=== PATIENT | male | born 1965 | race Caucasian/White ===

== ENCOUNTER 2025-02-02 09:47 | Observation (INO) | payer MEDICAID, SELFPAY ==
[2025-02-02] VITALS (75 sets, daily range): BP systolic 90–140; BP diastolic 39–81; PULSE 57–92; RESP 12–23; TEMP 36.6; O2SAT 92–94
--- NOTE | 2025-02-02 09:45 | DI.RAD_ITS ---
Exam(s) XR CHEST 2V PA LATERAL EXAM: XR CHEST 2V PA LATERAL CLINICAL HISTORY: Chest pain TECHNIQUE: 2D digital imaging was performed. Two views. COMPARISON: No exams were available for comparison FINDINGS: HEART: Normal size. Aorta: Not dilated. PULMONARY VASCULATURE: Normal. MEDIASTINUM: Unremarkable. LUNGS: Clear. PLEURAL SPACE: No pleural effusion or pneumothorax. BONE:Old left mid rib fracture. SOFT TISSUES: Unremarkable. IMPRESSION: No acute abnormality. DATA REPOSITORY: RADIATION DOSE DELIVERED:
--- NOTE | 2025-02-02 09:45 | RT.EKG_ITS ---
APPROVED REPORT Exam: Resting ECG Reason for Exam: tingling in arms Patient Location: E HR:62 bpm ECG Measurements Heart Rate 62 AXIS MN 164 P 49 QRSd 123 QRS 6 QT 420 T -26 QTc 427 Conclusion Sinus rhythm 62 normal axis no stemi
--- NOTE | 2025-02-02 10:23 | ED.GENADUL_ITS ---
Discharge Plan Disposition Patient Disposition: Admit to [facility] Condition: Stable Discharge Details Clinical Impression: Angina pectoris, unstable Primary Care Provider: None,None ED Provider: Melissa Stock Home Meds and New Rx's Prescriptions: No Action isosorbide mononitrate 30 mg tablet extended release 24 hr 30 mg PO Patient Comments: TAKE ONE TABLET BY MOUTH EVERY MORNING lisinopril 10 mg tablet Patient Comments: TAKE ONE TABLET BY MOUTH EVERY DAY albuterol sulfate 90 mcg/actuation HFA aerosol inhaler INHALATION Patient Comments: INHALE 2 PUFFS BY MOUTH EVERY 6 HOURS, NEEDED FOR SHORTNESS OF BREATH OR WHEEZING sertraline 50 mg tablet Patient Comments: TAKE ONE TABLET BY MOUTH EVERY DAY HPI General Date/Time Provider Initiated Documentation: 02/02/25 09:58 . Limitations to Documentation: no limitations . Information obtained by: patient, family and RN notes reviewed . History of Present Illness 59 year old M presents to the emergency department with the chief complaint of CP, SOB, described as moderate, Quality is described as other (tight), and is localized to the chest. Patient extremity (reports tingling in BUE when symptoms are present). Patient started experiencing this day(s) (3) and it has been intermittent. Immobilization improves symptom(s), Movement worsens symptoms . Patient notes chest pain, malaise and shortness of breath; denies cough, diaphoresis, headaches, nausea/vomiting and rash. Patient did receive the following treatments prior to arrival, none Related Data Home Medications ?Medication ?Instructions ?Recorded ?Confirmed albuterol sulfate 90 mcg/actuation inhalation 02/02/25 aerosol inhaler isosorbide mononitrate 30 mg 30 mg PO 02/02/25 tablet,extended release 24 hr Held on 02/02/25. Instructions: Pt Stopped/Never Started lisinopril 10 mg tablet mg 02/02/25 sertraline 50 mg tablet mg 02/02/25 General Stated Complaint: GenMedical ADY: 3 Review of Systems Constitutional Constitutional: Reports as per HPI, Denies chills, Denies fever(s) and Denies headache(s) Eyes Eyes: Denies change in vision ENT Ears, Nose, Mouth, and Throat: Denies dizziness and Denies headache(s) Cardiovascular Cardiovascular: Reports as per HPI Respiratory Respiratory: Reports as per HPI, Denies chest congestion, Denies cough, Denies pain on inspiration and Denies pain with cough Gastrointestinal Gastrointestinal: Reports as per HPI, Denies abdominal pain, Denies diarrhea, Denies nausea and Denies vomiting Musculoskeletal Musculoskeletal: Reports as per HPI and Denies back pain Integumentary/Breasts Skin/Breast: Reports as per HPI and Denies rash Neurologic Neurologic: Reports as per HPI, Denies dizziness and Denies headache(s) Exam Const General: cooperative, healthy appearing, comfortable, no acute distress and well developed Nutritional Appearance: well nourished and overweight Orientation: alert, awake and oriented x3 Chest Chest: normal inspection of the chest, normal palpation of entire chest wall and no crepitus Resp Effort & Inspection: normal respiratory effort, able to speak in complete sentences and no respiratory distress Auscultation: clear to auscultation bilaterally, no rales, no rhonchi and no wheezes Cardio Rate: regular rate Rhythm: regular rhythm Heart Sounds: murmur systolic GI Inspection: normal to inspection, no edema and non-distended Palpation: soft, not firm, no guarding and nontender Auscultation: normal bowel sounds Skin General skin exam: no rashes or lesions noted Trauma: no lacerations or abrasions Neuro General: patient alert, patient awake and patient oriented x3 Cognition: normal cognition Speech: speech normal Gait: normal gait Extrem General: normal to inspection, capillary refill normal, no pedal edema, no calf tenderness and normal gait Psych Appearance: grossly normal and well kempt Mental Status: mental status grossly normal Speech and Movement: speech and movement normal Mood: congruent mood Affect: sad Attitude: cooperative Thought Process: normal Thought Content: normal and suicidality Course Vital Signs Vital signs: Vital Signs Temperature 36.6 C 02/02/25 09:49 Pulse 62 02/02/25 09:49 Respiratory Rate 18 02/02/25 09:49 Blood Pressure 139/81 02/02/25 09:49 Pulse Oximetry 93 02/02/25 09:49 Temperature 36.6 C 02/02/25 09:49 Pulse 62 02/02/25 09:49 Respiratory Rate 18 02/02/25 09:49 Blood Pressure 139/81 02/02/25 09:49 Pulse Oximetry 93 02/02/25 09:49 Oxygen Delivery Method Room Air 02/02/25 09:49 Oxygen Flow Rate 0 02/02/25 09:49 Pain Level 6 02/02/25 09:49 Medical Decision Making Patient is a pleasant 59-year-old gentleman presenting with chief complaint of chest pain, shortness of breath and tingling in his bilateral upper extremities. Patient reports past medical history significant for hypertension, aortic stenosis, broken heart disease, CAD. He reports that he had a stress MRI at [facility], has paper from his PCP that reports that he has occlusion to RCA. He has started on baby ASA. States he suffered syncopal episodes- unclear how long he was down- yesterday and was seen in the [facility] ED yesterday. States that he was d/c'ed home after workup. He states that sypmtoms have been particularly bad over jerzy past 3 works, progressively worsening which is what prompts reevaluation today. He reports he could only walk very short distances at this time and then suffer with SOB and CP, takes longer time to resolve. States being seated for 15-20 minutes will help with discomfort. Pain is currently resolving. No nitro. On exam, he appears anxious but non-toxic and hemodynamically stable. He has clear lungs, systolic murmurk consistent with hx of aortic stenosis. 2+ distal pulses in all extremities, no LE edema, no abdominal pain. No pain into his back. No indication at this time for AAA or dissection. Very concerned about ACS, p ossible arrhythmia yesterday, particularly with the RCA involvement. Will augment his baby ASA. Will keep on monitor. ECG obtained and reviewed by ED physician. No STEMI. Concerned for UA vs. NSTEMI. Has appointment March 10 with cardiology. Also considered worsening aortic stenosis needing more urgent intervention. He does report, broken heart, may have had takosubo, unclear if this is still an issue for him. Of note, patient also lost his about one year ago and is very upset, supporting his family through this. No SI but clearly appears depressed, he is open to speaking with . Labs significant for troponin of 74. When he was at [facility] yesterday who appears to use the same cutoff criteria as our institution, troponin was 39. Plan for delta troponin now. Did reevaluate the patient and he reports that he has had some slight increase but seems more like pressure. He states that some of this seems to be anxiety and is open to an anxiety lytic. He does not feel like the same type of pain that he experiences with exertion. Will give half milligram of Ativan. Of note, I did review the notes from [facility] from when he had a cardiac catheterization completed last winter. At that time, they reported that they had some issues with medications as well as compliance associated with cocaine use. Patient reports that he has not used any cocaine since that event. Delta troponin remains stable. With no elevation, concerned for UA. Have consulted with [facility], requested cardiology consultation Spoke with cardiology who advised that they are concerned about his past drug use as well as compliance of his medications. She reviewed the recent PET, low flow areas consistent with previous identified blockages. She advises that he should be on Amlodipine 10, ASA, Plavix 75, Imdur 40, Atorvastatin 40, serrtraline 50 after his d/c in May. Patient has not been taking this. She recommends starting with meds. Patient had reported f/u but they also advised that he has had several no-show appointments. I expressed concerns over syncope yesterday as well as his increased symptoms regardless of starting the medications. She would liek a UDS for further evaluation. She advised aortic stenosis was also moderate when last evaluated so unlikely to cause an acute issue. [facility] advised that they would get echo, zio, start meds and monitor. Discussed recommendations with patient. He agrees to admission. He is unclear on jerzy medications he takes- will try to get an updated list from PCP if possible. Will give the medications advised. Obtaining UDS. No beds currently but will try to look for lateral transfer if none are opening up here. Consulted with hospitalist regarding admission for unstable angina, continued cardiac monitoring and plan for echo. [facility] All Active Problems (Updated 02/02/25 @ 16:53 by VALENCIA Hdez) Angina pectoris, unstable (Acute) Social History Smoking/Tobacco Use Status: Current every day Tobacco Type: cigarettes Years smoked: 41 Smoking risk assessment performed?: Yes Alcohol Intake: current Alcohol Intake frequency: a few times a month Substance use type: does not use Housing: apartment Do you feel safe at home: Yes Do you feel safe in your relationship?: Yes
[2025-02-02 10:38] LABS: Abs Immature Grans 0.04 10^3/uL (0.0-0.06); HCT 37.4 % (40.0-50.0); HGB 12.4 g/dL (13.5-17.5); Immature Grans % 0.5 %; MCH 31.0 pg (27.0-33.0); MCHC 33.2 % (32.0-36.0); MCV 94 fL (80-95); MPV 10.9 fL (8.0-11.0); Platelet Count 193 10^3/uL (130-400); RBC 4.00 10^6/uL (4.36-5.78); RDW 13.2 % (11.8-14.1); RDW-SD 45.5 fL; WBC 7.58 10^3/uL (4.4-10.8)
[2025-02-02] MEDS: Aspirin 81 MG CHEW 324 MG CH (10:41)
[2025-02-02 11:22] LABS: ALT 26 U/L (16-63); AST 18 U/L (15-37); Albumin 3.6 g/dL (3.4-5.0); Alkaline Phosphatase 122 U/L (46-116); Anion Gap 10.4 mmol/L (3-11); BUN 14 mg/dL (7-18); Bilirubin, Total 0.1 mg/dL (0.2-1.0); CO2 24.6 mmol/L (21.0-32.0); Calcium 8.7 mg/dL (8.5-10.1); Chloride 102 mmol/L (98-107); Estimated GFR 104.83 (mL/min/1.73m2); Glucose 156 mg/dL (74-106); Magnesium 2.1 mg/dL (1.8-2.4); Potassium 4.0 mmol/L (3.5-5.1); Sodium 137 mmol/L (136-145); Total Protein 7.2 g/dL (6.4-8.2); Troponin I 74 ng/L (<or=76)
[2025-02-02 11:42] LABS: Troponin I 72 ng/L (<or=76)
--- NOTE | 2025-02-02 12:00 | RT.EKG_ITS ---
APPROVED REPORT Exam: Resting ECG Reason for Exam: with trop for CP Patient Location: E HR:62 bpm ECG Measurements Heart Rate 62 AXIS [place] 162 P 55 QRSd 119 QRS 6 QT 425 T -27 QTc 431 Conclusion Sinus rhythm 62 normal axis no stemi
--- NOTE | 2025-02-02 12:30 | DI.CT_ITS ---
Exam(s) CT HEAD WO EXAM: CT HEAD WO CLINICAL HISTORY: syncope yesterday, struck head. TECHNIQUE: Imaging Protocol: Axial computed tomography images with coronal and sagittal reformatted images were created and reviewed COMPARISON: No exams were available for comparison FINDINGS: Ventricles and Extra axial spaces: Normal in size and morphology for the patient's age. Hemorrhage: None. Cerebral parenchyma: No evidence of acute infarct or mass. Moderate atrophy. Midline shift: None. Brainstem/Cerebellum: Normal. Bones: No skull or facial fractures. Visualized Paranasal sinuses:Clear. Mastoids: Clear. Soft Tissues: Unremarkable. ORBITS: Unremarkable. PITUITARY: Not enlarged. IMPRESSION: No acute intracranial process. RADIATION DOSE DELIVERED: 879.53mGy.cm Total DLP DATA REPOSITORY: All CT scans at this facility are submitted to the National Radiology Data Registry (NRDR) Dose Index Registry (DIR) with the [employer] (A[employer]). RADIATION OPTIMIZATION: All CT scans at this facility use at least one of these dose optimization techniques: automated exposure control; mA and/or kV adjustment per patient size (includes targeted exams where dose is matched to clinical indication); or iterative reconstruction.
[2025-02-02] MEDS: LORazepam 20 MG/10 ML VIAL IVP (12:51)
[2025-02-02 14:47] LABS: Troponin I 66 ng/L (<or=76)
[2025-02-02] MEDS: Clopidogrel 75 MG TAB PO (15:15)
[2025-02-02] MEDS: Atorvastatin 40 MG TAB PO (15:15)
[2025-02-02] MEDS: amLODIPine 10 MG TAB PO (15:35)
[2025-02-02] MEDS: Isosorbide Mononitrate 30 MG TABCR PO (15:35)
--- NOTE | 2025-02-02 15:54 | W.PM.HP.N ---
Date of service: 02/02/25 Time of Service: 15:00 Assessment and Plan Assessment and plan (1) Angina pectoris, unstable: Status: Acute Assessment and plan: Symptoms consistent with unstable angina Appreciate recommendations from [facility] Will monitor on telemetry Echo ordered Restarted home medications (2) RCA occlusion: Status: Acute Assessment and plan: PCI at [facility] last year Patient was lost to followup Interventions were intended to be limited to medical management (3) Benign essential hypertension: Status: Acute Assessment and plan: Restarted ACEI, beta alaina, statin Will restart nitrate in the morning (4) Major depression, recurrent, chronic: Status: Acute Assessment and plan: Continue home sertraline History of Present Illness History of Present Illness Chief Complaint: chest pain, dyspnea Narrative: Agatha Lua is a 59 year old man presenting February 02 with chest pain and shortness of breath. He also reports tingling in both arms when the pain in his chest is bad. He has had these symptoms for 3 weeks, intermittently, and they are worse with movement. He reports passing out a few times, most recently yesterday, and he was seen in the [facility] ED. He has a recent history of cardiac catheterization at [facility], where his RCA was found to be fully occluded; he recalls being told he has broken heart syndrome. He also has known aortic stenosis. He denies abdominal pain, denies N/V/D. His a year ago and he has been struggling. He has not been taking his medications. In the ED, exam noted systolic murmur. Troponin elevated 74, up from 39 in [facility] ED. No further increase on repeat troponin. [facility] was contacted and advised restarting medications, echocardiogram and monitoring on telemetry, as well as UDS. PFSH All Active Problems (Updated 02/02/25 @ 19:06 by Benjie Chauhan MD) Major depression, recurrent, chronic (Acute) Benign essential hypertension (Acute) RCA occlusion (Acute) Angina pectoris, unstable (Acute) Social History Smoking/Tobacco Use Status: Current every day Tobacco Type: cigarettes Years smoked: 41 Smoking risk assessment performed?: Yes Alcohol Intake: current Alcohol Intake frequency: a few times a month Substance use type: does not use Housing: apartment Do you feel safe at home: Yes Do you feel safe in your relationship?: Yes Meds Allergies and Home Medications Home Medications ?Medication ?Instructions ?Recorded ?Confirmed ?Type albuterol sulfate 90 mcg/actuation inhalation 02/02/25 History aerosol inhaler isosorbide mononitrate 30 mg 30 mg PO 02/02/25 History tablet,extended release 24 hr Held on 02/02/25. Instructions: Pt Stopped/Never Started lisinopril 10 mg tablet mg 02/02/25 History sertraline 50 mg tablet mg 02/02/25 History Exam Narrative Exam Narrative: General: This is an anxious man, sad-appearing, in no acute distress HEENT: Normocephalic, atraumatic CV: RRR with 2/6 systolic murmur Resp: CTAB Abd: NTND +NBS MSK: normal tone, voluntary motion x4, distal pulses palpable Neuro: Awake and alert without focal deficits Results Imaging Imaging Studies: * * * * * EXAM: XR CHEST 2V PA LATERAL IMPRESSION: No acute abnormality. Dictated By: Brittany Schmitt M.D. 02/02/25 1139 * * * * * EXAM: CT HEAD WO IMPRESSION: No acute intracranial process. Dictated By: Brittany Schmitt M.D. 02/02/25 1416 * * * * * Labs 02/02/25 10:30 02/02/25 10:30 Labs: Laboratory Results - last 24 hr 02/02/25 02/02/25 02/02/25 10:30 11:15 14:18 WBC 7.58 RBC 4.00 L Hgb 12.4 L Hct 37.4 L MCV 94 MCH 31.0 MCHC 33.2 RDW 13.2 Plt Count 193 MPV 10.9 Immature Gran % 0.5 Neutrophils % 59.2 Lymphocytes % 27.8 Monocytes % 9.8 Eosinophils % 2.0 Basophils % 0.7 Nucleated RBC % 0.0 Absolute Neutrophils 4.49 Absolute Lymphocytes 2.11 Absolute Monocytes 0.74 Absolute Eosinophils 0.15 Absolute Basophils 0.05 Sodium 137 Potassium 4.0 Chloride 102 Carbon Dioxide 24.6 Anion Gap 10.4 BUN 14 Creatinine 0.7 Est GFR (CKD-EPI 2020) 104.83 Glucose 156 H Calcium 8.7 Magnesium 2.1 Total Bilirubin 0.1 L AST 18 ALT 26 Alkaline Phosphatase 122 H Troponin I 74 72 66 Total Protein 7.2 Albumin 3.6 Last Vital Signs Temp 36.6 C 02/02/25 10:18 Pulse 62 02/02/25 10:18 Resp 18 02/02/25 10:19 BP 139/81 02/02/25 10:18 Pulse Ox 93 02/02/25 10:18 Time Spent Time spent with Patient: 40-54 minutes Time was spent: preparing to see the patient(eg.review tests), obtaining and/or reviewing separately otained hiistory, ordering medications,tests, procedures, referring, communicating with other health child care development specialist, indepentently interpreting results, counseling the patient and care coordination
[2025-02-02 16:22] LABS: Glucose Negative (Negative)
[2025-02-02 16:38] LABS: Cannabinoids THC Negative (Negative); METHADONE URINE SCREEN Negative (Negative)
[2025-02-03] VITALS (68 sets, daily range): BP systolic 109–155; BP diastolic 47–73; PULSE 52–91; RESP 9–29; TEMP 36.9; O2SAT 92–98
--- NOTE | 2025-02-03 | DI.US_ITS ---
APPROVED REPORT EXAM: Comprehensive 2D, Doppler, and color-flow Echocardiogram Patient Location: ER Room/Bed: 4 Licensed Social Worker: Gladys Almaraz RDCS (AE) Other Information Study Quality: Fair. Technically limited study due to body habitus, smoker. Conclusion Moderate concentric left ventricular hypertrophy. Ejection fraction is 55%. Wall motion is normal Normal right ventricular size and function Mildly dilated left atrium. Normal right atrial size Aortic valve is calcified. Number of aortic valve leaflets could not be determined. There is moderate aortic stenosis. Peak gradient is 34, mean 22 mmHg. Calculated aortic valve area is 1.2 cm??. There is mild aortic regurgitation Mitral annular calcification, trace mitral regurgitation Ascending aorta measures 3.63 cm Wall motion Left Ventricle The left ventricle is normal size. The left ventricular systolic function is normal. The left ventricular ejection fraction is within the normal range. Moderate concentric left ventricular hypertrophy. There is normal LV segmental wall motion. There is no ventricular septal defect visualized. LVEF is 55%. Right Ventricle The right ventricle is normal size. The right ventricular systolic function is normal. Atria Left atrium is mildly dilated. The right atrium size is normal. The interatrial septum is intact with no evidence for an atrial septal defect. Aortic Valve Aortic valve is calcified. Number of aortic valve leaflets could not be assessed. Moderate aortic stenosis. Highest mean aortic valve gradient is 22.11mmHg. Peak aortic valve gradient is 33.76mmHg. Calculated KATHRYN by the continuity equation is 1.2cm2. Mild aortic regurgitation. Mitral Valve Mild mitral annular calcification. No evidence of mitral valve stenosis. Trace mitral regurgitation. Tricuspid Valve The tricuspid valve is normal in structure. There is no tricuspid valve stenosis. Trace tricuspid regurgitation. Unable to assess PA pressure. Pulmonic Valve The pulmonary valve is normal in structure. There is no pulmonic valvular stenosis. Mild pulmonic regurgitation. Great Vessels The aortic root is normal in size. The ascending aorta is mildly dilated. Aortic arch is not well visualized. IVC is normal in size and collapses >50% with inspiration. Pericardium There is no pericardial effusion. 2D Dimensions IVSD d PLAX 1.40 cm M: 0.6-1.2 Ao Root d 3.47 cm M: 3.1 - 3.7 LVPW d PLAX 1.40 cm M: 0.6 - 1.2 Ao Asc Diam d 3.63 cm M: 2.6 - 3.4 LVID d PLAX 5.30 cm M: 4.2 - 5.8 LVDs 3.80 cm M: 2.5 - 4.0 LV EF Teichholz 53.9 % FS 28.08 % LV EDV (Teich) 132.5 mL LV ESV (Teich) 61.1 mL M-Mode TAPSE 2.83 cm (M/F) >1.7 Auto EF LV EDV A4C 212.6 mL LV EDV A2C 195.1 mL LV EDV BP 203.5 mL LV ESV A4C 96.4 mL LV ESV A2C 88.3 mL LV ESV BP 93.9 mL LVEF(%) A4C 54.7 % LVEF(%) A2C 54.7 % LVEF(%) BP 53.9 % LV SV A4C 116.2 ml LV SV A2C 106.8 ml LV SV BP 109.6 ml LV CO A4C 7.7 L/min LV CO A2C 6.8 L/min LV CO BP 7.2 L/min HR A4C 66.03 BPM HR A2C 63.84 BPM LV EDV Index (BP) LA Volume LA Length A4C 4.7 cm LA Length A2C 4.7 cm LA Area A4C s 20.54 cm2 LA Area A2C s 20.10 cm2 LA Vol A4C A-L 76.85 mL LA Vol A2C A-L 72.60 mL LA Vol Biplane A-L 75.2 mL LA Vol/BSA A4C A-L LA Vol/BSA A2C A-L LA Vol/BSA BP A-L 36.5 mL/m2 LA Vol A4C MOD 72.2 mL LA Vol A2C MOD 66.3 mL LA Vol BP MOD 69.5 mL RA Volume RA Area A4C 14.0 cm2 RA ESV A4C (A-L) 40.3mL RA Vol/BSA A4C A-L RA Length A4C 4.1 cm RA ESV A4C (MOD) 38.0mL LV Diastology MV E' medial 0.065 (>0.07 m/s) MV E Vmax 0.75 (0.4-1.3 m/s) MV E/E' MED 11.55 (<14) MV A Vmax 0.90 (0.4-1.3 m/s) MV E' lateral 0.067 (>0.1 m/s) E/A Ratio 0.8 MV E/E' LAT 11.24 (<14) MV E' Average 0.066 m/s MV E/E'(average) 11.39 Aortic Valve AoV Vmax 2.91 m/s LVOT Vmax 0.89 m/s AoV Peak Grad 33.8 mmHg LVOT Peak Grad 3.1 mmHg AoV Area (Vmax) 1.24 cm2 LVOT VTI 0.223 m AoV VTI 0.692 m LVOT Mean Grad 1.9 mmHg AoV Mean Flako. 2.25 m/s LVOT SV 90.35 mL AoV Mean Grad 22.1 mmHg LVOT Diam s 2.25 cm AoV Area (VTI) 1.31 cm2 AV Regurg Peak Gr. 33.76 mmHg Velocity Ratio 0.31 Mitral Valve MV DT 233 (160-240 msec) MV Vmax TIPS 0.93 m/s MV Mean Grad 1.4 (<2mmHg) MV VTI 0.390 m Pulmonary Valve PV Vmax 1.16 (0.5-1.5 m/s) RVOT Vmax 0.68 m/s PV Peak Grad 5.4 mmHg RVOT Peak Gr. 1.8 mmHg PV Mean Flako 0.91 m/s RVOT VTI 0.133 m PV Mean Grad 3.4 mmHg RVOT Mean Gr. 1.4 mmHg Tricuspid Valve TV S' 0.16 m/s
[2025-02-03] MEDS: Enoxaparin 40 MG/0.4 ML SYR SC (08:12)
[2025-02-03] MEDS: Lisinopril 10 MG TAB PO (08:12)
[2025-02-03] MEDS: Metoprolol CR 25 MG TABCR PO (08:12)
[2025-02-03] MEDS: LORazepam 0.5 MG TAB PO (08:12)
[2025-02-03] MEDS: Aspirin 81 MG CHEW PO (08:13)
[2025-02-03 08:20] LABS: HCT 34.5 % (40.0-50.0); HGB 11.6 g/dL (13.5-17.5); MCH 31.6 pg (27.0-33.0); MCHC 33.6 % (32.0-36.0); MCV 94 fL (80-95); MPV 11.4 fL (8.0-11.0); Platelet Count 176 10^3/uL (130-400); RBC 3.67 10^6/uL (4.36-5.78); RDW 13.2 % (11.8-14.1); RDW-SD 45.5 fL; WBC 6.14 10^3/uL (4.4-10.8)
[2025-02-03 08:27] LABS: ALT 22 U/L (16-63); AST 17 U/L (15-37); Albumin 3.2 g/dL (3.4-5.0); Alkaline Phosphatase 99 U/L (46-116); Anion Gap 6.8 mmol/L (3-11); BUN 16 mg/dL (7-18); Bilirubin, Total 0.3 mg/dL (0.2-1.0); CO2 27.2 mmol/L (21.0-32.0); Calcium 8.8 mg/dL (8.5-10.1); Chloride 106 mmol/L (98-107); Estimated GFR 104.83 (mL/min/1.73m2); Glucose 127 mg/dL (74-106); Magnesium 2.1 mg/dL (1.8-2.4); Potassium 4.1 mmol/L (3.5-5.1); Sodium 140 mmol/L (136-145); Total Protein 6.6 g/dL (6.4-8.2)
[2025-02-03] MEDS: Nicotine 21 MG/24 HR PATCH TD (10:44)
[2025-02-03] MEDS: Acetaminophen 325 MG TAB 650 MG PO (10:44)
--- NOTE | 2025-02-03 13:16 | W.PC.ACHO ---
Registration Status: ADM KEYANNA Primary Language: Preferred Language: ED Information & Data Chief Complaint GenMedical 02/02/25 10:31 Triage Note pt with c/o bilateral arm 02/02/25 09:49 tingling onset 3 weeks ago pt states intermittent pt seen by primary care diagnosed blockage in RCA pt also c/o nausea and sob Most Recent Vital Signs Temperature 36.6 C 02/02/25 10:18 Temperature Source Oral 02/02/25 10:18 Pulse 74 02/03/25 12:59 Pulse 66 02/03/25 09:36 Respiratory Rate 16 02/03/25 12:59 Respiratory Effort Normal, Non-Labored 02/02/25 10:19 Respiratory Depth Normal 02/02/25 10:19 Respiratory Pattern Normal 02/02/25 10:19 Blood Pressure 133/60 02/03/25 12:59 Blood Pressure Mean 84 02/03/25 12:59 Blood Pressure Position Sitting 02/02/25 10:18 Pulse Oximetry 96 02/03/25 12:59 Oxygen Delivery Method Room Air 02/03/25 12:59 Oxygen Flow Rate 0 02/03/25 12:59 Pain Level 7 02/03/25 08:12 Active Medications Generic Name Dose Route Start Last Admin Trade Name Freq PRN Reason Stop Dose Admin Acetaminophen 650 mg 02/02/25 15:40 02/03/25 10:44 Acetaminophen 325 Mg Tab PO 650 mg Q4H PRN PRN Administration Aspirin 81 mg 02/03/25 08:30 02/03/25 08:13 Aspirin 81 Mg Chew PO 81 mg DAILY HEATHER Administration Atorvastatin Calcium 20 mg 02/02/25 20:00 02/02/25 21:49 Atorvastatin 20 Mg Tab PO Not Given QPM HEATHER Enoxaparin Sodium 40 mg 02/03/25 08:30 02/03/25 08:12 Enoxaparin 40 Mg/0.4 Ml Syr SC 40 mg DAILY HEATHER Administration Lisinopril 10 mg 02/03/25 08:30 02/03/25 08:12 Lisinopril 10 Mg Tab PO 10 mg QAM HEATHER Administration Metoprolol Succinate 25 mg 02/03/25 08:30 02/03/25 08:12 Metoprolol Cr 25 Mg Tabcr PO 25 mg DAILY HEATHER Administration Sodium Chloride 0 ml 02/02/25 20:00 02/03/25 09:27 Normal Saline Flush 10 Ml Syr IVP Not Given BID COUNT INCLUDES THE [facility] IV IV Catheter Type [Left Saline Lock Antecubital] IV Catheter Gauge [Left 18 Antecubital] Diagnostics 02/03/25 02/02/25 02/02/25 Range/Units 07:20 14:54 14:18 WBC 6.14 (4.4-10.8) 10^3/uL RBC 3.67 L (4.36-5.78) 10^6/uL Hgb 11.6 L (13.5-17.5) g/dL Hct 34.5 L (40.0-50.0) % MCV 94 (80-95) fL MCH 31.6 (27.0-33.0) pg MCHC 33.6 (32.0-36.0) % RDW 13.2 (11.8-14.1) % Plt Count 176 (130-400) 10^3/uL MPV 11.4 H (8.0-11.0) fL Sodium 140 (136-145) mmol/L Potassium 4.1 (3.5-5.1) mmol/L Chloride 106 (98-107) mmol/L Carbon Dioxide 27.2 (21.0-32.0) mmol/L Anion Gap 6.8 (3-11) mmol/L BUN 16 (7-18) mg/dL Creatinine 0.7 (0.70-1.30) mg/dL Est GFR (CKD-EPI 2020) 104.83 (mL/min/1.73m2) Glucose 127 H (74-106) mg/dL Calcium 8.8 (8.5-10.1) mg/dL Magnesium 2.1 (1.8-2.4) mg/dL Total Bilirubin 0.3 (0.2-1.0) mg/dL AST 17 (15-37) U/L ALT 22 (16-63) U/L Alkaline Phosphatase 99 (46-116) U/L Troponin I 66 (<or=76) ng/L Total Protein 6.6 (6.4-8.2) g/dL Albumin 3.2 L (3.4-5.0) g/dL Urine Color Yellow (Yellow) Urine Clarity Clear (Clear) Urine pH 6.0 (5-8) Ur Specific [place] 1.010 (1.005-1.025) Urine Protein Negative (Neg-Trace) mg/dL Urine Ketones Negative (Negative) mg/dL Urine Blood Negative (Negative) Urine Nitrite Negative (Negative) Urine Bilirubin Negative (Negative) Urine Urobilinogen 0.2 (Up to 0.2) mg/dL Ur Leukocyte Esterase Negative (Negative) Urine Glucose Negative (Negative) mg/dL Urine Opiates Screen Negative (Negative) Urine Methadone Screen Negative (Negative) Ur Barbiturates Screen Negative (Negative) Ur Tricyclics Screen Negative (Negative) Ur Amphetamines Screen Negative (Negative) U Benzodiazepines Scrn Negative (Negative) Urine Cocaine Screen Positive A (Negative) Ur THC Screen Negative (Negative) Intake and Output - 24 Hour Total 02/02/25 09:47 thru 02/02/25 09:49 Weight 89.811 kg Falls Risk Assessment History of Falls No History 02/02/25 10:19 Contributing Factors No Factors 02/02/25 10:19 Ambulatory Aids Independent 02/02/25 10:19 Tubes/Lines None 02/02/25 10:19 Gait Evaluation No gait disturbance 02/02/25 10:19 Cognition No cognitive impairment 02/02/25 10:19 Fall Total Score 0 02/02/25 10:19 Level of Risk Standard/Low Risk 02/02/25 10:19 Problems Major depression, recurrent, chronic (Acute) Benign essential hypertension (Acute) RCA occlusion (Acute) Angina pectoris, unstable (Acute) v v v v v v v v v Sending and/or Receiving Nurses: Please use comment section below to note any information pertinent to the patient hand-off not included above. Information / Comments: Report received from: muriel
--- NOTE | 2025-02-03 14:16 | PDOC.CMIN ---
Date of service: 02/03/25 Time of Service: 14:16 Care Management Initial Assmt Advance Directives Advance Directives: Do you have an Advance Directive: N 02/02/25, 09:48 AD On File at [facility]: N 02/02/25, 09:48 Date Asked 02/02/25 02/02/25, 09:53 AD Date Reviewed COLST On File at [facility] COLST Date Scanned Code Status Resuscitation Status Full Code Care Team Visit Care Team Role Provider Type None None Primary Care Provider NON-[facility] STAFF PHYSICIAN VALENCIA Hdez Emergency Provider [facility] Benjie Chauhan MD Admit Provider [facility] STAFF PHYSICIAN Attending Provider Social Determinants of Health Screening Social Determinants of health last assessed in clinic: 02/03/25 Will the Patient Participate in the Screening?: Yes Do you worry about having a steady place to live?: no Problems where you live: no known problems In the past 12 months, have you had to go without electric, gas, oil or water in your home?: no Has lack of transportation kept you from medical appointments or from doing things needed for daily living?: yes Has anyone in your life made you feel unsafe or unsupported?: no How hard is it for you to pay for the very basics like food, housing, medical care, and heating? Would you say it is:: Somewhat hard Do you want help finding or keeping work or a job?: I do not need or want help If for any reason you need help with day-to-day activities such as bathing, preparing meals, shopping, managing finances, etc., do you get the help you need?: I don?t need any help How often do you feel lonely or isolated from those around you?: Never Do you speak a language other than Mongolian at home?: No Health Related Social Needs Health related social needs: transportation insecurity (Z59.82) and problems related to housing/economic circumstances (Z59.89) Health related social needs details: sometimes unable to get food and transportation but has help when unable to access it (friend in room) PFSH All Active Problems (Updated 02/02/25 @ 19:06 by Benjie Chauhan MD) Major depression, recurrent, chronic (Acute) Benign essential hypertension (Acute) RCA occlusion (Acute) Angina pectoris, unstable (Acute) Social History Smoking/Tobacco Use Status: Current every day Tobacco Type: cigarettes Years smoked: 41 Smoking risk assessment performed?: Yes Alcohol Intake: current Alcohol Intake frequency: a few times a month Substance use type: does not use Housing: apartment Do you feel safe at home: Yes Do you feel safe in your relationship?: Yes
--- NOTE | 2025-02-03 14:57 | W.PM.DS.N ---
Date of service: 02/03/25 Time of Service: 15:00 DS: Diagnosis Discharge Diagnosis (1) Angina pectoris, unstable: Status: Acute Asessment and Plan: Symptoms consistent with unstable angina Appreciate recommendations from [facility] No events on telemetry overnight No new disease on echocardiogram Patient has been restarted on his home medications per [facility] recommendation Patient strongly advised to follow up with [facility] cardiology and not miss scheduled appointments (2) RCA occlusion: Status: Acute Asessment and Plan: CI at [facility] last year Patient was lost to followup Interventions were intended to be limited to medical management (3) Benign essential hypertension: Status: Acute Asessment and Plan: Restarted ACEI, beta alaina, statin, nitrate Advised patient to take medications as directed and to see his superintendent storage area at [facility] (4) Major depression, recurrent, chronic: Status: Acute Asessment and Plan: Continue home sertraline Discharge Plan Disposition Patient Disposition: Home Condition: Improving Discharge Details Reason For Visit: Takotsubo Admit Date/Time: 02/02/25 15:41 Admit Provider: Benjie Chauhan Attending Provider: Benjie Chauhan Primary Care Provider: None,None Hospital Course Hospital Course: Agatha Lua is a 59 year old man presenting February 02 with chest pain and shortness of breath. He has a history of Takotsubo and known RCA occlusion, with PCI at [facility]. On advice of [facility] cardiology, he was monitored overnight on telemetry without events, his echocardiogram revealed no new disease, and his home medications were restarted. He is without symptoms and wants to go home. He will followup with his superintendent storage area at [facility]. Home Meds and New Rx's Prescriptions: New atorvastatin 20 mg Tablet 20 mg PO QPM Qty: 30 0RF aspirin 81 mg Tablet,Chewable 81 mg PO DAILY Qty: 30 0RF metoprolol succinate 25 mg Tablet Extended Release 24 Hr 25 mg PO DAILY Qty: 30 0RF Continued isosorbide mononitrate 30 mg tablet extended release 24 hr 30 mg PO ONCE Patient Comments: TAKE ONE TABLET BY MOUTH EVERY MORNING lisinopril 10 mg tablet 10 mg PO DAILY Patient Comments: TAKE ONE TABLET BY MOUTH EVERY DAY albuterol sulfate 90 mcg/actuation HFA aerosol inhaler 2 inh INHALATION Q6H PRN Patient Comments: INHALE 2 PUFFS BY MOUTH EVERY 6 HOURS, NEEDED FOR SHORTNESS OF BREATH OR WHEEZING sertraline 50 mg tablet 50 mg PO DAILY Patient Comments: TAKE ONE TABLET BY MOUTH EVERY DAY Discharge Instructions Stand Alone Forms: Nursing Discharge Form Referrals: [facility] [Provider Group] Referral Note: I called your PCP office and left a voicemail for them to call you to make a follow up appointment. CARDIOLOGY,[facility] [OTHER, Cardiology] Referral Note: Please follow up with superintendent storage area to make an appointment. Activity:: Activity as Tolerated Equipment/Supplies:: No Equipment Needed Diet:: As Tolerated Discharge Orders Discharge Orders: Discharge Order (Routine); Ordered 02/03/25 Ordered By: Benjie Chauhan Discharge Data Discharge Date/Time-TO BE ENTERED AT DEPARTURE: 02/03/25 15:50 DS: Summary Time Spent with Patient providing and/or coordinating discharge services: Less than 30 minutes Status at Discharge Functional status at discharge: independent ambulation Overall status at discharge: patient is back to baseline Mental Status: mental status grossly normal Speech and Movement: speech and movement normal Mood: anxious mood and dysthymic mood Affect: dysphoric affect and blunted Quality:SDOH Health Related Social Needs: Health related social needs food insecurity transpo insecurity house/econ circumstance Health related social needs details sometimes unable to get food and transportation but has help when unable to access it (friend in room) Health related social needs details: sometimes unable to get food and transportation but has help when unable to access it (friend in room) Exam Narrative Exam Narrative: General: This is a pleasant man in no acute distress HEENT: Normocephalic, atraumatic CV: RRR with 2/6 systolic murmur Resp: CTAB Abd: NTND +NBS MSK: normal tone, voluntary motion x4, distal pulses palpable Neuro: Awake and alert without focal deficits Psych Mental Status: mental status grossly normal Speech and Movement: speech and movement normal Mood: anxious mood and dysthymic mood Affect: dysphoric affect and blunted DS: Data Vitals/I&O Vitals and I&O: Vital Signs Temperature 36.9 C 02/03/25 13:24 Temperature Source Oral 02/02/25 10:18 Pulse 70 02/03/25 13:24 Pulse Rhythm Regular 02/03/25 13:24 Pulse 66 02/03/25 09:36 Respiratory Rate 20 02/03/25 13:24 Respiratory Effort Normal 02/03/25 13:24 Respiratory Depth Normal 02/03/25 13:24 Respiratory Pattern Normal 02/03/25 13:24 Blood Pressure 128/60 02/03/25 13:24 Blood Pressure Mean 84 02/03/25 12:59 Blood Pressure Position Sitting 02/02/25 10:18 Pulse Oximetry 98 02/03/25 13:24 Oxygen Delivery Method Room Air 02/03/25 13:24 Oxygen Flow Rate 0 02/03/25 13:24 Pain Level 6 02/03/25 13:24 Intake & Output 02/02/25 02/03/25 02/03/25 23:59 11:59 23:59 Output Total 500 / 500 Balance -500 / -500 Weight 89 kg Output: Urine 500 / 500 Other: Urine Color Yellow Urine Appearance Cloudy Urine Odor Normal Data Completed and Pending Completed studies during hospitalization [Text1]: * * * * * EXAM: XR CHEST 2V PA LATERAL IMPRESSION: No acute abnormality. Dictated By: Brittany Schmitt M.D. 02/02/25 1139 * * * * * EXAM: CT HEAD WO IMPRESSION: No acute intracranial process. Dictated By: Brittany Schmitt M.D. 02/02/25 1416 * * * * * EXAM: Comprehensive 2D, Doppler, and color-flow Echocardiogram Date of Exam: 02/03/25 Conclusion Moderate concentric left ventricular hypertrophy. Ejection fraction is 55%. Wall motion is normal Normal right ventricular size and function Mildly dilated left atrium. Normal right atrial size Aortic valve is calcified. Number of aortic valve leaflets could not be determined. There is moderate aortic stenosis. Peak gradient is 34, mean 22 mmHg. Calculated aortic valve area is 1.2 cm??. There is mild aortic regurgitation Mitral annular calcification, trace mitral regurgitation Ascending aorta measures 3.63 cm * * * * * Labs on day of discharge: Labs from last 24 hours 02/03/25 02/02/25 07:20 14:54 WBC 6.14 RBC 3.67 L Hgb 11.6 L Hct 34.5 L MCV 94 MCH 31.6 MCHC 33.6 RDW 13.2 Plt Count 176 MPV 11.4 H Sodium 140 Potassium 4.1 Chloride 106 Carbon Dioxide 27.2 Anion Gap 6.8 BUN 16 Creatinine 0.7 Est GFR (CKD-EPI 2020) 104.83 Glucose 127 H Calcium 8.8 Magnesium 2.1 Total Bilirubin 0.3 AST 17 ALT 22 Alkaline Phosphatase 99 Total Protein 6.6 Albumin 3.2 L Urine Color Yellow Urine Clarity Clear Urine pH 6.0 Ur Specific [place] 1.010 Urine Protein Negative Urine Ketones Negative Urine Blood Negative Urine Nitrite Negative Urine Bilirubin Negative Urine Urobilinogen 0.2 Ur Leukocyte Esterase Negative Urine Glucose Negative Urine Opiates Screen Negative Urine Methadone Screen Negative Ur Barbiturates Screen Negative Ur Tricyclics Screen Negative Ur Amphetamines Screen Negative U Benzodiazepines Scrn Negative Urine Cocaine Screen Positive A Ur THC Screen Negative PFSH All Active Problems (Updated 02/04/25 @ 00:03 by RAMON JACOBO) Major depression, recurrent, chronic (Acute) Benign essential hypertension (Acute) RCA occlusion (Acute) Angina pectoris, unstable (Acute) Social History Smoking/Tobacco Use Status: Current every day Tobacco Type: cigarettes Years smoked: 41 Smoking risk assessment performed?: Yes Alcohol Intake: current Alcohol Intake frequency: a few times a month Substance use type: does not use Housing: apartment Do you feel safe at home: Yes Do you feel safe in your relationship?: Yes Time Spent with Patient Time Spent with Patient: <45 minutes Time was spent: preparing to see the patient(eg.review tests), obtaining and/or reviewing separately otained hiistory, ordering medications,tests, procedures, referring, communicating with other health career coach, indepentently interpreting results, counseling the patient and care coordination
== END 2025-02-03 15:50 | disposition home or self-care (01) ==
LOC: ER 16:53 → EDHOLD 18:26 → MS 02-03 13:31
PROVIDERS: Admitting Provider Family Medicine; Emergency Provider Physician Assistant; Responsible Provider Family Medicine; Visit Provider Family Medicine
DX: I25.110 Atherosclerotic heart disease of native coronary artery with unstable angina pectoris (principal); R06.02 Shortness of breath; R20.2 Paresthesia of skin; I10 Essential (primary) hypertension; F33.9 Major depressive disorder, recurrent, unspecified; Z79.899 Other long term (current) drug therapy; R55 Syncope and collapse; I35.2 Nonrheumatic aortic (valve) stenosis with insufficiency; F17.210 Nicotine dependence, cigarettes, uncomplicated; Z95.5 Presence of coronary angioplasty implant and graft
CPT/HCPCS: 00123; 36415; 80053; 80307; 85027; 93005; 93306; 96372; 96374; 99285; J1650; 70450; 71046; 81003; 83735; 84484; 85025; 93010; 99222; 99238; G0378; J2060

== ENCOUNTER 2025-02-04 12:50 | Emergency (ER) | payer MEDICAID, SELFPAY ==
[2025-02-04] VITALS (19 sets, daily range): BP systolic 100–142; BP diastolic 52–75; PULSE 82–102; RESP 12–26; TEMP 36.9; O2SAT 94–98
--- NOTE | 2025-02-04 13:15 | RT.EKG_ITS ---
APPROVED REPORT Exam: Resting ECG Reason for Exam: Chest heaviness Patient Location: E HR:89 bpm ECG Measurements Heart Rate [address] 157 P 63 QRSd 122 QRS 26 QT 366 T -36 QTc 445 Conclusion Sinus rhythm...normal P axis, V-rate 60- 99 Probable left atrial enlargement...P >50mS, <-0.10mV V1 Nonspecific intraventricular conduction delay...QRSd >115mS, not LBBB/RBBB Inferior infarct, age indeterminate...Q>35mS, T neg, II III aVF No Occlusion MA
--- NOTE | 2025-02-04 15:00 | DI.RAD_ITS ---
Exam(s) XR CHEST 2V PA LATERAL EXAM: XR CHEST 2V PA LATERAL CLINICAL HISTORY: chest pain. TECHNIQUE: 2D digital imaging was performed. COMPARISON: CR XR CHEST 2V PA LATERAL from 02/02/2025 FINDINGS: 2 views: Anterior fusion plate in the lower cervical spine again noted. Heart size is normal. The mediastinum is not widened. Lungs are clear. No infiltrates nor pleural effusions. IMPRESSION: No acute pulmonary findings. DATA REPOSITORY: RADIATION DOSE DELIVERED:
--- NOTE | 2025-02-04 15:01 | ED.GENADUL_ITS ---
Discharge Plan Disposition Patient Disposition: Home Condition: Stable Discharge Details Clinical Impression: Chest pain, Aneurysm, thoracic aortic Primary Care Provider: None,None ED Provider: Jumana Onofre Home Meds and New Rx's Prescriptions: Continued isosorbide mononitrate 30 mg tablet extended release 24 hr 30 mg PO ONCE Patient Comments: TAKE ONE TABLET BY MOUTH EVERY MORNING lisinopril 10 mg tablet 10 mg PO DAILY Patient Comments: TAKE ONE TABLET BY MOUTH EVERY DAY albuterol sulfate 90 mcg/actuation HFA aerosol inhaler 2 inh INHALATION Q6H PRN Patient Comments: INHALE 2 PUFFS BY MOUTH EVERY 6 HOURS, NEEDED FOR SHORTNESS OF BREATH OR WHEEZING sertraline 50 mg tablet 50 mg PO DAILY Patient Comments: TAKE ONE TABLET BY MOUTH EVERY DAY atorvastatin 20 mg Tablet 20 mg PO QPM Qty: 30 0RF aspirin 81 mg Tablet,Chewable 81 mg PO DAILY Qty: 30 0RF metoprolol succinate 25 mg Tablet Extended Release 24 Hr 25 mg PO DAILY Qty: 30 0RF Discharge Instructions Instructions: Chest Pain (DC) Additional Instructions: On all your prescribed medications, this is very important Follow up with [facility] at your scheduled appointment, please do not miss this appointment Please return should you have new or worsening complaints Please take a calcium supplement with vitamin D daily, start this tomorrow Discharge Data Discharge Date/Time-TO BE ENTERED AT DEPARTURE: 02/04/25 17:29 HPI <Dagmar Patino - Last Filed: 02/04/25 16:35> General Date/Time Provider Initiated Documentation: 02/04/25 14:05 . HPI Narrative: Agatha is a 59-year-old male who presents to the emergency department today for evaluation of chest pain accompanied by headache and shortness of breath. He reports that this has been ongoing for the last 3 weeks, he was recently admitted to the hospital, discharged yesterday after being absent overnight on telemetry and having an echo. Chest pain is described as sternal radiating to the left shoulder/arm and across to right shoulder. Most recent episode has lasted 45 minutes, he says that this occurs all time of day. Headache has been persistent for the last 3 weeks. He was diagnosed with RCA occlusion and Takotsubo cardiomyopathy. He also reports right lower quadrant abdominal discomfort that has been ongoing for the last 3 days, worsened today. He denies fever/chills, congestion, sore throat, vision changes, cough, nausea/vomiting, change in p.o. intake, change in bowel or bladder function, pedal edema. He does smoke tobacco. Physical exam reassuring. Agatha is alert and oriented, in no acute distress. Easy work of breathing, faint end expiratory wheezes noted in upper lung sweeney. Regular rate and rhythm, murmur noted. Abdomen is soft, nondistended, mild tenderness to palpation in right lower quadrant. No pedal edema D/dx includes but is not limited to: ACS/unstable angina, COPD exacerbation, pleural effusion, PNA, PE, diverticulitis, colitis, appendicitis, dehydration, electrolyte imbalance, anxiety, viral illness, UTI I independently interpreted the following tests: EKG shows normal sinus rhythm rate 89, no changes consistent with acute ischemia, normal intervals. CBC, CMP, troponins all reassuring. Discussed case with , hospitalist. She is aware that patient has bounced back after recent discharge. CTA pending. While in the emergency department Sandie was given DuoNeb and Ativan for anxiolysis. He reports full improvement of chest pain. Handoff report given to VALENCAI Weeks, evening NANO. Related Data Home Medications ?Medication ?Instructions ?Recorded ?Confirmed albuterol sulfate 90 mcg/actuation 2 inh inhalation Q6 H PRN 02/02/25 02/04/25 aerosol inhaler isosorbide mononitrate 30 mg 30 mg PO ONCE 02/02/25 tablet,extended release 24 hr lisinopril 10 mg tablet 10 mg PO DAILY 02/02/2501/25 sertraline 50 mg tablet 50 mg PO DAILY 02/02/2501/25 aspirin 81 mg chewable tablet 81 mg PO DAILY #30 tabs 02/03/25 02/04/25 atorvastatin 20 mg tablet 20 mg PO QPM #30 tabs 02/04/25 metoprolol succinate 25 mg 25 mg PO DAILY #30 tabs 05/2102/04/25 tablet,extended release 24 hr Previous Rx's ?Medication ?Instructions ?Recorded aspirin 81 mg chewable tablet 81 mg PO DAILY #30 tabs 02/03/25 atorvastatin 20 mg tablet 20 mg PO QPM #30 tabs metoprolol succinate 25 mg 25 mg PO DAILY #30 tabs 05/21 tablet,extended release 24 hr Allergies Allergy/AdvReac Type Severity Reaction Status Date / Time No Known Allergies Allergy Unverified 02/04/25 13:23 General Stated Complaint: Chest Pain ADY: 3 Exam <Dagmar Patino [facility] Filed: 02/04/25 16:35> Const General: cooperative, comfortable, no acute distress and well developed Nutritional Appearance: average body habitus Chest Chest: normal inspection of the chest and normal palpation of entire chest wall Resp Effort & Inspection: normal respiratory effort and able to speak in complete sentences Auscultation: wheezes expiratory wheezes Cardio Rate: regular rate Rhythm: regular rhythm Heart Sounds: murmur Pulses: radial pulses present GI Inspection: normal to inspection and non-distended Palpation: soft, not rigid and tender in the RLQ Neuro General: patient alert, patient oriented x3 and tone normal Extrem General: no pedal edema Course <Dagmar Echavarria [facility] Filed: 02/04/25 16:35> Vital Signs Vital signs: Vital Signs Temperature 36.9 C 02/04/25 13:17 Pulse 90 02/04/25 13:17 Respiratory Rate 16 02/04/25 13:17 Blood Pressure 109/66 02/04/25 13:17 Pulse Oximetry 94 02/04/25 13:17 Temperature 36.9 C 02/04/25 13:17 Temperature Source Oral 02/04/25 13:17 Pulse 85 02/04/25 14:40 Pulse 85 02/04/25 14:40 Respiratory Rate 15 02/04/25 14:40 Respiratory Effort Normal, Non-Labored 02/04/25 14:55 Respiratory Depth Normal 02/04/25 14:55 Respiratory Pattern Normal 02/04/25 14:55 Blood Pressure 109/66 02/04/25 13:17 Blood Pressure Position Sitting 02/04/25 13:17 Pulse Oximetry 97 02/04/25 14:40 Oxygen Delivery Method Room Air 02/04/25 13:17 Oxygen Flow Rate 0 02/04/25 13:17 Pain Level 8 02/04/25 13:17 Medical Decision Making <Dagmar Patino Filed: 02/04/25 16:35> Quality:SDOH Health Related Social Needs: Health related social needs food insecurity transpo in security house/econ circumstance Health related social needs details sometimes unable t o get food and transportation but has help when unable to access it (friend in room) <VALENCIA Weeks - Last Filed: 02/07/25 08:55> Care was accepted in transition pending CT from [facility]. CT chest abdomen pelvis does not show acute abnormality, 3.6 cm thoracic aortic aneurysm patient made aware will follow-up with his doctor he has chest pain-free Case discussed with Dr. Lucero, hospitalist and the plan is this for him to follow-up with [facility] will cardiology on the he is chest pain- free and had a recent admission to our facility discharged in stable condition with 2 negative troponins and EKG that is nonischemic. Precautions reviewed and patient expressed understanding PFS <Dagmar Patino - Last Filed: 02/04/25 16:35> All Active Problems (Updated 02/05/25 @ 00:01 by RAMON JACOBO) Aneurysm, thoracic aortic (Acute) Chest pain (Acute) Major depression, recurrent, chronic (Acute) Benign essential hypertension (Acute) RCA occlusion (Acute) Social History Smoking/Tobacco Use Status: Current every day Tobacco Type: cigarettes Years smoked: 41 Smoking risk assessment performed?: Yes Alcohol Intake: current Alcohol Intake frequency: a few times a month Substance use type: does not use Housing: apartment Do you feel safe at home: Yes Do you feel safe in your relationship?: Yes
[2025-02-04 15:05] LABS: Abs Immature Grans 0.05 10^3/uL (0.0-0.06); HCT 36.3 % (40.0-50.0); HGB 12.4 g/dL (13.5-17.5); Immature Grans % 0.8 %; MCH 31.6 pg (27.0-33.0); MCHC 34.2 % (32.0-36.0); MCV 92 fL (80-95); MPV 10.9 fL (8.0-11.0); Platelet Count 195 10^3/uL (130-400); RBC 3.93 10^6/uL (4.36-5.78); RDW 13.2 % (11.8-14.1); RDW-SD 45.0 fL; WBC 6.61 10^3/uL (4.4-10.8)
[2025-02-04 15:21] LABS: ALT 23 U/L (16-63); AST 12 U/L (15-37); Albumin 3.5 g/dL (3.4-5.0); Alkaline Phosphatase 115 U/L (46-116); Anion Gap 14.4 mmol/L (3-11); BUN 14 mg/dL (7-18); Bilirubin, Total 0.2 mg/dL (0.2-1.0); CO2 22.6 mmol/L (21.0-32.0); Calcium 8.7 mg/dL (8.5-10.1); Chloride 104 mmol/L (98-107); Estimated GFR 100.69 (mL/min/1.73m2); Glucose 173 mg/dL (74-106); Magnesium 2.2 mg/dL (1.8-2.4); Potassium 4.0 mmol/L (3.5-5.1); Sodium 141 mmol/L (136-145); Total Protein 7.0 g/dL (6.4-8.2); Troponin I 21 ng/L (<or=76)
[2025-02-04] MEDS: Aspirin 81 MG CHEW 243 MG CH (15:29)
[2025-02-04] MEDS: LORazepam 0.5 MG TAB PO (15:29)
--- NOTE | 2025-02-04 15:30 | DI.CT_ITS ---
Exam(s) CT THORAX ABD/PEL CTA EXAM: CT THORAX ABD/PEL CTA CLINICAL HISTORY: chest pain with SOB and RLQ abd pain. TECHNIQUE: Imaging Protocol: Axial CT angiography was performed with multi- slice acquisition and multi-planar and/or 3D reconstructions. CONTRAST MATERIAL: Intravenous: Omnipaque 350 Contrast volume:100 ml Oral: no COMPARISON: CR XR CHEST 2V PA LATERAL from 02/04/2025 FINDINGS: CHEST: Pulmonary Arteries: No evidence of filling defect to suggest pulmonary emboli. Tracheobronchial tree: Patent where visualized. Mediastinum and Daiana: No dominant adenopathy or fluid collection. Pulmonary parenchyma: No consolidation or dominant measurable mass. No architectural distortion. Pleura: No effusion or pneumothorax. Heart: The left ventricle is mildly dilated. [id number] coronary artery calcifications are seen. Aorta: The ascending aorta is dilated to 3.6 cm. There is calcification at the aortic valve. Mild atherosclerotic changes. Bones: Normal. Tubes, Catheters, and Lines: ABDOMEN AND PELVIS: Abdomen: Celiac axis/mesenteric arteries: No evidence of occlusion or significant stenosis. Renal Arteries: No evidence of occlusion or significant stenosis. There is a single renal artery perfusing each kidney. Aorta: Mild to moderate atherosclerotic calcification. No evidence of occlusion or significant stenosis. No aneurysm or dissection. Pelvis: Iliac Arteries: Mild calcifications proximally the common iliac arteries. No evidence of occlusion or significant stenosis. Common Femoral Arteries: Mild atherosclerotic calcifications. No evidence of occlusion or significant stenosis. ABDOMEN: Liver: Normal density. No measurable mass. Portal, Superior Mesenteric, and Splenic Veins: Unremarkable. Gallbladder and Biliary Tract: No radiodense calculus or dilation. Pancreas: Normal density, no abnormal calcifications or inflammatory process. Spleen: Normal. Adrenals: No masses seen. Kidneys: Normal size, contour and axis. No radiodense stones or obstructive uropathy. No masses seen. Bowel: No obstruction or bowel wall thickening. Appendix is unremarkable. Normal quantity of stool. Peritoneal Cavity: No ascites, collection or mesenteric inflammatory response. Lymph Nodes: Within normal limits. Bones: Unremarkable. Soft Tissues: Unremarkable. PELVIS: Bladder: Symmetric distention, no gross wall thickening. Reproductive Organs: Prostate is mildly enlarged, impressing on the base of the bladder. Lymph Nodes: Within normal limits. Bones: Within normal limits. IMPRESSION: No acute abnormality in the chest, abdomen and pelvis. The thoracic aorta is mildly dilated to 3.6 cm. No dissection. The lungs are clear. The appendix is normal. RADIATION DOSE DELIVERED: Total DLP DATA REPOSITORY: All CT scans at this facility are submitted to the National Radiology Data Registry (NRDR) Dose Index Registry (DIR) with the [employer] (A[employer]). RADIATION OPTIMIZATION: All CT scans at this facility use at least one of these dose optimization techniques: automated exposure control; mA and/or kV adjustment per patient size (includes targeted exams where dose is matched to clinical indication); or iterative reconstruction.
[2025-02-04] MEDS: Albuterol/Ipratropium 3 ML UPD VIAL UPD (15:33)
[2025-02-04 15:51] LABS: COVID-19 PCR Negative (Negative); RSV PCR Negative (Negative)
--- NOTE | 2025-02-04 16:00 | RT.EKG_ITS ---
APPROVED REPORT Exam: Resting ECG Reason for Exam: pain resolved EKG Patient Location: E HR:91 bpm ECG Measurements Heart Rate 91 AXIS SD 163 P 56 QRSd 118 QRS 9 QT 362 T -19 QTc 446 Conclusion Sinus rhythm...normal P axis, V-rate 60- 99 Probable left atrial enlargement...P >50mS, <-0.10mV V1 Nonspecific intraventricular conduction delay...QRSd >115mS, not LBBB/RBBB Inferior infarct, age indeterminate...Q>35mS, T neg, II III aVF
[2025-02-04 16:23] LABS: Troponin I 20 ng/L (<or=76)
[2025-02-04] MEDS: Normal Saline - Diluent 50 ML VIAL IJ (16:35)
[2025-02-04] MEDS: Omnipaque 350 MG/ML 100 ML BTL IJ (16:36)
[2025-02-04 17:29] LABS: Glucose Negative (Negative)
--- NOTE | 2025-02-10 08:43 | NUR.NOTE ---
Access chart to reconcile EKG orders with EKG's in [facility]. Duplicate order cancelled. Nursing Note:
== END 2025-02-04 17:29 | disposition home or self-care (01) ==
PROVIDERS: Nurse Practitioner Family; Emergency Provider Physician Assistant
DX: R07.9 Chest pain, unspecified (principal); R51.9 Headache, unspecified; R10.32 Left lower quadrant pain; I71.20 Thoracic aortic aneurysm, without rupture, unspecified; I10 Essential (primary) hypertension; F17.210 Nicotine dependence, cigarettes, uncomplicated; Z79.82 Long term (current) use of aspirin; Z98.1 Arthrodesis status
CPT/HCPCS: 71275; 80053; 87637; 93005; 94640; 99285; 71046; 74174; 81003; 83735; 84484; 85025; 93010; J3490; J7620

== ENCOUNTER 2025-02-13 16:56 | Observation (INO) | payer MEDICAID, SELFPAY ==
[2025-02-13] VITALS (47 sets, daily range): BP systolic 109–145; BP diastolic 63–72; PULSE 76–98; RESP 8–25; TEMP 36.5; O2SAT 93–100
--- NOTE | 2025-02-13 17:00 | RT.EKG_ITS ---
APPROVED REPORT Exam: Resting ECG Reason for Exam: chest pain Patient Location: E HR:85 bpm ECG Measurements Heart Rate 85 AXIS MI 169 P 53 QRSd 118 QRS -16 QT 395 T 58 QTc 471 Conclusion Sinus rhythm 85 normal axis no stemi
--- NOTE | 2025-02-13 17:41 | W.ED.GENAD ---
Discharge Plan Discharge Details Chief Complaint: Chest Pain Clinical Impression: Chest pain, Syncope Primary Care Provider: None,None ED Provider: Dagmar Neumann Home Meds and New Rx's Prescriptions: No Action isosorbide mononitrate 30 mg tablet extended release 24 hr 30 mg PO ONCE Patient Comments: TAKE ONE TABLET BY MOUTH EVERY MORNING lisinopril 10 mg tablet 10 mg PO DAILY Patient Comments: TAKE ONE TABLET BY MOUTH EVERY DAY albuterol sulfate 90 mcg/actuation HFA aerosol inhaler 2 inh INHALATION Q6H PRN Patient Comments: INHALE 2 PUFFS BY MOUTH EVERY 6 HOURS, NEEDED FOR SHORTNESS OF BREATH OR WHEEZING sertraline 50 mg tablet 50 mg PO DAILY Patient Comments: TAKE ONE TABLET BY MOUTH EVERY DAY atorvastatin 20 mg Tablet 20 mg PO QPM Qty: 30 0RF aspirin 81 mg Tablet,Chewable 81 mg PO DAILY Qty: 30 0RF metoprolol succinate 25 mg Tablet Extended Release 24 Hr 25 mg PO DAILY Qty: 30 0RF HPI General Date/Time Provider Initiated Documentation: 02/13/25 17:03. HPI Narrative: Agatha is a 59-year-old male with COPD, TAA, HTN and heart disease (RCA occlusion) who presents to the emergency department today for evaluation of worsening chest pain radiating down the left arm into the right side, accompanied by left arm tingling, and dyspnea. Intermittent chest pain for 3 weeks, intolerable in the last couple of days, radiating left to right, accompanied by severe headache. New-onset left-sided tingling and numbness started 2 hours ago. Vomited x 4 today, had reddish blood in his emesis, followed by pinkish emesis. He reports that he has had 3 episodes of syncope as well, occurring mostly at rest; occurred on Friday during a picnic, as well as again on Friday and . He reports that he started seeing spots in his vision, followed by blacking out. Episode was witnessed, loss of consciousness for 2 to 3 minutes. He was not evaluated in the emergency department for this. Denies associated fever/chills, new congestion, sore throat, cough, change in bowel or bladder function. Does admit to dark stools at home and blood in stool this morning. He reports he has had left-sided anterior chest wall pain since the following approximately a week ago, thinks he may have cracked his ribs PMH significant for unstable angina, RCA occlusion, Takotsubo cardiomyopathy, HTN, depression. He reports he has been taking his medications as prescribed. Inhaler and other medications provide no relief. No nitroglycerin at home. Follow-up with [facility] on 03/06/2025. Was recently hospitalized overnight from February 02, monitored overnight in telemetry without events and had an echocardiogram performed, no new disease noted. Related Data Home Medications ?Medication ?Instructions ?Recorded ?Confirmed albuterol sulfate 90 mcg/actuation 2 inh inhalation Q6H PRN 02/02/25 02/13/25 aerosol inhaler isosorbide mononitrate 30 mg 30 mg PO ONCE 02/02/25 02/13/25 tablet,extended release 24 hr lisinopril 10 mg tablet 10 mg PO DAILY 02/02/25 02/13/25 sertraline 50 mg tablet 50 mg PO DAILY 02/02/25 02/13/25 aspirin 81 mg chewable tablet 81 mg PO DAILY #30 tabs 02/03/25 02/13/25 atorvastatin 20 mg tablet 20 mg PO QPM #30 tabs 02/03/25 02/13/25 metoprolol succinate 25 mg 25 mg PO DAILY #30 tabs 02/03/25 02/13/25 tablet,extended release 24 hr Previous Rx's ?Medication ?Instructions ?Recorded aspirin 81 mg chewable tablet 81 mg PO DAILY #30 tabs 02/03/25 atorvastatin 20 mg tablet 20 mg PO QPM #30 tabs 02/03/25 metoprolol succinate 25 mg 25 mg PO DAILY #30 tabs 02/03/25 tablet,extended release 24 hr Allergies Allergy/AdvReac Type Severity Reaction Status Date / Time No Known Allergies Allergy Unverified 02/13/25 23:10 General Stated Complaint: Chest Pain ADY: 2 Exam Narrative Exam Narrative: General Appearance: Anxious, tearful during exam. No acute distress otherwise Vital signs: Within normal limits. HEENT: Mucous membranes. Clear voice Cardiac: Normal heart sounds, regular rate and rhythm. No JVD. Equal radial pulses bilaterally. Respiratory: Wheezing, decreased breath sounds bilaterally. Easy work of breathing. Mild tenderness with palpation of left anterior chest wall Gastrointestinal: Abdomen tender to palpation in epigastrium and left upper quadrant. Genitourinary: no CVA tenderness Back, Musculoskeletal: Tenderness left chest, no deformity or flail chest. Extremities: No pedal edema Neurological: Normal gait. Moving all extremities equally Psychiatric: Significant anxiety and emotional distress. Course Vital Signs Vital signs: Vital Signs Temperature 36.5 C 02/13/25 17:05 Pulse 93 H 02/13/25 17:05 Respiratory Rate 20 02/13/25 17:05 Blood Pressure 133/72 02/13/25 17:05 Pulse Oximetry 96 02/13/25 17:05 Temperature 36.5 C 02/13/25 17:05 Temperature Source Oral 02/13/25 17:05 Pulse 93 H 02/13/25 17:05 Respiratory Rate 20 02/13/25 17:05 Blood Pressure 133/72 02/13/25 17:05 Blood Pressure Position Sitting 02/13/25 17:05 Pulse Oximetry 96 02/13/25 17:05 Oxygen Delivery Method Room Air 02/13/25 17:05 Oxygen Flow Rate 0 02/13/25 17:05 Pain Level 10 02/13/25 17:05 Medical Decision Making Initial Assessment: 59-year-old male with chest pain, dyspnea, and multiple syncopal episodes over the past week. Severe pain, wheezing, vomiting with pinkish appearance. History of COPD and heart problems. Denies cocaine use in last 5 months. Current smoker, drinking 2 beers daily. Differential Diagnosis: ACS, COPD exacerbation, gastritis/esophagitis, anxiety, GI bleed with hematemesis and blood in stool, dehydration, electrolyte imbalance, thyroid dysfunction ED Course: - Performed ECG. - Administered DuoNeb for dyspnea. - Placed IV line. - Administered Lorazepam for anxiety. - CTA abdomen/pelvis performed to rule out GI bleed - Chest x-ray performed I independently interpreted the following tests: EKG shows normal sinus rhythm rate 85, IVCD, no changes consistent with acute ischemia, no change from previous. CBC shows anemia unchanged from baseline. CMP, coags, TSH, lipase, and serial troponins all unremarkable. Repeat H+H stable. Final Assessment: 59-year-old male with severe chest pain, dyspnea, and multiple syncopal episodes. Administered nitroglycerin, performed ECG, provided breathing treatment. Had some improvement of symptoms with DuoNeb, lorazepam and famotidine. Clinical Impression: Continued chest pain with new episodes of syncope, concern for GI bleed (stable, no change in H+H) No acute abnormalities or active bleeding noted on CTA abd/pelvis. Unremarkable CXR. 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 Reviewed pt presentation, history, labs, and recent imaging. He believes that this is unlikely a primary cardiac process, especially in light of recent normal echo. Recommends telemetry monitoring to rule out dysrhythmia such as V. tach. He recommends continuing antianginal meds and optimizing doses (may increase isosorbide or metoprolol, add in amlodipine or rilmenidine). Patient would benefit from psychiatric and gastroenterology workup looking at other causes of symptoms as well. Disposition: - Recommend admission for further cardiac monitoring and continue/maximize antianginal meds. Additional psychiatric workup/GI workup indicated for depression and reported hematemesis/rectal bleeding. As we do not have bed availability here at [facility], presented patient for transfer to [facility]. Awaiting determination re: bed availability Handoff report given to Dr. Hall, overnight attending MDM Components Evaluation: - Number of Differential Diagnoses or Management Options: Acute Coronary Syndrome, Pulmonary Embolism, Gastrointestinal Bleed, Anxiety/Panic Attack. - Amount and Complexity of Data Reviewed: ECG, cardiac enzymes, CT pulmonary angiography, endoscopy, hemoglobin levels. - Risk of Complication and Morbidity or Mortality: High risk due to severe chest pain, dyspnea, syncopal episodes, and history of heart problems and COPD. Patient consented to the use of [facility] Imaging Data Radiologic Study: Radiologist's impression: PROCEDURE INFORMATION: Exam: XR Chest Exam date and time: 02/13/2025 7:07 PM Age: 59 years old Clinical indication: Other: Cp, SOB TECHNIQUE: Imaging protocol: Radiologic exam of the chest. Views: 2 views. COMPARISON: CT THORAX ABD/PEL CTA 02/04/2025 4:21 PM FINDINGS: Lungs: No pulmonary consolidation is seen. Pleural spaces: No pleural effusion or pneumothorax is demonstrated. Heart/Mediastinum: The heart appears normal in size. Bones/joints: The visualized bony structures appear grossly intact. There are osteophytes along the anterior thoracic margin. There is an old fracture through the posterolateral aspect of the left 7th rib. IMPRESSION: No active disease is seen in the chest. Radiologic Study #2: Radiologist's impression: PROCEDURE INFORMATION: Exam: CTA Abdomen and Pelvis With Contrast Exam date and time: 02/13/2025 6:47 PM Age: 59 years old Clinical indication: Other: Blood in stool + emesis, epigastric/upper abd pain TECHNIQUE: Imaging protocol: Computed tomographic angiography of the abdomen and pelvis with contrast. Exam focused on the arteries. 3D rendering (Not supervised by radiologist): MIP and/or 3D reconstructed images were created by the technologist. Contrast material: 350; Contrast volume: 75 ml; Contrast route: INTRAVENOUS (IV); COMPARISON: CT THORAX ABD/PEL CTA 02/04/2025 4:21 PM FINDINGS: Lungs: Streaky and dependent atelectasis at the lung bases. Aorta: No abdominal aortic aneurysm. Moderately extensive atherosclerotic calcification and plaque. Celiac trunk and mesenteric arteries: The celiac, superior mesenteric, and inferior mesenteric arteries appear widely patent Renal arteries: The right and left renal arteries appear widely patent. There is mild atherosclerotic calcification in the proximal aspect of the renal arteries bilaterally. Right iliac arteries: Right common iliac, internal iliac, and external iliac arteries widely patent. Right femoral/popliteal arteries: Right common femoral and visualized proximal right superficial femoral arteries widely patent. Atherosclerotic calcification and plaque in the common femoral artery. Left iliac arteries: Left common iliac, internal iliac, and external iliac arteries widely patent. Left femoral/popliteal arteries: Left common femoral and visualized proximal left superficial femoral arteries widely patent. Atherosclerotic calcification and plaque in the common femoral artery. Liver: Normal appearing liver Gallbladder and biliary ducts: Gallbladder partially collapsed. No calcified gallstones seen. No biliary dilatation. Pancreas: Normal appearing pancreas. Spleen: Normal appearing spleen. Adrenal glands: Normal appearing adrenal glands. Kidneys and ureters: Normal appearing kidneys. No hydronephrosis. Stomach and bowel: No oral contrast. Stomach partially decompressed. No small bowel dilatation to suggest obstruction. Normal-appearing fecal material in the colon. No evidence of diverticulitis or colitis. No focus of active hemorrhage identified. Appendix: Normal appendix. Intraperitoneal space: No gross ascites or free air. Lymph nodes: No pathologically enlarged mesenteric, retroperitoneal, or pelvic sidewall lymph nodes. Urinary bladder: Normal-appearing urinary bladder, moderately distended. Reproductive: Normal-appearing prostate gland and seminal vesicles. Bones/joints: No acute fracture seen among the bones of the abdomen or pelvis. Moderate discogenic degeneration at L5-S1. Soft tissues: Diastasis recti. Small fat containing ventral hernia at the umbilicus. IMPRESSION: Normal-appearing fecal material in the colon. No acute bowel pathology demonstrated. No focus of active bleeding identified Quality:SDOH Health Related Social Needs: Health related social needs food insecurity transpo insecurity house/econ circumstance Health related social needs details sometimes unable to get food and transportation but has help when unable to access it (friend in room) PFSH All Active Problems (Updated 02/13/25 @ 21:53 by Dagmar Patino) Syncope (Chronic) Aneurysm, thoracic aortic (Acute) Chest pain (Acute) Major depression, recurrent, chronic (Acute) Benign essential hypertension (Acute) RCA occlusion (Acute) Social History Smoking/Tobacco Use Status: Current every day Tobacco Type: cigarettes Years smoked: 41 Smoking risk assessment performed?: Yes Alcohol Intake: current Alcohol Intake frequency: a few times a month Substance use type: does not use Housing: apartment Do you feel safe at home: Yes Do you feel safe in your relationship?: Yes
--- NOTE | 2025-02-13 17:58 | DI.CT_ITS ---
Exam(s) CT ABDOMEN PELVIS CTA EXAM: CT ABDOMEN PELVIS CTA CLINICAL HISTORY: Blood in stool + emesis, epigastric/upper abd pain. TECHNIQUE: Imaging Protocol: Axial CT angiography was performed with multi- slice acquisition and multi-planar and/or 3D reconstructions. CONTRAST MATERIAL: Intravenous: Omnipaque 350 Contrast volume:75 ml Oral: no COMPARISON: CT CT THORAX ABD/PEL CTA from 02/04/2025 FINDINGS: Aorta: Moderate atherosclerotic changes. No aneurysm. No dissection. No significant stenosis. Iliac Arteries: No evidence of stenosis. Common Femoral Arteries: No evidence of stenosis. Celiac Pelzer:No evidence of stenosis. SMA: No evidence of stenosis. Renal Arteries: No evidence of stenosis. There is a single renal artery perfusing each kidney. CHRISTIAN: Patent. Venous structures: Patent. Lung bases:No acute findings. Liver: Normal size. Normal density. No measurable mass. Gallbladder and biliary tract: No evidence of calculi. No gallbladder wall thickening. No biliary dilation. Pancreas: Normal density, no abnormal calcifications or inflammatory process. Spleen: Normal. Kidneys: Normal size, contour and axis. No obstructive uropathy. No masses seen. No evidence of calculi. Adrenal glands: No masses seen. Bladder: Over distended but unremarkable. No gross wall thickening. No evidence of calculi. No evidence of mass. Bowel: No obstruction or bowel wall thickening. No site of GI bleeding identified. Appendix is normal. Normal quantity of stool. Peritoneal cavity: No ascites. No focal collection. No mesenteric inflammatory response. Lymph nodes: Within normal limits. Reproductive: Unremarkable. Soft Tissues:Unremarkable. Bones: No acute findings. IMPRESSION: No evidence of aneurysm or dissection. No evidence vascular occlusion or significant stenosis. No evidence of active GI bleed. No evidence inflammatory change. The preliminary [facility] report was reviewed. RADIATION DOSE DELIVERED: 1,557.16mGy.cm Total DLP DATA REPOSITORY: All CT scans at this facility are submitted to the National Radiology Data Registry (NRDR) Dose Index Registry (DIR) with the [employer] (ACR). RADIATION OPTIMIZATION: All CT scans at this facility use at least one of these dose optimization techniques: automated exposure control; mA and/or kV adjustment per patient size (includes targeted exams where dose is matched to clinical indication); or iterative reconstruction.
[2025-02-13] MEDS: Aspirin 81 MG CHEW 243 MG CH (18:09)
[2025-02-13] MEDS: LORazepam 0.5 MG TAB PO (18:09)
[2025-02-13 18:28] LABS: Abs Immature Grans 0.04 10^3/uL (0.0-0.06); HCT 37.9 % (40.0-50.0); HGB 12.6 g/dL (13.5-17.5); Immature Grans % 0.6 %; MCH 31.3 pg (27.0-33.0); MCHC 33.2 % (32.0-36.0); MCV 94 fL (80-95); MPV 10.7 fL (8.0-11.0); Platelet Count 204 10^3/uL (130-400); RBC 4.03 10^6/uL (4.36-5.78); RDW 12.9 % (11.8-14.1); RDW-SD 44.9 fL; WBC 6.41 10^3/uL (4.4-10.8)
[2025-02-13] MEDS: Famotidine 20 MG/2 ML VIAL IVP (18:42)
[2025-02-13] MEDS: Albuterol/Ipratropium 3 ML UPD VIAL UPD (18:42)
[2025-02-13] MEDS: Ondansetron 4 MG/2 ML VIAL IVP (18:42)
[2025-02-13] MEDS: Normal Saline - Diluent 50 ML VIAL IJ (18:45)
[2025-02-13] MEDS: Omnipaque 350 MG/ML 100 ML BTL IJ (18:46)
[2025-02-13 18:54] LABS: ALT 26 U/L (16-63); AST 17 U/L (15-37); Albumin 3.8 g/dL (3.4-5.0); Alkaline Phosphatase 121 U/L (46-116); Anion Gap 12.7 mmol/L (3-11); BUN 15 mg/dL (7-18); Bilirubin, Total 0.2 mg/dL (0.2-1.0); CO2 24.3 mmol/L (21.0-32.0); Calcium 8.9 mg/dL (8.5-10.1); Chloride 105 mmol/L (98-107); Estimated GFR 104.83 (mL/min/1.73m2); Glucose 154 mg/dL (74-106); Lipase 45 U/L (<78); Magnesium 2.5 mg/dL (1.8-2.4); Potassium 3.6 mmol/L (3.5-5.1); Sodium 142 mmol/L (136-145); TSH (W/Ref FT4) 2.55 uIU/mL (0.36-3.74); Total Protein 7.5 g/dL (6.4-8.2); Troponin I 9 ng/L (<or=76)
--- NOTE | 2025-02-13 19:00 | DI.RAD_ITS ---
Exam(s) XR CHEST 2V PA LATERAL EXAM: XR CHEST 2V PA LATERAL CLINICAL HISTORY: CP, SOB TECHNIQUE: 2D digital imaging was performed. Two views. COMPARISON: CT CT THORAX ABD/PEL CTA from 02/04/2025 FINDINGS: HEART: Normal size. Aorta: Not dilated. PULMONARY VASCULATURE: Normal. MEDIASTINUM: Unremarkable. LUNGS: Clear. PLEURAL SPACE: No pleural effusion or pneumothorax. BONE: Old left rib fracture. SOFT TISSUES: Unremarkable. IMPRESSION: No acute abnormality. The preliminary [facility] report was reviewed. DATA REPOSITORY: RADIATION DOSE DELIVERED:
[2025-02-13 19:06] LABS: Lab Add On Test DONE
[2025-02-13 19:28] LABS: NT-proBNP 167 pg/mL (<300)
[2025-02-13 19:47] LABS: Troponin I 12 ng/L (<or=76)
[2025-02-13 20:29] LABS: INR 1.0 (0.9-1.1); PTT Activated 24.9 sec (20.6-30.2); Prothrombin Time 9.8 sec (9.1-11.1)
--- NOTE | 2025-02-13 20:32 | DI.[facility]_ITS ---
PROCEDURE INFORMATION: Exam: CTA Abdomen and Pelvis With Contrast Exam date and time: 02/13/2025 6:47 PM Age: 59 years old Clinical indication: Other: Blood in stool + emesis, epigastric/upper abd pain TECHNIQUE: Imaging protocol: Computed tomographic angiography of the abdomen and pelvis with contrast. Exam focused on the arteries. 3D rendering (Not supervised by radiologist): MIP and/or 3D reconstructed images were created by the technologist. Contrast material: 350; Contrast volume: 75 ml; Contrast route: INTRAVENOUS (IV); COMPARISON: CT THORAX ABD/PEL CTA 02/04/2025 4:21 PM FINDINGS: Lungs: Streaky and dependent atelectasis at the lung bases. Aorta: No abdominal aortic aneurysm. Moderately extensive atherosclerotic calcification and plaque. Celiac trunk and mesenteric arteries: The celiac, superior mesenteric, and inferior mesenteric arteries appear widely patent Renal arteries: The right and left renal arteries appear widely patent. There is mild atherosclerotic calcification in the proximal aspect of the renal arteries bilaterally. Right iliac arteries: Right common iliac, internal iliac, and external iliac arteries widely patent. Right femoral/popliteal arteries: Right common femoral and visualized proximal right superficial femoral arteries widely patent. Atherosclerotic calcification and plaque in the common femoral artery. Left iliac arteries: Left common iliac, internal iliac, and external iliac arteries widely patent. Left femoral/popliteal arteries: Left common femoral and visualized proximal left superficial femoral arteries widely patent. Atherosclerotic calcification and plaque in the common femoral artery. Liver: Normal appearing liver. Gallbladder and biliary ducts: Gallbladder partially collapsed. No calcified gallstones seen. No biliary dilatation. Pancreas: Normal appearing pancreas. Spleen: Normal appearing spleen. Adrenal glands: Normal appearing adrenal glands. Kidneys and ureters: Normal appearing kidneys. No hydronephrosis. Stomach and bowel: No oral contrast. Stomach partially decompressed. No small bowel dilatation to suggest obstruction. Normal-appearing fecal material in the colon. No evidence of diverticulitis or colitis. No focus of active hemorrhage identified. Appendix: Normal appendix. Intraperitoneal space: No gross ascites or free air. Lymph nodes: No pathologically enlarged mesenteric, retroperitoneal, or pelvic sidewall lymph nodes. Urinary bladder: Normal-appearing urinary bladder, moderately distended. Reproductive: Normal-appearing prostate gland and seminal vesicles. Bones/joints: No acute fracture seen among the bones of the abdomen or pelvis. Moderate discogenic degeneration at L5-S1. Soft tissues: Diastasis recti. Small fat containing ventral hernia at the umbilicus. IMPRESSION: Normal-appearing fecal material in the colon. No acute bowel pathology demonstrated. No focus of active bleeding identified. Dictated and Authenticated by: Demetri Diaz MD. Orderin Jericho Leavitt MD
--- NOTE | 2025-02-13 20:33 | DI.[facility]_ITS ---
PROCEDURE INFORMATION: Exam: XR Chest Exam date and time: 02/13/2025 7:07 PM Age: 59 years old Clinical indication: Other: Cp, SOB TECHNIQUE: Imaging protocol: Radiologic exam of the chest. Views: 2 views. COMPARISON: CT THORAX ABD/PEL CTA 02/04/2025 4:21 PM FINDINGS: Lungs: No pulmonary consolidation is seen. Pleural spaces: No pleural effusion or pneumothorax is demonstrated. Heart/Mediastinum: The heart appears normal in size. Bones/joints: The visualized bony structures appear grossly intact. There are osteophytes along the anterior thoracic margin. There is an old fracture through the posterolateral aspect of the left 7th rib. IMPRESSION: No active disease is seen in the chest. Dictated and Authenticated by: Demetri Diaz MD. Orderin Jericho Leavitt MD
[2025-02-13 21:04] LABS: HCT 36.4 % (40.0-50.0); HGB 12.4 g/dL (13.5-17.5); MCH 32.0 pg (27.0-33.0); MCHC 34.1 % (32.0-36.0); MCV 94 fL (80-95); MPV 10.6 fL (8.0-11.0); Platelet Count 207 10^3/uL (130-400); RBC 3.87 10^6/uL (4.36-5.78); RDW 13.2 % (11.8-14.1); RDW-SD 45.2 fL; WBC 6.68 10^3/uL (4.4-10.8)
[2025-02-13 21:36] LABS: Troponin I 10 ng/L (<or=76)
[2025-02-14] VITALS (75 sets, daily range): BP systolic 107–166; BP diastolic 41–143; PULSE 50–94; RESP 12–22; TEMP 36.3–36.9; O2SAT 94–98
--- NOTE | 2025-02-14 05:23 | ED.PROG_ITS ---
Date of service: 02/14/25 Time of Service: 05:23 Medical Decision Making Patient was signed out to me pending callback from multiple facilities for potential transfer. We did contact [facility], [facility], [facility], [facility]. None of them are accepting lateral transfers at this time. [facility] also declined the patient. With the patient's syncope, chest pain, and symptoms, we do feel that admission for medical optimization per [facility] cardiology, cardiac monitoring with planned outpatient Holter monitor or Zio patch, is indicated. I did contact the hospitalist and discussed the case with him. He agrees with the assessment and plan. I have extensively reviewed the treatment plan with the patient. I have addressed all patient concerns at this time. I have also discussed the plan with the admitting physician and they agree with the current assessment and plan and have agreed to assume responsibility for the patient. All parties demonstrate verbal understanding and agreement with our assessment and plan at this time. The documentation in this chart was dictated using [employer] dictation software. Please excuse any dictation errors. Quality:SDOH Health Related Social Needs: Health related social needs food insecurity transpo in security house/econ circumstance Health related social needs details sometimes unable t o get food and transportation but has help when unable to access it (friend in room) Discharge Plan Disposition Patient Disposition: Admit to [facility] Condition: Stable Discharge Details Clinical Impression: Chest pain, Syncope, Depression Primary Care Provider: None,None ED Provider: Jericho Hall Home Meds and New Rx's Prescriptions: No Action isosorbide mononitrate 30 mg tablet extended release 24 hr 30 mg PO ONCE Patient Comments: TAKE ONE TABLET BY MOUTH EVERY MORNING lisinopril 10 mg tablet 10 mg PO DAILY Patient Comments: TAKE ONE TABLET BY MOUTH EVERY DAY albuterol sulfate 90 mcg/actuation HFA aerosol inhaler 2 inh INHALATION Q6H PRN Patient Comments: INHALE 2 PUFFS BY MOUTH EVERY 6 HOURS, NEEDED FOR SHORTNESS OF BREATH OR WHEEZING sertraline 50 mg tablet 50 mg PO DAILY Patient Comments: TAKE ONE TABLET BY MOUTH EVERY DAY atorvastatin 20 mg Tablet 20 mg PO QPM Qty: 30 0RF aspirin 81 mg Tablet,Chewable 81 mg PO DAILY Qty: 30 0RF metoprolol succinate 25 mg Tablet Extended Release 24 Hr 25 mg PO DAILY Qty: 30 0RF
[2025-02-14 06:39] LABS: Cannabinoids THC Negative (Negative); METHADONE URINE SCREEN Negative (Negative)
--- NOTE | 2025-02-14 08:13 | W.EDPROG ---
Date of service: 02/14/25 Time of Service: 08:13 Medical Decision Making We did contact multiple hospitals and patient was declined at all facilities. I did contact the hospitalist for admission, he came down and assessed the patient. On his discussion with the patient the initial history has actually never changed. Patient denies any depressive thoughts at this time, he denies any suicidality. He states that he has been sad from the loss of his loved 1, but shows no suicidal risk. He has had no further episodes of vomiting or bloody bowel movements. No evidence to suggest GI bleed. Hemoglobin stable, vital signs stable. In addition to this the patient states that he has been compliant with his medications and he has been taking them as prescribed. Despite this he has had increased exertional chest pain that is worsened with activity and improves with rest even while being on medications. He states that the chest pain is severe enough to cause nausea and vomiting when he is performing activity. Symptoms are concerning for unstable angina with his current clinical history. We will reach back out to [facility] to discuss transfer for unstable angina. Upon review of his cardiac catheterization in the past it was limited secondary to him waking up during the procedure, and in addition to this his nuclear stress test showed notable disease. I do feel that transfer to [facility] would benefit the patient for potential cath or stress testing. The patient will be signed out to my colleague Dr. Houston for follow-up on consult. Quality:SDOH Health Related Social Needs: Health related social needs food insecurity transpo insecurity house/econ circumstance Health related social needs details sometimes unable to get food and transportation but has help when unable to access it (friend in room) Discharge Plan Disposition Patient Disposition: Admit to [facility] Condition: Stable Discharge Details Clinical Impression: Chest pain, Syncope, Depression Primary Care Provider: None,None ED Provider: Jericho Hall Home Meds and New Rx's Prescriptions: No Action isosorbide mononitrate 30 mg tablet extended release 24 hr 30 mg PO ONCE Patient Comments: TAKE ONE TABLET BY MOUTH EVERY MORNING lisinopril 10 mg tablet 10 mg PO DAILY Patient Comments: TAKE ONE TABLET BY MOUTH EVERY DAY albuterol sulfate 90 mcg/actuation HFA aerosol inhaler 2 inh INHALATION Q6H PRN Patient Comments: INHALE 2 PUFFS BY MOUTH EVERY 6 HOURS, NEEDED FOR SHORTNESS OF BREATH OR WHEEZING sertraline 50 mg tablet 50 mg PO DAILY Patient Comments: TAKE ONE TABLET BY MOUTH EVERY DAY atorvastatin 20 mg Tablet 20 mg PO QPM Qty: 30 0RF aspirin 81 mg Tablet,Chewable 81 mg PO DAILY Qty: 30 0RF metoprolol succinate 25 mg Tablet Extended Release 24 Hr 25 mg PO DAILY Qty: 30 0RF
--- NOTE | 2025-02-14 08:27 | W.EDPROG ---
Date of service: 02/14/25 Time of Service: 08:27 Medical Decision Making I received signout on this 59-year-old male with a history of CAD in the ED in the setting of exertional chest pain. I was pending [facility] callback. I spoke to Gerardo Mall[place] [facility] [place] He reported that given his complex PCI. He felt that his medical therapy required more optimization. He advised initiating amlodipine 5mg with the potential of coming off lisinopril as needed. Patient denied recent cocaine use. Cardiology advises continuing metoprolol succinate 25 mg daily. Would also consider ranolazine 500 twice daily. Patient has office follow-up on 03/10/2025. 9:37am I spoke to Beronica from [facility] as patient's PCP was reportedly out. He has been scheduled for a blood pressure check at 10am on Friday 02/16. He is having no ongoing chest pain. His syncope is high risk and given changes in his blood pressure medications we will plan on reaching out to the hospitalist for observation likely in the ED given ongoing hospital boarding. 10:14 AM I was in touch with Dr. Willis who graciously agreed to accept the patient for hospitalization. Quality:SDOH Health Related Social Needs: Health related social needs food insecurity transpo insecurity house/econ circumstance Health related social needs details sometimes unable to get food and transportation but has help when unable to access it (friend in room) Discharge Plan Disposition Patient Disposition: Admit to [facility] Condition: Stable Discharge Details Clinical Impression: Chest pain, Syncope, Depression Primary Care Provider: None,None ED Provider: Akira Houston Home Meds and New Rx's Prescriptions: New amlodipine 5 mg tablet 5 mg PO DAILY Qty: 30 0RF Continued isosorbide mononitrate 30 mg tablet extended release 24 hr 30 mg PO ONCE Patient Comments: TAKE ONE TABLET BY MOUTH EVERY MORNING lisinopril 10 mg tablet 10 mg PO DAILY Patient Comments: TAKE ONE TABLET BY MOUTH EVERY DAY albuterol sulfate 90 mcg/actuation HFA aerosol inhaler 2 inh INHALATION Q6H PRN Patient Comments: INHALE 2 PUFFS BY MOUTH EVERY 6 HOURS, NEEDED FOR SHORTNESS OF BREATH OR WHEEZING sertraline 50 mg tablet 50 mg PO DAILY Patient Comments: TAKE ONE TABLET BY MOUTH EVERY DAY atorvastatin 20 mg Tablet 20 mg PO QPM Qty: 30 0RF aspirin 81 mg Tablet,Chewable 81 mg PO DAILY Qty: 30 0RF metoprolol succinate 25 mg Tablet Extended Release 24 Hr 25 mg PO DAILY Qty: 30 0RF
[2025-02-14] MEDS: Aspirin 81 MG CHEW PO (09:05)
[2025-02-14] MEDS: Sertraline 50 MG TAB PO (09:05)
[2025-02-14] MEDS: amLODIPine 5 MG TAB PO (09:05)
[2025-02-14] MEDS: Lisinopril 10 MG TAB PO (09:05)
[2025-02-14] MEDS: Metoprolol CR 25 MG TABCR PO (09:34)
--- NOTE | 2025-02-14 10:07 | W.PM.HP.N ---
Date of service: 02/14/25 Time of Service: 10:07 Assessment and Plan Assessment and plan (1) Angina pectoris, unstable: Status: Resolved Assessment and plan: - Symptoms remain consistent with unstable angina - Given the patient has known RCA occlusion on recent stress, attempted to transfer patient to a tertiary care center but no beds were available - However, appreciate [facility] cardiology recommending maximal medication management including the following; starting ranolazine 500 mg twice daily and discontinuing lisinopril - Continue other medications including aspirin, statin, isosorbide mononitrate, metoprolol succinate - If axial medication management does not lead to improvement of symptoms will reach back out to tertiary care center for consideration of cardiac catheterization - Follow-up echocardiogram - Monitor on telemetry medications (2) RCA occlusion: Status: Acute Assessment and plan: -PCI at [facility] last year -Patient was lost to followup -Interventions were intended to be limited to medical management (3) Benign essential hypertension: Status: Acute Assessment and plan: -Continue medication management as noted above (4) Major depression, recurrent, chronic: Status: Acute Assessment and plan: Continue home sertraline History of Present Illness History of Present Illness Chief Complaint: Chest pain Narrative: 59-year-old gentleman with a past medical history of COPD, hypertension, coronary artery disease with RCA occlusion presented the emergency department with chest pain. Patient had recently been admitted and BR from 02/02 to 02/03/2025 for unstable angina. [place] [facility] [place] and recommended patient adhere to medication regimen which he had admitted he was not taking. They they recommended restarting his 81 mg aspirin, 20 mg statin, 30 mg isosorbide dinitrate, 10 mg lisinopril, 25 mg metoprolol succinate and maximizing medical therapy. At that time patient improved and he was discharged home. However, patient returned back to the emergency room on 02/13/2025 with similar symptoms though was adamant that he had been taking his medication. He stated that his chest pain was substernal in nature, worse with exertion but not completely improved with rest, it was radiating down his right arm into his right side as well as left arm tingling and dyspnea. He also stated he had vomited 4 times earlier in the day and that he had had 3 episodes of syncope while at rest. In the emergency department the patient was noted as having normal vital signs, normal CBC and CMP, negative troponin, and an unchanged EKG. Upon further review of the patient's chart it was determined that he had had recent stress test and was found to have RCA occlusion prompting emergency room provider attempted to transfer patient to tertiary care facility for heart catheterization. Ultimately, no facility excepted the patient, but [facility] stated that further medical management should be attempted which included starting ranolazine 500 mg twice daily, and discontinuing his lisinopril. At which time emergency room fighter paged hospitalist for admission for patient observation status requiring medication optimization for unstable angina. Review of Systems All systems reviewed & are unremarkable except as noted in HPI and below PFSH All Active Problems (Updated 02/14/25 @ 05:25 by Jericho Hall DO) Depression (Chronic) Syncope (Chronic) Aneurysm, thoracic aortic (Acute) Chest pain (Acute) Major depression, recurrent, chronic (Acute) Benign essential hypertension (Acute) RCA occlusion (Acute) Social History Smoking/Tobacco Use Status: Current every day Tobacco Type: cigarettes Years smoked: 41 Smoking risk assessment performed?: Yes Alcohol Intake: current Alcohol Intake frequency: a few times a month Substance use type: does not use Housing: apartment Do you feel safe at home: Yes Do you feel safe in your relationship?: Yes Meds Allergies and Home Medications Allergies Allergy/AdvReac Type Severity Reaction Status Date / Time No Known Allergies Allergy Unverified 02/13/25 23:10 Home Medications ?Medication ?Instructions ?Recorded ?Confirmed ?Type albuterol sulfate 90 mcg/actuation 2 inh inhalation Q6H PRN 02/02/25 02/13/25 History aerosol inhaler isosorbide mononitrate 30 mg 30 mg PO ONCE 02/02/25 02/13/25 History tablet,extended release 24 hr lisinopril 10 mg tablet 10 mg PO DAILY 02/02/25 02/13/25 History sertraline 50 mg tablet 50 mg PO DAILY 02/02/25 02/13/25 History aspirin 81 mg chewable tablet 81 mg PO DAILY #30 tabs 02/03/25 02/13/25 Rx atorvastatin 20 mg tablet 20 mg PO QPM #30 tabs 02/03/25 02/13/25 Rx metoprolol succinate 25 mg 25 mg PO DAILY #30 tabs 02/03/25 02/13/25 Rx tablet,extended release 24 hr amlodipine 5 mg tablet 5 mg PO DAILY #30 tabs 02/14/25 Rx Exam Narrative Exam Narrative: Fatigued but otherwise well-appearing older gentleman sitting up at the edge of the bed no acute distress, ANO x 4, heart regular rhythm, lungs good auscultation bilaterally, abdomen soft, nontender, nondistended Results Labs 02/13/25 20:59 02/13/25 18:18 Labs: Laboratory Results - last 24 hr 02/13/25 02/13/25 02/13/25 18:18 19:20 20:59 WBC 6.41 6.68 RBC 4.03 L 3.87 L Hgb 12.6 L 12.4 L Hct 37.9 L 36.4 L MCV 94 94 MCH 31.3 32.0 MCHC 33.2 34.1 RDW 12.9 13.2 Plt Count 204 207 MPV 10.7 10.6 Immature Gran % 0.6 Neutrophils % 57.4 Lymphocytes % 31.0 Monocytes % 8.1 Eosinophils % 2.3 Basophils % 0.6 Nucleated RBC % 0.0 Absolute Neutrophils 3.67 Absolute Lymphocytes 1.99 Absolute Monocytes 0.52 Absolute Eosinophils 0.15 Absolute Basophils 0.04 PT 9.8 INR 1.0 APTT 24.9 Sodium 142 Potassium 3.6 Chloride 105 Carbon Dioxide 24.3 Anion Gap 12.7 H BUN 15 Creatinine 0.7 Est GFR (CKD-EPI 2020) 104.83 Glucose 154 H Calcium 8.9 Magnesium 2.5 H Total Bilirubin 0.2 AST 17 ALT 26 Alkaline Phosphatase 121 H Troponin I 9 12 NT-Pro-B Natriuret Pep 167 Total Protein 7.5 Albumin 3.8 Lipase 45 TSH 2.55 Urine Opiates Screen Urine Methadone Screen Ur Barbiturates Screen Ur Tricyclics Screen Ur Amphetamines Screen U Benzodiazepines Scrn Urine Cocaine Screen Ur THC Screen Add-On Test Request DONE 02/13/25 02/14/25 21:13 06:15 WBC RBC Hgb Hct MCV MCH MCHC RDW Plt Count MPV Immature Gran % Neutrophils % Lymphocytes % Monocytes % Eosinophils % Basophils % Nucleated RBC % Absolute Neutrophils Absolute Lymphocytes Absolute Monocytes Absolute Eosinophils Absolute Basophils PT INR APTT Sodium Potassium Chloride Carbon Dioxide Anion Gap BUN Creatinine Est GFR (CKD-EPI 2020) Glucose Calcium Magnesium Total Bilirubin AST ALT Alkaline Phosphatase Troponin I 10 NT-Pro-B Natriuret Pep Total Protein Albumin Lipase TSH Urine Opiates Screen Negative Urine Methadone Screen Negative Ur Barbiturates Screen Negative Ur Tricyclics Screen Negative Ur Amphetamines Screen Negative U Benzodiazepines Scrn Negative Urine Cocaine Screen Positive A Ur THC Screen Negative Add-On Test Request Last Vital Signs Temp 97.7 F 02/13/25 17:05 Pulse 72 02/14/25 06:25 Resp 14 02/14/25 06:25 BP 142/62 H 02/14/25 06:25 Pulse Ox 98 02/14/25 06:25 Time Spent Time spent with Patient: >75 minutes Time was spent: preparing to see the patient(eg.review tests), obtaining and/or reviewing separately otained hiistory, ordering medications,tests, procedures, referring, communicating with other health manager managed care, indepentently interpreting results, counseling the patient and care coordination
[2025-02-14] MEDS: Acetaminophen 325 MG TAB 650 MG PO (16:19)
[2025-02-14] MEDS: Ranolazine 500 MG TABCR PO (20:56)
[2025-02-14] MEDS: Atorvastatin 20 MG TAB PO (20:56)
[2025-02-15] VITALS (23 sets, daily range): BP systolic 108–142; BP diastolic 51–76; PULSE 55–97; RESP 10–20; TEMP 36.7–36.8; O2SAT 93–98
[2025-02-15 06:49] LABS: HCT 39.0 % (40.0-50.0); HGB 12.9 g/dL (13.5-17.5); MCH 31.0 pg (27.0-33.0); MCHC 33.1 % (32.0-36.0); MCV 94 fL (80-95); MPV 11.0 fL (8.0-11.0); Platelet Count 214 10^3/uL (130-400); RBC 4.16 10^6/uL (4.36-5.78); RDW 12.9 % (11.8-14.1); RDW-SD 44.4 fL; WBC 6.02 10^3/uL (4.4-10.8)
[2025-02-15 07:03] LABS: Anion Gap 7.3 mmol/L (3-11); BUN 13 mg/dL (7-18); CO2 26.7 mmol/L (21.0-32.0); Calcium 8.8 mg/dL (8.5-10.1); Chloride 105 mmol/L (98-107); Estimated GFR 104.83 (mL/min/1.73m2); Glucose 138 mg/dL (74-106); Magnesium 2.2 mg/dL (1.8-2.4); Potassium 3.8 mmol/L (3.5-5.1); Sodium 139 mmol/L (136-145)
[2025-02-15] MEDS: Aspirin 81 MG CHEW PO (08:00)
[2025-02-15] MEDS: Metoprolol CR 25 MG TABCR PO (08:00)
[2025-02-15] MEDS: Sertraline 50 MG TAB PO (08:00)
[2025-02-15] MEDS: Enoxaparin 40 MG/0.4 ML SYR SC (08:00)
[2025-02-15] MEDS: Ranolazine 500 MG TABCR PO (08:00)
[2025-02-15] MEDS: Isosorbide Mononitrate 30 MG TABCR PO (08:00)
--- NOTE | 2025-02-15 09:01 | INITIAL_ITS ---
Date of service: 02/15/25 Time of Service: 09:02 Care Management Initial Assmt Initial Assessment Reason for Hospitalization: unstable angina Functional Status/Living Situation Patient Presentation: Agatha was sitting up in bed when CM met with him. He was pleasant in interaction and easily engaged with CM. Agatha lives in an apartment in [place]. His son Naveen stays with him frequently. Agatha has 4 other children who all live in [place] except for one son who lives in [place]. He describes his family as close and supportive. Agatha has not been able to work since last May due to cardiac issues. He has applied for disability and actually had a hearing scheduled for today which he was unable to participate in. CM provided him with a letter of explanation for the SSA should they require it, Agatha was admitted on 02/14/25 with unstable angina. He was treated overnight and is feeling much better today. Agatha was able to ambulate around the unit with no pain. He will be discharged home with no new services later today. Town of Residence: [place] Resides with: Child (son stays with him often) Significant Other/Family: Local Employment Status: Disabled (working on getting disability) Instrumental Activities of Daily Living (ADLs): Independent Medications Medication Management: No Issues/Barriers identified Advance Directives Advance Directives: Do you have an Advance Directive: N , 09:48 AD On File at [facility]: N 02/02/25, 09:48 Date Asked 02/13/25 02/13/25, 16:58 AD Date Reviewed COLST On File at [facility] COLST Date Scanned Code Status Resuscitation Status Full Code Portal Pt does not currently have a portal and education provided: Yes Insurance Coverage/Financial Issues Insurance: Medicaid Care Team Visit Care Team Role Provider Type None None Primary Care Provider NON-[facility] STAFF PHYSICIAN Neisha Fine Other Providers [facility] Elsy Cedillo Other Providers [facility] [employer] Matilde Chino Other Providers [facility] [employer] [facility] Jayla Dudley RN Other Providers [facility] [employer] Kindra Connell Other Providers [facility] [employer] Akira Houston MD Emergency Provider [facility] STAFF PHYSICIAN Jesus Willis MD Admit Provider [facility] STAFF PHYSICIAN Attending Provider Discharge Potential Discharge Needs: PCP F/U Appt Anticipated Barriers to Discharge: None Identified Patient/Family Education Needs: Review discharge instructions, discuss Ask Me Three Transportation: Private vehicle Plan: Anticipate Agatha will be discharged home with no new services when medically cleared. He will follow up with his PCP and plan of care and transport with family. CM will follow and continue to assess for discharge needs. Social Determinants of Health Screening Social Determinants of health last assessed in clinic: 02/15/25 Will the Patient Participate in the Screening?: Yes Do you worry about having a steady place to live?: no Problems where you live: no known problems In the past 12 months, have you had to go without electric, gas, oil or water in your home?: no 1. Within the past 12 months, we worried whether our food would run out before we got money to buy more.: Never true 2. Within the past 12 months, the food we bought just didn't last and we didn't have money to get more.: Never true Has lack of transportation kept you from medical appointments or from doing things needed for daily living?: no Has anyone in your life made you feel unsafe or unsupported?: no How hard is it for you to pay for the very basics like food, housing, medical care, and heating? Would you say it is:: Somewhat hard Do you want help finding or keeping work or a job?: I do not need or want help If for any reason you need help with day-to-day activities such as bathing, preparing meals, shopping, managing finances, etc., do you get the help you need?: I don?t need any help How often do you feel lonely or isolated from those around you?: Always Do you speak a language other than Faroese at home?: No Does the patient want assistance with any of the above?: Yes Comments: states he has broken heart syndrome since his , Jun 07, 2023 Health Related Social Needs Health related social needs: problems related to housing/economic circumstances (Z59.89) and feeling lonely/isolated (Z60.8) Health related social needs details: patient denies any needs at this time [facility] All Active Problems (Updated 02/14/25 @ 05:25 by Jericho Hall DO) Depression (Chronic) Syncope (Chronic) Aneurysm, thoracic aortic (Acute) Chest pain (Acute) Major depression, recurrent, chronic (Acute) Benign essential hypertension (Acute) RCA occlusion (Acute) Social History Smoking/Tobacco Use Status: Current every day Tobacco Type: cigarettes Years smoked: 41 Smoking risk assessment performed?: Yes Alcohol Intake: current Alcohol Intake frequency: a few times a month Substance use type: does not use Housing: apartment Do you feel safe at home: Yes Do you feel safe in your relationship?: Yes
--- NOTE | 2025-02-15 11:02 | DSE_ITS ---
Date of service: 02/15/25 Time of Service: 11:02 DS: Diagnosis Discharge Diagnosis (1) Angina pectoris, unstable: Status: Resolved (2) RCA occlusion: Status: Acute (3) Benign essential hypertension: Status: Acute (4) Major depression, recurrent, chronic: Status: Acute Discharge Plan Disposition Patient Disposition: Home Condition: Good Discharge Details Reason For Visit: Unstable angina Admit Date/Time: 02/14/25 10:07 Admit Provider: Jesus Willis Attending Provider: Jesus Willis Primary Care Provider: None,None Hospital Course Hospital Course: Patient initially presented to the hospital with signs and symptoms concerning for unstable angina. Patient apparently had known RCA occlusion upon presenting the emergency department attempted to transfer to tertiary care center for cardiac catheterization though he was declined. [facility] did ultimately consult and recommended maximal medical therapy. Additionally, plan for you if there questioning of the patient his pain was more described as a pleuritic chest pain as he also described having a cough for the last few weeks. At the recommendation of [facility] cardiology his lisinopril was discontinued and he was started on ranolazine which did significantly improve his chest pain. Patient was able to ambulate around the unit without any chest pain. Ultimately, it was determined that he was stable for discharge home. Home Meds and New Rx's Prescriptions: New amlodipine 5 mg tablet 5 mg PO DAILY Qty: 30 0RF ranolazine 500 mg Tablet Extended Release 12 Hr 500 mg PO BID Qty: 90 0RF Continued isosorbide mononitrate 30 mg tablet extended release 24 hr 30 mg PO ONCE Patient Comments: TAKE ONE TABLET BY MOUTH EVERY MORNING albuterol sulfate 90 mcg/actuation HFA aerosol inhaler 2 inh INHALATION Q6H PRN Patient Comments: INHALE 2 PUFFS BY MOUTH EVERY 6 HOURS, NEEDED FOR SHORTNESS OF BREATH OR WHEEZING sertraline 50 mg tablet 50 mg PO DAILY Patient Comments: TAKE ONE TABLET BY MOUTH EVERY DAY atorvastatin 20 mg Tablet 20 mg PO QPM Qty: 30 0RF aspirin 81 mg Tablet,Chewable 81 mg PO DAILY Qty: 30 0RF metoprolol succinate 25 mg Tablet Extended Release 24 Hr 25 mg PO DAILY Qty: 30 0RF Discontinued lisinopril 10 mg tablet 10 mg PO DAILY Patient Comments: TAKE ONE TABLET BY MOUTH EVERY DAY Discharge Instructions Additional Instructions: You are seen in the emergency department for your chest pain. Cardiology team advised that you begin a new medication called amlodipine at 5 mg daily. Please call your primary care provider later today for follow-up there is week. If you develop recurrent chest pain if you pass out or if you have any other concerns please return to the emergency department. Activity:: Activity as Tolerated Equipment/Supplies:: No Equipment Needed Diet:: As Tolerated Discharge Orders Discharge Orders: Discharge Order (Routine); Ordered 02/15/25 Ordered By: Jesus Willis DS: Summary Time Spent with Patient providing and/or coordinating discharge services: Greater than 30 minutes Status at Discharge Functional status at discharge: independent ambulation Overall status at discharge: patient is back to baseline Mental Status: mental status grossly normal Speech and Movement: speech and movement normal Mood: congruent mood Affect: normal affect Quality:SDOH Health Related Social Needs: Health related social needs house/econ circumstance lo anabelle/isolated Health related social needs details patient denies any needs at this time Health related social needs details: patient denies any needs at this time Exam Narrative Exam Narrative: well-appearing older gentleman sitting up at the edge of the bed no acute distress, ANO x 4, heart regular rhythm, lungs good auscultation bilaterally, abdomen soft, nontender, nondistended Psych Mental Status: mental status grossly normal Speech and Movement: speech and movement normal Mood: congruent mood Affect: normal affect DS: Data Vitals/I&O Vitals and I&O: Vital Signs Temperature 98.2 F 02/15/25 08:25 Temperature Source Temporal Artery Scan 02/15/25 08:25 Pulse 68 02/15/25 10:33 Pulse 81 02/15/25 10:33 Respiratory Rate 19 02/15/25 10:33 Respiratory Effort Normal, Non-Labored 02/14/25 11:22 Respiratory Depth Normal 02/14/25 11:22 Respiratory Pattern Normal 02/14/25 11:22 Blood Pressure 112/64 02/15/25 10:33 Blood Pressure Mean 78 02/15/25 10:33 Blood Pressure Position Supine 02/14/25 11:22 Pulse Oximetry 98 02/15/25 10:28 Oxygen Delivery Method Room Air 02/14/25 17:13 Oxygen Flow Rate 0 02/14/25 17:13 Pain Level 7 02/14/25 17:13 Comment while walking 02/15/25 10:28 Intake & Output 02/14/25 02/15/25 02/15/25 17:59 05:59 17:59 Intake Total 360 / 360 1140 / 1500 510 / 510 Output Total 1225 / 1225 Balance 360 / 360 -85 / 275 510 / 510 Weight 201 lb 15.095 oz 201 lb 4.513 oz Intake: IV Oral 360 / 360 1140 / 1500 500 / 500 Output: Urine 1225 / 1225 Other: Urine Color Pale Urine Appearance Clear Urine Odor None Comment pt voided, not recorded Data Completed and Pending Labs on day of discharge: Labs from last 24 hours 02/15/25 05:42 WBC 6.02 RBC 4.16 L Hgb 12.9 L Hct 39.0 L MCV 94 MCH 31.0 MCHC 33.1 RDW 12.9 Plt Count 214 MPV 11.0 Sodium 139 Potassium 3.8 Chloride 105 Carbon Dioxide 26.7 Anion Gap 7.3 BUN 13 Creatinine 0.7 Est GFR (CKD-EPI 2020) 104.83 Glucose 138 H Calcium 8.8 Magnesium 2.2 PFSH All Active Problems (Updated 02/14/25 @ 05:25 by Jericho Hall DO) Depression (Chronic) Syncope (Chronic) Aneurysm, thoracic aortic (Acute) Chest pain (Acute) Major depression, recurrent, chronic (Acute) Benign essential hypertension (Acute) RCA occlusion (Acute) Social History Smoking/Tobacco Use Status: Current every day Tobacco Type: cigarettes Years smoked: 41 Smoking risk assessment performed?: Yes Alcohol Intake: current Alcohol Intake frequency: a few times a month Substance use type: does not use Housing: apartment Do you feel safe at home: Yes Do you feel safe in your relationship?: Yes Time Spent with Patient Time Spent with Patient: <45 minutes Time was spent: preparing to see the patient(eg.review tests), obtaining and/or reviewing separately otained hiistory, ordering medications,tests, procedures, referring, communicating with other health child care center assistant director, indepentently interpreting results, counseling the patient and care coordination
--- NOTE | 2025-02-15 12:13 | CMDISCH_ITS ---
Date of service: 02/15/25 Time of Service: 12:13 LACE Index Scoring Tool Questions: Length of Stay (in days): 1 Was the patient admitted via the E.D.?: Yes Comorbidities: Chronic Pulmonary Disease E.D. Visits: 3 Answers: Total Score: 9 Risk of Readmission: Low Risk Care Management Discharge Plan Reason for Hospitalization: unstable angina Discharge Plan: Agatha will be discharged home with no new services. He will follow up with his PCP and plan of care and transport with family. Patient/Family Education Needs: Review discharge instructions, limitations, follow up plan and discuss Ask Me Three SDOH Health Related Social Needs: Health related social needs house/econ circumstance lo anabelle/isolated Health related social needs details patient denies any needs at this time Health related social needs details: patient denies any needs at this time
== END 2025-02-15 12:40 | disposition home or self-care (01) ==
LOC: ER 02-14 10:15 → MS 02-14 10:58 → ICU 02-14 11:03
PROVIDERS: Nurse Practitioner Family; Student in an Organized Health Care Education/Training Program; Admitting Provider Family Medicine; Emergency Provider Emergency Medicine; Responsible Provider Family Medicine; Visit Provider Family Medicine
DX: I25.110 Atherosclerotic heart disease of native coronary artery with unstable angina pectoris (principal); I10 Essential (primary) hypertension; J44.9 Chronic obstructive pulmonary disease, unspecified; F33.9 Major depressive disorder, recurrent, unspecified; F17.210 Nicotine dependence, cigarettes, uncomplicated; R05.9 Cough, unspecified; Z79.899 Other long term (current) drug therapy
CPT/HCPCS: 00123; 36415; 80048; 80053; 80307; 83690; 85027; 93005; 94640; 96372; 96374; 96375; 99285; J1650; 71046; 74174; 83735; 83880; 84443; 84484; 85025; 85610; 85730; 93010; 99223; 99239; G0378; J2405; J3490; J7620

== ENCOUNTER 2025-03-02 19:14 | Observation (INO) | payer MEDICAID, SELFPAY ==
[2025-03-02] VITALS (42 sets, daily range): BP systolic 100–162; BP diastolic 47–90; PULSE 81–98; RESP 13–28; O2SAT 92–99
--- NOTE | 2025-03-02 19:15 | RT.EKG_ITS ---
APPROVED REPORT Exam: Resting ECG Reason for Exam: chest pain Patient Location: E HR:91 bpm ECG Measurements Heart Rate 91 AXIS ID 161 P 74 QRSd 118 QRS 21 QT 381 T 77 QTc 470 Conclusion Sinus rhythm...normal P axis, V-rate 60- 99 Nonspecific intraventricular conduction delay...QRSd >115mS, not LBBB/RBBB Inferior infarct, old...Q >35mS, II III aVF Sinus rhythm normal axis normal intervals Q waves inferior leads
--- NOTE | 2025-03-02 19:15 | DI.RAD_ITS ---
Exam(s) XR PORTABLE CHEST AP EXAM: XR PORTABLE CHEST AP CLINICAL HISTORY: Chest pain TECHNIQUE: 2D digital imaging was performed of the chest. One image was obtained. An AP view was obtained. COMPARISON: CR,XR XR CHEST 2V PA LATERAL from 02/13/2025 FINDINGS: MEDIASTINUM: Normal. HEART: Normal. PULMONARY VASCULATURE: Normal. LUNGS: There is linear atelectasis in the left lung base. There are no focal consolidating infiltrates. PLEURAL SPACE: No pleural effusion or pneumothorax. BONE:Within normal limits for the patient's age. OTHER FINDINGS:Normal. IMPRESSION: 1. No focal consolidating infiltrates are present. 2. The preliminary [facility] report was reviewed. DATA REPOSITORY: RADIATION DOSE DELIVERED:
[2025-03-02 19:28] LABS: Abs Immature Grans 0.05 10^3/uL (0.0-0.06); HCT 38.7 % (40.0-50.0); HGB 13.2 g/dL (13.5-17.5); Immature Grans % 0.7 %; MCH 31.5 pg (27.0-33.0); MCHC 34.1 % (32.0-36.0); MCV 92 fL (80-95); MPV 10.3 fL (8.0-11.0); Platelet Count 256 10^3/uL (130-400); RBC 4.19 10^6/uL (4.36-5.78); RDW 12.9 % (11.8-14.1); RDW-SD 43.7 fL; WBC 7.48 10^3/uL (4.4-10.8)
--- NOTE | 2025-03-02 19:34 | W.ED.GENAD ---
Discharge Plan Disposition Patient Disposition: Admit to [facility] Discharge Details Primary Care Provider: None,None ED Provider: Miran Queen Home Meds and New Rx's Prescriptions: No Action isosorbide mononitrate 30 mg tablet extended release 24 hr 30 mg PO ONCE Patient Comments: TAKE ONE TABLET BY MOUTH EVERY MORNING albuterol sulfate 90 mcg/actuation HFA aerosol inhaler 2 inh INHALATION Q6H PRN Patient Comments: INHALE 2 PUFFS BY MOUTH EVERY 6 HOURS, NEEDED FOR SHORTNESS OF BREATH OR WHEEZING sertraline 50 mg tablet 50 mg PO DAILY Patient Comments: TAKE ONE TABLET BY MOUTH EVERY DAY atorvastatin 20 mg Tablet 20 mg PO QPM Qty: 30 0RF aspirin 81 mg Tablet,Chewable 81 mg PO DAILY Qty: 30 0RF metoprolol succinate 25 mg Tablet Extended Release 24 Hr 25 mg PO DAILY Qty: 30 0RF amlodipine 5 mg tablet 5 mg PO DAILY Qty: 30 0RF ranolazine 500 mg Tablet Extended Release 12 Hr 500 mg PO BID Qty: 90 0RF HPI General Mode of arrival: ambulatory. Date/Time Provider Initiated Documentation: 03/02/25 19:20. Limitations to Documentation: no limitations. Information obtained by: patient, RN notes reviewed and old records reviewed. HPI Narrative: 59-year-old male presents to the ER with chief complaint of severe shortness of breath, severe midsternal chest pain and vomiting blood for the last 2-1/2 hours. Patient reports that approximately 30 minutes ago he started spitting up blood. He has had 2 MIs in the past last recent heart attack was proximately 3 weeks ago and was transferred to [facility]. He did take 81 mg aspirin prior to arrival. He also endorses some alcohol earlier today. On initial presentation patient has slurred speech, smells of EtOH, no active vomiting blood seen by myself, he does report that it was bright red, he is complaining of some severe midsternal chest pain he is slightly hypertensive upon arrival heart rate 98. Past medical history includes RCA occlusion, thoracic aortic aneurysm, hypertension, Related Data Home Medications ?Medication ?Instructions ?Recorded ?Confirmed albuterol sulfate 90 mcg/actuation 2 inh inhalation Q6H PRN 02/02/25 03/02/25 aerosol inhaler isosorbide mononitrate 30 mg 30 mg PO ONCE 02/02/25 02/13/25 tablet,extended release 24 hr sertraline 50 mg tablet 50 mg PO DAILY 02/02/25 03/02/25 aspirin 81 mg chewable tablet 81 mg PO DAILY #30 tabs 02/03/25 03/02/25 atorvastatin 20 mg tablet 20 mg PO QPM #30 tabs 02/03/25 03/02/25 metoprolol succinate 25 mg 25 mg PO DAILY #30 tabs 02/03/25 02/13/25 tablet,extended release 24 hr amlodipine 5 mg tablet 5 mg PO DAILY #30 tabs 02/14/25 03/02/25 ranolazine 500 mg tablet,extended 500 mg PO BID #90 tabs 02/15/25 03/02/25 release,12 hr Previous Rx's ?Medication ?Instructions ?Recorded aspirin 81 mg chewable tablet 81 mg PO DAILY #30 tabs 02/03/25 atorvastatin 20 mg tablet 20 mg PO QPM #30 tabs 02/03/25 metoprolol succinate 25 mg 25 mg PO DAILY #30 tabs 02/03/25 tablet,extended release 24 hr amlodipine 5 mg tablet 5 mg PO DAILY #30 tabs 02/14/25 ranolazine 500 mg tablet,extended 500 mg PO BID #90 tabs 02/15/25 release,12 hr Allergies Allergy/AdvReac Type Severity Reaction Status Date / Time No Known Allergies Allergy Unverified 03/02/25 19:22 General Stated Complaint: Chest Pain ADY: 2 Review of Systems All systems reviewed & are unremarkable except as noted in HPI and below Constitutional Constitutional: Reports as per HPI ENT Ears, Nose, Mouth, and Throat: Reports dizziness Cardiovascular Cardiovascular: Reports chest pain, Reports lightheadedness and Reports dyspnea Respiratory Respiratory: Reports dyspnea Gastrointestinal Gastrointestinal: Reports abdominal pain and Reports vomiting (Reports vomiting bright red blood) Genitourinary Genitourinary: Denies dysuria and Denies urinary incontinence Neurologic Neurologic: Reports abnormal speech and Reports dizziness Exam Narrative Exam Narrative: Constitutional: Alert and oriented x3. Appears stated age.obese body habitus. Slurred speech appears intoxicated, Head: Normocephalic, no trauma. Eyes: Pupils PERRL, Red reflex noted, EOM's intact. Eyelids symmetrical without lesions, discharge, or swelling. ENT: Bilateral TM's WNL, External ear normal to inspection, no mastoid TTP, swelling, or erythema, Nasal turbinates WNL, no nasal discharge. Normal dentition, Posterior pharynx WNL, no exudate. Chest: RRR, Normal S1, S2, distal pulses intact. Resp: Lungs clear to auscultation bilaterally, slightly diminished in the bases bilaterally Abdomen: Soft, non-distended, Normoactive bowel sounds all 4 quads. Left upper quadrant right upper quadrant tenderness to palpation no palpable masses. Musculoskeletal: Moves all 4 extremities without difficulty. Skin: No suspicious rashes or lesions. Capillary refill less than 2 sec. Neurologic: Cranial nerves II-XII intact. Alert and oriented x 3. Slurred speech, pupils are sluggish bilaterally smells of EtOH Hematologic/Lymphatic: No ecchymosis, no lymphadenopathy. Course Vital Signs Vital signs: Vital Signs Pulse 98 H 03/02/25 19:19 Respiratory Rate 24 03/02/25 19:19 Blood Pressure 162/80 H 03/02/25 19:19 Pulse Oximetry 98 03/02/25 19:19 Temperature Source Temporal Artery Scan 03/02/25 19:19 Pulse 98 H 03/02/25 19:19 Respiratory Rate 24 03/02/25 19:19 Blood Pressure 162/80 H 03/02/25 19:19 Blood Pressure Position Supine 03/02/25 19:19 Pulse Oximetry 98 03/02/25 19:19 Oxygen Delivery Method Room Air 03/02/25 19:19 Oxygen Flow Rate 0 03/02/25 19:19 Pain Level 9 03/02/25 19:19 Lab/Test Results Lab/Test Results: Laboratory Tests Range/Units 03/02/25 19:23 WBC (4.4-10.8) 10^3/uL 7.48 RBC (4.36-5.78) 10^6/uL 4.19 L Hgb (13.5-17.5) g/dL 13.2 L Hct (40.0-50.0) % 38.7 L MCV (80-95) fL 92 MCH (27.0-33.0) pg 31.5 MCHC (32.0-36.0) % 34.1 RDW (11.8-14.1) % 12.9 Plt Count (130-400) 10^3/uL 256 MPV (8.0-11.0) fL 10.3 Immature Gran % % 0.7 Neutrophils % % 56.1 Lymphocytes % % 30.1 Monocytes % % 8.7 Eosinophils % % 3.6 Basophils % % 0.8 Nucleated RBC % (0.0-0.3) % 0.0 Absolute Neutrophils (1.2-6.7) 10^3/uL 4.20 Absolute Lymphocytes (1.2-3.4) 10^3/uL 2.25 Absolute Monocytes (0.1-0.8) 10^3/uL 0.65 Absolute Eosinophils (0.0-0.7) 10^3/uL 0.27 Absolute Basophils (0.0-0.2) 10^3/uL 0.06 Medical Decision Making 59-year-old male presents to the ER with chief complaint of severe shortness of breath, severe midsternal chest pain and vomiting blood for the last 2-1/2 hours. Patient reports that approximately 30 minutes ago he started spitting up blood. He did has had 2 MIs in the past last recent heart attack was proximately 3 weeks ago and was transferred to [facility]. He did take 81 mg aspirin prior to arrival. He also endorses some alcohol earlier today. Cardiac workup ordered including serial troponins, ethyl alcohol level, CBC CMP PT PTT INR, EKG obtained by ED staff upon patient's presentation. 2227: [facility] executive housekeeper consult requested via transfer center, I do suspect that we will admit patient here for observation and further evaluation for chest pain and possible GI bleeding with alcohol intoxication discussed results and plan of care with patient and family who verbalized understanding. He is hemodynamically stable at this time. 2229: Spoke with Dr. Baumann at [facility] cardiology who reccommends continuing Amlodipine 5mg, Imdur 30mg, Hold off on Beta-blockers and he was able to view recent [employer] of Echo and stress testing with RCA abnormalities, He reccommends continuing with outpatient evaluation with appt 03-10-25. PET stress test done 12-30-24 which showed Right sided abnormalities. had Cardiac Cath 05-31-24 2237: Hospitalist grey, spoke with Dr. Whitmore who agrees to accept patient for admission. Patient did take his Imdur this morning per his report. Discussed plan of care he verbalized understanding is in agreement with the plan. This text was generated using Nuance dictation system, please disregard any oddities of phrase or misspellings. 2356: Dr. Shen at bedside for patient evaluation. Pending admission to floor. Patient hemodynamically stable at this time blood pressure 120/69. Medical Records Medical records reviewed: Yes I reviewed the patient's medical records. Imaging Data Radiologic Study: Imaging: CT Scan Radiologist's impression: IMPRESSION: 1. No pulmonary emboli are seen. 2. Mild bronchial wall thickening may reflect a mild acute or chronic bronchitis. 3. Incidental findings as described. IMPRESSION: 1. No acute findings. 2. Incidental findings as described. Thank you for allowing us to participate in the care of your patient. Dictated and Authenticated by: Marcela Hodge MD 03/02/2025 10:00 PM Eastern Time ([place] & [place]) Lab Data Lab results reviewed: Yes I reviewed the patient's lab results. Labs: Laboratory Tests Range/Units 03/02/25 03/02/25 03/02/25 19:23 20:44 20:50 WBC (4.4-10.8) 10^3/uL 7.48 RBC (4.36-5.78) 10^6/uL 4.19 L Hgb (13.5-17.5) g/dL 13.2 L Hct (40.0-50.0) % 38.7 L MCV (80-95) fL 92 MCH (27.0-33.0) pg 31.5 MCHC (32.0-36.0) % 34.1 RDW (11.8-14.1) % 12.9 Plt Count (130-400) 10^3/uL 256 MPV (8.0-11.0) fL 10.3 Immature Gran % % 0.7 Neutrophils % % 56.1 Lymphocytes % % 30.1 Monocytes % % 8.7 Eosinophils % % 3.6 Basophils % % 0.8 Nucleated RBC % (0.0-0.3) % 0.0 Absolute Neutrophils (1.2-6.7) 10^3/uL 4.20 Absolute Lymphocytes (1.2-3.4) 10^3/uL 2.25 Absolute Monocytes (0.1-0.8) 10^3/uL 0.65 Absolute Eosinophils (0.0-0.7) 10^3/uL 0.27 Absolute Basophils (0.0-0.2) 10^3/uL 0.06 PT (9.1-11.1) sec 9.9 INR (0.9-1.1) 1.0 APTT (20.6-30.2) sec 24.3 Sodium (136-145) mmol/L 141 Potassium (3.5-5.1) mmol/L 3.6 Chloride (98-107) mmol/L 106 Carbon Dioxide (21.0-32.0) mmol/L 21.1 Anion Gap (3-11) mmol/L 13.9 H BUN (7-18) mg/dL 12 Creatinine (0.70-1.30) mg/dL 1.1 Est GFR (CKD-EPI 2020) (mL/min/1.73m2) 76.37 Glucose (74-106) mg/dL 143 H Calcium (8.5-10.1) mg/dL 9.0 Magnesium (1.8-2.4) mg/dL 2.1 Total Bilirubin (0.2-1.0) mg/dL 0.1 L AST (15-37) U/L 12 L ALT (16-63) U/L 17 Alkaline Phosphatase (46-116) U/L 129 H Troponin I (<or=76) ng/L 17 16 NT-Pro-B Natriuret Pep (<300) pg/mL 340 H Total Protein (6.4-8.2) g/dL 7.2 Albumin (3.4-5.0) g/dL 3.6 Urine Opiates Screen (Negative) Negative Urine Methadone Screen (Negative) Negative Ur Barbiturates Screen (Negative) Negative Ur Tricyclics Screen (Negative) Negative Ur Amphetamines Screen (Negative) Negative U Benzodiazepines Scrn (Negative) Negative Urine Cocaine Screen (Negative) Positive A Ur THC Screen (Negative) Negative Ethyl Alcohol (<10) mg/dL 153.3 H Quality:SDOH Health Related Social Needs: Health related social needs house/econ circumstance lonely/isolated Health related social needs details patient denies any needs at this time PFSH All Active Problems (Updated 03/02/25 @ 23:17 by Nirav Maravilla) Acute alcohol intoxication (Acute) Substance use disorder (Acute) Hematemesis with nausea (Acute) Atypical chest pain (Acute) CAD (coronary artery disease), kaw coronary artery (Chronic) Depression (Chronic) Aneurysm, thoracic aortic (Acute) Benign essential hypertension (Chronic) RCA occlusion (Acute) Social History Smoking/Tobacco Use Status: Current every day Tobacco Type: cigarettes Years smoked: 41 Smoking risk assessment performed?: Yes Alcohol Intake: current Alcohol Intake frequency: a few times a month Substance use type: does not use Housing: apartment Do you feel safe at home: Yes Do you feel safe in your relationship?: Yes
[2025-03-02 19:42] LABS: INR 1.0 (0.9-1.1); PTT Activated 24.3 sec (20.6-30.2); Prothrombin Time 9.9 sec (9.1-11.1)
[2025-03-02 19:50] LABS: ALT 17 U/L (16-63); AST 12 U/L (15-37); Albumin 3.6 g/dL (3.4-5.0); Alkaline Phosphatase 129 U/L (46-116); Anion Gap 13.9 mmol/L (3-11); BUN 12 mg/dL (7-18); Bilirubin, Total 0.1 mg/dL (0.2-1.0); CO2 21.1 mmol/L (21.0-32.0); Calcium 9.0 mg/dL (8.5-10.1); Chloride 106 mmol/L (98-107); Estimated GFR 76.37 (mL/min/1.73m2); Glucose 143 mg/dL (74-106); Magnesium 2.1 mg/dL (1.8-2.4); NT-proBNP 340 pg/mL (<300); Potassium 3.6 mmol/L (3.5-5.1); Sodium 141 mmol/L (136-145); Total Protein 7.2 g/dL (6.4-8.2); Troponin I 17 ng/L (<or=76)
--- NOTE | 2025-03-02 19:57 | DI.[facility]_ITS ---
PROCEDURE INFORMATION: Exam: XR Chest Exam date and time: 03/02/2025 7:38 PM Age: 59 years old Clinical indication: Chest pressure and chest wall pain TECHNIQUE: Imaging protocol: Radiologic exam of the chest. Views: 1 view. COMPARISON: CR XR CHEST 2V PA LATERAL 02/13/2025 7:07 PM FINDINGS: Lungs: Minimal linear left basilar scarring or subsegmental atelectasis. No airspace consolidation. Pleural spaces: No pleural effusion. No pneumothorax. Heart/Mediastinum: No cardiomegaly. Bones/joints: Cervical spine fixation hardware is partially assessed. No displaced fracture. Minor chronic bony findings. IMPRESSION: Minimal linear left basilar scarring or subsegmental atelectasis. Dictated and Authenticated by: Marcela Hodge MD. Orderin Bernice Bradley MD
[2025-03-02] MEDS: Normal Saline 1,000 ML 150 ML IV (20:12)
[2025-03-02] MEDS: MORPHine 10 MG/ML VIAL 2 MG IVP (20:12)
[2025-03-02] MEDS: Ondansetron 4 MG/2 ML VIAL IVP (20:12)
[2025-03-02] MEDS: Pantoprazole 40 MG VIAL IVP (20:13)
--- NOTE | 2025-03-02 20:15 | RT.EKG_ITS ---
APPROVED REPORT Exam: Resting ECG Reason for Exam: Repeat, Chest Pain Patient Location: E HR:82 bpm ECG Measurements Heart Rate 82 AXIS IL 165 P 62 QRSd 120 QRS 21 QT 408 T 64 QTc 478 Conclusion Sinus rhythm...normal P axis, V-rate 60- 99 Nonspecific intraventricular conduction delay...QRSd >115mS, not LBBB/RBBB Inferior infarct, age indeterminate...Q>35mS, T neg, II III aVF Normal sinus rhythm normal axis normal intervals Q waves inferior leads
[2025-03-02 21:09] LABS: Troponin I 16 ng/L (<or=76)
[2025-03-02 21:15] LABS: Cannabinoids THC Negative (Negative); METHADONE URINE SCREEN Negative (Negative)
[2025-03-02] MEDS: Omnipaque 350 MG/ML 100 ML BTL 75 ML IJ (21:29)
[2025-03-02] MEDS: Normal Saline - Diluent 50 ML VIAL IJ (21:31)
--- NOTE | 2025-03-02 21:52 | DI.CT_ITS ---
Exam(s) CT CHEST PE ABD PELVIS W EXAM: CT CHEST PE ABD PELVIS W CLINICAL HISTORY: Vomiting blood, chest pain. TECHNIQUE: Imaging Protocol: Axial CT angiography was performed with multi- slice acquisition and multi-planar and/or 3D reconstructions. Computer aided detection (CAD) was utilized. CONTRAST MATERIAL: Intravenous: Omnipaque 350contrast volume:75 mL COMPARISON: CT CT THORAX ABD/PEL CTA from 02/04/[address] ABDOMEN PELVIS CTA from 02/13/2025 FINDINGS: CHEST: Tracheobronchial tree: Patent where visualized. No evidence of bronchiectasis. Pulmonary parenchyma: No consolidation or dominant measurable mass. No architectural distortion. Pulmonary Arteries: No evidence of filling defect to suggest pulmonary emboli. Mediastinum and Daiana: No dominant adenopathy or fluid collection. The esophagus is unremarkable. Visualized thyroid gland: Unremarkable. Pleura: No effusion or pneumothorax. Heart: The heart is not dilated. There is moderate three-vessel coronary artery calcification present. No pericardial effusion. Aorta: Thoracic aorta non-dilated. No evidence of dissection. Atherosclerotic calcification is present. Bones: Within normal limits for the patient's age. There are subacute healing nondisplaced fractures involving the anterior aspects of the 4th, 5th and 6th ribs. These are new compared to the prior examination. Soft tissues: Unremarkable. ABDOMEN: Liver: Normal density. No measurable mass. Portal, Superior Mesenteric, and Splenic Veins: Unremarkable. Gallbladder and Biliary Tract: No radiodense calculus or dilation. Pancreas: Normal density, no abnormal calcifications or inflammatory process. Spleen: Normal. Adrenals: No masses seen. Kidneys: Normal size, contour and axis. No radiodense stones or obstructive uropathy. No masses seen. Abdominal Aorta: Abdominal portion non-dilated. Atherosclerotic calcification is present. Bowel: No obstruction or bowel wall thickening. Appendix is unremarkable. Peritoneal Cavity: No ascites, collection or mesenteric inflammatory response. No free air. Lymph Nodes: Within normal limits. Bones: Within normal limits for the patient's age. Soft Tissues: There is a tiny fat containing umbilical hernia. PELVIS: Bladder: Symmetric distention, no gross wall thickening. Reproductive Organs: Unremarkable as visualized. Lymph Nodes: Within normal limits. Bones: Within normal limits. IMPRESSION: 1. No evidence pulmonary embolism, thoracic aortic dissection or aneurysm. 2. Subacute healing nondisplaced fractures involving the anterior aspects of the left 4th, 5th and 6th ribs. These were not present on the prior examinations. 3. There is no acute abdominal or pelvic process. 4. There is a question of mild bronchial wall thickening which can be seen with bronchitis. Please correlate clinically. 5. No focal consolidating infiltrates are present. 6. The preliminary [facility] report was reviewed. RADIATION DOSE DELIVERED: 610.74mGy.cm Total DLP DATA REPOSITORY: All CT scans at this facility are submitted to the National Radiology Data Registry (NRDR) Dose Index Registry (DIR) with the [employer] (ACR). RADIATION OPTIMIZATION: All CT scans at this facility use at least one of these dose optimization techniques: automated exposure control; mA and/or kV adjustment per patient size (includes targeted exams where dose is matched to clinical indication); or iterative reconstruction.
--- NOTE | 2025-03-02 22:00 | DI.[facility]_ITS ---
PROCEDURE INFORMATION: Exam: CTA Chest With Contrast Exam date and time: 03/02/2025 9:26 PM Age: 59 years old Clinical indication: Chest pressure; Prior surgery; Surgery date: 6+ months; Surgery type: Heart stents; Vomiting blood, chest pain TECHNIQUE: Imaging protocol: Computed tomographic angiography of the chest with contrast. Exam focused on the arteries. 3D rendering (Not supervised by radiologist): MIP and/or 3D reconstructed images were created by the technologist. Radiation optimization: All CT scans at this facility use at least one of these dose optimization techniques: automated exposure control; mA and/or kV adjustment per patient size (includes targeted exams where dose is matched to clinical indication); or iterative reconstruction. Contrast material: [id number]; Contrast volume: 75 ml; Contrast route: INTRAVENOUS (IV); COMPARISON: CT THORAX ABD/PEL CTA 02/04/2025 4:21 PM FINDINGS: Pulmonary arteries: No pulmonary emboli. Aorta: No aortic aneurysm. No aortic dissection. Lungs: The lungs appear hyperinflated. No airspace consolidation. Mild bronchial wall thickening may reflect a mild acute or chronic bronchitis. Pleural spaces: No pneumothorax. No pleural effusion. Heart: Mild left ventricular dilation. Lymph nodes: No enlarged lymph nodes. Bones/joints: Degenerative changes in the spine. No acute fracture or subluxation. Soft tissues: No suspicious lesions. IMPRESSION: 1. No pulmonary emboli are seen. 2. Mild bronchial wall thickening may reflect a mild acute or chronic bronchitis. 3. Incidental findings as described. PROCEDURE INFORMATION: Exam: CT Abdomen And Pelvis With Contrast Exam date and time: 03/02/2025 9:26 PM Age: 59 years old Clinical indication: Chest pressure; Prior surgery; Surgery date: 6+ months; Surgery type: Heart stents; Vomiting blood, chest pain TECHNIQUE: Imaging protocol: Computed tomography of the abdomen and pelvis with contrast. Radiation optimization: All CT scans at this facility use at least one of these dose optimization techniques: automated exposure control; mA and/or kV adjustment per patient size (includes targeted exams where dose is matched to clinical indication); or iterative reconstruction. Contrast material: [id number]; Contrast volume: 75 ml; Contrast route: INTRAVENOUS (IV); COMPARISON: CT ABDOMEN PELVIS CTA 02/13/2025 6:47 PM FINDINGS: Liver: No mass. Gallbladder and biliary ducts: No calcified stones. No gross ductal dilation. Pancreas: No ductal dilation. No mass . Spleen: No splenomegaly or suspicious lesions. Adrenal glands: No suspicious mass. Kidneys and ureters: Benign-appearing renal cyst(s) and/or probable cyst(s). No renal masses or hydronephrosis bilaterally. Stomach and bowel: Moderate colonic stool burden. No focal pathology in the small bowel. Appendix: No evidence of appendicitis. Intraperitoneal space: No free air. No significant fluid collection. Vasculature: Atherosclerosis. No aortic aneurysm. Lymph nodes: No significantly enlarged lymph nodes. Urinary bladder: The urinary bladder is distended. No urinary bladder wall thickening. Reproductive: Mild prostatic enlargement. Bones/joints: Degenerative changes in the spine. Soft tissues: Tiny fat-containing umbilical hernia. IMPRESSION: 1. No acute findings. 2. Incidental findings as described. Dictated and Authenticated by: Marcela Hodge MD. Orderin Bernice Bradley MD
--- NOTE | 2025-03-02 23:11 | W.PM.HP.N ---
Date of service: 03/02/25 Time of Service: 23:11 Assessment and Plan Assessment and plan (1) Hematemesis with nausea: Start date: 03/02/25 Status: Acute Assessment and plan: This is a 59-year-old gentleman with recent cardiac events treated at [facility] and locally with poor compliance and follow-up. He has been drinking alcohol recently and had epigastric and retrosternal sharp pain which was not like his angina with associated nausea and vomiting with hematemesis. His CBC was stable upon admission but because of this episode and being on aspirin, he will be observed with trending troponins and cardiac monitoring because of his recent cardiac events. This does not appear to be angina pectoris. He is on ranolazine and Imdur daily. He does not take nitroglycerin sublingually. He does have follow-up with [facility] cardiology soon and they were consulted through the ED and did not advise any acute treatment for coronary syndrome or angina but stated that his positive cocaine in the urine may be contributing to his vasospasm with his known coronary disease. 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 Surgery was consulted and will perform EGD in the morning but the patient have a history of alcohol use but no history of ascites or cirrhosis. My concern would be for esophageal varices or gastritis which is aspirin treatment. EGD is planned in the morning. Patient will be n.p.o. after midnight. CBCs will be trended every 4 hours with type and screen to be performed if hemoglobin is dropping. Presently his hemoglobin is stable and at baseline. Lipase will be checked with morning lab. He does not have evidence of pancreatitis or cholecystitis by imaging. He is a full code. (2) Atypical chest pain: Start date: 03/02/25 Status: Acute Assessment and plan: Patient does have known CAD and is followed at [facility]. Troponins are negative and will be trended. Patient will be continued on his usual medications until follow-up with [facility]. Compliance was encouraged and avoiding cocaine was encouraged. [facility] did say to hold his metoprolol with cocaine on board. (3) Substance use disorder: Start date: 03/02/25 Status: Chronic Assessment and plan: Patient does have known substance use disorder in the past and was on chronic narcotics at 1 time but has not been prescribed narcotics or controlled substances recently with VPMS reviewed. USHA with positive cocaine but not opiates with but did not screen for synthetic narcotics. The patient was avoiding discussion of his substance use but did admit to using only cocaine. His alcohol level was positive and he will need to be watched for alcohol withdrawal though he has no history of this. Long-term he should consider outpatient counseling for substance abuse and alcohol use. Prognosis is poor for change with this known patient. (4) Acute alcohol intoxication: Start date: 03/02/25 Status: Acute Assessment and plan: Patient has positive alcohol level and states that he drinks alcohol, but not daily. CIWA protocol while hospitalized and initiate alcohol withdrawal protocol if needed. (5) CAD (coronary artery disease), [place] coronary artery: Status: Chronic Assessment and plan: Occluded RCA at the end of 2023 with PTCA and stenting. He also has a history of vasospastic disease of the 6 coronary arteries which may be exacerbated by cocaine use. He did have a recent nuclear stress test which showed RV dysfunction. Troponins today are negative but will be trended. (6) Benign essential hypertension: Status: Chronic Assessment and plan: Avoid metoprolol per [facility] because of cocaine use. Continue amlodipine and Imdur titrating amlodipine to blood pressure. (7) Depression: Status: Chronic Assessment and plan: On SSRI which will be continued. History of Present Illness History of Present Illness Chief Complaint: Epigastric and retrosternal sharp chest pain with hematemesis. Narrative: This is 59-year-old male patient who recently establish care at [facility] with a history of CAD and MIs in the past, cardiac catheterization with cardiac catheterization and stenting of the RCA at the end of 2023. He more recently had an episode of chest pain with diagnosis of unstable angina and was initiated on ranolazine with lisinopril held and his exertional chest pain markedly improved. He is very compliant with his follow-up at [facility] and did have a recent nuclear stress test which revealed right ventricle wall motion abnormalities with follow-up scheduled. He often misses his follow-ups. He states that he did take his morning medicines the day of presentation. He presented to the ED this event with severe epigastric and retrosternal sharp pain with nausea and 2 bouts of emesis with bright red blood. These were small amounts. He did not have retching. He has been drinking alcohol. His partner states that he does not drink alcohol daily and has not had problems with alcohol withdrawal. He does use street drugs and has been on chronic narcotics in the past. He does have a substance use disorder which is essentially untreated. In the ED his pain appear to be mostly esophageal and gastric and his troponins were negative. [facility] was called and suggested observation with assurance that he is on his nitrates and been always on with follow-up at [facility] as an outpatient as scheduled. They recommended trending the CBCs and monitoring for recurrent hematemesis. He is not on anticoagulation other than aspirin. He is not on Plavix. At the time I saw the patient he was not having chest pain. EKG did not show any ischemic changes. Patient urine drug screen was positive for cocaine and [facility] thought that this may be contributing to his vasospasm and chest discomfort. The patient avoided eye contact when I discussed his positive urine drug screen. In previous clinical experiences with this patient, he has poor insight and poor prognosis for motivation change. The patient was not given nitroglycerin in the ED. [facility] was consulted by phone. As stated they do have follow-up scheduled for him. Patient will be admitted for observation and monitoring of cardiac status overnight with repeat troponin. Surgery was consulted and will perform EGD in the morning. Patient has no history of chronic alcohol use or ascites, but he should be evaluated for esophageal varices. Surgeon was agreeable to this plan. Patient is a full code. Review of Systems Narrative: 13 point review of systems otherwise unrevealing or stable. PFSH All Active Problems (Updated 03/03/25 @ 08:43 by Nirav Maravilla) Acute alcohol intoxication (Acute) Substance use disorder (Chronic) Hematemesis with nausea (Acute) Atypical chest pain (Acute) CAD (coronary artery disease), [place] coronary artery (Chronic) Depression (Chronic) Aneurysm, thoracic aortic (Acute) Benign essential hypertension (Chronic) RCA occlusion (Acute) Social History Smoking/Tobacco Use Status: Current every day Tobacco Type: cigarettes Years smoked: 41 Smoking risk assessment performed?: Yes Alcohol Intake: current Alcohol Intake frequency: a few times a month Substance use type: does not use Housing: apartment Do you feel safe at home: Yes Do you feel safe in your relationship?: Yes Meds Allergies and Home Medications Allergies Allergy/AdvReac Type Severity Reaction Status Date / Time No Known Allergies Allergy Unverified 03/02/25 19:22 Home Medications ?Medication ?Instructions ?Recorded ?Confirmed ?Type albuterol sulfate 90 mcg/actuation 2 inh inhalation Q6H PRN 02/02/25 03/02/25 History aerosol inhaler isosorbide mononitrate 30 mg 30 mg PO ONCE 02/02/25 02/13/25 History tablet,extended release 24 hr sertraline 50 mg tablet 50 mg PO DAILY 02/02/25 03/02/25 History aspirin 81 mg chewable tablet 81 mg PO DAILY #30 tabs 02/03/25 03/02/25 Rx atorvastatin 20 mg tablet 20 mg PO QPM #30 tabs 02/03/25 03/02/25 Rx metoprolol succinate 25 mg 25 mg PO DAILY #30 tabs 02/03/25 03/03/25 Rx tablet,extended release 24 hr Held on 03/03/25. Instructions: Changed by Provider amlodipine 5 mg tablet 5 mg PO DAILY #30 tabs 02/14/25 03/02/25 Rx ranolazine 500 mg tablet,extended 500 mg PO BID #90 tabs 02/15/25 03/02/25 Rx release,12 hr Exam Narrative Exam Narrative: General: Patient appears older than stated age, moderate distress when reviewing history but sleeping when approached and easily awakened. He does remember me from previous experiences. He is alert and oriented x 3. He does have a flattened affect with poor eye contact especially when discussing urine drug screen. HEENT: Normocephalic with coarsened facial features and puffiness over his face, eyes with pupils equal and reactive to light symmetrically, extraocular movement intact and sclera anicteric. Oropharynx with poor dentition and dry mucosa. Neck: Supple without JVD. Back: Stooped posture without CVA tenderness. Lungs: Bronchovesicular breath sounds diffusely with fair aeration and no focalizing rales or rhonchi. No expiratory wheeze. Heart: Regular rate and irregular rhythm with 4/6 systolic murmur left sternal border with known . No gallop or rub. Abdomen: Moderately obese contour, tender to palpation over the epigastrium and right upper quadrant with no palpable hepatosplenomegaly or Gamino sign. Slight guarding in the upper abdomen but no rebound. The guarding appears to be voluntary. Bowel sounds are positive in all quadrants. Genitalia/rectal: Exam deferred. Extremities: Without clubbing, cyanosis or grossly pitting edema. He does have nonpitting edema over his ankles and feet. Fair capillary refill. Skin: Normal color, warm and dry. Doughy texture. Neuro: Cranial nerves II to XII gross intact, no focalized motor deficits and no tremor. Psych: Flattened affect with depressed mood. Patient is inebriated. No abnormal thought processes. Remote and recent memory grossly intact. Results Imaging Imaging Studies: Exam: CTA Chest With Contrast Exam date and time: 03/02/2025 9:26 PM Age: 59 years old Clinical indication: Chest pressure; Prior surgery; Surgery date: 6+ months; Surgery type: Heart stents; Vomiting blood, chest pain COMPARISON: CT THORAX ABD/PEL CTA 02/04/2025 4:21 PM FINDINGS: Pulmonary arteries: No pulmonary emboli. Aorta: No aortic aneurysm. No aortic dissection. Lungs: The lungs appear hyperinflated. No airspace consolidation. Mild bronchial wall thickening may reflect a mild acute or chronic bronchitis. Pleural spaces: No pneumothorax. No pleural effusion. Heart: Mild left ventricular dilation. Lymph nodes: No enlarged lymph nodes. Bones/joints: Degenerative changes in the spine. No acute fracture or subluxation. Soft tissues: No suspicious lesions. IMPRESSION: 1. No pulmonary emboli are seen. 2. Mild bronchial wall thickening may reflect a mild acute or chronic bronchitis. 3. Incidental findings as described. PROCEDURE INFORMATION: Exam: CT Abdomen And Pelvis With Contrast Exam date and time: 03/02/2025 9:26 PM Age: 59 years old Clinical indication: Chest pressure; Prior surgery; Surgery date: 6+ months; Surgery type: Heart stents; Vomiting blood, chest pain COMPARISON: CT ABDOMEN PELVIS CTA 02/13/2025 6:47 PM FINDINGS: Liver: No mass. Gallbladder and biliary ducts: No calcified stones. No gross ductal dilation. Pancreas: No ductal dilation. No mass . Spleen: No splenomegaly or suspicious lesions. Adrenal glands: No suspicious mass. Kidneys and ureters: Benign-appearing renal cyst(s) and/or probable cyst(s). No renal masses or hydronephrosis bilaterally. Stomach and bowel: Moderate colonic stool burden. No focal pathology in the small bowel. Appendix: No evidence of appendicitis. Intraperitoneal space: No free air. No significant fluid collection. Vasculature: Atherosclerosis. No aortic aneurysm. Lymph nodes: No significantly enlarged lymph nodes. Urinary bladder: The urinary bladder is distended. No urinary bladder wall thickening. Reproductive: Mild prostatic enlargement. Bones/joints: Degenerative changes in the spine. Soft tissues: Tiny fat-containing umbilical hernia. IMPRESSION: 1. No acute findings. 2. Incidental findings as described. Labs 03/03/25 05:30 03/03/25 05:30 Labs: Laboratory Results - last 24 hr 03/02/25 03/02/25 03/02/25 19:23 20:44 20:50 WBC 7.48 RBC 4.19 L Hgb 13.2 L Hct 38.7 L MCV 92 MCH 31.5 MCHC 34.1 RDW 12.9 Plt Count 256 MPV 10.3 Immature Gran % 0.7 Neutrophils % 56.1 Lymphocytes % 30.1 Monocytes % 8.7 Eosinophils % 3.6 Basophils % 0.8 Nucleated RBC % 0.0 Absolute Neutrophils 4.20 Absolute Lymphocytes 2.25 Absolute Monocytes 0.65 Absolute Eosinophils 0.27 Absolute Basophils 0.06 PT 9.9 INR 1.0 APTT 24.3 Sodium 141 Potassium 3.6 Chloride 106 Carbon Dioxide 21.1 Anion Gap 13.9 H BUN 12 Creatinine 1.1 Est GFR (CKD-EPI 2020) 76.37 Glucose 143 H Calcium 9.0 Magnesium 2.1 Total Bilirubin 0.1 L AST 12 L ALT 17 Alkaline Phosphatase 129 H Troponin I 17 16 NT-Pro-B Natriuret Pep 340 H Total Protein 7.2 Albumin 3.6 Urine Opiates Screen Negative Urine Methadone Screen Negative Ur Barbiturates Screen Negative Ur Tricyclics Screen Negative Ur Amphetamines Screen Negative U Benzodiazepines Scrn Negative Urine Cocaine Screen Positive A Ur THC Screen Negative Ethyl Alcohol 153.3 H Last Vital Signs Pulse 98 H 03/02/25 19:19 Resp 24 03/02/25 19:19 BP 162/80 H 03/02/25 19:19 Pulse Ox 98 03/02/25 19:19 Time Spent Time spent with Patient: >75 minutes Time was spent: preparing to see the patient(eg.review tests), obtaining and/or reviewing separately otained hiistory, ordering medications,tests, procedures, referring, communicating with other health director medicare sales, indepentently interpreting results, counseling the patient and care coordination
[2025-03-03] VITALS (14 sets, daily range): BP systolic 118–147; BP diastolic 46–78; PULSE 65–92; RESP 14–21; TEMP 36.5–37.6; O2SAT 92–97
[2025-03-03 00:33] LABS: Troponin I 18 ng/L (<or=76)
--- NOTE | 2025-03-03 00:55 | W.PC.ACHO ---
Registration Status: REG ER Primary Language: Preferred Language: ED Information & Data Chief Complaint Chest Pain 03/02/25 19:38 Triage Note arrives via POV, c/o severe 03/02/25 19:19 chest pain and SOB. recent heart attack about 3 weeks ago. 2 heart attacks in past . spitting up blood on the way here. started about 30 mins ago. severe n/v/abd pain. took 81mg aspirin today Most Recent Vital Signs Temperature Source Temporal Artery Scan 03/02/25 19:19 Pulse 98 H 03/02/25 19:19 Respiratory Rate 24 03/02/25 19:19 Blood Pressure 162/80 H 03/02/25 19:19 Blood Pressure Position Supine 03/02/25 19:19 Pulse Oximetry 98 03/02/25 19:19 Oxygen Delivery Method Room Air 03/02/25 19:19 Oxygen Flow Rate 0 03/02/25 19:19 Pain Level 9 03/02/25 19:19 Allergies No Known Allergies Allergy (Unverified 03/02/25 19:22) Active Medications Generic Name Dose Route Start Last Admin Trade Name Feliz PRN Reason Stop Dose Admin Sodium Chloride 1,000 mls @ 150 mls/hr 03/02/25 19:39 03/02/25 20:12 Saline 1000ml Bag IV 03/03/25 02:18 150 mls/hr INFUSION STA Administration Iohexol 75 ml 03/02/25 21:30 03/02/25 21:29 Omnipaque 350 Mg/Ml 100 Ml Btl IJ 04/01/25 23:59 75 ml DIRECTED HEATHER Administration Sodium Chloride 50 ml 03/02/25 21:45 03/02/25 21:31 Normal Saline - Diluent 50 Ml Vial IJ 50 ml .FOR DI USE HEATHER Administration IV IV Catheter Type [Right Saline Lock Antecubital] IV Catheter Gauge [Left 18 Antecubital] IV Catheter Gauge [Right 18 Antecubital] Diagnostics 03/03/25 03/03/25 03/02/25 Range/Units 00:08 00:05 20:50 WBC (4.4-10.8) 10^3/uL RBC (4.36-5.78) 10^6/uL Hgb (13.5-17.5) g/dL Hct (40.0-50.0) % MCV (80-95) fL MCH (27.0-33.0) pg MCHC (32.0-36.0) % RDW (11.8-14.1) % Plt Count (130-400) 10^3/uL MPV (8.0-11.0) fL Immature Gran % % Neutrophils % % Lymphocytes % % Monocytes % % Eosinophils % % Basophils % % Nucleated RBC % (0.0-0.3) % Absolute Neutrophils (1.2-6.7) 10^3/uL Absolute Lymphocytes (1.2-3.4) 10^3/uL Absolute Monocytes (0.1-0.8) 10^3/uL Absolute Eosinophils (0.0-0.7) 10^3/uL Absolute Basophils (0.0-0.2) 10^3/uL PT (9.1-11.1) sec INR (0.9-1.1) APTT (20.6-30.2) sec Sodium (136-145) mmol/L Potassium (3.5-5.1) mmol/L Chloride (98-107) mmol/L Carbon Dioxide (21.0-32.0) mmol/L Anion Gap (3-11) mmol/L BUN (7-18) mg/dL Creatinine (0.70-1.30) mg/dL Est GFR (CKD-EPI 2020) (mL/min/1.73m2) Glucose (74-106) mg/dL Calcium (8.5-10.1) mg/dL Magnesium (1.8-2.4) mg/dL Total Bilirubin (0.2-1.0) mg/dL AST (15-37) U/L ALT (16-63) U/L Alkaline Phosphatase (46-116) U/L Troponin I 18 (<or=76) ng/L NT-Pro-B Natriuret Pep (<300) pg/mL Total Protein (6.4-8.2) g/dL Albumin (3.4-5.0) g/dL Urine Opiates Screen Negative (Negative) Urine Methadone Screen Negative (Negative) Ur Barbiturates Screen Negative (Negative) Ur Tricyclics Screen Negative (Negative) Ur Amphetamines Screen Negative (Negative) U Benzodiazepines Scrn Negative (Negative) Urine Cocaine Screen Positive A (Negative) Ur THC Screen Negative (Negative) Ethyl Alcohol (<10) mg/dL COVID-19 Source Pending SARS-CoV-2 (PCR) Pending Influenza Type A (PCR) Pending Influenza Type B (PCR) Pending RSV (PCR) Pending 03/02/25 03/02/25 Range/Units 20:44 19:23 WBC 7.48 (4.4-10.8) 10^3/uL RBC 4.19 L (4.36-5.78) 10^6/uL Hgb 13.2 L (13.5-17.5) g/dL Hct 38.7 L (40.0-50.0) % MCV 92 (80-95) fL MCH 31.5 (27.0-33.0) pg MCHC 34.1 (32.0-36.0) % RDW 12.9 (11.8-14.1) % Plt Count 256 (130-400) 10^3/uL MPV 10.3 (8.0-11.0) fL Immature Gran % 0.7 % Neutrophils % 56.1 % Lymphocytes % 30.1 % Monocytes % 8.7 % Eosinophils % 3.6 % Basophils % 0.8 % Nucleated RBC % 0.0 (0.0-0.3) % Absolute Neutrophils 4.20 (1.2-6.7) 10^3/uL Absolute Lymphocytes 2.25 (1.2-3.4) 10^3/uL Absolute Monocytes 0.65 (0.1-0.8) 10^3/uL Absolute Eosinophils 0.27 (0.0-0.7) 10^3/uL Absolute Basophils 0.06 (0.0-0.2) 10^3/uL PT 9.9 (9.1-11.1) sec INR 1.0 (0.9-1.1) APTT 24.3 (20.6-30.2) sec Sodium 141 (136-145) mmol/L Potassium 3.6 (3.5-5.1) mmol/L Chloride 106 (98-107) mmol/L Carbon Dioxide 21.1 (21.0-32.0) mmol/L Anion Gap 13.9 H (3-11) mmol/L BUN 12 (7-18) mg/dL Creatinine 1.1 (0.70-1.30) mg/dL Est GFR (CKD-EPI 2020) 76.37 (mL/min/1.73m2) Glucose 143 H (74-106) mg/dL Calcium 9.0 (8.5-10.1) mg/dL Magnesium 2.1 (1.8-2.4) mg/dL Total Bilirubin 0.1 L (0.2-1.0) mg/dL AST 12 L (15-37) U/L ALT 17 (16-63) U/L Alkaline Phosphatase 129 H (46-116) U/L Troponin I 16 17 (<or=76) ng/L NT-Pro-B Natriuret Pep 340 H (<300) pg/mL Total Protein 7.2 (6.4-8.2) g/dL Albumin 3.6 (3.4-5.0) g/dL Urine Opiates Screen (Negative) Urine Methadone Screen (Negative) Ur Barbiturates Screen (Negative) Ur Tricyclics Screen (Negative) Ur Amphetamines Screen (Negative) U Benzodiazepines Scrn (Negative) Urine Cocaine Screen (Negative) Ur THC Screen (Negative) Ethyl Alcohol 153.3 H (<10) mg/dL COVID-19 Source SARS-CoV-2 (PCR) Influenza Type A (PCR) Influenza Type B (PCR) RSV (PCR) Intake and Output - 24 Hour Total 03/02/25 19:14 thru 03/02/25 19:19 Weight 83.007 kg Problems (Last Reviewed 03/02/25 @ 22:24 by Mirna Queen NP) Acute alcohol intoxication (Acute) Substance use disorder (Acute) Hematemesis with nausea (Acute) Atypical chest pain (Acute) CAD (coronary artery disease), [place] coronary artery (Chronic) Depression (Chronic) Benign essential hypertension (Chronic) v v v v v v v v v Sending and/or Receiving Nurses: Please use comment section below to note any information pertinent to the patient hand-off not included above. Information / Comments:59 yo M admit through the Ed for severe chest pain, to med/surg. unit room 226. Reports vomiting dark red blood in car ride today. Pt. is intoxicated, stimulant pos. for meth. and cocaine. Hx of DC. Planned to go to [facility] for stent placement. Received Morphine, fluid bolus of 1L, Zofran and pantoprazole in the ED. Report received from:called @ 003, spoke w/ tap puller Mauricio.
[2025-03-03 00:57] LABS: COVID-19 PCR Negative (Negative); RSV PCR Negative (Negative)
[2025-03-03 01:28] LABS: HCT 37.5 % (40.0-50.0); HGB 12.5 g/dL (13.5-17.5); MCH 31.5 pg (27.0-33.0); MCHC 33.3 % (32.0-36.0); MCV 95 fL (80-95); MPV 10.5 fL (8.0-11.0); Platelet Count 219 10^3/uL (130-400); RBC 3.97 10^6/uL (4.36-5.78); RDW 13.0 % (11.8-14.1); RDW-SD 44.7 fL; WBC 6.52 10^3/uL (4.4-10.8)
[2025-03-03] MEDS: amLODIPine 5 MG TAB PO ×2 (02:39→08:18)
[2025-03-03] MEDS: Acetaminophen 325 MG TAB 650 MG PO (02:39)
[2025-03-03 06:52] LABS: HCT 36.0 % (40.0-50.0); HGB 11.8 g/dL (13.5-17.5); MCH 31.1 pg (27.0-33.0); MCHC 32.8 % (32.0-36.0); MCV 95 fL (80-95); MPV 10.6 fL (8.0-11.0); Platelet Count 203 10^3/uL (130-400); RBC 3.80 10^6/uL (4.36-5.78); RDW 13.1 % (11.8-14.1); RDW-SD 44.9 fL; WBC 6.12 10^3/uL (4.4-10.8)
[2025-03-03 07:35] LABS: ALT 16 U/L (16-63); AST 13 U/L (15-37); Albumin 3.0 g/dL (3.4-5.0); Alkaline Phosphatase 111 U/L (46-116); Anion Gap 9.1 mmol/L (3-11); BUN 11 mg/dL (7-18); Bilirubin, Total 0.2 mg/dL (0.2-1.0); CO2 24.9 mmol/L (21.0-32.0); Calcium 8.3 mg/dL (8.5-10.1); Chloride 109 mmol/L (98-107); Estimated GFR 100.69 (mL/min/1.73m2); Glucose 158 mg/dL (74-106); Magnesium 2.2 mg/dL (1.8-2.4); Potassium 3.8 mmol/L (3.5-5.1); Sodium 143 mmol/L (136-145); Total Protein 6.1 g/dL (6.4-8.2); Troponin I 15 ng/L (<or=76)
--- NOTE | 2025-03-03 08:13 | NUR.NOTE ---
pts chart accessed due to a phone call received asking for information, HIPPA form was accessed to confirm before speaking with caller. Nursing Note:
[2025-03-03] MEDS: Normal Saline Flush 10 ML SYR IVP (08:17)
[2025-03-03] MEDS: Pantoprazole 40 MG VIAL IVP (08:17)
[2025-03-03] MEDS: Aspirin 81 MG CHEW PO (08:18)
[2025-03-03] MEDS: Isosorbide Mononitrate 30 MG TABCR PO (08:18)
[2025-03-03] MEDS: Ranolazine 500 MG TABCR PO (08:18)
[2025-03-03] MEDS: Sertraline 50 MG TAB PO (08:18)
[2025-03-03 08:40] LABS: Lipase 40 U/L (<78)
--- NOTE | 2025-03-03 09:27 | W.PM.PROGNOT ---
Assessment and Plan Assessment and plan (1) Hematemesis with nausea: Start date: 03/02/25 Status: Acute Assessment and plan: This is a 59-year-old gentleman with recent cardiac events treated at [facility] and locally with poor compliance and follow-up. He has been drinking alcohol recently and had epigastric and retrosternal sharp pain which was not like his angina with associated nausea and vomiting with hematemesis. His CBC was stable upon admission but because of this episode and being on aspirin, he will be observed with trending troponins and cardiac monitoring because of his recent cardiac events. This does not appear to be angina pectoris. He is on ranolazine and Imdur daily. He does not take nitroglycerin sublingually. He does have follow-up with [facility] cardiology soon and they were consulted through the ED and did not advise any acute treatment for coronary syndrome or angina but stated that his positive cocaine in the urine may be contributing to his vasospasm with his known coronary disease. 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 Surgery was consulted and will perform EGD in the morning but the patient have a history of alcohol use but no history of ascites or cirrhosis. My concern would be for esophageal varices or gastritis which is aspirin treatment. EGD is planned in the morning. Patient will be n.p.o. after midnight. CBCs will be trended every 4 hours with type and screen to be performed if hemoglobin is dropping. Presently his hemoglobin is stable and at baseline. Lipase will be checked with morning lab. He does not have evidence of pancreatitis or cholecystitis by imaging. He is a full code. (2) Atypical chest pain: Start date: 03/02/25 Status: Acute Assessment and plan: Patient does have known CAD and is followed at [facility]. Troponins are negative and will be trended. Patient will be continued on his usual medications until follow-up with [facility]. Compliance was encouraged and avoiding cocaine was encouraged. [facility] did say to hold his metoprolol with cocaine on board. (3) Substance use disorder: Start date: 03/02/25 Status: Chronic Assessment and plan: Patient does have known substance use disorder in the past and was on chronic narcotics at 1 time but has not been prescribed narcotics or controlled substances recently with VPMS reviewed. USHA with positive cocaine but not opiates with but did not screen for synthetic narcotics. The patient was avoiding discussion of his substance use but did admit to using only cocaine. His alcohol level was positive and he will need to be watched for alcohol withdrawal though he has no history of this. Long-term he should consider outpatient counseling for substance abuse and alcohol use. Prognosis is poor for change with this known patient. (4) Acute alcohol intoxication: Start date: 03/02/25 Status: Acute Assessment and plan: Patient has positive alcohol level and states that he drinks alcohol, but not daily. CIWA protocol while hospitalized and initiate alcohol withdrawal protocol if needed. (5) CAD (coronary artery disease), [place] coronary artery: Status: Chronic Assessment and plan: Occluded RCA at the end of 2023 with PTCA and stenting. He also has a history of vasospastic disease of the 6 coronary arteries which may be exacerbated by cocaine use. He did have a recent nuclear stress test which showed RV dysfunction. Troponins today are negative but will be trended. (6) Benign essential hypertension: Status: Chronic Assessment and plan: Avoid metoprolol per [facility] because of cocaine use. Continue amlodipine and Imdur titrating amlodipine to blood pressure. (7) Depression: Status: Chronic Assessment and plan: On SSRI which will be continued. Objective Last Vital Signs Temp 37.6 C H 03/03/25 07:39 Pulse 75 03/03/25 07:39 Resp 15 03/03/25 07:39 BP 144/78 H 03/03/25 07:39 Pulse Ox 97 03/03/25 07:39 Laboratory Results - last 24 hr 03/02/25 03/02/25 03/02/25 19:23 20:44 20:50 WBC 7.48 RBC 4.19 L Hgb 13.2 L Hct 38.7 L MCV 92 MCH 31.5 MCHC 34.1 RDW 12.9 Plt Count 256 MPV 10.3 Immature Gran % 0.7 Neutrophils % 56.1 Lymphocytes % 30.1 Monocytes % 8.7 Eosinophils % 3.6 Basophils % 0.8 Nucleated RBC % 0.0 Absolute Neutrophils 4.20 Absolute Lymphocytes 2.25 Absolute Monocytes 0.65 Absolute Eosinophils 0.27 Absolute Basophils 0.06 PT 9.9 INR 1.0 APTT 24.3 Sodium 141 Potassium 3.6 Chloride 106 Carbon Dioxide 21.1 Anion Gap 13.9 H BUN 12 Creatinine 1.1 Est GFR (CKD-EPI 2020) 76.37 Glucose 143 H Calcium 9.0 Magnesium 2.1 Total Bilirubin 0.1 L AST 12 L ALT 17 Alkaline Phosphatase 129 H Troponin I 17 16 NT-Pro-B Natriuret Pep 340 H Total Protein 7.2 Albumin 3.6 Lipase Urine Opiates Screen Negative Urine Methadone Screen Negative Ur Barbiturates Screen Negative Ur Tricyclics Screen Negative Ur Amphetamines Screen Negative U Benzodiazepines Scrn Negative Urine Cocaine Screen Positive A Ur THC Screen Negative Ethyl Alcohol 153.3 H COVID-19 Source SARS-CoV-2 (PCR) Influenza Type A (PCR) Influenza Type B (PCR) RSV (PCR) 03/03/25 03/03/25 03/03/25 00:05 00:08 01:22 WBC 6.52 RBC 3.97 L Hgb 12.5 L Hct 37.5 L MCV 95 MCH 31.5 MCHC 33.3 RDW 13.0 Plt Count 219 MPV 10.5 Immature Gran % Neutrophils % Lymphocytes % Monocytes % Eosinophils % Basophils % Nucleated RBC % Absolute Neutrophils Absolute Lymphocytes Absolute Monocytes Absolute Eosinophils Absolute Basophils PT INR APTT Sodium Potassium Chloride Carbon Dioxide Anion Gap BUN Creatinine Est GFR (CKD-EPI 2020) Glucose Calcium Magnesium Total Bilirubin AST ALT Alkaline Phosphatase Troponin I 18 NT-Pro-B Natriuret Pep Total Protein Albumin Lipase Urine Opiates Screen Urine Methadone Screen Ur Barbiturates Screen Ur Tricyclics Screen Ur Amphetamines Screen U Benzodiazepines Scrn Urine Cocaine Screen Ur THC Screen Ethyl Alcohol COVID-19 Source Nasopharynx SARS-CoV-2 (PCR) Negative Influenza Type A (PCR) Negative Influenza Type B (PCR) Negative RSV (PCR) Negative 03/03/25 05:30 WBC 6.12 RBC 3.80 L Hgb 11.8 L Hct 36.0 L MCV 95 MCH 31.1 MCHC 32.8 RDW 13.1 Plt Count 203 MPV 10.6 Immature Gran % Neutrophils % Lymphocytes % Monocytes % Eosinophils % Basophils % Nucleated RBC % Absolute Neutrophils Absolute Lymphocytes Absolute Monocytes Absolute Eosinophils Absolute Basophils PT INR APTT Sodium 143 Potassium 3.8 Chloride 109 H Carbon Dioxide 24.9 Anion Gap 9.1 BUN 11 Creatinine 0.8 Est GFR (CKD-EPI 2020) 100.69 Glucose 158 H Calcium 8.3 L Magnesium 2.2 Total Bilirubin 0.2 AST 13 L ALT 16 Alkaline Phosphatase 111 Troponin I 15 NT-Pro-B Natriuret Pep Total Protein 6.1 L Albumin 3.0 L Lipase 40 Urine Opiates Screen Urine Methadone Screen Ur Barbiturates Screen Ur Tricyclics Screen Ur Amphetamines Screen U Benzodiazepines Scrn Urine Cocaine Screen Ur THC Screen Ethyl Alcohol COVID-19 Source SARS-CoV-2 (PCR) Influenza Type A (PCR) Influenza Type B (PCR) RSV (PCR) PAWSS Have you Been Recently Intoxicated or Drunk Within the Last 30 days?: No Have you Ever Experienced Previous Episodes of Alcohol Withdrawal?: No Have you ever Experienced Withdrawal Seizures?: No Have you ever Experienced Delirium Tremens(DT)s?: No Have you ever undergone Alcohol Rehabilitation Treatment (i.e, inpt ot outpatient treatment programs)?: No Have you ever Experienced Blackouts?: No Have you ever Combined Alcohol with other Downers within the last 90 days?: Yes Have you ever Combined Alcohol with any other Substance of Abuse during the last 90 days?: Yes Positive Blood Alcohol level on Presentation? [PCS.BAL]: Yes Evidence of Increased Autonomic Activity (i.e. HR>120, tremor, sweating, agitation, nausea)?: No Result: 3
[2025-03-03 10:02] LABS: HCT 36.3 % (40.0-50.0); HGB 12.2 g/dL (13.5-17.5); MCH 31.8 pg (27.0-33.0); MCHC 33.6 % (32.0-36.0); MCV 95 fL (80-95); MPV 10.5 fL (8.0-11.0); Platelet Count 218 10^3/uL (130-400); RBC 3.84 10^6/uL (4.36-5.78); RDW 13.2 % (11.8-14.1); RDW-SD 45.5 fL; WBC 6.10 10^3/uL (4.4-10.8)
[2025-03-03] MEDS: FAMOTIDINE 20 MG/50 ML BAG 200 MG IVPB (11:27)
[2025-03-03] MEDS: Sucralfate 1 GM TAB PO (11:27)
--- NOTE | 2025-03-03 12:25 | INITIAL_ITS ---
Date of service: 03/03/25 Time of Service: 12:25 Care Management Initial Assmt Initial Assessment Reason for Hospitalization: hematemesis Functional Status/Living Situation Patient Presentation: Agatha was sitting up in bed when CM met with him. He was pleasant in manner and agreeable to conversation. Agatha lives alone in an apartment in [place], although his son Naveen stays with him frequently. Agatha has 4 other children who all live in [place] except for one son who lives in [place]. He describes his family as close and supportive. Agatha's cardiac issues have kept him out of work since last May and he has applied for disability. Agatha was admitted with chest pain and hematemesis. He was seen by surgery who determined that an EGD at [facility] was not warranted at this time. He had no further episodes of hematemesis and his H&H remained stable. Agatha's troponins remained negative and he has an appointment at [facility] on Friday03/07/25 with cardiology for followup. Town of Residence: [place] Resides with: Alone (son Naveen stays with him often) Significant Other/Family: Local (son stays with him often) Natural Supports: family and close friends Employment Status: Disabled (disability in progress) Instrumental Activities of Daily Living (ADLs): Independent Medications Medication Management: No Issues/Barriers identified Advance Directives Advance Directives: Do you have an Advance Directive: N , 09:48 AD On File at [facility]: N 02/02/25, 09:48 Date Asked 03/02/25 03/02/25, 19:16 AD Date Reviewed COLST On File at [facility] COLST Date Scanned Code Status Resuscitation Status Full Code Portal Pt does not currently have a portal and education provided: Yes Insurance Coverage/Financial Issues Insurance: Medicaid Care Team Visit Care Team Role Provider Type Rylee Garza APRN MD [facility] STAFF PHYSICIAN None None Primary Care Provider NON-[facility] STAFF PHYSICIAN Neisha Fine Other Providers SSN/SSBN [employer] EQUIPMENT OPERATOR Tyson Cotton MD Other Providers [facility] STAFF PHYSICIAN Elsy Cedillo Other Providers SSN/SSBN WE[employer] EQUIPMENT OPERATOR Matilde Chino Other Providers SSN/SSBN WE[employer] EQUIPMENT OPERATOR Jayla Dudley RN Other Providers SSN/SSBN WEAPONS EQUIPMENT OPERATOR Kindra Connell Other Providers SSN/SSBN WEAPONS EQUIPMENT OPERATOR Mirna Queen, SHANDRA Emergency Provider NURSE PRACTITIONER Nirav Maravilla Admit Provider NON-[facility] STAFF PHYSICIAN Attending Provider Discharge Potential Discharge Needs: PCP F/U Appt Anticipated Barriers to Discharge: None Identified Patient/Family Education Needs: Review discharge instructions, discuss Ask Me Three Transportation: Private vehicle Plan: Anticipate Agatha will be discharged home with no new services when medically cleared. He will follow up with his PCP and plan of care and transport with family. CM will follow and continue to assess for discharge needs. Social Determinants of Health Screening Social Determinants of health last assessed in clinic: 03/03/25 Will the Patient Participate in the Screening?: Yes Do you worry about having a steady place to live?: no Problems where you live: no known problems In the past 12 months, have you had to go without electric, gas, oil or water in your home?: no 1. Within the past 12 months, we worried whether our food would run out before we got money to buy more.: Never true 2. Within the past 12 months, the food we bought just didn't last and we didn't have money to get more.: Never true Has lack of transportation kept you from medical appointments or from doing things needed for daily living?: yes Has anyone in your life made you feel unsafe or unsupported?: no How hard is it for you to pay for the very basics like food, housing, medical care, and heating? Would you say it is:: Not hard at all Do you want help finding or keeping work or a job?: I do not need or want help If for any reason you need help with day-to-day activities such as bathing, preparing meals, shopping, managing finances, etc., do you get the help you need?: I get all the help I need How often do you feel lonely or isolated from those around you?: Often Do you speak a language other than Greenlandic at home?: No Does the patient want assistance with any of the above?: Yes Comments: Transportation Health Related Social Needs Health related social needs: transportation insecurity (Z59.82) and feeling lonely/isolated (Z60.8) Health related social needs details: Pt needs help with transportation and grief d/t loss of spouse 6 mos. age. Pt reports were together for over 40 years and just about killed him when he lost her. PFSH All Active Problems (Updated 03/03/25 @ 08:43 by Nirav Maravilla) Acute alcohol intoxication (Acute) Substance use disorder (Chronic) Hematemesis with nausea (Acute) Atypical chest pain (Acute) CAD (coronary artery disease), [place] coronary artery (Chronic) Depression (Chronic) Aneurysm, thoracic aortic (Acute) Benign essential hypertension (Chronic) RCA occlusion (Acute) Social History Smoking/Tobacco Use Status: Current every day Tobacco Type: cigarettes Years smoked: 41 Smoking risk assessment performed?: Yes Alcohol Intake: current Alcohol Intake frequency: a few times a month Substance use type: does not use Housing: apartment Do you feel safe at home: Yes Do you feel safe in your relationship?: Yes
[2025-03-03] MEDS: Magic Mouthwash 119 ML BTL 10 ML PO (12:44)
--- NOTE | 2025-03-03 13:20 | PHA.REVIEW2 ---
Pharmacy Admission Review Admission Clinical Review Admission Pharmacy Review: Acute alcohol intoxication (Acute) Hematemesis with nausea (Acute) Atypical chest pain (Acute) No Known Allergies Allergy (Unverified 03/02/25 19:22) Resuscitation Status Full Code Height 5 ft 9 in Weight 84.368 kg Pharmacy Admission Review Renal Dosing Renal Dosing: BUN 11 mg/dL (7-18) 03/03/25 05:30 Creatinine 0.8 mg/dL (0.70-1.30) 03/03/25 05:30 Medications needing adjustments: Reviewed (CrCl 92.57 mL/min) List of meds needing interventions: Current medications are okay Anticoagulation Anticoagulation: Hgb 12.2 g/dL (13.5-17.5) L 03/03/25 09:50 Hct 36.3 % (40.0-50.0) L 03/03/25 09:50 Plt Count 218 10^3/uL (130-400) 03/03/25 09:50 INR 1.0 (0.9-1.1) 03/02/25 19:23 Creatinine 0.8 mg/dL (0.70-1.30) 03/03/25 05:30 DVT Prophylaxis: Reviewed (SCDs) Relevant Labs Relevant Labs: Sodium 143 mmol/L (136-145) 03/03/25 05:30 Potassium 3.8 mmol/L (3.5-5.1) 03/03/25 05:30 Chloride 109 mmol/L (98-107) H 03/03/25 05:30 Magnesium 2.2 mg/dL (1.8-2.4) 03/03/25 05:30 Electrolytes, C-Reactive P, ESR: Reviewed Cardiac Review Cardiac Review: Troponin I 15 ng/L (<or=76) 03/03/25 05:30 NT-Pro-B Natriuret Pep 340 pg/mL (<300) H 03/02/25 19:23 BP, HR, EF%: Reviewed (HR and BP WNL) List meds needing interventions: Has orders for amlodipine 5mg daily and isosorbide CR 30mg daily QTc Review QTc: Reviewed (478 from 03/02/25) IV to PO Switch IV Medications: Reviewed (Will be NPO after midnight for EGD tomorrow per progress note) Home Meds Home Med List reviewed: Reviewed Current Meds Current Medication Order Review: Reviewed
[2025-03-03 13:59] LABS: HCT 34.5 % (40.0-50.0); HGB 11.5 g/dL (13.5-17.5); MCH 31.5 pg (27.0-33.0); MCHC 33.3 % (32.0-36.0); MCV 95 fL (80-95); MPV 10.4 fL (8.0-11.0); Platelet Count 193 10^3/uL (130-400); RBC 3.65 10^6/uL (4.36-5.78); RDW 13.0 % (11.8-14.1); RDW-SD 45.2 fL; WBC 5.70 10^3/uL (4.4-10.8)
--- NOTE | 2025-03-03 16:24 | DSE_ITS ---
Date of service: 03/03/25 Time of Service: 16:24 DS: Diagnosis Discharge Diagnosis (1) Hematemesis with nausea: Status: Acute (2) Atypical chest pain: Status: Acute (3) Substance use disorder: Status: Chronic (4) Acute alcohol intoxication: Status: Acute (5) CAD (coronary artery disease), [place] coronary artery: Status: Chronic (6) Benign essential hypertension: Status: Chronic (7) Depression: Status: Chronic Discharge Plan Disposition Patient Disposition: Home Condition: Improving Discharge Details Reason For Visit: Hematemesis, Atypical chest pain, CAD Admit Date/Time: 03/02/25 23:34 Admit Provider: Nirav Maravilla Attending Provider: Nirav Maravilla Primary Care Provider: None,None Hospital Course Hospital Course: This is 59-year-old male patient with a history of CAD and MIs in the past, cardiac catheterization with cardiac catheterization and stenting of the RCA at the end of 2023, not on plavix, admitted in January 2025 an episode of chest pain with diagnosis of unstable angina with initiation of ranolazine, RV dysfunction with wall motion abnormalities and [place] [facility] [place] to the ED on 03/02/25 for evaluation of severe epigastric and retrosternal sharp pain,nause and hematemesis w/o melena or hematochezia. ACS work-up was negative, positive for mild anemia and Ethyl at 153. [facility] [place], [place] Baumann , consulted with recommendation for observation with ongoing amlodipine 5mg, Imdur 30mg, and holding off on Beta-blockers , CBC trending and recurrent hematemesis monitoring. Mention that positive cocaine findings in UDS might be a factor in his vasospasm and chest discomfort. The patient was admitted to the medical surgical floor with telemetry monitoring and serial H&H; surgery was consulted and determined that the patient was not a candidate for EGD for esophageal varices evaluation at [facility]. The patient was treated with protonix, sucralfate, Pepcid and antacid/licodaine with improvemnt of epigastric pain, no furhter hematemesis episodes reported and H&H remained stable. CIWA score was negative. The surgeon, Dr. Cotton contacted [facility] [place] for [place] but for the patient to follow-up on Friday03/07/25 a [facility] [place]. As per surgery conversation with [facility] [place] the patient was on plav[place] [facility] [place] agreeable to holding until the patient is seen on Friday03/07/2025. The patient is hemodynamically stable and will be discharge home with follow-up with PCP with 7 days of discharge. Recommendation for PCP follow-up: [facility] [place] to GI or surgery for EGD Alcohol abuse counselling Discussed with Dr. Lorenzo Recommendations for Follow Up Recommended tests to be ordered by follow up provider: [facility] Home Meds and New Rx's Prescriptions: New acetaminophen 325 mg Tablet 650 mg PO Q6H PRNQty: 30 0RF sucralfate 1 gram tablet 1 g PO QACHS Qty: 120 0RF pantoprazole [Protonix] 40 mg tablet,delayed release (DR/EC) 40 mg PO BID Qty: 60 0RF famotidine 20 mg tablet 20 mg PO DAILY Qty: 30 0RF Continued isosorbide mononitrate 30 mg tablet extended release 24 hr 30 mg PO ONCE Patient Comments: TAKE ONE TABLET BY MOUTH EVERY MORNING albuterol sulfate 90 mcg/actuation HFA aerosol inhaler 2 inh INHALATION Q6H PRN Patient Comments: INHALE 2 PUFFS BY MOUTH EVERY 6 HOURS, NEEDED FOR SHORTNESS OF BREATH OR WHEEZING sertraline 50 mg tablet 50 mg PO DAILY Patient Comments: TAKE ONE TABLET BY MOUTH EVERY DAY atorvastatin 20 mg Tablet 20 mg PO QPM Qty: 30 0RF aspirin 81 mg Tablet,Chewable 81 mg PO DAILY Qty: 30 0RF amlodipine 5 mg tablet 5 mg PO DAILY Qty: 30 0RF ranolazine 500 mg Tablet Extended Release 12 Hr 500 mg PO BID Qty: 90 0RF Discharge Instructions Stand Alone Forms: Nursing Discharge Form Referrals: None,None [Primary Care Provider, Unknown] Referral Note: Follow-up with PCP within 7 days of discharge. I called and left voicemail to have them call you to make a follow up appointment. Activity:: Activity as Tolerated Equipment/Supplies:: As per [employer] Diet:: heart healthy, no alcohol Discharge Orders Discharge Orders: Discharge Order (Routine); Ordered 03/03/25 Ordered By: Rylee Garza DS: Summary Time Spent with Patient providing and/or coordinating discharge services: Greater than 30 minutes Status at Discharge Functional status at discharge: independent ambulation Overall status at discharge: patient is progressing back to baseline Mental Status: mental status grossly normal Speech and Movement: speech and movement normal Mood: congruent mood Affect: normal affect Quality:SDOH Health Related Social Needs: Health related social needs transpo insecurity lonely/ isolated Health related social needs details Pt needs help with transportation and grief d/t loss of spouse 6 mos. age. Pt reports were together for over 40 years and just about killed him when he lost her. Health related social needs details: Pt needs help with transportation and grief d/t loss of spouse 6 mos. age. Pt reports were together for over 40 years and just about killed him when he lost her. Exam Narrative Exam Narrative: Alert and omitted X3 , no focal neurological deficit,unlabored breathing , joanne r lungs S1, S2, positive murmur HR 67 SR, abdomen is non-distended , soft and non-tender, no CVA tenderness Psych Mental Status: mental status grossly normal Speech and Movement: speech and movement normal Mood: congruent mood Affect: normal affect DS: Data Vitals/I&O Vitals and I&O: Vital Signs Temperature 36.5 C 03/03/25 11:23 Temperature Source Temporal Artery Scan 03/03/25 11:23 Pulse 70 03/03/25 11:23 Pulse Rhythm Regular 03/03/25 01:13 Pulse 83 03/03/25 00:46 Respiratory Rate 14 03/03/25 11:23 Respiratory Effort Normal 03/03/25 01:13 Respiratory Depth Normal 03/03/25 01:13 Respiratory Pattern Normal 03/03/25 01:13 Blood Pressure 125/72 03/03/25 11:23 Blood Pressure Mean 89 03/03/25 11:23 Blood Pressure Position Supine 03/02/25 19:19 Pulse Oximetry 97 03/03/25 11:23 Oxygen Delivery Method Room Air 03/03/25 11:23 Oxygen Flow Rate 0 03/03/25 11:23 Pain Level 4 03/03/25 08:05 Intake & Output 03/02/25 03/03/25 03/03/25 23:59 11:59 23:59 Intake Total 992.5 / 1442.5 450 / 1442.5 Balance 992.5 / 1442.5 450 / 1442.5 Weight 83.007 kg 84.368 kg Intake: IV 992.5 / 992.5 Oral 450 / 450 Other: Comment pt has voided independently Data Completed and Pending Labs on day of discharge: Labs from last 24 hours 03/03/25 03/03/25 03/03/25 13:35 09:50 05:30 WBC 5.70 6.10 6.12 RBC 3.65 L 3.84 L 3.80 L Hgb 11.5 L 12.2 L 11.8 L Hct 34.5 L 36.3 L 36.0 L MCV 95 95 95 MCH 31.5 31.8 31.1 MCHC 33.3 33.6 32.8 RDW 13.0 13.2 13.1 Plt Count 193 218 203 MPV 10.4 10.5 10.6 Immature Gran % Neutrophils % Lymphocytes % Monocytes % Eosinophils % Basophils % Nucleated RBC % Absolute Neutrophils Absolute Lymphocytes Absolute Monocytes Absolute Eosinophils Absolute Basophils PT INR APTT Sodium 143 Potassium 3.8 Chloride 109 H Carbon Dioxide 24.9 Anion Gap 9.1 BUN 11 Creatinine 0.8 Est GFR (CKD-EPI 2020) 100.69 Glucose 158 H Calcium 8.3 L Magnesium 2.2 Total Bilirubin 0.2 AST 13 L ALT 16 Alkaline Phosphatase 111 Troponin I 15 NT-Pro-B Natriuret Pep Total Protein 6.1 L Albumin 3.0 L Lipase 40 Urine Opiates Screen Urine Methadone Screen Ur Barbiturates Screen Ur Tricyclics Screen Ur Amphetamines Screen U Benzodiazepines Scrn Urine Cocaine Screen Ur THC Screen Ethyl Alcohol COVID-19 Source SARS-CoV-2 (PCR) Influenza Type A (PCR) Influenza Type B (PCR) RSV (PCR) 03/03/25 03/03/25 03/03/25 01:22 00:08 00:05 WBC 6.52 RBC 3.97 L Hgb 12.5 L Hct 37.5 L MCV 95 MCH 31.5 MCHC 33.3 RDW 13.0 Plt Count 219 MPV 10.5 Immature Gran % Neutrophils % Lymphocytes % Monocytes % Eosinophils % Basophils % Nucleated RBC % Absolute Neutrophils Absolute Lymphocytes Absolute Monocytes Absolute Eosinophils Absolute Basophils PT INR APTT Sodium Potassium Chloride Carbon Dioxide Anion Gap BUN Creatinine Est GFR (CKD-EPI 2020) Glucose Calcium Magnesium Total Bilirubin AST ALT Alkaline Phosphatase Troponin I 18 NT-Pro-B Natriuret Pep Total Protein Albumin Lipase Urine Opiates Screen Urine Methadone Screen Ur Barbiturates Screen Ur Tricyclics Screen Ur Amphetamines Screen U Benzodiazepines Scrn Urine Cocaine Screen Ur THC Screen Ethyl Alcohol COVID-19 Source Nasopharynx SARS-CoV-2 (PCR) Negative Influenza Type A (PCR) Negative Influenza Type B (PCR) Negative RSV (PCR) Negative 03/02/25 03/02/25 03/02/25 20:50 20:44 19:23 WBC 7.48 RBC 4.19 L Hgb 13.2 L Hct 38.7 L MCV 92 MCH 31.5 MCHC 34.1 RDW 12.9 Plt Count 256 MPV 10.3 Immature Gran % 0.7 Neutrophils % 56.1 Lymphocytes % 30.1 Monocytes % 8.7 Eosinophils % 3.6 Basophils % 0.8 Nucleated RBC % 0.0 Absolute Neutrophils 4.20 Absolute Lymphocytes 2.25 Absolute Monocytes 0.65 Absolute Eosinophils 0.27 Absolute Basophils 0.06 PT 9.9 INR 1.0 APTT 24.3 Sodium 141 Potassium 3.6 Chloride 106 Carbon Dioxide 21.1 Anion Gap 13.9 H BUN 12 Creatinine 1.1 Est GFR (CKD-EPI 2020) 76.37 Glucose 143 H Calcium 9.0 Magnesium 2.1 Total Bilirubin 0.1 L AST 12 L ALT 17 Alkaline Phosphatase 129 H Troponin I 16 17 NT-Pro-B Natriuret Pep 340 H Total Protein 7.2 Albumin 3.6 Lipase Urine Opiates Screen Negative Urine Methadone Screen Negative Ur Barbiturates Screen Negative Ur Tricyclics Screen Negative Ur Amphetamines Screen Negative U Benzodiazepines Scrn Negative Urine Cocaine Screen Positive A Ur THC Screen Negative Ethyl Alcohol 153.3 H COVID-19 Source SARS-CoV-2 (PCR) Influenza Type A (PCR) Influenza Type B (PCR) RSV (PCR) PFSH All Active Problems (Updated 03/03/25 @ 08:43 by Nirav Maravilla) Acute alcohol intoxication (Acute) Substance use disorder (Chronic) Hematemesis with nausea (Acute) Atypical chest pain (Acute) CAD (coronary artery disease), [place] coronary artery (Chronic) Depression (Chronic) Aneurysm, thoracic aortic (Acute) Benign essential hypertension (Chronic) RCA occlusion (Acute) Social History Smoking/Tobacco Use Status: Current every day Tobacco Type: cigarettes Years smoked: 41 Smoking risk assessment performed?: Yes Alcohol Intake: current Alcohol Intake frequency: a few times a month Substance use type: does not use Housing: apartment Do you feel safe at home: Yes Do you feel safe in your relationship?: Yes Time Spent with Patient Time Spent with Patient: >85 minutes Time was spent: preparing to see the patient(eg.review tests), obtaining and/or reviewing separately otained hiistory, ordering medications,tests, procedures, referring, communicating with other health day care home provider, indepentently interpreting results, counseling the patient and care coordination
--- NOTE | 2025-03-03 16:46 | CHAPLAIN ---
Two of Agatha's visitors stopped me in the hallway to see if Agatha could have something to eat because he's hungry. (He's listed as NPO on the whiteboard in his room.) I let his nurse, Kassi, know he was asking about food. Agatha had three visitors in the room with him. I explained my role and offered support.
--- NOTE | 2025-03-03 21:32 | W.SURGCON ---
Date of service: 03/03/25 Time of Service: 11:00 Assessment and Plan Assessment and plan (1) Hematemesis with nausea: Status: Acute Assessment and plan: Patient was planned for EGD today, to assess for continued bleeding. His hemoglobin this has been stable since presentation, but hemoglobins have been trended every 4 hours. (2) Acute alcohol intoxication: Status: Acute Assessment and plan: His ethyl alcohol level was 153 yesterday evening, he was positive for cocaine on UDS. (3) CAD (coronary artery disease), [place] coronary artery: Status: Chronic Assessment and plan: Patient with coronary artery disease and relatively recent stent placement. He also today endorsed angina at rest. His EKG does not show any significant changes. His troponins here (high-sensitivity troponins) have been normal. I have some concern if this patient's case is safe to be performed here from an anesthetic perspective. Did consult with [facility] dispatch supervisor, Dr. Gerardo Quiroga today. Patient has seen [facility] cardiology in the past. Patient does have an appointment with [facility] dispatch supervisor this Friday. The stents placed has had dual antiplatelet therapy for over 6 months now, and it is okay to hold the Plavix. Patient's bleeding appears to have temporized, which certainly lessens the urgency of endoscopic evaluation. Plan for discharge home, will keep him off the Plavix for now, and recommend he follow-up with [facility] on Friday. History of Present Illness History of Present Illness Chief Complaint: Hematemesis Narrative: Mr. Lua is a 59-year-old male, he has a history of alcohol abuse, and cocaine abuse, with notable history of coronary artery disease, for which he underwent stent placement at [facility] in May 2024. He presents now to this facility, [facility] ([facility]), having hematemesis. He is on dual antiplatelet therapy. He does not today no particular reason why he vomited blood. He reports that this has not happened in the past. Of note today patient reports substernal chest pain, that is characteristic of his pain with coronary ischemia from prior cardiac events. He also reports that he gets similar pain when he is anxious and in hospitals. Review of Systems Narrative: General, from review of history patient with several significant cardiac issues. HEENT, negative. CV, as per HPI, patient having angina at rest. Respiratory, negative. GI, as per HPI above. , negative. Musculoskeletal, negative. Neuro, negative. Psych, patient with substance dependence as per HPI above. Skin, negative. Heme, patient is on antiplatelet agents. PFSH All Active Problems (Updated 03/03/25 @ 08:43 by Nirav Maravilla) Acute alcohol intoxication (Acute) Substance use disorder (Chronic) Hematemesis with nausea (Acute) Atypical chest pain (Acute) CAD (coronary artery disease), [place] coronary artery (Chronic) Depression (Chronic) Aneurysm, thoracic aortic (Acute) Benign essential hypertension (Chronic) RCA occlusion (Acute) Social History Smoking/Tobacco Use Status: Current every day Tobacco Type: cigarettes Years smoked: 41 Smoking risk assessment performed?: Yes Alcohol Intake: current Alcohol Intake frequency: a few times a month Substance use type: does not use Housing: apartment Do you feel safe at home: Yes Do you feel safe in your relationship?: Yes Exam Narrative Exam Narrative: Patient is a pleasant adult male, he appears somewhat disheveled. He is able to provide history today, he appears in no distress or discomfort this morning. He is breathing at a rate of 23. His vital signs are normal. He is resting comfortably today in the hospital bed. Results Last Vital Signs Temp 36.5 C 03/03/25 11:23 Pulse 70 03/03/25 11:23 Resp 14 03/03/25 11:23 BP 125/72 03/03/25 11:23 Pulse Ox 97 03/03/25 11:23 Labs 03/03/25 13:35 03/03/25 05:30 Labs: Laboratory Results - last 24 hr 03/03/25 03/03/25 03/03/25 00:05 00:08 01:22 WBC 6.52 RBC 3.97 L Hgb 12.5 L Hct 37.5 L MCV 95 MCH 31.5 MCHC 33.3 RDW 13.0 Plt Count 219 MPV 10.5 Sodium Potassium Chloride Carbon Dioxide Anion Gap BUN Creatinine Est GFR (CKD-EPI 2020) Glucose Calcium Magnesium Total Bilirubin AST ALT Alkaline Phosphatase Troponin I 18 Total Protein Albumin Lipase COVID-19 Source Nasopharynx SARS-CoV-2 (PCR) Negative Influenza Type A (PCR) Negative Influenza Type B (PCR) Negative RSV (PCR) Negative 03/03/25 03/03/25 03/03/25 05:30 09:50 13:35 WBC 6.12 6.10 5.70 RBC 3.80 L 3.84 L 3.65 L Hgb 11.8 L 12.2 L 11.5 L Hct 36.0 L 36.3 L 34.5 L MCV 95 95 95 MCH 31.1 31.8 31.5 MCHC 32.8 33.6 33.3 RDW 13.1 13.2 13.0 Plt Count 203 218 193 MPV 10.6 10.5 10.4 Sodium 143 Potassium 3.8 Chloride 109 H Carbon Dioxide 24.9 Anion Gap 9.1 BUN 11 Creatinine 0.8 Est GFR (CKD-EPI 2020) 100.69 Glucose 158 H Calcium 8.3 L Magnesium 2.2 Total Bilirubin 0.2 AST 13 L ALT 16 Alkaline Phosphatase 111 Troponin I 15 Total Protein 6.1 L Albumin 3.0 L Lipase 40 COVID-19 Source SARS-CoV-2 (PCR) Influenza Type A (PCR) Influenza Type B (PCR) RSV (PCR) Imaging Abdomen CT scan report/results: report reviewed, image reviewed and other (Did review images and radiologist read of CT scan performed 6, excuse me 03/02/2025. This is unremarkable. There are some healing rib fractures on the left 4th, 5th and 6th ribs.)
--- NOTE | 2025-03-07 08:53 | NUR.NOTE ---
Access chart to reconcile EKG orders with EKG's in [facility]. Nursing Note:
== END 2025-03-03 17:29 | disposition home or self-care (01) ==
LOC: ER 03-03 01:08 → MS 03-03 01:10
PROVIDERS: Admitting Provider Family Medicine; Emergency Provider Registered Nurse Emergency; Responsible Provider Nurse Practitioner Acute Care; Visit Provider Family Medicine
DX: K92.0 Hematemesis (principal); R07.89 Other chest pain; I10 Essential (primary) hypertension; F32.A Depression, unspecified; Z79.899 Other long term (current) drug therapy; I25.10 Atherosclerotic heart disease of native coronary artery without angina pectoris; F10.129 Alcohol abuse with intoxication, unspecified; Y90.6 Blood alcohol level of 120-199 mg/100 ml; Z95.5 Presence of coronary angioplasty implant and graft; F14.10 Cocaine abuse, uncomplicated; I71.20 Thoracic aortic aneurysm, without rupture, unspecified; F17.210 Nicotine dependence, cigarettes, uncomplicated; Z79.02 Long term (current) use of antithrombotics/antiplatelets; Z59.82 Transportation insecurity; F43.21 Adjustment disorder with depressed mood
CPT/HCPCS: 00123; 36415; 71275; 74177; 80053; 80307; 83690; 85027; 87637; 93005; 96361; 96374; 96375; 96376; 99285; 71045; 80320; 83735; 83880; 84484; 85025; 85610; 85730; 93010; 99223; 99239; G0378; J2270; J2405; J2470; J3490

== ENCOUNTER 2025-03-19 06:54 | Emergency (ER) | payer MEDICAID, SELFPAY ==
[2025-03-19] VITALS (14 sets, daily range): BP systolic 159–197; BP diastolic 69–100; PULSE 78–90; RESP 12–19; TEMP 36.4; O2SAT 93–99
--- NOTE | 2025-03-19 06:45 | RT.EKG_ITS ---
APPROVED REPORT Exam: Resting ECG Reason for Exam: SOB Patient Location: E HR:80 bpm ECG Measurements Heart Rate 80 AXIS CO 162 P 57 QRSd 120 QRS 1 QT 384 T 42 QTc 444 Conclusion Sinus rhythm...normal P axis, V-rate 60- 99 Nonspecific intraventricular conduction delay...QRSd >115mS, not LBBB/RBBB Inferior infarct, old...Q >35mS, II III aVF
--- NOTE | 2025-03-19 07:15 | DI.CT_ITS ---
Exam(s) CT CHEST PE CTA EXAM: CT CHEST PE CTA CLINICAL HISTORY: dyspnea and chest pain. TECHNIQUE: Imaging Protocol: CT angiography of the chest was performed using pulmonary embolus protocol. Multi planar reconstructions were performed. CONTRAST MATERIAL: Intravenous: Omnipaque 350 Contrast volume: 100 cc COMPARISON: CT CT CHEST PE ABD PELVIS W from 03/02/2025 FINDINGS: CHEST: PULMONARY ARTERIES: There are no intraluminal filling defects to suggest acute pulmonary emboli. LUNGS: There are no infiltrates nor evidence of pulmonary infarction.. There are no pleural effusions. MEDIASTINUM: There is no hilar nor mediastinal adenopathy. Visualized thyroid unremarkable. CARDIAC: Heart size is upper normal. There is no pericardial effusion.Caliber of the thoracic aorta is upper normal limits. No evidence of aortic dissection. Some coronary artery calcifications noted. There is no significant shift of the interventricular septum. PARTIALLY VISUALIZED UPPERMOST ABDOMEN: No obvious findings OSSEOUS: No fractures. No significant osseous lesions. IMPRESSION: 1. No evidence of acute pulmonary emboli. No evidence of pulmonary infarction.No infiltrates nor pleural effusions. No ominous lung nodules 2. No evidence of aortic dissection nor pericardial effusion. Coronary artery calcification is noted. Preliminary virtual Radiology report was reviewed. RADIATION DOSE DELIVERED: 110.12mGy.cm Total DLP DATA REPOSITORY: All CT scans at this facility are submitted to the National Radiology Data Registry (NRDR) Dose Index Registry (DIR) with the [employer] (ACR). RADIATION OPTIMIZATION: All CT scans at this facility use at least one of these dose optimization techniques: automated exposure control; mA and/or kV adjustment per patient size (includes targeted exams where dose is matched to clinical indication); or iterative reconstruction.
[2025-03-19 07:19] LABS: BE (Venous) 0 mmol/L (-2-3); HCO3 (Venous) 24 mmol/L (23-28); O2 Sat (Venous) 94 %; TCO2 (Venous) 22 mmol/L (24-29); pCO2 (Venous) 38 mmHg (41-51); pO2 (Venous) 66 mmHg
--- NOTE | 2025-03-19 07:19 | W.ED.GENAD ---
Discharge Plan Disposition Patient Disposition: Home Condition: Stable Discharge Details Clinical Impression: Shortness of breath Primary Care Provider: None,None ED Provider: Kirit Cortes Home Meds and New Rx's Prescriptions: New furosemide [Lasix] 20 mg tablet 20 mg PO DAILY Qty: 30 0RF Continued isosorbide mononitrate 30 mg tablet extended release 24 hr 30 mg PO ONCE Patient Comments: TAKE ONE TABLET BY MOUTH EVERY MORNING albuterol sulfate 90 mcg/actuation HFA aerosol inhaler 2 inh INHALATION Q6H PRN Patient Comments: INHALE 2 PUFFS BY MOUTH EVERY 6 HOURS, NEEDED FOR SHORTNESS OF BREATH OR WHEEZING sertraline 50 mg tablet 50 mg PO DAILY Patient Comments: TAKE ONE TABLET BY MOUTH EVERY DAY atorvastatin 20 mg Tablet 20 mg PO QPM Qty: 30 0RF aspirin 81 mg Tablet,Chewable 81 mg PO DAILY Qty: 30 0RF acetaminophen 325 mg Tablet 650 mg PO Q6H PRNQty: 30 0RF sucralfate 1 gram tablet 1 g PO QACHS Qty: 120 0RF pantoprazole [Protonix] 40 mg tablet,delayed release (DR/EC) 40 mg PO BID Qty: 60 0RF famotidine 20 mg tablet 20 mg PO DAILY Qty: 30 0RF amlodipine 5 mg tablet 5 mg PO DAILY Qty: 30 0RF ranolazine 500 mg Tablet Extended Release 12 Hr 500 mg PO BID Qty: 90 0RF ezetimibe 10 mg tablet 10 mg PO DAILY Patient Comments: TAKE ONE TABLET BY MOUTH EVERY DAY varenicline tartrate 1 mg tablet 1 mg PO BID Patient Comments: TAKE 1 TABLET BY MOUTH 2 TIMES DAILY - THIS MEDICATION SHOULD BE TAKEN IN THE MIDDLE OF YOUR LARGEST MEAL(S) WITH A FULL GLASS OF WATER. DO Discharge Instructions Additional Instructions: Your blood work and CAT scan did not show any concerning findings at this time. Follow-up with cardiology as scheduled. If you feel more ill or have severe worsening shortness of breath or high fevers return to the emergency department for reevaluation. HPI General Mode of arrival: ambulatory. Date/Time Provider Initiated Documentation: 03/19/25 06:56. Limitations to Documentation: no limitations. Information obtained by: patient. History of Present Illness 59 year old M presents to the emergency department with the chief complaint of chest pain, described as moderate, Quality is described as aching, and is localized to the chest. Patient reports no radiation. Patient started experiencing this day(s) (1) and it has been constant. No relieving factors improve symptom(s), No exacerbating factors reported . Patient notes chest pain and shortness of breath; denies fever/chills. Patient did receive the following treatments prior to arrival, none Related Data Home Medications ?Medication ?Instructions ?Recorded ?Confirmed albuterol sulfate 90 mcg/actuation 2 inh inhalation Q6H PRN 02/02/25 03/19/25 aerosol inhaler isosorbide mononitrate 30 mg 30 mg PO ONCE 02/02/25 03/19/25 tablet,extended release 24 hr sertraline 50 mg tablet 50 mg PO DAILY 02/02/25 03/19/25 aspirin 81 mg chewable tablet 81 mg PO DAILY #30 tabs 02/03/25 03/19/25 atorvastatin 20 mg tablet 20 mg PO QPM #30 tabs 02/03/25 03/19/25 amlodipine 5 mg tablet 5 mg PO DAILY #30 tabs 02/14/25 03/19/25 ranolazine 500 mg tablet,extended 500 mg PO BID #90 tabs 02/15/25 03/19/25 release,12 hr acetaminophen 325 mg tablet 650 mg (2 x 325 mg) PO Q6H PRN #30 03/03/25 03/19/25 tabs famotidine 20 mg tablet 20 mg PO DAILY #30 tabs 03/03/25 03/19/25 pantoprazole 40 mg tablet,delayed 40 mg PO BID #60 tabs 03/03/25 03/19/25 release (Protonix) sucralfate 1 gram tablet 1 g PO QACHS #120 tabs 03/03/25 03/19/25 ezetimibe 10 mg tablet 10 mg PO DAILY 03/19/25 03/19/25 furosemide 20 mg tablet (Lasix) 20 mg PO DAILY #30 tabs 03/19/25 varenicline tartrate 1 mg tablet 1 mg PO BID 03/19/25 03/19/25 Previous Rx's ?Medication ?Instructions ?Recorded aspirin 81 mg chewable tablet 81 mg PO DAILY #30 tabs 02/03/25 atorvastatin 20 mg tablet 20 mg PO QPM #30 tabs 02/03/25 amlodipine 5 mg tablet 5 mg PO DAILY #30 tabs 02/14/25 ranolazine 500 mg tablet,extended 500 mg PO BID #90 tabs 02/15/25 release,12 hr acetaminophen 325 mg tablet 650 mg (2 x 325 mg) PO Q6H PRN #30 03/03/25 tabs famotidine 20 mg tablet 20 mg PO DAILY #30 tabs 03/03/25 pantoprazole 40 mg tablet,delayed 40 mg PO BID #60 tabs 03/03/25 release (Protonix) sucralfate 1 gram tablet 1 g PO QACHS #120 tabs 03/03/25 furosemide 20 mg tablet (Lasix) 20 mg PO DAILY #30 tabs 03/19/25 Allergies Allergy/AdvReac Type Severity Reaction Status Date / Time No Known Allergies Allergy Verified 03/19/25 07:11 General Stated Complaint: Chest Pain ADY: 2 Review of Systems All systems reviewed & are unremarkable except as noted in HPI and below Constitutional Constitutional: Denies chills, Denies fever(s) and Denies weakness Cardiovascular Cardiovascular: Reports chest pain and Reports dyspnea Respiratory Respiratory: Reports cough and Reports dyspnea Gastrointestinal Gastrointestinal: Denies abdominal pain, Denies nausea and Denies vomiting Neurologic Neurologic: Denies weakness Exam Const General: no acute distress Orientation: alert [facility] Head: normal to inspection Ears: external ears normal General nose exam: external nose normal Mouth: moist mucous membranes Eyes General: appearance normal, both eyes and all related structures Neck Neck: normal visual inspection Resp Effort & Inspection: normal respiratory effort and able to speak in complete sentences Auscultation: diminished lung sounds Cardio Jugular venous pressure: no JVD Rate: regular rate Skin General skin exam: no rashes or lesions noted Neuro General: patient alert and patient oriented x3 Extrem General: edema Psych Mental Status: mental status grossly normal Course Vital Signs Vital signs: Vital Signs Temperature 36.4 C 03/19/25 07:07 Pulse 87 03/19/25 07:07 Respiratory Rate 16 03/19/25 07:07 Blood Pressure 197/89 H 03/19/25 07:07 Pulse Oximetry 97 03/19/25 07:07 Temperature 36.4 C 03/19/25 07:07 Temperature Source Oral 03/19/25 07:07 Pulse 87 03/19/25 07:07 Respiratory Rate 16 03/19/25 07:07 Blood Pressure 197/89 H 03/19/25 07:07 Blood Pressure Position Sitting 03/19/25 07:07 Pulse Oximetry 97 03/19/25 07:07 Oxygen Delivery Method Room Air 03/19/25 07:07 Oxygen Flow Rate 0 03/19/25 07:07 Medical Decision Making 59-year-old male who states he had 3 stents placed last week at [facility] with about complications and states he went to the fair last night was doing more walking than he has been comes in with chest discomfort and shortness of breath since last night. Denies any fevers, does have a cough but states that he always has a cough that is a chronic smoker. Denies any fevers, chills, vomiting, diaphoresis. He is hypertensive on arrival otherwise hemodynamically stable. He is moving all his extremities equally. He does have pitting edema to both lower extremities to the mid tibia. He has no calf tenderness. He has diminished lung sounds at the bases bilaterally. Bedside ultrasound no obvious B-lines, cardiac u/s limited but EF does appear to be around 50% consistent with prior echo. Given his history we will check a CBC, CMP, troponins, will treat his symptoms with a dose of Lasix given his edema of his extremities and also obtain a CT of the chest to evaluate for possible PE. Patient had 1 episode of vomiting which resolved after a dose of Zofran. He has no abdominal tenderness. Says he has not eaten anything this morning with sometimes upsets his stomach. CTA negative. Labs including delta troponin unremarkable. I suspect his symptoms could be related to his recent cardiac cath but given negative enzymes I do not feel he requires inpatient admission. He will follow-up with cardiology and I will start him on daily Lasix. Return precautions given. Differential Diagnosis Differential Diagnosis: CHF, ACS, PE Medical Records Medical records reviewed: Yes I reviewed the patient's medical records. Lab Data Lab results reviewed: Yes I reviewed the patient's lab results. ECG Data Attestation: I personally reviewed and interpreted this ECG (s) as follows: Prior ECG tracings: available for review Interpretation: Sinus rhythm, rate 80, NM 162, no STEMI Quality:SDOH Health Related Social Needs: Health related social needs transpo insecurity lonely/isolated Health related social needs details Pt needs help with transportation and grief d/t loss of spouse 6 mos. age. Pt reports were together for over 40 years and just about killed him when he lost her. PFSH All Active Problems (Updated 03/19/25 @ 10:07 by Kirit Cortes MD) Shortness of breath (Acute) Acute alcohol intoxication (Acute) Substance use disorder (Chronic) CAD (coronary artery disease), [place] coronary artery (Chronic) Depression (Chronic) Aneurysm, thoracic aortic (Acute) Benign essential hypertension (Chronic) RCA occlusion (Acute) Social History Smoking/Tobacco Use Status: Current every day Tobacco Type: cigarettes Years smoked: 41 Smoking risk assessment performed?: Yes Alcohol Intake: current Alcohol Intake frequency: a few times a month Substance use type: does not use Housing: apartment Do you feel safe at home: Yes Do you feel safe in your relationship?: Yes POCUS Exam (ED) Limited Thoracic Lung Exam REASON FOR EXAM: Chest pain and Shortness ofBreath VISUALIZED STRUCTURES: right anterior and left anterior PERTINENT FINDINGS/IMPRESSION: No apparent abnormalities Exam complete
[2025-03-19 07:20] LABS: Abs Immature Grans 0.07 10^3/uL (0.0-0.06); HCT 36.9 % (40.0-50.0); HGB 12.6 g/dL (13.5-17.5); Immature Grans % 1.0 %; MCH 31.9 pg (27.0-33.0); MCHC 34.1 % (32.0-36.0); MCV 93 fL (80-95); MPV 10.7 fL (8.0-11.0); Platelet Count 208 10^3/uL (130-400); RBC 3.95 10^6/uL (4.36-5.78); RDW 12.5 % (11.8-14.1); RDW-SD 42.9 fL; WBC 7.06 10^3/uL (4.4-10.8)
[2025-03-19 07:45] LABS: ALT 36 U/L (16-63); AST 22 U/L (15-37); Albumin 3.8 g/dL (3.4-5.0); Alkaline Phosphatase 142 U/L (46-116); Anion Gap 8.1 mmol/L (3-11); BUN 20 mg/dL (7-18); Bilirubin, Total 0.3 mg/dL (0.2-1.0); CO2 25.9 mmol/L (21.0-32.0); Calcium 9.2 mg/dL (8.5-10.1); Chloride 104 mmol/L (98-107); Estimated GFR 76.37 (mL/min/1.73m2); Glucose 187 mg/dL (74-106); Magnesium 2.3 mg/dL (1.8-2.4); NT-proBNP 86 pg/mL (<300); Potassium 4.5 mmol/L (3.5-5.1); Sodium 138 mmol/L (136-145); Total Protein 7.4 g/dL (6.4-8.2); Troponin I 15 ng/L (<or=76)
[2025-03-19] MEDS: Furosemide 20 MG/2 ML VIAL IVP (07:47)
[2025-03-19] MEDS: Omnipaque 350 MG/ML 100 ML BTL IJ (08:13)
[2025-03-19] MEDS: Normal Saline - Diluent 50 ML VIAL IJ (08:29)
--- NOTE | 2025-03-19 09:06 | DI.VRAD_ITS ---
PROCEDURE INFORMATION: Exam: CTA Chest With Contrast Exam date and time: 03/19/2025 8:17 AM Age: 59 years old Clinical indication: Shortness of breath TECHNIQUE: Imaging protocol: Computed tomographic angiography of the chest with contrast. Exam focused on the arteries. 3D rendering (Not supervised by radiologist): MIP and/or 3D reconstructed images were created by the technologist. Contrast material: OMNIPAQUE 350; Contrast volume: 100 ml; Contrast route: INTRAVENOUS (IV); COMPARISON: CT CHEST PE ABD PELVIS W 03/02/2025 9:26 PM FINDINGS: Pulmonary arteries: Normal. No pulmonary emboli. Aorta: Unremarkable. No aortic aneurysm. No aortic dissection. Lungs: Mild emphysematous change. No consolidation. No masses. Pleural spaces: Unremarkable. No pneumothorax. No pleural effusion. Heart: Unremarkable. No cardiomegaly. No pericardial effusion. Coronary artery calcification Lymph nodes: Unremarkable. No enlarged lymph nodes. Bones/joints: Unremarkable. No acute fracture. Soft tissues: Unremarkable. IMPRESSION: No acute findings. Dictated and Authenticated by: Camryn Kay MD. Orderin Sebastian Beth MD
[2025-03-19] MEDS: Ondansetron 4 MG/2 ML VIAL IVP (09:13)
[2025-03-19 09:18] LABS: Troponin I 16 ng/L (<or=76)
[2025-03-19 09:32] LABS: Lipase 72 U/L (<78)
== END 2025-03-19 10:19 | disposition home or self-care (01) ==
PROVIDERS: Emergency Provider Emergency Medicine
DX: I10 Essential (primary) hypertension; R07.9 Chest pain, unspecified; R06.02 Shortness of breath; Z95.818 Presence of other cardiac implants and grafts; R60.0 Localized edema; Z59.82 Transportation insecurity; Z60.8 Other problems related to social environment; Z63.4 Disappearance and death of family member
CPT/HCPCS: 99284; 99285; 96374; 96375; 36415; 71275; 76604; 80053; 82805; 83690; 93005; 80320; 83735; 83880; 84484; 85025; 93010; J1938; J2405; J3490

== ENCOUNTER 2025-03-27 14:06 | Emergency (ER) | payer MEDICAID, SELFPAY ==
[2025-03-27] VITALS (46 sets, daily range): BP systolic 101–147; BP diastolic 52–83; PULSE 75–100; RESP 12–19; TEMP 36.6; O2SAT 93–97
--- NOTE | 2025-03-27 14:00 | RT.EKG_ITS ---
APPROVED REPORT Exam: Resting ECG Reason for Exam: CHEST PAIN Patient Location: E HR:94 bpm ECG Measurements Heart Rate 94 AXIS SC 182 P 48 QRSd 126 QRS -11 QT 389 T 19 QTc 488 Conclusion Sinus rhythm...normal P axis, V-rate 60- 99 Nonspecific intraventricular conduction delay...QRSd >115mS, not LBBB/RBBB Inferior infarct, old...Q >35mS, II III aVF No Occlusion MS
--- NOTE | 2025-03-27 14:15 | DI.RAD_ITS ---
Exam(s) XR PORTABLE CHEST AP EXAM: XR PORTABLE CHEST AP CLINICAL HISTORY: Chest pain TECHNIQUE: 2D digital imaging was performed of the chest. One image was obtained. An AP view was obtained. COMPARISON: CR,XR XR CHEST 2V PA LATERAL from 02/13/2025 CR,XR XR PORTABLE CHEST AP from 03/02/2025 FINDINGS: MEDIASTINUM: Normal. HEART: Normal. PULMONARY VASCULATURE: Normal. LUNGS: Clear. PLEURAL SPACE: No pleural effusion or pneumothorax. BONE:Within normal limits for the patient's age. There is an old healed left 7th rib fracture. OTHER FINDINGS:Normal. IMPRESSION: No acute pulmonary findings. DATA REPOSITORY: RADIATION DOSE DELIVERED:
--- NOTE | 2025-03-27 14:15 | DI.CT_ITS ---
Exam(s) CT THORAX ABD/PEL CTA EXAM: CT THORAX ABD/PEL CTA CLINICAL HISTORY: Chest pain concern for dissection. TECHNIQUE: Imaging Protocol: Axial CT angiography was performed with multi- slice acquisition and multi-planar and/or 3D reconstructions. Lung Computer Aided Detection (CAD) was utilized. CONTRAST MATERIAL: Intravenous: Omnipaque 350 contrast volume:80 mL Oral: No COMPARISON: CT CT ABDOMEN PELVIS CTA from 02/13/[address] CHEST PE ABD PELVIS W from 03/02/[address] CHEST PE CTA from 03/19/2025 FINDINGS: CHEST: Tracheobronchial tree: Patent where visualized. There is no evidence of bronchiectasis. Pulmonary parenchyma: No consolidation or dominant measurable mass. There is atelectasis seen in the lung bases. Pulmonary Arteries: Due to the timing of the bolus, there is suboptimal opacification of the peripheral pulmonary arteries. No large central pulmonary embolism is seen Mediastinum and [place]: No dominant adenopathy or fluid collection. The esophagus is unremarkable. Visualized thyroid: Unremarkable. Pleura: No effusion or pneumothorax. Heart: The heart is not dilated. There is 3 vessel coronary artery calcification present. No pericardial effusion. Aorta: Thoracic aorta non-dilated. Atherosclerotic calcification is present. There is no evidence of dissection. Soft Tissues: There is mild gynecomastia. Bones: Within normal limits for the patient's age.There again seen healing left rib fractures. No new rib fractures are seen. ABDOMEN AND PELVIS: Abdomen: Celiac axis/mesenteric arteries: No evidence of occlusion or significant stenosis. Atherosclerotic calcification is seen at the origin of the superior mesenteric artery without significant stenosis. Renal Arteries: No evidence of occlusion or significant stenosis. Atherosclerotic calcification is seen at the origins of both an renal arteries but no significant stenosis is present. Aorta: No evidence of occlusion or significant stenosis. No aneurysm or dissection. Atherosclerotic calcifications are present but no significant stenosis. Pelvis: Iliac Arteries: No evidence of occlusion or significant stenosis. Atherosclerotic calcification is present without significant stenosis. Common Femoral Arteries: No evidence of occlusion or significant stenosis. Atherosclerotic calcification is present without significant stenosis. ABDOMEN: Liver: Normal density. No measurable mass. Portal, superior mesenteric and splenic veins: Unremarkable. Gallbladder and Biliary Tract: No radiodense calculus or dilation. Pancreas: Normal density, no abnormal calcifications or inflammatory process. Spleen: Normal. Adrenals: No masses seen. Kidneys: Normal size, contour and axis. No radiodense stones or obstructive uropathy. There is a tiny hypodensity in the right kidney. It is too small for further characterization but likely reflects a small cyst. Bowel: No obstruction or bowel wall thickening. Appendix is unremarkable. Peritoneal Cavity: No ascites, collection or mesenteric inflammatory response. No free air. Lymph Nodes: Within normal limits. Bones: Within normal limits for the patient's age. Soft Tissues: Unremarkable. PELVIS: Bladder: Symmetric distention, no gross wall thickening. Reproductive Organs: Unremarkable as visualized. Lymph Nodes: Within normal limits. Bones: Within normal limits for the patient's age. IMPRESSION: 1. No acute abdominal or pelvic process is seen. 2. There is no evidence of abdominal aortic aneurysm or dissection. 3. There is no evidence of a thoracic aortic aneurysm or dissection. 4. No evidence of a large central pulmonary embolism is seen. Due to the timing of the bolus, the peripheral pulmonary arteries are suboptimally opacified. 5. No acute pulmonary process. RADIATION DOSE DELIVERED: Total DLP DATA REPOSITORY: All CT scans at this facility are submitted to the National Radiology Data Registry (NRDR) Dose Index Registry (DIR) with the [employer] (ACR). RADIATION OPTIMIZATION: All CT scans at this facility use at least one of these dose optimization techniques: automated exposure control; mA and/or kV adjustment per patient size (includes targeted exams where dose is matched to clinical indication); or iterative reconstruction.
--- NOTE | 2025-03-27 14:16 | ED.PROG_ITS ---
Date of service: 03/27/25 Time of Service: 14:16 Medical Decision Making This patient was being seen in triage. He reportedly became unresponsive during triage process. He was brought back to a room. I saw him on arrival. His eyes were rolled in the back of his head. His oxygen saturation was within normal limits. He was clutching his chest. I gave a verbal order for 0.6 mg of naloxone. This did not improve his symptoms. He was not tachycardic nor hypoxic. He was protecting his airway. His blood pressure cycled and it was reassuring. He denied drug use.Patient was to be seen by Dr. Jackson and I handed the patient's ECG to him. He did have some mild ST segment elevation in lead III new compared to prior. Not meeting criteria for occlusion AK. Quality:SDOH Health Related Social Needs: Health related social needs transpo insecurity lonely/ isolated Health related social needs details Pt needs help with transportation and grief d/t loss of spouse 6 mos. age. Pt reports were together for over 40 years and just about killed him when he lost her. Discharge Plan Discharge Details Chief Complaint: Chest Pain Primary Care Provider: None,None ED Provider: Mars Jackson Home Meds and New Rx's Prescriptions: No Action isosorbide mononitrate 30 mg tablet extended release 24 hr 30 mg PO ONCE Patient Comments: TAKE ONE TABLET BY MOUTH EVERY MORNING albuterol sulfate 90 mcg/actuation HFA aerosol inhaler 2 inh INHALATION Q6H PRN Patient Comments: INHALE 2 PUFFS BY MOUTH EVERY 6 HOURS, NEEDED FOR SHORTNESS OF BREATH OR WHEEZING sertraline 50 mg tablet 50 mg PO DAILY Patient Comments: TAKE ONE TABLET BY MOUTH EVERY DAY atorvastatin 20 mg Tablet 20 mg PO QPM Qty: 30 0RF aspirin 81 mg Tablet,Chewable 81 mg PO DAILY Qty: 30 0RF acetaminophen 325 mg Tablet 650 mg PO Q6H PRNQty: 30 0RF sucralfate 1 gram tablet 1 g PO QACHS Qty: 120 0RF pantoprazole [Protonix] 40 mg tablet,delayed release (DR/EC) 40 mg PO BID Qty: 60 0RF famotidine 20 mg tablet 20 mg PO DAILY Qty: 30 0RF amlodipine 5 mg tablet 5 mg PO DAILY Qty: 30 0RF ranolazine 500 mg Tablet Extended Release 12 Hr 500 mg PO BID Qty: 90 0RF ezetimibe 10 mg tablet 10 mg PO DAILY Patient Comments: TAKE ONE TABLET BY MOUTH EVERY DAY varenicline tartrate 1 mg tablet 1 mg PO BID Patient Comments: TAKE 1 TABLET BY MOUTH 2 TIMES DAILY - THIS MEDICATION SHOULD BE TAKEN IN THE MIDDLE OF YOUR LARGEST MEAL(S) WITH A FULL GLASS OF WATER. DO furosemide [Lasix] 20 mg tablet 20 mg PO DAILY Qty: 30 0RF
[2025-03-27 14:25] LABS: Abs Immature Grans 0.07 10^3/uL (0.0-0.06); HCT 39.9 % (40.0-50.0); HGB 13.3 g/dL (13.5-17.5); Immature Grans % 0.8 %; MCH 31.3 pg (27.0-33.0); MCHC 33.3 % (32.0-36.0); MCV 94 fL (80-95); MPV 10.3 fL (8.0-11.0); Platelet Count 246 10^3/uL (130-400); RBC 4.25 10^6/uL (4.36-5.78); RDW 12.3 % (11.8-14.1); RDW-SD 42.4 fL; WBC 8.39 10^3/uL (4.4-10.8)
--- NOTE | 2025-03-27 14:30 | DI.CT_ITS ---
Exam(s) CT BRAIN NECK CTA EXAM: CT BRAIN NECK CTA CLINICAL HISTORY: numbness, back pain and chest pain. TECHNIQUE: Imaging Protocol: Axial CT angiography was performed with multi- slice acquisition and multi-planar and/or 3D reconstructions. CONTRAST MATERIAL: Intravenous: Omnipaque 350 contrast volume:70 mL COMPARISON: CT CT HEAD WO from 02/02/[address] CHEST PE CTA from 03/19/2025 FINDINGS: CT Head W/O and W: Ventricles and Extra axial spaces: Normal in size and morphology for the patient's age. Hemorrhage: None. Cerebral parenchyma: There is no evidence of an acute territorial infarct. No acute mass effect is seen. Midline shift: None. Brainstem/Cerebellum: Normal. Calvarium: Normal. Visualized Paranasal sinuses/Mastoids: Clear. Soft Tissues: Unremarkable. Enhancement: Unremarkable. CTA Neck W: Due to the timing of the bolus, there is suboptimal opacification of the cervical carotid arteries and vertebral arteries. Common Carotid: Right: No dissection, occlusion or significant stenosis. There is mild atherosclerotic calcification but no significant stenosis. Left: No dissection, occlusion or significant stenosis. There is atherosclerotic calcification in the carotid bulb but less than 50 percent narrowing is present. External Carotid: Right: No occlusion or significant stenosis. Left: No occlusion or significant stenosis. Internal Carotid: Right: There is atherosclerotic calcification at the origin of the internal carotid artery cars Ling 50-70 percent stenosis. Left: No dissection, occlusion or significant stenosis. Vertebral Artery: Atherosclerotic calcification is present but less than 50 percent stenosis is seen. Right: No dissection, occlusion or significant stenosis. Left: No dissection, occlusion or significant stenosis. Bones: Within normal limits for the patient's age. There again seen healing left rib fractures. These were discussed on the CT scan from 03/02/2025. Anterior cervical fusion is seen from C4 through C6. Age-appropriate degenerative changes are present.. Soft Tissues: Normal. Thyroid gland: Unremarkable. CTA Brain W: Internal Carotid Arteries: Atherosclerotic calcification is seen. No occlusion is present. There is less than 50 percent stenosis. Anterior Cerebral Arteries: Right: No aneurysm, occlusion or significant stenosis. Left: No aneurysm, occlusion or significant stenosis. Middle Cerebral Arteries: Right: No aneurysm, occlusion or significant stenosis. Left: No aneurysm, occlusion or significant stenosis. Posterior Cerebral Arteries: Right: No aneurysm, occlusion or significant stenosis. Left: No aneurysm, occlusion or significant stenosis. Vertebral Arteries: Atherosclerotic calcification is present but less than 50 percent stenosis is present. Right: No aneurysm, occlusion or significant stenosis. Left: No aneurysm, occlusion or significant stenosis. Basilar Artery: No aneurysm, occlusion or significant stenosis. IMPRESSION: 1. There is suboptimal opacification of the carotid and vertebral artery system. 2. No large vessel occlusion or significant stenosis on the CT angiography of the head. 3. No acute intracranial process. 4. Marked calcification is seen at the origin of the right internal carotid artery with 50-70 percent stenosis noted. RADIATION DOSE DELIVERED: 2,453.9mGy.cm Total DLP DATA REPOSITORY: All CT scans at this facility are submitted to the National Radiology Data Registry (NRDR) Dose Index Registry (DIR) with the [employer] (ACR). RADIATION OPTIMIZATION: All CT scans at this facility use at least one of these dose optimization techniques: automated exposure control; mA and/or kV adjustment per patient size (includes targeted exams where dose is matched to clinical indication); or iterative reconstruction.
[2025-03-27] MEDS: Omnipaque 350 MG/ML 100 ML BTL IJ (14:35)
[2025-03-27] MEDS: Normal Saline - Diluent 50 ML VIAL IJ (14:35)
[2025-03-27] MEDS: Normal Saline Flush 10 ML SYR IVP (14:38)
[2025-03-27 14:39] LABS: INR 1.0 (0.9-1.1); PTT Activated 24.7 sec (20.6-30.2); Prothrombin Time 9.7 sec (9.1-11.1)
[2025-03-27 14:53] LABS: ALT 41 U/L (16-63); AST 25 U/L (15-37); Albumin 4.2 g/dL (3.4-5.0); Alkaline Phosphatase 142 U/L (46-116); Anion Gap 13.5 mmol/L (3-11); BUN 14 mg/dL (7-18); Bilirubin, Total 0.2 mg/dL (0.2-1.0); CO2 25.5 mmol/L (21.0-32.0); Calcium 9.1 mg/dL (8.5-10.1); Chloride 102 mmol/L (98-107); Estimated GFR 85.63 (mL/min/1.73m2); Glucose 107 mg/dL (74-106); Lipase 66 U/L (<78); Potassium 3.7 mmol/L (3.5-5.1); Sodium 141 mmol/L (136-145); Total Protein 8.1 g/dL (6.4-8.2)
[2025-03-27 15:00] LABS: Salicylate 3.0 mg/dL (<2.8)
[2025-03-27] MEDS: Droperidol 5 MG/2 ML VIAL 2.5 MG IVP (15:06)
[2025-03-27 15:07] LABS: Troponin I 14 ng/L (<or=76)
[2025-03-27] MEDS: Normal Saline 1,000 ML 1000 ML IV (15:07)
[2025-03-27] MEDS: MAGNESIUM SULFATE 8.12 MEQ, MULTIVITAMIN 10 ML, THIAMINE 100 MG, FOLIC ACID 1 MG in Nor... 168.867 MG IV (15:07)
--- NOTE | 2025-03-27 15:08 | W.ED.GENAD ---
Discharge Plan Disposition Patient Disposition: Home Discharge Details Clinical Impression: Chest pain, Bizarre behavior, Tactile hallucination Primary Care Provider: None,None ED Provider: Mars Jackson Home Meds and New Rx's Prescriptions: Continued isosorbide mononitrate 30 mg tablet extended release 24 hr 30 mg PO ONCE Patient Comments: TAKE ONE TABLET BY MOUTH EVERY MORNING albuterol sulfate 90 mcg/actuation HFA aerosol inhaler 2 inh INHALATION Q6H PRN Patient Comments: INHALE 2 PUFFS BY MOUTH EVERY 6 HOURS, NEEDED FOR SHORTNESS OF BREATH OR WHEEZING sertraline 50 mg tablet 50 mg PO DAILY Patient Comments: TAKE ONE TABLET BY MOUTH EVERY DAY atorvastatin 20 mg Tablet 20 mg PO QPM Qty: 30 0RF aspirin 81 mg Tablet,Chewable 81 mg PO DAILY Qty: 30 0RF acetaminophen 325 mg Tablet 650 mg PO Q6H PRNQty: 30 0RF sucralfate 1 gram tablet 1 g PO QACHS Qty: 120 0RF pantoprazole [Protonix] 40 mg tablet,delayed release (DR/EC) 40 mg PO BID Qty: 60 0RF famotidine 20 mg tablet 20 mg PO DAILY Qty: 30 0RF amlodipine 5 mg tablet 5 mg PO DAILY Qty: 30 0RF ranolazine 500 mg Tablet Extended Release 12 Hr 500 mg PO BID Qty: 90 0RF ezetimibe 10 mg tablet 10 mg PO DAILY Patient Comments: TAKE ONE TABLET BY MOUTH EVERY DAY varenicline tartrate 1 mg tablet 1 mg PO BID Patient Comments: TAKE 1 TABLET BY MOUTH 2 TIMES DAILY - THIS MEDICATION SHOULD BE TAKEN IN THE MIDDLE OF YOUR LARGEST MEAL(S) WITH A FULL GLASS OF WATER. DO furosemide [Lasix] 20 mg tablet 20 mg PO DAILY Qty: 30 0RF Discharge Instructions Instructions: Chest Pain (DC) Additional Instructions: Please follow-up with your primary care provider regarding your visit to the emergency department today. Be sure to discuss results of all test performed here today to include radiology, and laboratory testing as well as results for any pending cultures. Should your symptoms worsen, or if you develop new concerning symptoms, please return immediately emergency department for further evaluation. HPI General Date/Time Provider Initiated Documentation: 03/27/25 14:15. HPI Narrative: MDM/Narrative: Initial Assessment: 59-year-old male with thoracic aneurysm and recent coronary stenting presenting with chest pain, back pain, numbness, and altered mental status. Differential Diagnosis: - Aortic dissection: History of thoracic aneurysm. CTA imaging. - Acute coronary syndrome (ACS): Recent coronary stenting. EKG, troponins. - Pulmonary embolism (PE): Less likely. - Anxiety/psychiatric disease: Bizarre behavior, emotional stressors. Metabolic and toxicology workup. - Substance abuse: Intermittent alcohol use. Toxicology workup. ED Course: - CTA imaging obtained. - EKG performed. - Troponins and other blood work obtained. 1415 On reassessment patient is resting comfortably sleeping now. Vital signs remain stable. 1755 Results reviewed, CTA head and neck, CT head, CT a chest abdomen pelvis are all with no acute significant findings. Screening labs show a minimally elevated alcohol level, minimally elevated salicylate level (likely due to chronic baby aspirin) , troponin stable x 3, UDS negative. On reassessment, patient is not eating, he is alert and oriented x 3. He shows no focal neurologic deficits. He notes that his symptoms are greatly improved. Plan of care is discussed with the patient and his family, I explained to him that I do not understand why he had this episode today although I am concerned that this may be related to his mental health given his reported history and offered him a chance to speak with our telepsychiatrist. At this time patient does not wish to seek psychiatric evaluation. He was instructed to return for new or worsening symptoms. Disposition: Home This document was created with assistance from [employer]. The patient consented to its use. HPI: The patient is a 59-year-old male with a known thoracic aneurysm, substance use disorder, and depression, presenting with altered mental status. He is two weeks post-coronary stent placement at [facility]. The history is obtained from the patient, his brother, and his son. The patient was in his usual state of health this morning. While smoking and consuming two 12-ounce beers, he experienced acute thoracic pain radiating to his back and neck, accompanied by numbness in the left upper extremity. He exhibited altered mental status, including delusional parasitosis, claiming insects were crawling on him, which was confirmed to be false by his family. These symptoms commenced at 1100 hours. He has experienced similar symptoms since the stent placement, with the most recent evaluation occurring at [facility]. The patient became tearful, referencing the of his 1.5 years ago. He consumes alcohol intermittently and denies experiencing withdrawal symptoms, asserting that his current symptoms are not related to alcohol withdrawal. He reports no fever, chills, vomiting, diarrhea, or other new symptoms. PAST SURGICAL HISTORY: Coronary stent placement at [facility] (02/2025) ROS: Negative besides as mentioned above Exam: Vital signs: Reviewed. General Appearance: Elderly male, disheveled. HEENT: Erythema at tip of nose. Neck: Supple, full range of motion, no observable masses, No meningeal sign. Respiratory: No Respiratory distress. No tachypnea. Cardiovascular: No reproducible chest pain. Gastrointestinal: Abdomen soft, nontender. Musculoskeletal: Small excoriation with minimal blood oozing on left dorsal wrist. Skin: Warm and dry, no rash. Neurological: Intermittently falling asleep, nodding off. Psychiatric: Affect intermittently agitated and somnolent. Rhythm: NSR Rate: 94 [place]: Normal axis Intervals: SD intervals 180 ms, QTc 488 ms Other findings: No acute ST segment or T wave changes to suggest acute ischemia. Labs: Laboratory Tests Range/Units 03/27/25 03/27/25 03/27/25 14:10 15:00 15:14 WBC (4.4-10.8) 10^3/uL 8.39 RBC (4.36-5.78) 10^6/uL 4.25 L Hgb (13.5-17.5) g/dL 13.3 L Hct (40.0-50.0) % 39.9 L MCV (80-95) fL 94 MCH (27.0-33.0) pg 31.3 MCHC (32.0-36.0) % 33.3 RDW (11.8-14.1) % 12.3 Plt Count (130-400) 10^3/uL 246 MPV (8.0-11.0) fL 10.3 Immature Gran % % 0.8 Neutrophils % % 57.6 Lymphocytes % % 29.6 Monocytes % % 9.3 Eosinophils % % 1.7 Basophils % % 1.0 Nucleated RBC % (0.0-0.3) % 0.0 Absolute Neutrophils (1.2-6.7) 10^3/uL 4.84 Absolute Lymphocytes (1.2-3.4) 10^3/uL 2.48 Absolute Monocytes (0.1-0.8) 10^3/uL 0.78 Absolute Eosinophils (0.0-0.7) 10^3/uL 0.14 Absolute Basophils (0.0-0.2) 10^3/uL 0.08 PT (9.1-11.1) sec 9.7 INR (0.9-1.1) 1.0 APTT (20.6-30.2) sec 24.7 Sodium (136-145) mmol/L 141 Potassium (3.5-5.1) mmol/L 3.7 Chloride (98-107) mmol/L 102 Carbon Dioxide (21.0-32.0) mmol/L 25.5 Anion Gap (3-11) mmol/L 13.5 H BUN (7-18) mg/dL 14 Creatinine (0.70-1.30) mg/dL 1.0 Est GFR (CKD-EPI 2020) (mL/min/1.73m2) 85.63 Glucose (74-106) mg/dL 107 H Calcium (8.5-10.1) mg/dL 9.1 Magnesium (1.8-2.4) mg/dL 2.3 Total Bilirubin (0.2-1.0) mg/dL 0.2 AST (15-37) U/L 25 ALT (16-63) U/L 41 Alkaline Phosphatase (46-116) U/L 142 H Troponin I (<or=76) ng/L 14 14 NT-Pro-B Natriuret Pep (<300) pg/mL 198 Total Protein (6.4-8.2) g/dL 8.1 Albumin (3.4-5.0) g/dL 4.2 Lipase (<78) U/L 66 Urine Color (Yellow) Yellow Urine Clarity (Clear) Clear Urine pH (5-8) 6.0 Ur Specific [place] (1.005-1.025) <= 1.005 Urine Protein (Neg-Trace) mg/dL Negative Urine Ketones (Negative) mg/dL Negative Urine Blood (Negative) Negative Urine Nitrite (Negative) Negative Urine Bilirubin (Negative) Negative Urine Urobilinogen (Up to 0.2) mg/dL 0.2 Ur Leukocyte Esterase (Negative) Negative Urine Glucose (Negative) mg/dL Negative Salicylates (<2.8) mg/dL 3.0 Urine Opiates Screen (Negative) Negative Urine Methadone Screen (Negative) Negative Acetaminophen (10-30) ug/mL < 2 Ur Barbiturates Screen (Negative) Negative Ur Tricyclics Screen (Negative) Negative Ur Amphetamines Screen (Negative) Negative U Benzodiazepines Scrn (Negative) Negative Urine Cocaine Screen (Negative) Negative Ur THC Screen (Negative) Negative Ethyl Alcohol (<10) mg/dL 145.7 H Range/Units 03/27/25 17:24 WBC (4.4-10.8) 10^3/uL RBC (4.36-5.78) 10^6/uL Hgb (13.5-17.5) g/dL Hct (40.0-50.0) % MCV (80-95) fL MCH (27.0-33.0) pg MCHC (32.0-36.0) % RDW (11.8-14.1) % Plt Count (130-400) 10^3/uL MPV (8.0-11.0) fL Immature Gran % % Neutrophils % % Lymphocytes % % Monocytes % % Eosinophils % % Basophils % % Nucleated RBC % (0.0-0.3) % Absolute Neutrophils (1.2-6.7) 10^3/uL Absolute Lymphocytes (1.2-3.4) 10^3/uL Absolute Monocytes (0.1-0.8) 10^3/uL Absolute Eosinophils (0.0-0.7) 10^3/uL Absolute Basophils (0.0-0.2) 10^3/uL PT (9.1-11.1) sec INR (0.9-1.1) APTT (20.6-30.2) sec Sodium (136-145) mmol/L Potassium (3.5-5.1) mmol/L Chloride (98-107) mmol/L Carbon Dioxide (21.0-32.0) mmol/L Anion Gap (3-11) mmol/L BUN (7-18) mg/dL Creatinine (0.70-1.30) mg/dL Est GFR (CKD-EPI 2020) (mL/min/1.73m2) Glucose (74-106) mg/dL Calcium (8.5-10.1) mg/dL Magnesium (1.8-2.4) mg/dL Total Bilirubin (0.2-1.0) mg/dL AST (15-37) U/L ALT (16-63) U/L Alkaline Phosphatase (46-116) U/L Troponin I (<or=76) ng/L 15 NT-Pro-B Natriuret Pep (<300) pg/mL Total Protein (6.4-8.2) g/dL Albumin (3.4-5.0) g/dL Lipase (<78) U/L Urine Color (Yellow) Urine Clarity (Clear) Urine pH (5-8) Ur Specific [place] (1.005-1.025) Urine Protein (Neg-Trace) mg/dL Urine Ketones (Negative) mg/dL Urine Blood (Negative) Urine Nitrite (Negative) Urine Bilirubin (Negative) Urine Urobilinogen (Up to 0.2) mg/dL Ur Leukocyte Esterase (Negative) Urine Glucose (Negative) mg/dL Salicylates (<2.8) mg/dL Urine Opiates Screen (Negative) Urine Methadone Screen (Negative) Acetaminophen (10-30) ug/mL Ur Barbiturates Screen (Negative) Ur Tricyclics Screen (Negative) Ur Amphetamines Screen (Negative) U Benzodiazepines Scrn (Negative) Urine Cocaine Screen (Negative) Ur THC Screen (Negative) Ethyl Alcohol (<10) mg/dL Radiology: Exam(s) CT THORAX ABD/PEL CTA EXAM: CT THORAX ABD/PEL CTA CLINICAL HISTORY: Chest pain concern for dissection. TECHNIQUE: Imaging Protocol: Axial CT angiography was performed with multi-slice acquisition and multi-planar and/or 3D reconstructions. Lung Computer Aided Detection (CAD) was utilized. CONTRAST MATERIAL: Intravenous: Omnipaque 350 contrast volume:80 mL Oral: No COMPARISON: CT CT ABDOMEN PELVIS CTA from 02/13/[address] CHEST PE ABD PELVIS W from 03/02/[address] CHEST PE CTA from 03/19/2025 FINDINGS: CHEST: Tracheobronchial tree: Patent where visualized. There is no evidence of bronchiectasis. Pulmonary parenchyma: No consolidation or dominant measurable mass. There is atelectasis seen in the lung bases. Pulmonary Arteries: Due to the timing of the bolus, there is suboptimal opacification of the peripheral pulmonary arteries. No large central pulmonary embolism is seen Mediastinum and [place]: No dominant adenopathy or fluid collection. The esophagus is unremarkable. Visualized thyroid: Unremarkable. Pleura: No effusion or pneumothorax. Heart: The heart is not dilated. There is 3 vessel coronary artery calcification present. No pericardial effusion. Aorta: Thoracic aorta non-dilated. Atherosclerotic calcification is present. There is no evidence of dissection. Soft Tissues: There is mild gynecomastia. Bones: Within normal limits for the patient's age.There again seen healing left rib fractures. No new rib fractures are seen. ABDOMEN AND PELVIS: Abdomen: Celiac axis/mesenteric arteries: No evidence of occlusion or significant stenosis. Atherosclerotic calcification is seen at the origin of the superior mesenteric artery without significant stenosis. Renal Arteries: No evidence of occlusion or significant stenosis. Atherosclerotic calcification is seen at the origins of both an renal arteries but no significant stenosis is present. Aorta: No evidence of occlusion or significant stenosis. No aneurysm or dissection. Atherosclerotic calcifications are present but no significant stenosis. Pelvis: Iliac Arteries: No evidence of occlusion or significant stenosis. Atherosclerotic calcification is present without significant stenosis. Common Femoral Arteries: No evidence of occlusion or significant stenosis. Atherosclerotic calcification is present without significant stenosis. ABDOMEN: Liver: Normal density. No measurable mass. Portal, superior mesenteric and splenic veins: Unremarkable. Gallbladder and Biliary Tract: No radiodense calculus or dilation. Pancreas: Normal density, no abnormal calcifications or inflammatory process. Spleen: Normal. Adrenals: No masses seen. Kidneys: Normal size, contour and axis. No radiodense stones or obstructive uropathy. There is a tiny hypodensity in the right kidney. It is too small for further characterization but likely reflects a small cyst. Bowel: No obstruction or bowel wall thickening. Appendix is unremarkable. Peritoneal Cavity: No ascites, collection or mesenteric inflammatory response. No free air. Lymph Nodes: Within normal limits. Bones: Within normal limits for the patient's age. Soft Tissues: Unremarkable. PELVIS: Bladder: Symmetric distention, no gross wall thickening. Reproductive Organs: Unremarkable as visualized. Lymph Nodes: Within normal limits. Bones: Within normal limits for the patient's age. IMPRESSION: 1. No acute abdominal or pelvic process is seen. 2. There is no evidence of abdominal aortic aneurysm or dissection. 3. There is no evidence of a thoracic aortic aneurysm or dissection. 4. No evidence of a large central pulmonary embolism is seen. Due to the timing of the bolus, the peripheral pulmonary arteries are suboptimally opacified. 5. No acute pulmonary process. Exam(s) CT BRAIN NECK CTA EXAM: CT BRAIN NECK CTA CLINICAL HISTORY: numbness, back pain and chest pain. TECHNIQUE: Imaging Protocol: Axial CT angiography was performed with multi-slice acquisition and multi-planar and/or 3D reconstructions. CONTRAST MATERIAL: Intravenous: Omnipaque 350 contrast volume:70 mL COMPARISON: CT CT HEAD WO from 02/02/[address] CHEST PE CTA from 03/19/2025 FINDINGS: CT Head W/O and W: Ventricles and Extra axial spaces: Normal in size and morphology for the patient's age. Hemorrhage: None. Cerebral parenchyma: There is no evidence of an acute territorial infarct. No acute mass effect is seen. Midline shift: None. Brainstem/Cerebellum: Normal. Calvarium: Normal. Visualized Paranasal sinuses/Mastoids: Clear. Soft Tissues: Unremarkable. Enhancement: Unremarkable. CTA Neck W: Due to the timing of the bolus, there is suboptimal opacification of the cervical carotid arteries and vertebral arteries. Common Carotid: Right: No dissection, occlusion or significant stenosis. There is mild atherosclerotic calcification but no significant stenosis. Left: No dissection, occlusion or significant stenosis. There is atherosclerotic calcification in the carotid bulb but less than 50 percent narrowing is present. External Carotid: Right: No occlusion or significant stenosis. Left: No occlusion or significant stenosis. Internal Carotid: Right: There is atherosclerotic calcification at the origin of the internal carotid artery [place] 50-70 percent stenosis. Left: No dissection, occlusion or significant stenosis. Vertebral Artery: Atherosclerotic calcification is present but less than 50 percent stenosis is seen. Right: No dissection, occlusion or significant stenosis. Left: No dissection, occlusion or significant stenosis. Bones: Within normal limits for the patient's age. There again seen healing left rib fractures. These were discussed on the CT scan from 03/02/2025. Anterior cervical fusion is seen from C4 through C6. Age-appropriate degenerative changes are present.. Soft Tissues: Normal. Thyroid gland: Unremarkable. CTA Brain W: Internal Carotid Arteries: Atherosclerotic calcification is seen. No occlusion is present. There is less than 50 percent stenosis. Anterior Cerebral Arteries: Right: No aneurysm, occlusion or significant stenosis. Left: No aneurysm, occlusion or significant stenosis. Middle Cerebral Arteries: Right: No aneurysm, occlusion or significant stenosis. Left: No aneurysm, occlusion or significant stenosis. Posterior Cerebral Arteries: Right: No aneurysm, occlusion or significant stenosis. Left: No aneurysm, occlusion or significant stenosis. Vertebral Arteries: Atherosclerotic calcification is present but less than 50 percent stenosis is present. Right: No aneurysm, occlusion or significant stenosis. Left: No aneurysm, occlusion or significant stenosis. Basilar Artery: No aneurysm, occlusion or significant stenosis. IMPRESSION: 1. There is suboptimal opacification of the carotid and vertebral artery system. 2. No large vessel occlusion or significant stenosis on the CT angiography of the head. 3. No acute intracranial process. 4. Marked calcification is seen at the origin of the right internal carotid artery with 50-70 percent stenosis noted. Exam(s) XR PORTABLE CHEST AP EXAM: XR PORTABLE CHEST AP CLINICAL HISTORY: Chest pain TECHNIQUE: 2D digital imaging was performed of the chest. One image was obtained. An AP view was obtained. COMPARISON: CR,XR XR CHEST 2V PA LATERAL from 02/13/2025 CR,XR XR PORTABLE CHEST AP from 03/02/2025 FINDINGS: MEDIASTINUM: Normal. HEART: Normal. PULMONARY VASCULATURE: Normal. LUNGS: Clear. PLEURAL SPACE: No pleural effusion or pneumothorax. BONE:Within normal limits for the patient's age. There is an old healed left 7th rib fracture. OTHER FINDINGS:Normal. IMPRESSION: No acute pulmonary findings. Related Data Home Medications ?Medication ?Instructions ?Recorded ?Confirmed albuterol sulfate 90 mcg/actuation 2 inh inhalation Q6H PRN 02/02/25 03/19/25 aerosol inhaler isosorbide mononitrate 30 mg 30 mg PO ONCE 02/02/25 03/19/25 tablet,extended release 24 hr sertraline 50 mg tablet 50 mg PO DAILY 02/02/25 03/19/25 aspirin 81 mg chewable tablet 81 mg PO DAILY #30 tabs 02/03/25 03/19/25 atorvastatin 20 mg tablet 20 mg PO QPM #30 tabs 02/03/25 03/19/25 amlodipine 5 mg tablet 5 mg PO DAILY #30 tabs 02/14/25 03/19/25 ranolazine 500 mg tablet,extended 500 mg PO BID #90 tabs 02/15/25 03/19/25 release,12 hr acetaminophen 325 mg tablet 650 mg (2 x 325 mg) PO Q6H PRN #30 03/03/25 03/19/25 tabs famotidine 20 mg tablet 20 mg PO DAILY #30 tabs 03/03/25 03/19/25 pantoprazole 40 mg tablet,delayed 40 mg PO BID #60 tabs 03/03/25 03/19/25 release (Protonix) sucralfate 1 gram tablet 1 g PO QACHS #120 tabs 03/03/25 03/19/25 ezetimibe 10 mg tablet 10 mg PO DAILY 03/19/25 03/19/25 furosemide 20 mg tablet (Lasix) 20 mg PO DAILY #30 tabs 03/19/25 varenicline tartrate 1 mg tablet 1 mg PO BID 03/19/25 03/19/25 Previous Rx's ?Medication ?Instructions ?Recorded aspirin 81 mg chewable tablet 81 mg PO DAILY #30 tabs 02/03/25 atorvastatin 20 mg tablet 20 mg PO QPM #30 tabs 02/03/25 amlodipine 5 mg tablet 5 mg PO DAILY #30 tabs 02/14/25 ranolazine 500 mg tablet,extended 500 mg PO BID #90 tabs 02/15/25 release,12 hr acetaminophen 325 mg tablet 650 mg (2 x 325 mg) PO Q6H PRN #30 03/03/25 tabs famotidine 20 mg tablet 20 mg PO DAILY #30 tabs 03/03/25 pantoprazole 40 mg tablet,delayed 40 mg PO BID #60 tabs 03/03/25 release (Protonix) sucralfate 1 gram tablet 1 g PO QACHS #120 tabs 03/03/25 furosemide 20 mg tablet (Lasix) 20 mg PO DAILY #30 tabs 03/19/25 Allergies Allergy/AdvReac Type Severity Reaction Status Date / Time No Known Allergies Allergy Verified 03/19/25 07:11 General Stated Complaint: Chest Pain ADY: 2 Course Vital Signs Vital signs: Vital Signs Temperature 36.6 C 03/27/25 14:10 Pulse 93 H 03/27/25 14:10 Respiratory Rate 18 03/27/25 14:10 Pulse Oximetry 94 03/27/25 14:10 Temperature 36.6 C 03/27/25 14:10 Temperature Source Temporal Artery Scan 03/27/25 14:10 Pulse 93 H 03/27/25 14:10 Respiratory Rate 18 03/27/25 14:10 Respiratory Effort Short of Breath 03/27/25 14:58 Pulse Oximetry 94 03/27/25 14:10 Oxygen Delivery Method Room Air 03/27/25 14:10 Oxygen Flow Rate 0 03/27/25 14:10 Pain Level 8 03/27/25 14:10 Lab/Test Results Lab/Test Results: Laboratory Tests Range/Units 03/27/25 14:10 WBC (4.4-10.8) 10^3/uL 8.39 RBC (4.36-5.78) 10^6/uL 4.25 L Hgb (13.5-17.5) g/dL 13.3 L Hct (40.0-50.0) % 39.9 L MCV (80-95) fL 94 MCH (27.0-33.0) pg 31.3 MCHC (32.0-36.0) % 33.3 RDW (11.8-14.1) % 12.3 Plt Count (130-400) 10^3/uL 246 MPV (8.0-11.0) fL 10.3 Immature Gran % % 0.8 Neutrophils % % 57.6 Lymphocytes % % 29.6 Monocytes % % 9.3 Eosinophils % % 1.7 Basophils % % 1.0 Nucleated RBC % (0.0-0.3) % 0.0 Absolute Neutrophils (1.2-6.7) 10^3/uL 4.84 Absolute Lymphocytes (1.2-3.4) 10^3/uL 2.48 Absolute Monocytes (0.1-0.8) 10^3/uL 0.78 Absolute Eosinophils (0.0-0.7) 10^3/uL 0.14 Absolute Basophils (0.0-0.2) 10^3/uL 0.08 PT (9.1-11.1) sec 9.7 INR (0.9-1.1) 1.0 APTT (20.6-30.2) sec 24.7 Sodium (136-145) mmol/L 141 Potassium (3.5-5.1) mmol/L 3.7 Chloride (98-107) mmol/L 102 Carbon Dioxide (21.0-32.0) mmol/L 25.5 Anion Gap (3-11) mmol/L 13.5 H BUN (7-18) mg/dL 14 Creatinine (0.70-1.30) mg/dL 1.0 Est GFR (CKD-EPI 2020) (mL/min/1.73m2) 85.63 Glucose (74-106) mg/dL 107 H Calcium (8.5-10.1) mg/dL 9.1 Total Bilirubin (0.2-1.0) mg/dL 0.2 AST (15-37) U/L 25 ALT (16-63) U/L 41 Alkaline Phosphatase (46-116) U/L 142 H Total Protein (6.4-8.2) g/dL 8.1 Albumin (3.4-5.0) g/dL 4.2 Lipase (<78) U/L 66 Ethyl Alcohol (<10) mg/dL 145.7 H Medical Decision Making Quality:SDOH Health Related Social Needs: Health related social needs transpo insecurity lonely/isolated Health related social needs details Pt needs help with transportation and grief d/t loss of spouse 6 mos. age. Pt reports were together for over 40 years and just about killed him when he lost her. PFSH All Active Problems (Updated 03/27/25 @ 18:18 by Mars Jackson MD) Tactile hallucination (Acute) Bizarre behavior (Acute) Chest pain (Acute) Shortness of breath (Acute) Acute alcohol intoxication (Acute) Substance use disorder (Chronic) CAD (coronary artery disease), [place] coronary artery (Chronic) Depression (Chronic) Aneurysm, thoracic aortic (Acute) Benign essential hypertension (Chronic) RCA occlusion (Acute) Social History Smoking/Tobacco Use Status: Current every day Tobacco Type: cigarettes Years smoked: 41 Smoking risk assessment performed?: Yes Alcohol Intake: current Alcohol Intake frequency: a few times a month Drug use: Never Substance use type: does not use Housing: apartment Do you feel safe at home: Yes Do you feel safe in your relationship?: Yes
[2025-03-27 15:11] LABS: Glucose Negative (Negative)
[2025-03-27 15:14] LABS: Acetaminophen < 2 ug/mL (10-30)
[2025-03-27] MEDS: ACETAMINOPHEN 1,000 MG/100 ML BAG 400 MG IVPB (15:24)
[2025-03-27 15:31] LABS: Cannabinoids THC Negative (Negative); METHADONE URINE SCREEN Negative (Negative)
[2025-03-27 15:33] LABS: NT-proBNP 198 pg/mL (<300)
[2025-03-27 15:36] LABS: Magnesium 2.3 mg/dL (1.8-2.4)
[2025-03-27 15:45] LABS: Troponin I 14 ng/L (<or=76)
[2025-03-27 17:48] LABS: Troponin I 15 ng/L (<or=76)
== END 2025-03-27 19:12 | disposition home or self-care (01) ==
PROVIDERS: Emergency Provider General Practice
DX: R07.9 Chest pain, unspecified (principal); R44.2 Other hallucinations; R46.2 Strange and inexplicable behavior; Z59.82 Transportation insecurity; Z60.8 Other problems related to social environment; Z63.4 Disappearance and death of family member; Z86.79 Personal history of other diseases of the circulatory system; Z98.61 Coronary angioplasty status; F10.90 Alcohol use, unspecified, uncomplicated
CPT/HCPCS: 00123; 36415; 70496; 70498; 71275; 80053; 80307; 83690; 93005; 96365; 96366; 96367; 96375; 99285; 71045; 74174; 80320; 80329; 81003; 83735; 83880; 84484; 85025; 85610; 85730; 93010; 99284; J0131; J1790; J3411; J3475; J3490

== ENCOUNTER 2025-04-24 17:20 | Inpatient (IN) | payer MEDICAID, SELFPAY ==
[2025-04-24] VITALS (65 sets, daily range): BP systolic 102–167; BP diastolic 44–82; PULSE 91–117; RESP 7–35; TEMP 37.1–39.5; O2SAT 92–99
[2025-04-24] MEDS: Normal Saline 1,000 ML 1000 ML IV (17:55)
[2025-04-24] MEDS: Acetaminophen 325 MG TAB 650 MG PO ×2 (17:55→23:27)
[2025-04-24 18:25] LABS: Abs Immature Grans 0.11 10^3/uL (0.0-0.06); HCT 33.5 % (40.0-50.0); HGB 11.5 g/dL (13.5-17.5); Immature Grans % 0.9 %; MCH 30.8 pg (27.0-33.0); MCHC 34.3 % (32.0-36.0); MCV 90 fL (80-95); MPV 9.2 fL (8.0-11.0); Platelet Count 286 10^3/uL (130-400); RBC 3.73 10^6/uL (4.36-5.78); RDW 11.8 % (11.8-14.1); RDW-SD 38.4 fL; WBC 11.81 10^3/uL (4.4-10.8)
[2025-04-24] MEDS: Omnipaque 350 MG/ML 100 ML BTL IJ (18:46)
[2025-04-24] MEDS: Normal Saline Flush 10 ML SYR IVP ×2 (18:47→22:15)
[2025-04-24] MEDS: Normal Saline - Diluent 50 ML VIAL IJ (18:47)
--- NOTE | 2025-04-24 18:52 | DI.CT_ITS ---
Exam(s) CT CHEST/ABD/PEL W EXAM: CT CHEST/ABD/PEL W CLINICAL HISTORY: CP, upper abd pain, tingling to R arm. TECHNIQUE: Imaging Protocol: Axial computed tomography images with coronal and sagittal reformatted images were created and reviewed CONTRAST MATERIAL: Intravenous: Omnipaque 350 Contrast volume:75 Oral: None COMPARISON: CT CT THORAX ABD/PEL CTA from 03/27/2025 FINDINGS: CHEST: LUNGS: No infiltrates nor pleural effusions nor significant in lung nodules. No pneumothorax. There are partially healed subacute appearing fractures of the left 4th, 5th and 6th ribs anterolaterally. No acute rib fractures.. MEDIASTINUM: There is no hilar nor mediastinal adenopathy. Partially visualized thyroid unremarkable. No evidence of sternal fracture or mediastinal hematoma. CARDIAC: Heart size is normal. There is no pericardial effusion. Coronary artery calcification noted.Calcified aortic valve leaflets noted. Diameter of the ascending thoracic aorta is upper normal. No evidence of dissection. No shift of the interventricular septum. OSSEOUS: Subacute healing left 4th, 5th, and 6th ribs antral laterally. Healed left 7th rib fracture. No right rib fractures. No vertebral fractures. . ABDOMEN: There is no ascites. LIVER: There are no focal hepatic lesions nor dilatation of intrahepatic ducts. GALLBLADDER/BILIARY: No obvious acute gallbladder pathology. CBD is not dilated. PANCREAS: No evidence of pancreatic mass nor dilatation of the pancreatic duct. SPLEEN: Spleen is not enlarged. There are no intrasplenic lesions. Splenic and portal veins are patent. ADRENALS: There are no significant adrenal masses. KIDNEYS: No calculi nor hydronephrosis. No solid renal masses. No significant cysts evident. ABDOMINAL AORTA: Abdominal aorta is calcified but not enlarged. Common iliac arteries calcified but not enlarged. LYMPH NODES: There is no retroperitoneal nor paraaortic adenopathy. ABDOMINAL WALL: No evidence of significant anterior abdominal wall nor inguinal hernia. GI: No evidence of bowel obstruction but there is fluid evident within right- side of the colon and a few small bowel loops. May indicate element of enteritis. PELVIS: LYMPH NODES: There is no intrapelvic nor inguinal adenopathy. GI: No evidence of appendicitis.No evidence of sigmoid diverticulitis. URINARY BLADDER: No calculi nor masses evident REPRODUCTIVE: Prostate size mildly prominent and mildly lobulated.. Seminal vesicles unremarkable. OSSEOUS: No fractures. No osseous lesions. No disc space narrowing. No listhesis. IMPRESSION: 1. No acute intrathoracic findings. There are subacute healing fractures of the left 4th, 5th, and 6th ribs as well as a completely healed fracture of the 7th rib. No acute fractures evident. No pulmonary findings. 2. Some fluid is seen in the proximal right side of the colon which may represent diarrhea or impending diarrhea. No evidence of bowel obstruction, free air, nor abscess. No ascites. Preliminary virtual Radiology report was reviewed RADIATION DOSE DELIVERED: 666.01mGy.cm Total DLP DATA REPOSITORY: All CT scans at this facility are submitted to the National Radiology Data Registry (NRDR) Dose Index Registry (DIR) with the [employer] (ACR). RADIATION OPTIMIZATION: All CT scans at this facility use at least one of these dose optimization techniques: automated exposure control; mA and/or kV adjustment per patient size (includes targeted exams where dose is matched to clinical indication); or iterative reconstruction.
[2025-04-24] MEDS: cefTRIAXone 1 GM/50 ML BAG IVPB (19:00)
[2025-04-24 19:08] LABS: ALT 25 U/L (16-63); AST 16 U/L (15-37); Albumin 3.3 g/dL (3.4-5.0); Alkaline Phosphatase 124 U/L (46-116); Anion Gap 11.3 mmol/L (3-11); BUN 13 mg/dL (7-18); Bilirubin, Total 0.4 mg/dL (0.2-1.0); CO2 22.7 mmol/L (21.0-32.0); Calcium 9.0 mg/dL (8.5-10.1); Chloride 95 mmol/L (98-107); Estimated GFR 85.10 (mL/min/1.73m2); Glucose 159 mg/dL (74-106); Potassium 4.4 mmol/L (3.5-5.1); Sodium 129 mmol/L (136-145); Total Protein 7.9 g/dL (6.4-8.2); Troponin I 11 ng/L (<or=76)
--- NOTE | 2025-04-24 19:16 | W.ED.GENAD ---
Discharge Plan Disposition Patient Disposition: Admit to [facility] Discharge Details Clinical Impression: Sepsis Primary Care Provider: None,None ED Provider: Dagmar Neumann Home Meds and New Rx's Prescriptions: No Action isosorbide mononitrate 30 mg tablet extended release 24 hr 30 mg PO ONCE Patient Comments: TAKE ONE TABLET BY MOUTH EVERY MORNING albuterol sulfate 90 mcg/actuation HFA aerosol inhaler 2 inh INHALATION Q6H PRN Patient Comments: INHALE 2 PUFFS BY MOUTH EVERY 6 HOURS, NEEDED FOR SHORTNESS OF BREATH OR WHEEZING sertraline 50 mg tablet 50 mg PO DAILY Patient Comments: TAKE ONE TABLET BY MOUTH EVERY DAY atorvastatin 20 mg Tablet 20 mg PO QPM Qty: 30 0RF aspirin 81 mg Tablet,Chewable 81 mg PO DAILY Qty: 30 0RF acetaminophen 325 mg Tablet 650 mg PO Q6H PRNQty: 30 0RF sucralfate 1 gram tablet 1 g PO QACHS Qty: 120 0RF pantoprazole [Protonix] 40 mg tablet,delayed release (DR/EC) 40 mg PO BID Qty: 60 0RF famotidine 20 mg tablet 20 mg PO DAILY Qty: 30 0RF amlodipine 5 mg tablet 5 mg PO DAILY Qty: 30 0RF ranolazine 500 mg Tablet Extended Release 12 Hr 500 mg PO BID Qty: 90 0RF ezetimibe 10 mg tablet 10 mg PO DAILY Patient Comments: TAKE ONE TABLET BY MOUTH EVERY DAY varenicline tartrate 1 mg tablet 1 mg PO BID Patient Comments: TAKE 1 TABLET BY MOUTH 2 TIMES DAILY - THIS MEDICATION SHOULD BE TAKEN IN THE MIDDLE OF YOUR LARGEST MEAL(S) WITH A FULL GLASS OF WATER. DO furosemide [Lasix] 20 mg tablet 20 mg PO DAILY Qty: 30 0RF HPI General Date/Time Provider Initiated Documentation: 04/24/25 17:24. HPI Narrative: Agatha is a 60-year-old male who presents to the emergency department today for evaluation of fever/chills, fatigue, weakness, and chest discomfort. He reports symptoms started couple days ago with cold and chills. He developed pain in his right shoulder and tingling in the right arm that has since progressed to inability to lift the arm; this is accompanied by neck pain as well. Today started having mild dizziness with standing, sweating, elevated temperature of 39.5. This afternoon had sternal chest pain rated 4/10, took a nitro which has eliminated the pain. He has also had intermittent left upper abdominal pain. He has also developed weakness in his right leg today, says that he is having trouble lifting it. Denies headache, vision change, congestion, sore throat, abdominal pain, nausea/vomiting, change in bowel or bladder function. Denies known recent ill contacts He does have history of thoracic aortic aneurysm, CAD, multiple stents placed, DE, neck fusion surgery. Related Data Home Medications ?Medication ?Instructions ?Recorded ?Confirmed albuterol sulfate 90 mcg/actuation 2 inh inhalation Q6H PRN 02/02/25 03/19/25 aerosol inhaler isosorbide mononitrate 30 mg 30 mg PO ONCE 02/02/25 03/19/25 tablet,extended release 24 hr sertraline 50 mg tablet 50 mg PO DAILY 02/02/25 03/19/25 aspirin 81 mg chewable tablet 81 mg PO DAILY #30 tabs 02/03/25 03/19/25 atorvastatin 20 mg tablet 20 mg PO QPM #30 tabs 02/03/25 03/19/25 amlodipine 5 mg tablet 5 mg PO DAILY #30 tabs 02/14/25 03/19/25 ranolazine 500 mg tablet,extended 500 mg PO BID #90 tabs 02/15/25 03/19/25 release,12 hr acetaminophen 325 mg tablet 650 mg (2 x 325 mg) PO Q6H PRN #30 03/03/25 03/19/25 tabs famotidine 20 mg tablet 20 mg PO DAILY #30 tabs 03/03/25 03/19/25 pantoprazole 40 mg tablet,delayed 40 mg PO BID #60 tabs 03/03/25 03/19/25 release (Protonix) sucralfate 1 gram tablet 1 g PO QACHS #120 tabs 03/03/25 03/19/25 ezetimibe 10 mg tablet 10 mg PO DAILY 03/19/25 03/19/25 furosemide 20 mg tablet (Lasix) 20 mg PO DAILY #30 tabs 03/19/25 varenicline tartrate 1 mg tablet 1 mg PO BID 03/19/25 03/19/25 Previous Rx's ?Medication ?Instructions ?Recorded aspirin 81 mg chewable tablet 81 mg PO DAILY #30 tabs 02/03/25 atorvastatin 20 mg tablet 20 mg PO QPM #30 tabs 02/03/25 amlodipine 5 mg tablet 5 mg PO DAILY #30 tabs 02/14/25 ranolazine 500 mg tablet,extended 500 mg PO BID #90 tabs 02/15/25 release,12 hr acetaminophen 325 mg tablet 650 mg (2 x 325 mg) PO Q6H PRN #30 03/03/25 tabs famotidine 20 mg tablet 20 mg PO DAILY #30 tabs 03/03/25 pantoprazole 40 mg tablet,delayed 40 mg PO BID #60 tabs 03/03/25 release (Protonix) sucralfate 1 gram tablet 1 g PO QACHS #120 tabs 03/03/25 furosemide 20 mg tablet (Lasix) 20 mg PO DAILY #30 tabs 03/19/25 Allergies Allergy/AdvReac Type Severity Reaction Status Date / Time No Known Allergies Allergy Verified 03/19/25 07:11 General Stated Complaint: Fever ADY: 2 Exam Narrative Exam Narrative: General Appearance: Alert and oriented, no acute distress Vital signs: Temperature 39.5?C, heart rate 117 bpm, oxygen saturation 92% on room air. HEENT: Lower cervical neck pain and right trapezius/shoulder pain with palpation. Full range of motion of neck, no nuchal rigidity. Respiratory: Easy work of breathing, no cough, coarse wheezes throughout. Cardiovascular: Murmur noted, tachycardia, regular rhythm. Gastrointestinal: Mild left upper quadrant tenderness to palpation, abdomen is soft, nondistended. No pulsatile masses noted. Neurologic: 5/5 muscle strength to upper and lower extremities, sensation grossly intact. Cranial EXTR through 12 intact as tested, clear speech. Extremities: Radial pulses intact. No obvious pedal edema. Skin: Warm and dry, no rash. Psychiatric: Normal. Course Vital Signs Vital signs: Vital Signs Temperature 39.5 C H 04/24/25 17:23 Pulse 117 H 04/24/25 17:23 Respiratory Rate H 04/24/25 17: Blood Pressure 114/72 04/24/25 17:23 Pulse Oximetry 92 04/24/25 17:23 Temperature 39.5 C H 04/24/25 17:28 Temperature Source Oral 04/24/25 17: Pulse 117 H 04/24/25 17: Respiratory Rate 25 H 04/24/25 17:28 Blood Pressure 114/72 04/24/25 17:28 Blood Pressure Position Sitting 04/24/25 17:28 Pulse Oximetry 92 04/24/25 17:28 Oxygen Delivery Method Room Air 04/24/25 17:28 Oxygen Flow Rate 0 04/24/25 17:28 Pain Level 4 04/24/25 17:28 Lab/Test Results Lab/Test Results: 04/24/25 18:00 Blood Blood Culture - Pending 04/24/25 17:50 Blood Blood Culture - Pending Laboratory Tests Range/Units 04/24/25 18:00 WBC (4.4-10.8) 10^3/uL 11.81 H RBC (4.36-5.78) 10^6/uL 3.73 L Hgb (13.5-17.5) g/dL 11.5 L Hct (40.0-50.0) % 33.5 L MCV (80-95) fL 90 MCH (27.0-33.0) pg 30.8 MCHC (32.0-36.0) % 34.3 RDW (11.8-14.1) % 11.8 Plt Count (130-400) 10^3/uL 286 MPV (8.0-11.0) fL 9.2 Immature Gran % % 0.9 Neutrophils % % 88.3 Lymphocytes % % 5.6 Monocytes % % 4.7 Eosinophils % % 0.2 Basophils % % 0.3 Nucleated RBC % (0.0-0.3) % 0.0 Absolute Neutrophils (1.2-6.7) 10^3/uL 10.43 H Absolute Lymphocytes (1.2-3.4) 10^3/uL 0.66 L Absolute Monocytes (0.1-0.8) 10^3/uL 0.56 Absolute Eosinophils (0.0-0.7) 10^3/uL 0.02 Absolute Basophils (0.0-0.2) 10^3/uL 0.04 VBG Lactate (<or=2.0) mmol/L 2.1 Sodium (136-145) mmol/L 129 L Potassium (3.5-5.1) mmol/L 4.4 Chloride (98-107) mmol/L 95 L Carbon Dioxide (21.0-32.0) mmol/L 22.7 Anion Gap (3-11) mmol/L 11.3 H BUN (7-18) mg/dL 13 Creatinine (0.70-1.30) mg/dL 1.0 Est GFR (CKD-EPI 2020) (mL/min/1.73m2) 85.10 Glucose (74-106) mg/dL 159 H Calcium (8.5-10.1) mg/dL 9.0 Total Bilirubin (0.2-1.0) mg/dL 0.4 AST (15-37) U/L 16 ALT (16-63) U/L 25 Alkaline Phosphatase (46-116) U/L 124 H Troponin I (<or=76) ng/L 11 Total Protein (6.4-8.2) g/dL 7.9 Albumin (3.4-5.0) g/dL 3.3 L Medical Decision Making Initial Assessment: 60-year-old male with cold chills, weakness, and chest discomfort. Tachycardic (HR 117), febrile (temp 39.5), satting 92% on room air. He does admit that he recently ran out of his inhalers, feels like his COPD has been acting up. Differential Diagnosis: ACS/DE, aortic dissection, COPD exacerbation, pneumonia, intra-abdominal infection, UTI, electrolyte imbalance, viral illness such as COVID-19, tickborne illness. No focal neurodeficits concerning for CVA at this time. ED Course: -Patient meets sepsis criteria, gentle hydration provided as patient has history of cardiac disease. Empiric antibiotics (ceftriaxone) initiated. - CTA chest/abdomen/pelvis performed - Labs, including blood cultures - DuoNeb ordered - EKG performed - Spectrum antibiotics administered, including IV ceftriaxone, doxycycline, and vancomycin. I independently interpreted the following tests: CBC notable for leukocytosis, white cell count 11.81. Lactate elevated at 2.1. Per natremia noted, sodium 129, no other acute abnormalities noted on CMP. Troponin reassuring, initial 11, followed by 12. EKG reassuring, normal sinus rhythm rate 93, nonspecific IVCD with QRSd > 115, no changes consistent with acute ischemia. UA unremarkable. COVID/Flu/RSV negative. CT chest/abdomen/pelvis performed, no acute abnormality other than fluid throughout the proximal colon suspicious for diarrhea. Healing fractures to anterior lateral aspect of left fourth/5th/sixth ribs noted. Final Assessment: Sepsis, unknown origin. Tick panel pending Disposition: Admit to [facility] for IV antibiotics and monitoring. Patient is agreeable with plan of care. Presented case to Dr. Chauhan, hospitalist; pt accepted for admission to [facility]. Patient consented to the use of [facility] Imaging Data Radiologic Study: Radiologist's impression: PROCEDURE INFORMATION: Exam: CT Chest With Contrast; Diagnostic Exam date and time: 04/24/2025 6:38 PM Age: 60 years old Clinical indication: Other: Cp, upper abd pain, tingling to R arm; Prior surgery; Surgery date: <1 month; Surgery type: PT sts had heart stents placed TECHNIQUE: Imaging protocol: Diagnostic computed tomography of the chest with contrast. 3D rendering (Not supervised by radiologist): MIP and/or 3D reconstructed images were created by the technologist. Contrast material: OMNIPAQUE; Contrast volume: 75 ml; Contrast route: INTRAVENOUS (IV); COMPARISON: CT THORAX ABD/PEL CTA 03/27/2025 2:47 PM FINDINGS: Thyroid: Thyroid gland partially excluded from view but grossly unremarkable through its visualized portion. Lungs: No pulmonary consolidation. Pleural spaces: No pleural effusion or pneumothorax. Heart: Normal-sized heart. Coronary artery calcification. Coarse aortic valve leaflet calcification. Lymph nodes: No pathologically enlarged mediastinal or hilar lymph nodes. Vasculature: No thoracic aortic aneurysm or dissection. Limited pulmonary artery enhancement with a density of only 155 Hounsfield units obtained over the pulmonary trunk. Within the limits of visualization, no large central pulmonary embolism is seen. The small and distal pulmonary arteries are not adequately enhanced and not well evaluated for diagnosis or exclusion of segmental or distal pulmonary emboli. Bones/joints: Subacute fractures through the anterolateral aspect of the left 4th, 5th, and 6th ribs with bony callus formation but incomplete bony union. No acute fracture seen among the bones of the chest. Lower anterior cervical fixation hardware partially visualized. Spinal degenerative change with anterior osteophytes at several lower thoracic levels. Soft tissues: No gross soft tissue mass or fluid collection seen in the chest wall. IMPRESSION: 1. No active disease is seen in the chest. 2. Subacute fractures through the anterolateral aspect of the left 4th, 5th, and 6th ribs with bony callus formation but incomplete bony union. PROCEDURE INFORMATION: Exam: CT Abdomen And Pelvis With Contrast Exam date and time: 04/24/2025 6:38 PM Age: 60 years old Clinical indication: Other: Cp, upper abd pain, tingling to R arm; Prior surgery; Surgery date: <1 month; Surgery type: PT sts had heart stents placed TECHNIQUE: Imaging protocol: Computed tomography of the abdomen and pelvis with contrast. 3D rendering (Not supervised by radiologist): MIP and/or 3D reconstructed images were created by the technologist. Contrast material: OMNIPAQUE; Contrast volume: 75 ml; Contrast route: INTRAVENOUS (IV); COMPARISON: CT THORAX ABD/PEL CTA 03/27/2025 2:47 PM FINDINGS: Liver: Normal appearing liver. Gallbladder and biliary ducts: Gallbladder partially collapsed. No calcified gallstones seen. No biliary dilatation. Pancreas: Normal appearing pancreas. Spleen: Normal appearing spleen. Adrenal glands: Normal appearing adrenal glands. Kidneys and ureters: Normal appearing kidneys. No hydronephrosis. No obstructing ureteral stones. Stomach and bowel: No oral contrast. Stomach partially decompressed. No small bowel dilatation to suggest obstruction. Fluid throughout the proximal colon suggesting diarrhea or impending diarrhea. No evidence of diverticulitis or colitis. Appendix: Normal appendix. Intraperitoneal space: No gross ascites or free air. Vasculature: Normal caliber abdominal aorta. Lymph nodes: No pathologically enlarged mesenteric, retroperitoneal, or pelvic sidewall lymph nodes. Urinary bladder: Normal appearing urinary bladder. Reproductive: Normal-appearing prostate gland and seminal vesicles. Bones/joints: No acute fracture seen among the bones of the abdomen or pelvis. Spinal degenerative change with anterior osteophytes and facet arthrosis at several levels. Soft tissues: Small fat containing ventral hernia at the umbilicus. IMPRESSION: Fluid throughout the proximal colon suspicious for diarrhea or impending diarrhea. Clinical correlation recommended. Otherwise, no acute bowel pathology demonstrated Quality:SDOH Health Related Social Needs: Health related social needs transpo insecurity lonely/isolated Health related social needs details Pt needs help with transportation and grief d/t loss of spouse 6 mos. age. Pt reports were together for over 40 years and just about killed him when he lost her. PFSH All Active Problems (Updated 04/24/25 @ 20:55 by Dagmar Patino) Sepsis (Acute) Tactile hallucination (Acute) Bizarre behavior (Acute) Chest pain (Acute) Acute alcohol intoxication (Acute) Substance use disorder (Chronic) CAD (coronary artery disease), tribe coronary artery (Chronic) Depression (Chronic) Aneurysm, thoracic aortic (Acute) Benign essential hypertension (Chronic) RCA occlusion (Acute) Social History Smoking/Tobacco Use Status: Current every day Tobacco Type: cigarettes Years smoked: 41 Smoking risk assessment performed?: Yes Alcohol Intake: current Alcohol Intake frequency: a few times a month Drug use: Never Substance use type: does not use Housing: apartment Do you feel safe at home: Yes Do you feel safe in your relationship?: Yes
[2025-04-24 19:20] LABS: COVID-19 PCR Negative (Negative); RSV PCR Negative (Negative)
[2025-04-24] MEDS: Lactated Ringers 1,000 ML 1000 ML IV (19:23)
--- NOTE | 2025-04-24 19:29 | DI.VRAD_ITS ---
PROCEDURE INFORMATION: Exam: CT Chest With Contrast; Diagnostic Exam date and time: 04/24/2025 6:38 PM Age: 60 years old Clinical indication: Other: Cp, upper abd pain, tingling to R arm; Prior surgery; Surgery date: <1 month; Surgery type: PT sts had heart stents placed TECHNIQUE: Imaging protocol: Diagnostic computed tomography of the chest with contrast. 3D rendering (Not supervised by radiologist): MIP and/or 3D reconstructed images were created by the technologist. Contrast material: OMNIPAQUE; Contrast volume: 75 ml; Contrast route: INTRAVENOUS (IV); COMPARISON: CT THORAX ABD/PEL CTA 03/27/2025 2:47 PM FINDINGS: Thyroid: Thyroid gland partially excluded from view but grossly unremarkable through its visualized portion. Lungs: No pulmonary consolidation. Pleural spaces: No pleural effusion or pneumothorax. Heart: Normal-sized heart. Coronary artery calcification. Coarse aortic valve leaflet calcification. Lymph nodes: No pathologically enlarged mediastinal or hilar lymph nodes. Vasculature: No thoracic aortic aneurysm or dissection. Limited pulmonary artery enhancement with a density of only 155 Hounsfield units obtained over the pulmonary trunk. Within the limits of visualization, no large central pulmonary embolism is seen. The small and distal pulmonary arteries are not adequately enhanced and not well evaluated for diagnosis or exclusion of segmental or distal pulmonary emboli. Bones/joints: Subacute fractures through the anterolateral aspect of the left 4th, 5th, and 6th ribs with bony callus formation but incomplete bony union. No acute fracture seen among the bones of the chest. Lower anterior cervical fixation hardware partially visualized. Spinal degenerative change with anterior osteophytes at several lower thoracic levels. Soft tissues: No gross soft tissue mass or fluid collection seen in the chest wall. IMPRESSION: 1. No active disease is seen in the chest. 2. Subacute fractures through the anterolateral aspect of the left 4th, 5th, and 6th ribs with bony callus formation but incomplete bony union. PROCEDURE INFORMATION: Exam: CT Abdomen And Pelvis With Contrast Exam date and time: 04/24/2025 6:38 PM Age: 60 years old Clinical indication: Other: Cp, upper abd pain, tingling to R arm; Prior surgery; Surgery date: <1 month; Surgery type: PT sts had heart stents placed TECHNIQUE: Imaging protocol: Computed tomography of the abdomen and pelvis with contrast. 3D rendering (Not supervised by radiologist): MIP and/or 3D reconstructed images were created by the technologist. Contrast material: OMNIPAQUE; Contrast volume: 75 ml; Contrast route: INTRAVENOUS (IV); COMPARISON: CT THORAX ABD/PEL CTA 03/27/2025 2:47 PM FINDINGS: Liver: Normal appearing liver. Gallbladder and biliary ducts: Gallbladder partially collapsed. No calcified gallstones seen. No biliary dilatation. Pancreas: Normal appearing pancreas. Spleen: Normal appearing spleen. Adrenal glands: Normal appearing adrenal glands. Kidneys and ureters: Normal appearing kidneys. No hydronephrosis. No obstructing ureteral stones. Stomach and bowel: No oral contrast. Stomach partially decompressed. No small bowel dilatation to suggest obstruction. Fluid throughout the proximal colon suggesting diarrhea or impending diarrhea. No evidence of diverticulitis or colitis. Appendix: Normal appendix. Intraperitoneal space: No gross ascites or free air. Vasculature: Normal caliber abdominal aorta. Lymph nodes: No pathologically enlarged mesenteric, retroperitoneal, or pelvic sidewall lymph nodes. Urinary bladder: Normal appearing urinary bladder. Reproductive: Normal-appearing prostate gland and seminal vesicles. Bones/joints: No acute fracture seen among the bones of the abdomen or pelvis. Spinal degenerative change with anterior osteophytes and facet arthrosis at several levels. Soft tissues: Small fat containing ventral hernia at the umbilicus. IMPRESSION: Fluid throughout the proximal colon suspicious for diarrhea or impending diarrhea. Clinical correlation recommended. Otherwise, no acute bowel pathology demonstrated. Dictated and Authenticated by: Demetri Diaz MD. Orderin Jericho Leavitt MD
--- NOTE | 2025-04-24 19:30 | RT.EKG_ITS ---
APPROVED REPORT Exam: Resting ECG Reason for Exam: STEPHANIE ROSALES Patient Location: E HR:93 bpm ECG Measurements Heart Rate 93 AXIS CO 153 P -1 QRSd 119 QRS 48 QT 367 T 8 QTc 457 Conclusion Sinus rhythm...normal P axis, V-rate 60- 99 Nonspecific intraventricular conduction delay...QRSd >115mS, not LBBB/RBBB Physician: No STEMI
[2025-04-24] MEDS: Lidocaine 5% Patch 1 PATCH TP (19:31)
[2025-04-24] MEDS: Albuterol/Ipratropium 3 ML UPD VIAL UPD (19:31)
[2025-04-24 19:37] LABS: Troponin I 12 ng/L (<or=76)
[2025-04-24 20:24] LABS: Glucose Negative (Negative)
[2025-04-24 20:30] LABS: C & S Indicated? No; RBC 0-2 HPF (0-2); WBC 0-2 HPF (0-5)
[2025-04-24] MEDS: DOXYCYCLINE 100 MG in Normal Saline 100 ML IVPB (20:40)
[2025-04-24 20:52] LABS: Troponin I 39 ng/L (<or=76)
[2025-04-24] MEDS: VANCOMYCIN 1,500 MG in Normal Saline 250 ML 166.6666 MG IVPB (20:52)
--- NOTE | 2025-04-24 21:06 | W.PM.HP.N ---
Date of service: 04/24/25 Time of Service: 21:00 Assessment and Plan Assessment and plan (1) Sepsis: Status: Acute Assessment and plan: Sepsis criteria met with fever, tachycardia, tachypnea, hypotension, leukocytosis Source unclear, consider viral, vector-borne Fluids given in ED, will continue NS at maintenance Continue vancomycin, ceftriaxone, doxycycline Monitor cultures (2) Neutrophilic leukocytosis: Status: Acute Assessment and plan: More consistent with bacterial infection than viral Monitor (3) Hyponatremia: Status: Acute Assessment and plan: NS and LR given in ED, continuing NS at maintenance Monitor BMP (4) CAD (coronary artery disease), kiana coronary artery: Status: Chronic Assessment and plan: Continue home regimen aspirin, atorvastatin, ezetimibe, furosemide, isosorbide mononitrate, ranolazine (5) Benign essential hypertension: Status: Chronic Assessment and plan: Continue home regimen as above (6) Depression: Status: Chronic Assessment and plan: continue home sertraline History of Present Illness History of Present Illness Chief Complaint: flu-like symptoms Narrative: Agatha Lua is a 60 year old man presenting April 24 with several symptoms. He reports that he has had 2-3 days of chills, fatigue and weakness. During this time he developed pain in his right shoulder and right neck, and his right arm has been tingling. He reports that he was unable to lift his arm the morning before arrival. He felt chest pain, substernal, in the afternoon, which resolved with nitroglycerin. During this time he also had pain in his upper abdomen, worse on the left side. He feels that his right leg has been very weak today and it has been difficult to lift. He denies shortness of breath, N/V/D. This is his 7th ED visit since January 2025. In the ED he was febrile 39.5, tachycardic 117, mildly hypotensive 102/50, mildly tachypneic 25. EKG unremarkable. CT chest/abdomen/pelvis showing fluid in the right colon, and healing left rib fractures. Neutrophilic leukocytosis 11.81, mild normocytic anemia. Initial lactic acid slightly elevated 2.1, resolved on repeat. Hyponatremia 129, glucose 159. UA unremarkable. Flu/COVID/RSV negative. Blood cultures sent. Tick/Lyme sent. He was given fluids and started on antibiotics. PMH includes CAD with stents, DE, known RCA occlusion, aortic stenosis, stable angina, HTN, neck fusion surgery, thoracic aortic aneurysm, tobacco dependence, GERD, HLD, depression PFSH All Active Problems (Updated 04/25/25 @ 02:23 by Benjie Chauhan MD) Hyponatremia (Acute) Neutrophilic leukocytosis (Acute) Sepsis (Acute) Tactile hallucination (Acute) Bizarre behavior (Acute) Chest pain (Acute) Acute alcohol intoxication (Acute) Substance use disorder (Chronic) CAD (coronary artery disease), kiana coronary artery (Chronic) Depression (Chronic) Aneurysm, thoracic aortic (Acute) Benign essential hypertension (Chronic) RCA occlusion (Acute) Social History Smoking/Tobacco Use Status: Current every day Tobacco Type: cigarettes Years smoked: 41 Smoking risk assessment performed?: Yes Alcohol Intake: current Alcohol Intake frequency: a few times a month Drug use: Never Substance use type: does not use Housing: apartment Do you feel safe at home: Yes Do you feel safe in your relationship?: Yes Meds Allergies and Home Medications Allergies Allergy/AdvReac Type Severity Reaction Status Date / Time No Known Allergies Allergy Verified 03/19/25 07:11 Home Medications ?Medication ?Instructions ?Recorded ?Confirmed ?Type albuterol sulfate 90 mcg/actuation 2 inh inhalation Q6H PRN 02/02/25 03/19/25 History aerosol inhaler isosorbide mononitrate 30 mg 30 mg PO ONCE 02/02/25 03/19/25 History tablet,extended release 24 hr sertraline 50 mg tablet 50 mg PO DAILY 02/02/25 03/19/25 History aspirin 81 mg chewable tablet 81 mg PO DAILY #30 tabs 02/03/25 03/19/25 Rx atorvastatin 20 mg tablet 20 mg PO QPM #30 tabs 02/03/25 03/19/25 Rx amlodipine 5 mg tablet 5 mg PO DAILY #30 tabs 02/14/25 03/19/25 Rx ranolazine 500 mg tablet,extended 500 mg PO BID #90 tabs 02/15/25 03/19/25 Rx release,12 hr acetaminophen 325 mg tablet 650 mg (2 x 325 mg) PO Q6H PRN #30 03/03/25 03/19/25 Rx tabs famotidine 20 mg tablet 20 mg PO DAILY #30 tabs 03/03/25 03/19/25 Rx pantoprazole 40 mg tablet,delayed 40 mg PO BID #60 tabs 03/03/25 03/19/25 Rx release (Protonix) sucralfate 1 gram tablet 1 g PO QACHS #120 tabs 03/03/25 03/19/25 Rx ezetimibe 10 mg tablet 10 mg PO DAILY 03/19/25 03/19/25 History furosemide 20 mg tablet (Lasix) 20 mg PO DAILY #30 tabs 03/19/25 Rx varenicline tartrate 1 mg tablet 1 mg PO BID 03/19/25 03/19/25 History Exam Narrative Exam Narrative: General: This is a pleasant man in no acute distress HEENT: Normocephalic, atraumatic CV: RRR with 2/6 systolic murmur Resp: CTAB Abd: NTND +NBS MSK: normal tone, voluntary motion x4, distal pulses palpable Skin: warm and dry, no appreciable lesions Neuro: Awake and alert without focal deficits Results Labs 04/24/25 18:00 04/24/25 18:00 Labs: Laboratory Results - last 24 hr 04/24/25 04/24/25 04/24/25 18:00 19:05 20:12 WBC 11.81 H RBC 3.73 L Hgb 11.5 L Hct 33.5 L MCV 90 MCH 30.8 MCHC 34.3 RDW 11.8 Plt Count 286 MPV 9.2 Immature Gran % 0.9 Neutrophils % 88.3 Lymphocytes % 5.6 Monocytes % 4.7 Eosinophils % 0.2 Basophils % 0.3 Nucleated RBC % 0.0 Absolute Neutrophils 10.43 H Absolute Lymphocytes 0.66 L Absolute Monocytes 0.56 Absolute Eosinophils 0.02 Absolute Basophils 0.04 VBG Lactate 2.1 1.7 Sodium 129 L Potassium 4.4 Chloride 95 L Carbon Dioxide 22.7 Anion Gap 11.3 H BUN 13 Creatinine 1.0 Est GFR (CKD-EPI 2020) 85.10 Glucose 159 H Calcium 9.0 Total Bilirubin 0.4 AST 16 ALT 25 Alkaline Phosphatase 124 H Troponin I 11 12 Total Protein 7.9 Albumin 3.3 L Urine Color Yellow Urine Clarity Clear Urine pH 6.0 Ur Specific [place] <= 1.005 Urine Protein Negative Urine Ketones Negative Urine Blood Trace-intact H Urine Nitrite Negative Urine Bilirubin Negative Urine Urobilinogen 0.2 Ur Leukocyte Esterase Negative Urine RBC 0-2 Urine WBC 0-2 Ur Epithelial Cells Negative Urine Crystals Negative Urine Bacteria Few Urine Casts Negative Urine Mucus Negative Ur Culture Indicated? No Urine Glucose Negative COVID-19 Source Nasopharynx SARS-CoV-2 (PCR) Negative Influenza Type A (PCR) Negative Influenza Type B (PCR) Negative RSV (PCR) Negative 04/24/25 20:25 WBC RBC Hgb Hct MCV MCH MCHC RDW Plt Count MPV Immature Gran % Neutrophils % Lymphocytes % Monocytes % Eosinophils % Basophils % Nucleated RBC % Absolute Neutrophils Absolute Lymphocytes Absolute Monocytes Absolute Eosinophils Absolute Basophils VBG Lactate Sodium Potassium Chloride Carbon Dioxide Anion Gap BUN Creatinine Est GFR (CKD-EPI 2020) Glucose Calcium Total Bilirubin AST ALT Alkaline Phosphatase Troponin I 39 Total Protein Albumin Urine Color Urine Clarity Urine pH Ur Specific [place] Urine Protein Urine Ketones Urine Blood Urine Nitrite Urine Bilirubin Urine Urobilinogen Ur Leukocyte Esterase Urine RBC Urine WBC Ur Epithelial Cells Urine Crystals Urine Bacteria Urine Casts Urine Mucus Ur Culture Indicated? Urine Glucose COVID-19 Source SARS-CoV-2 (PCR) Influenza Type A (PCR) Influenza Type B (PCR) RSV (PCR) Last Vital Signs Temp 37.1 C 04/24/25 19:19 Pulse 96 H 04/24/25 20:30 Resp 24 04/24/25 20:30 BP 108/44 L 04/24/25 20:01 Pulse Ox 97 04/24/25 20:30 Time Spent Time spent with Patient: 40-54 minutes Time was spent: preparing to see the patient(eg.review tests), obtaining and/or reviewing separately otained hiistory, ordering medications,tests, procedures, referring, communicating with other health medical care administrator, indepentently interpreting results, counseling the patient and care coordination
--- NOTE | 2025-04-24 21:24 | W.PC.ACHO ---
Registration Status: REG ER Primary Language: Preferred Language: ED Information & Data Chief Complaint Fever 04/24/25 19:22 Other Complaint Chest Pain 04/24/25 17:23 Triage Note Pt reports feeling hot and 04/24/25 17:23 cold. Reports some SOB, CP. Took a nitro this AM. Pt denies cough. States he has also had some abdominal pain , no urinary symptoms. Fever 103.1 f, HR 117. Most Recent Vital Signs Temperature 37.1 C 04/24/25 19:19 Temperature Source Oral 04/24/25 17:28 Pulse 96 H 04/24/25 20:30 Pulse 96 H 04/24/25 20:30 Respiratory Rate 24 04/24/25 20:30 Blood Pressure 108/44 L 04/24/25 20:01 Blood Pressure Mean 48 04/24/25 20:01 Blood Pressure Position Sitting 04/24/25 17:28 Pulse Oximetry 97 04/24/25 20:30 Oxygen Delivery Method Room Air 04/24/25 17:28 Oxygen Flow Rate 0 04/24/25 17:28 Pain Level 4 04/24/25 17:28 Allergies No Known Allergies Allergy (Verified 03/19/25 07:11) Active Medications Generic Name Dose Route Start Last Admin Trade Name Freq PRN Reason Stop Dose Admin Vancomycin HCl 1,500 mg/ 250 mls @ 166.6666 mls/hr 04/24/25 20:21 04/24/25 20:52 Sodium Chloride IVPB 04/24/25 21:50 166.6666 mls/hr NOW ONE Administration Iohexol 100 ml 04/24/25 18:45 04/24/25 18:46 Omnipaque 350 Mg/Ml 100 Ml Btl IJ 05/24/25 23:59 75 ml DIRECTED HEATHER Administration Sodium Chloride 0 ml 04/24/25 18:44 04/24/25 18:47 Normal Saline Flush 10 Ml Syr IVP 10 ml PRN PRN Administration Sodium Chloride 50 ml 04/24/25 18:45 04/24/25 18:47 Normal Saline - Diluent 50 Ml Vial IJ 50 ml DIRECTED HEATHER Administration IV IV Catheter Type [Left Saline Lock Antecubital] IV Catheter Type [Right Saline Lock Antecubital] IV Catheter Gauge [Left 18 Antecubital] IV Catheter Gauge [Right 18 Antecubital] Diet Orders Category Date Time Status Regular/Normal [DIET] Nutrition 04/25/25 Breakfast Ordered Diagnostics 04/24/25 04/24/25 04/24/25 Range/Units 20:25 20:12 19:05 WBC (4.4-10.8) 10^3/uL RBC (4.36-5.78) 10^6/uL Hgb (13.5-17.5) g/dL Hct (40.0-50.0) % MCV (80-95) fL MCH (27.0-33.0) pg MCHC (32.0-36.0) % RDW (11.8-14.1) % Plt Count (130-400) 10^3/uL MPV (8.0-11.0) fL Immature Gran % % Neutrophils % % Lymphocytes % % Monocytes % % Eosinophils % % Basophils % % Nucleated RBC % (0.0-0.3) % Absolute Neutrophils (1.2-6.7) 10^3/uL Absolute Lymphocytes (1.2-3.4) 10^3/uL Absolute Monocytes (0.1-0.8) 10^3/uL Absolute Eosinophils (0.0-0.7) 10^3/uL Absolute Basophils (0.0-0.2) 10^3/uL VBG Lactate 1.7 (<or=2.0) mmol/L Sodium (136-145) mmol/L Potassium (3.5-5.1) mmol/L Chloride (98-107) mmol/L Carbon Dioxide (21.0-32.0) mmol/L Anion Gap (3-11) mmol/L BUN (7-18) mg/dL Creatinine (0.70-1.30) mg/dL Est GFR (CKD-EPI 2020) (mL/min/1.73m2) Glucose (74-106) mg/dL Calcium (8.5-10.1) mg/dL Total Bilirubin (0.2-1.0) mg/dL AST (15-37) U/L ALT (16-63) U/L Alkaline Phosphatase (46-116) U/L Troponin I 39 12 (<or=76) ng/L Total Protein (6.4-8.2) g/dL Albumin (3.4-5.0) g/dL Urine Color Yellow (Yellow) Urine Clarity Clear (Clear) Urine pH 6.0 (5-8) Ur Specific [place] <= 1.005 (1.005-1.025) Urine Protein Negative (Neg-Trace) mg/dL Urine Ketones Negative (Negative) mg/dL Urine Blood Trace-intact H (Negative) Urine Nitrite Negative (Negative) Urine Bilirubin Negative (Negative) Urine Urobilinogen 0.2 (Up to 0.2) mg/dL Ur Leukocyte Esterase Negative (Negative) Urine RBC 0-2 (0-2) HPF Urine WBC 0-2 (0-5) HPF Ur Epithelial Cells Negative (Negative) HPF Urine Crystals Negative (Negative) HPF Urine Bacteria Few (Negative) HPF Urine Casts Negative (Negative) LPF Urine Mucus Negative (Negative) Ur Culture Indicated? No Urine Glucose Negative (Negative) mg/dL B. divergens/MO-1 PCR Babesia duncani (PCR) Babesia microti DNA PCR Lyme Disease Antibody COVID-19 Source SARS-CoV-2 (PCR) (Negative) E.chaffeensis DNA (PCR) E.ewingii/canis DNA PCR E.muris eauclairensis (PCR) Influenza Type A (PCR) (Negative) Influenza Type B (PCR) (Negative) RSV (PCR) (Negative) A. phagocytophilum (PCR) Blood B. miyamotoi (PCR) 04/24/25 Range/Units 18:00 WBC 11.81 H (4.4-10.8) 10^3/uL RBC 3.73 L (4.36-5.78) 10^6/uL Hgb 11.5 L (13.5-17.5) g/dL Hct 33.5 L (40.0-50.0) % MCV 90 (80-95) fL MCH 30.8 (27.0-33.0) pg MCHC 34.3 (32.0-36.0) % RDW 11.8 (11.8-14.1) % Plt Count 286 (130-400) 10^3/uL MPV 9.2 (8.0-11.0) fL Immature Gran % 0.9 % Neutrophils % 88.3 % Lymphocytes % 5.6 % Monocytes % 4.7 % Eosinophils % 0.2 % Basophils % 0.3 % Nucleated RBC % 0.0 (0.0-0.3) % Absolute Neutrophils 10.43 H (1.2-6.7) 10^3/uL Absolute Lymphocytes 0.66 L (1.2-3.4) 10^3/uL Absolute Monocytes 0.56 (0.1-0.8) 10^3/uL Absolute Eosinophils 0.02 (0.0-0.7) 10^3/uL Absolute Basophils 0.04 (0.0-0.2) 10^3/uL VBG Lactate 2.1 (<or=2.0) mmol/L Sodium 129 L (136-145) mmol/L Potassium 4.4 (3.5-5.1) mmol/L Chloride 95 L (98-107) mmol/L Carbon Dioxide 22.7 (21.0-32.0) mmol/L Anion Gap 11.3 H (3-11) mmol/L BUN 13 (7-18) mg/dL Creatinine 1.0 (0.70-1.30) mg/dL Est GFR (CKD-EPI 2020) 85.10 (mL/min/1.73m2) Glucose 159 H (74-106) mg/dL Calcium 9.0 (8.5-10.1) mg/dL Total Bilirubin 0.4 (0.2-1.0) mg/dL AST 16 (15-37) U/L ALT 25 (16-63) U/L Alkaline Phosphatase 124 H (46-116) U/L Troponin I 11 (<or=76) ng/L Total Protein 7.9 (6.4-8.2) g/dL Albumin 3.3 L (3.4-5.0) g/dL Urine Color (Yellow) Urine Clarity (Clear) Urine pH (5-8) Ur Specific [place] (1.005-1.025) Urine Protein (Neg-Trace) mg/dL Urine Ketones (Negative) mg/dL Urine Blood (Negative) Urine Nitrite (Negative) Urine Bilirubin (Negative) Urine Urobilinogen (Up to 0.2) mg/dL Ur Leukocyte Esterase (Negative) Urine RBC (0-2) HPF Urine WBC (0-5) HPF Ur Epithelial Cells (Negative) HPF Urine Crystals (Negative) HPF Urine Bacteria (Negative) HPF Urine Casts (Negative) LPF Urine Mucus (Negative) Ur Culture Indicated? Urine Glucose (Negative) mg/dL B. divergens/MO-1 PCR Pending Babesia duncani (PCR) Pending Babesia microti DNA PCR Pending Lyme Disease Antibody Pending COVID-19 Source Nasopharynx SARS-CoV-2 (PCR) Negative (Negative) E.chaffeensis DNA (PCR) Pending E.ewingii/canis DNA PCR Pending E.muris eauclairensis (PCR) Pending Influenza Type A (PCR) Negative (Negative) Influenza Type B (PCR) Negative (Negative) RSV (PCR) Negative (Negative) A. phagocytophilum (PCR) Pending Blood B. miyamotoi (PCR) Pending 04/24/25 18:00 Blood Culture - Pending Blood 04/24/25 17:50 Blood Culture - Pending Blood Intake and Output - 24 Hour Total 04/24/25 17:20 thru 04/24/25 19:35 Intake Total 50 Balance 50 Weight 99.79 kg Intake: IV 50 Falls Risk Assessment History of Falls No History 04/24/25 18:07 Contributing Factors No Factors 04/24/25 18:07 Ambulatory Aids Independent 04/24/25 18:07 Tubes/Lines W/no contributing factors 04/24/25 18:07 Gait Evaluation No gait disturbance 04/24/25 18:07 Cognition No cognitive impairment 04/24/25 18:07 Fall Total Score 10 04/24/25 18:07 Level of Risk Standard/Low Risk 04/24/25 18:07 Problems (Last Reviewed 03/02/25 @ 22:24 by Mirna Queen NP) Sepsis (Acute) v v v v v v v v v Sending and/or Receiving Nurses: Please use comment section below to note any information pertinent to the patient hand-off not included above. Information / Comments: Report taken from ED RN Rajni. Patient came to ED w/ chills/fever and SOB, took nitro prior to ED and with good result on EKG. Tylenol was also given for fever and subsided. Vancomycin is running. Has not voided yet. Report received from:
[2025-04-24] MEDS: Sucralfate 1 GM TAB PO (22:15)
[2025-04-25] VITALS (7 sets, daily range): BP systolic 101–136; BP diastolic 59–74; PULSE 84–90; RESP 16–22; TEMP 36.1–37; O2SAT 95–98
[2025-04-25 03:12] LABS: Abs Immature Grans 0.13 10^3/uL (0.0-0.06); HCT 31.4 % (40.0-50.0); HGB 10.9 g/dL (13.5-17.5); Immature Grans % 0.8 %; MCH 31.1 pg (27.0-33.0); MCHC 34.7 % (32.0-36.0); MCV 90 fL (80-95); MPV 9.1 fL (8.0-11.0); Platelet Count 230 10^3/uL (130-400); RBC 3.51 10^6/uL (4.36-5.78); RDW 11.9 % (11.8-14.1); RDW-SD 38.3 fL; WBC 16.64 10^3/uL (4.4-10.8)
[2025-04-25 03:27] LABS: ALT 25 U/L (16-63); AST 17 U/L (15-37); Albumin 2.9 g/dL (3.4-5.0); Alkaline Phosphatase 117 U/L (46-116); Anion Gap 9.3 mmol/L (3-11); BUN 10 mg/dL (7-18); Bilirubin, Total 0.6 mg/dL (0.2-1.0); CO2 23.7 mmol/L (21.0-32.0); Calcium 8.4 mg/dL (8.5-10.1); Chloride 101 mmol/L (98-107); Estimated GFR 85.10 (mL/min/1.73m2); Glucose 168 mg/dL (74-106); Magnesium 1.9 mg/dL (1.8-2.4); Potassium 4.0 mmol/L (3.5-5.1); Sodium 134 mmol/L (136-145); Total Protein 7.1 g/dL (6.4-8.2)
[2025-04-25 04:34] LABS: Vancomycin, Random 8.6 ug/mL
[2025-04-25] MEDS: VANCOMYCIN/WATER (PEG) 1.5 GM/300 ML BAG IV (05:51)
[2025-04-25] MEDS: Normal Saline Flush 10 ML SYR IVP (05:51)
[2025-04-25] MEDS: Normal Saline 1,000 ML 150 ML IV ×3 (07:44→21:21)
[2025-04-25] MEDS: Pantoprazole 40 MG TABCR PO ×2 (08:45→21:23)
[2025-04-25] MEDS: Furosemide 20 MG TAB PO (08:46)
[2025-04-25] MEDS: amLODIPine 5 MG TAB PO (08:46)
[2025-04-25] MEDS: Sucralfate 1 GM TAB PO ×4 (08:46→21:23)
[2025-04-25] MEDS: Sertraline 50 MG TAB PO (08:46)
[2025-04-25] MEDS: Isosorbide Mononitrate 30 MG TABCR 60 MG PO (08:47)
[2025-04-25] MEDS: Ezetimibe 10 MG TAB PO (08:47)
[2025-04-25] MEDS: Famotidine 20 MG TAB PO (08:47)
[2025-04-25] MEDS: Aspirin 81 MG CHEW PO (08:48)
--- NOTE | 2025-04-25 08:51 | PDOC.CMIN ---
Date of service: 04/25/25 Time of Service: 08:52 Care Management Initial Assmt Initial Assessment Reason for Hospitalization: sepsis Functional Status/Living Situation Patient Presentation: Agatha was sitting up in bed when CM met with him. He was alert and oriented and easily engaged with CM, familiar to him from his last hospital visit. Agatha lives alone in an apartment in [place], although his son Naveen stays with him frequently. Agatha has 4 other children who all live in [place] except for one son who lives in [place]. He also has 9 grandchildren and one great grandson. Agatha describes his family as close and supportive. He is independent at baseline and does not receive any community services. Agatha's cardiac issues have kept him out of work since last May and he has applied for disability. Agatha was admitted with sepsis. He is growing gram positive cocci in both sets of blood cultures drawn yesterday. He shared that he still feels quite sick, although he is afebrile. Agatha stated that he had 3 stents placed recently at [facility]. He hopes that his infection is not related to his surgery. He was supposed to have another surgical procedure tomorrow, however that has been postponed. Agatha talked a lot about his family, in particular about his . They were very close and he says he still feels her with him even though she has been gone for almost 2 years. Agatha shared that when he woke up this morning he started seeing double. At the time of CM's visit, around 3:30 pm, he was still having symptoms. He stated that he informed his nurse. CM notified the provider. Town of Residence: [place] Resides with: Alone Significant Other/Family: Local Natural Supports: children Employment Status: Disabled (in progress) Instrumental Activities of Daily Living (ADLs): Independent Medications Medication Management: No Issues/Barriers identified Physical Functioning/Mobility Assistive Device: none Advance Directives Advance Directives: Do you have an Advance Directive: N 02/02/25, 09:48 AD [facility] File at [facility]: N 02/02/25, 09:48 Date Asked 04/24/25 04/24/25, 17:29 AD Date Reviewed COLST On File at [facility] COLST Date Scanned Code Status Resuscitation Status Full Code Portal Pt does not currently have a portal and education provided: Yes Insurance Coverage/Financial Issues Insurance: Medicaid Care Team Visit Care Team Role Provider Type None None Primary Care Provider NON-HALI STAFF PHYSICIAN InPatient Travis Moura Other Providers OTHER Dagmar Patino Emergency Provider NURSE PRACTITIONER Benjie Chauhan MD Admit Provider MD LOWE STAFF PHYSICIAN Attending Provider Discharge Potential Discharge Needs: PCP F/U Appt Anticipated Barriers to Discharge: None Identified Patient/Family Education Needs: Review discharge instructions, discuss Ask Me Three Transportation: Private vehicle Plan: Anticipate Agatha will be discharged home with no new services, when medically stable. He will follow up with his PCP and plan of care and transport with a friend/family member. CM will follow and continue to support discharge planning endeavors. Social Determinants of Health Screening Social Determinants of health last assessed in clinic: 04/25/25 Will the Patient Participate in the Screening?: Yes Do you worry about having a steady place to live?: no Problems where you live: no known problems In the past 12 months, have you had to go without electric, gas, oil or water in your home?: no 1. Within the past 12 months, we worried whether our food would run out before we got money to buy more.: Never true 2. Within the past 12 months, the food we bought just didn't last and we didn't have money to get more.: Never true Has lack of transportation kept you from medical appointments or from doing things needed for daily living?: no Has anyone in your life made you feel unsafe or unsupported?: no How hard is it for you to pay for the very basics like food, housing, medical care, and heating? Would you say it is:: Not hard at all Do you want help finding or keeping work or a job?: I do not need or want help If for any reason you need help with day-to-day activities such as bathing, preparing meals, shopping, managing finances, etc., do you get the help you need?: I get all the help I need How often do you feel lonely or isolated from those around you?: Never Do you speak a language other than Georgian at home?: No Does the patient want assistance with any of the above?: No Health Related Social Needs Health related social needs details: N/A PFSH All Active Problems (Updated 04/25/25 @ 02:23 by Benjie Chauhan MD) Hyponatremia (Acute) Neutrophilic leukocytosis (Acute) Sepsis (Acute) Tactile hallucination (Acute) Bizarre behavior (Acute) Chest pain (Acute) Acute alcohol intoxication (Acute) Substance use disorder (Chronic) CAD (coronary artery disease), [place] coronary artery (Chronic) Depression (Chronic) Aneurysm, thoracic aortic (Acute) Benign essential hypertension (Chronic) RCA occlusion (Acute) Social History Smoking/Tobacco Use Status: Current every day Tobacco Type: cigarettes Years smoked: 41 Smoking risk assessment performed?: Yes Alcohol Intake: current Alcohol Intake frequency: a few times a month Drug use: Never Substance use type: does not use Housing: apartment Do you feel safe at home: Yes Do you feel safe in your relationship?: Yes
[2025-04-25] MEDS: Ranolazine 500 MG TABCR PO ×2 (08:53→20:24)
[2025-04-25] MEDS: Varenicline 1 MG TAB PO (08:53)
[2025-04-25] MEDS: DOXYCYCLINE 100 MG in Normal Saline 100 ML IVPB ×2 (08:58→21:25)
--- NOTE | 2025-04-25 12:26 | W.PM.PROGNOT ---
Date of Service Date of service: 04/25/25 Time of Service: 12:26 Assessment and Plan Assessment and plan (1) Sepsis: Status: Acute Assessment and plan: Sepsis criteria met with fever, tachycardia, tachypnea, hypotension, leukocytosis Source unclear, cardiac murmur blood cultures pending echo for tomorrow continue NS at maintenance Continue vancomycin, ceftriaxone, doxycycline Monitor cultures (2) Neutrophilic leukocytosis: Status: Acute Assessment and plan: More consistent with bacterial infection than viral Monitor (3) Hyponatremia: Status: Acute Assessment and plan: NS and LR given in ED, continuing NS at maintenance Monitor BMP (4) CAD (coronary artery disease), [place] coronary artery: Status: Chronic Assessment and plan: Continue home regimen aspirin, atorvastatin, ezetimibe, furosemide, isosorbide mononitrate, ranolazine (5) Benign essential hypertension: Status: Chronic Assessment and plan: Continue home regimen as above (6) Depression: Status: Chronic Assessment and plan: continue home sertraline discussed with DR Connell Subjective Subjective Patient reports: no new complaints, tolerating liquids well, tolerating a regular diet and afebrile Interval history since last seen: max temp 39 overnight. tolerating oral well, hemodynamically stable. Exam Narrative Exam Narrative: Acutely ill appearing older than stated age male head atraumatic eyes nonicteric noninjected oral mucosa slightly dry neck supple full range of motion no JVD cardiovascular regular rate and rhythm positive systolic murmur 4 out of 6 respirations even and unlabored abdomen soft round nontender extremities no peripheral edema moves all extremities equally skin no rashes or lesions. Neurologic awake alert oriented no focal deficits psychiatric blunted mood and affect Objective Last Vital Signs Temp 36.6 C 04/25/25 11:07 Pulse 85 04/25/25 11:07 Resp 18 04/25/25 11:07 BP 107/59 L 04/25/25 11:07 Pulse Ox 96 04/25/25 11:07 Laboratory Results - last 24 hr 04/24/25 04/24/25 04/24/25 18:00 19:05 20:12 WBC 11.81 H RBC 3.73 L Hgb 11.5 L Hct 33.5 L MCV 90 MCH 30.8 MCHC 34.3 RDW 11.8 Plt Count 286 MPV 9.2 Immature Gran % 0.9 Neutrophils % 88.3 Lymphocytes % 5.6 Monocytes % 4.7 Eosinophils % 0.2 Basophils % 0.3 Nucleated RBC % 0.0 Absolute Neutrophils 10.43 H Absolute Lymphocytes 0.66 L Absolute Monocytes 0.56 Absolute Eosinophils 0.02 Absolute Basophils 0.04 VBG Lactate 2.1 1.7 Sodium 129 L Potassium 4.4 Chloride 95 L Carbon Dioxide 22.7 Anion Gap 11.3 H BUN 13 Creatinine 1.0 Est GFR (CKD-EPI 2020) 85.10 Glucose 159 H Calcium 9.0 Magnesium Total Bilirubin 0.4 AST 16 ALT 25 Alkaline Phosphatase 124 H Troponin I 11 12 Total Protein 7.9 Albumin 3.3 L Urine Color Yellow Urine Clarity Clear Urine pH 6.0 Ur Specific [place] <= 1.005 Urine Protein Negative Urine Ketones Negative Urine Blood Trace-intact H Urine Nitrite Negative Urine Bilirubin Negative Urine Urobilinogen 0.2 Ur Leukocyte Esterase Negative Urine RBC 0-2 Urine WBC 0-2 Ur Epithelial Cells Negative Urine Crystals Negative Urine Bacteria Few Urine Casts Negative Urine Mucus Negative Ur Culture Indicated? No Urine Glucose Negative Random Vancomycin COVID-19 Source Nasopharynx SARS-CoV-2 (PCR) Negative Influenza Type A (PCR) Negative Influenza Type B (PCR) Negative RSV (PCR) Negative 04/24/25 04/25/25 20:25 03:00 WBC 16.64 H RBC 3.51 L Hgb 10.9 L Hct 31.4 L MCV 90 MCH 31.1 MCHC 34.7 RDW 11.9 Plt Count 230 MPV 9.1 Immature Gran % 0.8 Neutrophils % 85.3 Lymphocytes % 5.6 Monocytes % 8.0 Eosinophils % 0.0 Basophils % 0.3 Nucleated RBC % 0.0 Absolute Neutrophils 14.19 H Absolute Lymphocytes 0.93 L Absolute Monocytes 1.33 H Absolute Eosinophils 0.00 Absolute Basophils 0.05 VBG Lactate Sodium 134 L Potassium 4.0 Chloride 101 Carbon Dioxide 23.7 Anion Gap 9.3 BUN 10 Creatinine 1.0 Est GFR (CKD-EPI 2020) 85.10 Glucose 168 H Calcium 8.4 L Magnesium 1.9 Total Bilirubin 0.6 AST 17 ALT 25 Alkaline Phosphatase 117 H Troponin I 39 Total Protein 7.1 Albumin 2.9 L Urine Color Urine Clarity Urine pH Ur Specific [place] Urine Protein Urine Ketones Urine Blood Urine Nitrite Urine Bilirubin Urine Urobilinogen Ur Leukocyte Esterase Urine RBC Urine WBC Ur Epithelial Cells Urine Crystals Urine Bacteria Urine Casts Urine Mucus Ur Culture Indicated? Urine Glucose Random Vancomycin 8.6 COVID-19 Source SARS-CoV-2 (PCR) Influenza Type A (PCR) Influenza Type B (PCR) RSV (PCR) Time Spent with Patient Time Spent with Patient: >50 minutes Time was spent: preparing to see the patient(eg.review tests), obtaining and/or reviewing separately otained hiistory, ordering medications,tests, procedures, indepentently interpreting results and counseling the patient
--- NOTE | 2025-04-25 13:01 | NUR.NOTE ---
Nursing Note: Documentation by SHERIDAN Watts student reviewed.
--- NOTE | 2025-04-25 14:17 | PT.INIE ---
PT Notes Visit Reasons: Sepsis Physical Therapy Inpatient Initial Evaluation Date: 04/25/2025 Referring Doctor: Dr Chauhan PT Orders: PT CONSULT: PT evaluation and treatment ; D/C Non PT Dependent Precautions: IV Access RUE, standard, visual deficits Patient Profile/Admitting Diagnosis: Agatha is a 60-year-old male who presented to the ED on 04/24/2025 with report of 2-day history of not feeling well progressing to chest pain. Workup in the ED included diagnosis for sepsis, neutrophilic leukocytosis, hyponatremia. Patient treated with IV antibiotics. Echocardiogram pending. Source of infection unknown at this time. PMHX: Hyponatremia (Acute) Neutrophilic leukocytosis (Acute) Sepsis (Acute) Tactile hallucination (Acute) Bizarre behavior (Acute) Chest pain (Acute) Acute alcohol intoxication (Acute) Substance use disorder (Chronic) CAD (coronary artery disease), [place] coronary artery (Chronic) Depression (Chronic) Aneurysm, thoracic aortic (Acute) Benign essential hypertension (Chronic) RCA occlusion (Acute) Social History/Home Situation: Lives with friend in one level home with 2 steps to enter. Pt is independent without AD for ambulation, Independent ADL, Equipment Owned/DME:None Subjective: Pt reports he had a rough night. He states at some point he must have pulled out his IV. He states he does not remember doing it . Patient reports his vision is changed and feels like he is walking in a tunnel. Patient noted with impaired depth perception on stairs as well Objective: [] General Observation: male supine with HOB elevated to 30 degrees IV infusing RUE, friend visiting. Mental Status: A+Ox4, cooperative, able to follow multistep instructions, agreeable to participate in evaluation. Pain: denies ROM: [] BUE: WFL BKE WFL except ankle DF to neutral with knee extension Strength: [] BUE: 5/5 Right Lower Extremity: hip flexors 4-/5, abductor 4/5 extension 4/5, knee 5/5 ankle 3/5 Left Lower Extremity: hip flexors 4-/5, abductor 3+ /5 extension 3+/5, knee 5/5 ankle 3/5 Sensation: Intact Bed Mobility/Transfers: [] Supine to sit independent Sit to stand independent Stand to sit independent Bed to chair SBA Gait: Ambulated without assistive device standby assist 300 feet intermittent lateral stepping able to regain without external support. Patient noted with reduced step length and excessive lateral weight shifting Stairs: 3 4 steps? and 2 6 steps with rails CGA and cues to compensate for visual deficit/ impaired depth perception Balance: [] Static Sitting: Normal Dynamic Sitting: Good Static Standing: Normal Dynamic Standing: Good Special Tests: [] 4 STAGE BALANCE TEST: Feet together 18 seconds 1/2 Stance 14 seconds Tandem stance 3 seconds Single leg stance left 8 seconds, right 9 seconds Mobility Limitations Standardized Measure [] [facility] AM-PAC 6 clicks Basic Mobility Inpatient Short Form: [] Raw Score:23 CMS Score: 11.20% Informed Consent/Education: Patient instructed in purpose of PT consult. Assessment: Patient demonstrates impaired depth perception and intermittent instability with ambulation as a result of visual deficit. Pt noted this visual change is new since hospitalization. Patient is a 60 yo male who presents with clinical signs and symptoms consistent with current/admitting diagnoses that have resulted to mobility limitations, gait instability, generalized weakness, and impairment of motor control as demonstrated by the following impairment level findings: 1. Decreased strength to BLE major muscle groups 2. Impaired standing balance 3. Limitation of joint range of motion B ankles 4. Diminished functional activity tolerance and standing with noted shortness of breath 5. Visual deficits, depth perception, and tunnel vision Impairments are contributing to the following functional limitations: 1. Inability to safely ambulate without assistive device 2. Increase completion time for mobility ADL performance 3. Increased fall risk 4. Difficulty performing stairs due to visual impairment Pt would benefit from skilled PT to maximize functional ability without AD, improve stair climbing ability and improve balance in standing position. Patient is assessed as a low complexity based on the following: History: 60-year-old male with impairment level findings, functional limitations, and past medical history as indicated above Examination: Demonstrable impairment in strength, balance, and mobility level with underlying impairments and functional limitations as documented above Presentation: Evolving/stable Decision Making: Low Goals: 1. Independent ambulation without assistive device greater than 500 feet level surfaces including turns 2. Independent ascending and descending 2 steps to safely enter and exit home 3. Independent HEP for BLE strengthening and balance Plan of Care/Treatment Plan: 1-2x/day x 1 week Plan of care has been reviewed with the [employer] providing the service under Physical Therapy direction. Initiate Physical Therapy intervention for strengthening, bed mobility, transfers, gait, stairs, balance training, use of assistive device. DISCHARGE RECOMMENDATIONS: Home when medically appropriate with No further skilled PT indicated after inpatient. TREATMENT CODE/TIME: 22238/ [id number] Thank you for the opportunity to participate in the care of this patient. Katerin Youngblood PT [facility]
[2025-04-25] MEDS: Atorvastatin 20 MG TAB PO (21:23)
[2025-04-25] MEDS: cefTRIAXone 1 GM/50 ML BAG IVPB (21:24)
[2025-04-26] MEDS: VANCOMYCIN/WATER (PEG) 1.5 GM/300 ML BAG IV ×2 (01:07→18:08)
[2025-04-26 03:33] VITALS: BP 133/77; PULSE 82; RESP 22; TEMP 37.5; O2SAT 97
[2025-04-26 06:52] LABS: Abs Immature Grans 0.06 10^3/uL (0.0-0.06); HCT 29.0 % (40.0-50.0); HGB 10.0 g/dL (13.5-17.5); Immature Grans % 0.5 %; MCH 31.4 pg (27.0-33.0); MCHC 34.5 % (32.0-36.0); MCV 91 fL (80-95); MPV 9.4 fL (8.0-11.0); Platelet Count 247 10^3/uL (130-400); RBC 3.18 10^6/uL (4.36-5.78); RDW 11.8 % (11.8-14.1); RDW-SD 39.8 fL; WBC 11.65 10^3/uL (4.4-10.8)
[2025-04-26 06:57] VITALS: BP 128/68; PULSE 81; RESP 20; TEMP 37; O2SAT 96
[2025-04-26 07:11] LABS: ALT 24 U/L (16-63); AST 16 U/L (15-37); Albumin 2.6 g/dL (3.4-5.0); Alkaline Phosphatase 115 U/L (46-116); Anion Gap 10.1 mmol/L (3-11); BUN 8 mg/dL (7-18); Bilirubin, Total 0.2 mg/dL (0.2-1.0); CO2 22.9 mmol/L (21.0-32.0); Calcium 8.4 mg/dL (8.5-10.1); Chloride 104 mmol/L (98-107); Estimated GFR 104.18 (mL/min/1.73m2); Glucose 185 mg/dL (74-106); Potassium 4.1 mmol/L (3.5-5.1); Sodium 137 mmol/L (136-145); Total Protein 6.7 g/dL (6.4-8.2)
[2025-04-26] MEDS: Normal Saline 1,000 ML 150 ML IV (08:56)
[2025-04-26] MEDS: Sucralfate 1 GM TAB PO ×4 (08:57→21:09)
[2025-04-26] MEDS: Isosorbide Mononitrate 30 MG TABCR 60 MG PO (08:58)
--- NOTE | 2025-04-26 08:58 | CMPROGNOTE_ITS ---
Date of service: 04/26/25 Time of Service: 08:58 Care Management Progress Note Progress Note Text Progress Note Text: Agatha was lying in bed visiting with his friend when CM met with him. He appeared restless and stated that he just wants to get out of here. He was supposed to have an Echocardiogram today but his appointment was postponed until tomorrow. CM explained that it was very important to have the test in case he has involvement of his heart valves. The gram positive cocci in his blood have been identified as streptococcal species but no speciation has been done. The source of the bacteremia is unclear as is the required course of antibiotics. Agatha reluctantly agreed to stay but expressed frustratiuon with not always feeling he knows what is happening. Discharge Potential Discharge Needs: PCP F/U Appt Anticipated Barriers to Discharge: None Identified Patient/Family Education Needs: Review discharge instructions, discuss Ask Me Three Transportation: Private vehicle Plan: Anticipate Agatha will be discharged home with no new services, when medically stable. He will follow up with his PCP and plan of care and transport with a friend/family member. CM will follow and continue to support discharge planning endeavors. Social Determinants of Health Screening Social Determinants of health last assessed in clinic: 04/26/25 Will the Patient Participate in the Screening?: Yes Do you worry about having a steady place to live?: no Problems where you live: no known problems In the past 12 months, have you had to go without electric, gas, oil or water in your home?: no 1. Within the past 12 months, we worried whether our food would run out before we got money to buy more.: Never true 2. Within the past 12 months, the food we bought just didn't last and we didn't have money to get more.: Never true Has lack of transportation kept you from medical appointments or from doing things needed for daily living?: no Has anyone in your life made you feel unsafe or unsupported?: no How hard is it for you to pay for the very basics like food, housing, medical care, and heating? Would you say it is:: Not hard at all Do you want help finding or keeping work or a job?: I do not need or want help If for any reason you need help with day-to-day activities such as bathing, preparing meals, shopping, managing finances, etc., do you get the help you need?: I get all the help I need How often do you feel lonely or isolated from those around you?: Never Do you speak a language other than [place] at home?: No Does the patient want assistance with any of the above?: No Health Related Social Needs Health related social needs details: N/A
[2025-04-26] MEDS: Ezetimibe 10 MG TAB PO (08:59)
[2025-04-26] MEDS: amLODIPine 5 MG TAB PO (08:59)
[2025-04-26] MEDS: Furosemide 20 MG TAB PO (09:00)
[2025-04-26] MEDS: Pantoprazole 40 MG TABCR PO ×2 (09:00→21:09)
[2025-04-26] MEDS: Ranolazine 500 MG TABCR PO ×2 (09:00→21:08)
[2025-04-26] MEDS: Sertraline 50 MG TAB PO (09:01)
[2025-04-26] MEDS: Aspirin 81 MG CHEW PO (09:02)
[2025-04-26] MEDS: Normal Saline Flush 10 ML SYR IVP ×2 (09:02→21:09)
[2025-04-26] MEDS: DOXYCYCLINE 100 MG in Normal Saline 100 ML IVPB (09:03)
--- NOTE | 2025-04-26 09:17 | W.PM.PROGNOT ---
Date of Service Date of service: 04/26/25 Time of Service: 17:00 Assessment and Plan Assessment and plan (1) Sepsis: Status: Acute Assessment and plan: Sepsis criteria met with fever, tachycardia, tachypnea, hypotension, leukocytosis Source unclear, cardiac murmur Monitor blood cultures- GPC in blood this AM echo for tomorrow continue NS at maintenance Ongoing vancomycin, ceftriaxone, discontinue doxycycline Repeat blood Cx ordered (2) Gram-positive cocci bacteremia: Status: Acute Assessment and plan: As above (3) Neutrophilic leukocytosis: Status: Acute Assessment and plan: Improving with reduce leukocytosis Was more consistent with bacterial infection than viral (4) Hyponatremia: Status: Acute Assessment and plan: IVF d/c Na 137 Monitor BMP in AM (5) CAD (coronary artery disease), [place] coronary artery: Status: Chronic Assessment and plan: Ongoping home regimen aspirin, atorvastatin, ezetimibe, (6) Benign essential hypertension: Status: Chronic Assessment and plan: Continue home regimen furosemide, isosorbide mononitrate, ranolazine (7) Depression: Status: Chronic Assessment and plan: On home sertraline discussed with DR Lorenzo Exam Narrative Exam Narrative: Ill appearing older than stated age male non-icteric sclera, no meningeal sings , no JVD. neurologically intact , A&O X4, cardiovascular regular rate and rhythm positive systolic murmur, respirations even and unlabored, clear lungs , abdomen round non- distended, soft round nontender No CVa tenderness, moves all 4 extremities no peripheral edema moves, no skin lesion or rashes seen on exposed skin or reported psychiatric congruent - mood and affect Objective Last Vital Signs Temp 37 C 04/26/25 06:57 Pulse 81 04/26/25 06:57 Resp 20 04/26/25 06:57 BP 128/68 04/26/25 06:57 Pulse Ox 96 04/26/25 06:57 Laboratory Results - last 24 hr 04/26/25 06:23 WBC 11.65 H RBC 3.18 L Hgb 10.0 L Hct 29.0 L MCV 91 MCH 31.4 MCHC 34.5 RDW 11.8 Plt Count 247 MPV 9.4 Immature Gran % 0.5 Neutrophils % 76.9 Lymphocytes % 12.4 Monocytes % 9.2 Eosinophils % 0.6 Basophils % 0.4 Nucleated RBC % 0.0 Absolute Neutrophils 8.96 H Absolute Lymphocytes 1.44 Absolute Monocytes 1.07 H Absolute Eosinophils 0.07 Absolute Basophils 0.05 Sodium 137 Potassium 4.1 Chloride 104 Carbon Dioxide 22.9 Anion Gap 10.1 BUN 8 Creatinine 0.7 Est GFR (CKD-EPI 2020) 104.18 Glucose 185 H Calcium 8.4 L Total Bilirubin 0.2 AST 16 ALT 24 Alkaline Phosphatase 115 Total Protein 6.7 Albumin 2.6 L Time Spent with Patient Time Spent with Patient: >50 minutes Time was spent: preparing to see the patient(eg.review tests), obtaining and/or reviewing separately otained hiistory, ordering medications,tests, procedures, referring, communicating with other health pet care attendant, indepentently interpreting results, counseling the patient, care coordination and other
[2025-04-26 10:28] LABS: Lyme Ab w Rflx to Lyme Confirm Negative (Negative)
[2025-04-26] MEDS: Famotidine 20 MG TAB PO (11:27)
[2025-04-26 11:30] VITALS: BP 118/70; PULSE 85; RESP 16; TEMP 37; O2SAT 97
--- NOTE | 2025-04-26 14:41 | PT.INTREAT ---
PT Notes Visit Reasons: Sepsis Date: 04/26/2025 PRECAUTIONS: Fall. standard. Activity as tolerated. SUBJECTIVE: Pt in bed when approached for therapy this afternoon, pt agreed to paticipating with therapy intervention. OBJECTIVE: ? PAIN: none reported VITALS: monitored by nursing Therapeutic Activities 49075: Direct one-on-one instruction in dynamic activities to improve functional performance. ?? BED MOBILITY/TRANSFERS? Rolling L/R: independent Supine-sit: ? ?independent ? Sit-supine: ? ?independent ? Sit-stand: ? ?independent ? Stand-sit: ?? independent? Bed-Chair:? ? independent? Chair-bed: independent Provided skilled cues and instruction on performance and technique throughout. Gait Training 62553: Direct one-on-one instruction and skilled instruction in: Movement sequencing Turning and movement with proper form Provided instruction in gait pattern Patient education regarding pacing and breathing techniques to maximize activity tolerance? GAIT? Assistive Device: ?? None? Weight bearing: FWB Assist: ?independent ? Distance:?? 600' ? Deviation: ? ?unremarkable ? STAIRS:? ? Step over step, no handrail, 6step x4, 4 step x6 independent? Therapeutic Exercises 41046: Direct one-on-one instruction in therapeutic exercises to develop strength, endurance, range of motion and flexibility. Exercises: Scapular retraction with blue theraband [id number] Resisted bicep curls blue theraband [id number] Resisted tricep curls blue theraband [id number] Resisted forearm pronation, supination blue theraband [id number] Resisted wrist flexion/extension blue theraband [id number] Resisted wrist radial/ulnar deviation blue theraband [id number] Resisted seated hip abduction/adduction blue theraband [id number] Provided skilled instruction in proper exercise performance Provided skilled manual cues to facilitate proper muscle recruitment and/or form: ASSESSMENT:?pt doing well, able to replicate exercise using blue theraband, pt provided with resistance band for use when not with therapy. PLAN: Continue with balance training, global strengthening and general conditioning for improved safety, mobility and activity tolerance until pt is ready for DC. TREATMENT CODE/TIME: [id number], [id number], 25mins (2:05-2:30pm)
[2025-04-26 16:33] VITALS: BP 127/75; PULSE 87; RESP 16; TEMP 37.2; O2SAT 97
[2025-04-26 19:44] VITALS: BP 128/70; PULSE 85; RESP 17; TEMP 37.2; O2SAT 97
[2025-04-26] MEDS: Atorvastatin 20 MG TAB PO (21:09)
[2025-04-26] MEDS: cefTRIAXone 1 GM/50 ML BAG IVPB (21:10)
[2025-04-26 23:43] VITALS: BP 125/73; PULSE 86; RESP 18; TEMP 36.6; O2SAT 97
[2025-04-27] VITALS (7 sets, daily range): BP systolic 112–132; BP diastolic 69–77; PULSE 77–86; RESP 16–18; TEMP 36.2–36.8; O2SAT 93–97
[2025-04-27 06:54] LABS: Abs Immature Grans 0.08 10^3/uL (0.0-0.06); HCT 29.1 % (40.0-50.0); HGB 9.8 g/dL (13.5-17.5); Immature Grans % 0.8 %; MCH 30.3 pg (27.0-33.0); MCHC 33.7 % (32.0-36.0); MCV 90 fL (80-95); MPV 9.2 fL (8.0-11.0); Platelet Count 267 10^3/uL (130-400); RBC 3.23 10^6/uL (4.36-5.78); RDW 11.9 % (11.8-14.1); RDW-SD 39.2 fL; WBC 9.54 10^3/uL (4.4-10.8)
[2025-04-27 07:26] LABS: ALT 41 U/L (16-63); AST 24 U/L (15-37); Albumin 2.8 g/dL (3.4-5.0); Alkaline Phosphatase 109 U/L (46-116); Anion Gap 9.7 mmol/L (3-11); BUN 9 mg/dL (7-18); Bilirubin, Total 0.3 mg/dL (0.2-1.0); CO2 25.3 mmol/L (21.0-32.0); Calcium 9.1 mg/dL (8.5-10.1); Chloride 102 mmol/L (98-107); Estimated GFR 104.18 (mL/min/1.73m2); Glucose 148 mg/dL (74-106); Potassium 3.9 mmol/L (3.5-5.1); Sodium 137 mmol/L (136-145); Total Protein 7.1 g/dL (6.4-8.2)
[2025-04-27] MEDS: Sertraline 50 MG TAB PO (08:09)
[2025-04-27] MEDS: Isosorbide Mononitrate 30 MG TABCR 60 MG PO (08:09)
[2025-04-27] MEDS: Famotidine 20 MG TAB PO (08:09)
[2025-04-27] MEDS: Sucralfate 1 GM TAB PO ×4 (08:09→21:23)
[2025-04-27] MEDS: amLODIPine 5 MG TAB PO (08:09)
[2025-04-27] MEDS: Pantoprazole 40 MG TABCR PO ×2 (08:09→21:23)
[2025-04-27] MEDS: Ranolazine 500 MG TABCR PO ×2 (08:09→21:24)
[2025-04-27] MEDS: Ezetimibe 10 MG TAB PO (08:09)
[2025-04-27] MEDS: Aspirin 81 MG CHEW PO (08:09)
[2025-04-27] MEDS: Furosemide 20 MG TAB PO (08:10)
[2025-04-27] MEDS: Normal Saline Flush 10 ML SYR IVP ×2 (08:11→21:24)
--- NOTE | 2025-04-27 09:20 | PTDS_ITS ---
PT Diagnosis: difficulty walking MD Diagnosis: sepsis Weeks Elapsed: week(s) and 0 day(s) Patient Location: Med Surg Referring Provider: Dr. Chauhan Date of Service: April 27, 2025 9:20 am PT Notes Visit Reasons: Sepsis Inpatient Physical Therapy Discharge Summary Dates: 04/27/2025 Dates of Service: 04/25/2025 - 04/27/2025 SUBJECTIVE: Patient reports he is feeling well no longer has tunnel vision. Legs feel strong and he is hoping to go home soon OBJECTIVE: [] Pain: Denies ROM: BUE: WNL BLE: WNL STRENGTH: BUE: 11/29 BLE: 11/29 BED MOBILITY/TRANSFERS: Supine-sit independent Sit-supine independent Sit-stand independent Stand-sit independent Bed-Chair independent without device Chair-bed independent without device GAIT: Ambulate 700 feet without device reciprocal pattern no loss of balance including directional changes surface changes obstacle management. Independent Stairs: 2 flights of stairs reciprocal pattern with intermittent use of 1 rail independent BALANCE: Static sitting normal Dynamic sitting normal Static standing normal Dynamic standing normal SPECIAL TESTS: AM-PAC 24 ;0% deficit ASSESSMENT: Patient is return to prior level of function of independence without assistive device. Patient able to perform 2 flights of stairs reciprocal pattern without rest. GOALS ( Met / Not Met): All goals met or exceeded Goals: 1. Independent ambulation without assistive device greater than 500 feet level surfaces including turns 2. Independent ascending and descending 2 steps to safely enter and exit home 3. Independent HEP for BLE strengthening and balance DISCHARGE PLAN/RECOMMENDATIONS: [X] Home with no services Treatment: [id number] Katerin Youngblood, PT [facility]
[2025-04-27] MEDS: VANCOMYCIN/WATER (PEG) 1.5 GM/300 ML BAG IVPB (09:36)
--- NOTE | 2025-04-27 10:22 | W.PM.PROGNOT ---
Date of Service Date of service: 04/27/25 Time of Service: 10: Assessment and Plan Assessment and plan (1) Sepsis: Start date: 04/27/25 Start time: 10:22 Assessment and plan: Sepsis criteria on admission: fever, tachycardia, tachypnea,leukocytosis Source unclear intitially - but now has bacteremia- no skin wound or abscess Monitor blood cultures- strep mitis /oralis in 2 bottles - susceptibility- most likely to cephalosporins echo report pending IV NS stpped Will stop vancomycin, ongoing adjusted dosing of ceftriaxone Repeat blood Cx ordered and pending (2) Gram-positive cocci bacteremia: Start date: 04/27/25 Start time: 10:23 Status: Acute Assessment and plan: As above (3) Neutrophilic leukocytosis: Assessment and plan: Improving with reduce leukocytosis (4) Hyponatremia: Status: Acute Assessment and plan: IVF d/c Na 137 Monitor BMP in AM (5) CAD (coronary artery disease), [place] coronary artery: Status: Chronic Assessment and plan: Home regimen aspirin, atorvastatin, ezetimibe, (6) Benign essential hypertension: Status: Chronic Assessment and plan: home regimen furosemide, isosorbide mononitrate, ranolazine (7) Depression: Status: Chronic Assessment and plan: On medicine regimen (8) DVT (deep venous thrombosis): Status: Deleted Assessment and plan: LMWH discussed with DR Lorenzo Subjective Subjective Patient reports: no new complaints, tolerating liquids well, tolerating a regular diet and afebrile Interval history since last seen: Afebrile but chills ; tolerating oral well, hemodynamically stable, denies skin lesions, abscess, insect bites or boils Exam Narrative Exam Narrative: Ill and plae looking, appearing older than stated age male non-icteric sclera, mostly edentulous, poor teeth condition, no oral cavity wound or erhythma , no meningeal sings , no JVD. neurologically intact , A&O X4, cardiovascular regular rate and rhythm positive systolic murmur, respirations even and unlabored, clear lungs , abdomen round non- distended, soft round nontender No CVa tenderness, moves all 4 extremities no peripheral edema moves, no skin lesion or rashes seen on exposed skin or reported psychiatric congruent - mood and affect Objective Last Vital Signs Temp 36.8 C 04/27/25 07:48 Pulse 77 04/27/25 07:48 Resp 18 04/27/25 07:48 BP 132/71 04/27/25 07:48 Pulse Ox 96 04/27/25 07:48 Laboratory Results - last 24 hr 04/24/25 04/27/25 04/27/25 18:00 06:20 13:00 WBC 9.54 RBC 3.23 L Hgb 9.8 L Hct 29.1 L MCV 90 MCH 30.3 MCHC 33.7 RDW 11.9 Plt Count 267 MPV 9.2 Immature Gran % 0.8 Neutrophils % 74.2 Lymphocytes % 16.0 Monocytes % 7.8 Eosinophils % 0.8 Basophils % 0.4 Nucleated RBC % 0.0 Absolute Neutrophils 7.07 H Absolute Lymphocytes 1.53 Absolute Monocytes 0.74 Absolute Eosinophils 0.08 Absolute Basophils 0.04 Sodium 137 Potassium 3.9 Chloride 102 Carbon Dioxide 25.3 Anion Gap 9.7 BUN 9 Creatinine 0.7 Est GFR (CKD-EPI 2020) 104.18 Glucose 148 H Calcium 9.1 Total Bilirubin 0.3 AST 24 ALT 41 Alkaline Phosphatase 109 Total Protein 7.1 Albumin 2.8 L Random Vancomycin Cancelled Lyme Disease Antibody Negative Time Spent with Patient Time Spent with Patient: >50 minutes Time was spent: preparing to see the patient(eg.review tests), obtaining and/or reviewing separately otained hiistory, ordering medications,tests, procedures, referring, communicating with other health childcare center administrator, indepentently interpreting results, counseling the patient and care coordination
--- NOTE | 2025-04-27 10:39 | CMPROGNOTE_ITS ---
Date of service: 04/27/25 Time of Service: 10:39 Care Management Progress Note Progress Note Text Progress Note Text: Agatha was sitting up in bed when CM met with him. He is admitted for sepsis and is being closely monitored and treated with IV ABX. He is eager to discharge, but also has a good understanding of his condition and the need to remain hospitalized while cultures are pending. He is planning to discharge home once medically cleared, no services are indicated at this time. CM will follow. Discharge Potential Discharge Needs: PCP F/U Appt Anticipated Barriers to Discharge: None Identified Patient/Family Education Needs: Review discharge instructions, discuss Ask Me Three Transportation: Private vehicle Plan: Anticipate Agatha will be discharged home with no new services, when medically stable. He will follow up with his PCP and plan of care and transport with a fri end/family member. CM will follow and continue to support discharge planning endeavors. Social Determinants of Health Screening Social Determinants of health last assessed in clinic: 04/27/25 Will the Patient Participate in the Screening?: Yes Do you worry about having a steady place to live?: no Problems where you live: no known problems In the past 12 months, have you had to go without electric, gas, oil or water in your home?: no 1. Within the past 12 months, we worried whether our food would run out before we got money to buy more.: Never true 2. Within the past 12 months, the food we bought just didn't last and we didn't have money to get more.: Never true Has lack of transportation kept you from medical appointments or from doing things needed for daily living?: no Has anyone in your life made you feel unsafe or unsupported?: no How hard is it for you to pay for the very basics like food, housing, medical care, and heating? Would you say it is:: Not hard at all Do you want help finding or keeping work or a job?: I do not need or want help If for any reason you need help with day-to-day activities such as bathing, preparing meals, shopping, managing finances, etc., do you get the help you need?: I get all the help I need How often do you feel lonely or isolated from those around you?: Never Do you speak a language other than Portuguese at home?: No Does the patient want assistance with any of the above?: No Health Related Social Needs Health related social needs details: N/A
--- NOTE | 2025-04-27 15:15 | PHA.REVIEW2 ---
Pharmacy Admission Review Admission Clinical Review Admission Pharmacy Review: Gram-positive cocci bacteremia (Acute) Hyponatremia (Acute) Neutrophilic leukocytosis (Acute) Sepsis (Acute) No Known Allergies Allergy (Verified 03/19/25 07:11) Resuscitation Status Full Code Height 5 ft 9 in Weight 99.7 kg Pharmacy Admission Review Renal Dosing Renal Dosing: BUN 9 mg/dL (7-18) 04/27/25 06:20 Creatinine 0.7 mg/dL (0.70-1.30) 04/27/25 06:20 Medications needing adjustments: Reviewed (CrCl 89.15 mL/min) List of meds needing interventions: Current medications are okay Anticoagulation Anticoagulation: Hgb 9.8 g/dL (13.5-17.5) L 04/27/25 06:20 Hct 29.1 % (40.0-50.0) L 04/27/25 06:20 Plt Count 267 10^3/uL (130-400) 04/27/25 06:20 Creatinine 0.7 mg/dL (0.70-1.30) 04/27/25 06:20 DVT Prophylaxis: Reviewed (SCDs) Relevant Labs Relevant Labs: Sodium 137 mmol/L (136-145) 04/27/25 06:20 Potassium 3.9 mmol/L (3.5-5.1) 04/27/25 06:20 Chloride 102 mmol/L (98-107) 04/27/25 06:20 Magnesium 1.9 mg/dL (1.8-2.4) 04/25/25 03:00 Electrolytes, C-Reactive P, ESR: Reviewed Cardiac Review Cardiac Review: Troponin I 39 ng/L (<or=76) 04/24/25 20:25 BP, HR, EF%: Reviewed (HR and BP WNL) List meds needing interventions: Has orders for amlodipine 5mg daily, furosemide 20mg daily and isosorbide mononitrate CR 60mg daily QTc Review QTc: Reviewed (457 from 04/24/25) IV to PO Switch IV Medications: Reviewed (ceftriaxone) Home Meds Home Med List reviewed: Intervened Relevent Home Meds Not ordered & why?: Zakia - reached out to provider who is holding for now Asked nurse to see what dose of atorvastatin patient takes at home. Has 20mg daily on home med list but most recently filled for 80mg daily. Per nurse it is 80mg daily. Updated home med list and informed provider. Provider added order for atorvastatin 80mg daily and I discontinued the 20mg daily order. Current Meds Current Medication Order Review: Intervened Comments: Added IV access order Pharmacy Antibiotic Review Relevant Labs: WBC 9.54 10^3/uL (4.4-10.8) 04/27/25 06:20 Temperature 36.2 C Temperature 36.7 C Temperature 36.8 C Temperature 36.7 C Microbiology 04/26/25 10:10 Blood Culture - Preliminary Blood NO GROWTH 24 HOURS 04/26/25 10:00 Blood Culture - Preliminary Blood NO GROWTH 24 HOURS 04/24/25 18:00 Blood Culture - Final Blood Strep mitis/oralis 04/24/25 17:50 Blood Culture - Final Blood Strep mitis/oralis Pharmacy Antibiotic Activity: C/S review and Reviewed, no change Comments: Patient is on ceftriaxone, day 3, for sepsis/bacteremia. Vancomycin was discontinued today and ceftriaxone was increased from 1g daily to 2g daily. WBC decreased from 11.65.
--- NOTE | 2025-04-27 15:40 | CHAPLAIN ---
Agatha was resting in bed when I visited. He said he's beginning to slowly feel better. He's waiting for some test results to see if he still has sepsis. The had three stents put in at [facility] a few months ago, and he worries that one of them may have cause the infection. Agatha talked about his dying two years ago next month, and said he was told he might have broken heart syndrome and we talked about how that could be a very real thing. He took care of his for a couple of hears before she , and Agatha talked about the morning he left for work, and she a few hours later. He said his kids and grandkids are very supportive and help him out. I will continue to visit.
[2025-04-27 20:34] LABS: B. miyamotoi PCR Negative (Negative); Babesia divergens/MO-1 Negative (Negative); Ehrlichia muris eauclairensis Negative (Negative)
[2025-04-27] MEDS: cefTRIAXone 2 GM/50 ML BAG IVPB (21:24)
[2025-04-27] MEDS: Atorvastatin 40 MG TAB 80 MG PO (21:24)
[2025-04-28 03:15] VITALS: BP 128/71; PULSE 78; RESP 16; TEMP 36.8; O2SAT 96
[2025-04-28] MEDS: Pantoprazole 40 MG TABCR PO (06:40)
[2025-04-28 07:14] VITALS: BP 123/72; PULSE 82; RESP 16; TEMP 36.8; O2SAT 98
[2025-04-28 07:40] LABS: Abs Immature Grans 0.11 10^3/uL (0.0-0.06); HCT 31.1 % (40.0-50.0); HGB 10.6 g/dL (13.5-17.5); Immature Grans % 1.2 %; MCH 30.9 pg (27.0-33.0); MCHC 34.1 % (32.0-36.0); MCV 91 fL (80-95); MPV 9.2 fL (8.0-11.0); Platelet Count 323 10^3/uL (130-400); RBC 3.43 10^6/uL (4.36-5.78); RDW 11.9 % (11.8-14.1); RDW-SD 39.4 fL; WBC 9.28 10^3/uL (4.4-10.8)
[2025-04-28] MEDS: Aspirin 81 MG CHEW PO (07:44)
[2025-04-28] MEDS: Isosorbide Mononitrate 30 MG TABCR 60 MG PO (07:44)
[2025-04-28] MEDS: Ranolazine 500 MG TABCR PO (07:44)
[2025-04-28] MEDS: Famotidine 20 MG TAB PO (07:44)
[2025-04-28] MEDS: Ezetimibe 10 MG TAB PO (07:44)
[2025-04-28] MEDS: Sertraline 50 MG TAB PO (07:44)
[2025-04-28] MEDS: Sucralfate 1 GM TAB PO ×2 (07:44→10:56)
[2025-04-28] MEDS: Normal Saline Flush 10 ML SYR IVP (07:45)
[2025-04-28] MEDS: amLODIPine 5 MG TAB PO (07:45)
[2025-04-28] MEDS: Furosemide 20 MG TAB PO (07:45)
[2025-04-28 08:05] LABS: Anion Gap 12.3 mmol/L (3-11); BUN 10 mg/dL (7-18); CO2 24.7 mmol/L (21.0-32.0); Calcium 8.8 mg/dL (8.5-10.1); Chloride 98 mmol/L (98-107); Estimated GFR 100.06 (mL/min/1.73m2); Glucose 176 mg/dL (74-106); Magnesium 2.0 mg/dL (1.8-2.4); Potassium 4.0 mmol/L (3.5-5.1); Sodium 135 mmol/L (136-145)
--- NOTE | 2025-04-28 09:07 | CMDISCH_ITS ---
Date of service: 04/28/25 Time of Service: 09:07 LACE Index Scoring Tool Questions: Length of Stay (in days): 4 - 6 Was the patient admitted via the E.D.?: Yes E.D. Visits: 7 Answers: Total Score: 11 Risk of Readmission: High Risk Care Management Discharge Plan Reason for Hospitalization: Sepsis Discharge Plan: Agatha is discharged home via private vehicle with family. Patient will follow up with community providers and continue per his discharge plan of care. No new services were ordered prior to discharge. Patient/Family Education Needs: Review discharge instructions and plan to follow up after discharge. Discuss ask me three. SDOH Health Related Social Needs: Health related social needs transpo insecurity lonely/ isolated Health related social needs details N/A Health related social needs details: N/A
[2025-04-28] MEDS: Enoxaparin 40 MG/0.4 ML SYR SC (10:22)
[2025-04-28 10:53] VITALS: BP 123/67; PULSE 85; RESP 16; TEMP 36.6; O2SAT 97
--- NOTE | 2025-04-28 12:08 | W.PM.DS.N ---
Date of service: 04/28/25 Time of Service: 12:10 DS: Diagnosis Discharge Diagnosis (1) Sepsis: Status: Acute (2) Gram-positive cocci bacteremia: Status: Acute (3) Neutrophilic leukocytosis: Status: Acute (4) Hyponatremia: Status: Acute (5) CAD (coronary artery disease), mcgrath coronary artery: Status: Chronic (6) Benign essential hypertension: Status: Chronic (7) Depression: Status: Chronic (8) DVT (deep venous thrombosis): Status: Chronic Discharge Plan Disposition Patient Disposition: Against Medical Advice Condition: Improving Discharge Details Reason For Visit: Sepsis Admit Date/Time: 04/24/25 20:55 Admit Provider: Benjie Chauhan Attending Provider: Benjie Chauhan Primary Care Provider: None,Abigail Hospital Course Hospital Course: This 60-year-old male with a PMHx of thoracic aortic aneurysm, nicotine and ETOH dependence, CAD, multiple stents placement , NC, neck fusion surgery presented on 04/24/25 to the emergency department for evaluation of fever/chills, fatigue, weakness, and chest discomfort, right neck, right shoulder and tingling in the right arm that has since progressed to inability to lift the arm.Febrile and tachycardic on presentation but normotensive; work-up in the ED showed leukocytosis, hyperlactemia, hyponatremia; cardiac work-up negative for ACS. Imaging showed no acute intrathoracic findings, subacute healing fractures of the left 4th, 5th, and 6th ribs as well as a completely healed fracture of the 7th rib. Also some fluid is seen in the proximal right side of the colon which may represent diarrhea or impending diarrhea w/o evidence of bowel obstruction, free air, abscess or ascites. Blood culture were drawan and treatment initiated with IVF, and IV antibiotics. The patient was admitted to the hospitalist service to the medical surgical floor for sepsis unknown origin, hyponatremia. The patient continued to receive vancomycin, ceftriaxone and doxycycline intravenously on the floor with final transition to IV ceftriaxone as blood cultures grew Streptococcus mitis oralis in 2 bottles. Subsequent cultures completed on 04/26/2025 remained negative to date. The patient will continue IV antibiotic treatment with ceftriaxone 2 g IV every 24 hours via midline for 14 days ( end date 05/10/2025) at an [facility] outpatient infusion center with follow-up within 7 days of discharge with primary care practitioner. Echocardiogram completed 04/24/2025 failed to rule in valvular vegetations; LVEF 55-60 without segmental wall motion abnormalities, moderate aortic stenosis, trace mitral regurgitation with annular calcification and trace tricuspid pulmonic regurgitation; similar to study completed on 02/03/2025. In the setting of cardiac history, provider is recommending referral by primary care practitioner for N[facility]OL[facility] at [facility]. Source was not found but patient reporting poor teeth condition and getting remaining teeth pulled out on 05/11/25 to get dentures. The patient is hemodynamically stable afebrile and will be discharged home after completion of midline insertion this afternoon. Patient elected to not wait for midline insertion to go smoke, refusing NRT. And patient elected to leave now against medical advice. Still scheduled to continue IV antibiotic infusion at [facility] outpatient infusion center at 13:00 on 04/29/25 as agreed upon around 12:[address] Lorenzo Recommendations for Follow Up Recommended tests to be ordered by follow up provider: Recommendation for NICHOLAS outpatient, outpatient CBC results and outpatient IV antibiotic regimen Home Meds and New Rx's Prescriptions: New ceftriaxone in dextrose,iso-os 2 gram/50 mL Piggyback 2 g IVPB Q24H Qty: 12 0RF Continued albuterol sulfate 90 mcg/actuation HFA aerosol inhaler 2 inh INHALATION Q6H PRN Patient Comments: INHALE 2 PUFFS BY MOUTH EVERY 6 HOURS, NEEDED FOR SHORTNESS OF BREATH OR WHEEZING sertraline 50 mg tablet 50 mg PO DAILY Patient Comments: TAKE ONE TABLET BY MOUTH EVERY DAY aspirin 81 mg Tablet,Chewable 81 mg PO DAILY Qty: 30 0RF acetaminophen 325 mg Tablet 650 mg PO Q6H PRNQty: 30 0RF sucralfate 1 gram tablet 1 g PO QACHS Qty: 120 0RF pantoprazole [Protonix] 40 mg tablet,delayed release (DR/EC) 40 mg PO BID Qty: 60 0RF famotidine 20 mg tablet 20 mg PO DAILY Qty: 30 0RF isosorbide mononitrate 60 mg tablet extended release 24 hr 60 mg PO DAILY Patient Comments: TAKE ONE TABLET BY MOUTH EVERY MORNING atorvastatin 80 mg tablet 80 mg PO QPM Patient Comments: TAKE ONE TABLET BY MOUTH EVERY EVENING amlodipine 5 mg tablet 5 mg PO DAILY Qty: 30 0RF ranolazine 500 mg Tablet Extended Release 12 Hr 500 mg PO BID Qty: 90 0RF ezetimibe 10 mg tablet 10 mg PO DAILY Patient Comments: TAKE ONE TABLET BY MOUTH EVERY DAY varenicline tartrate 1 mg tablet 1 mg PO BID Patient Comments: TAKE 1 TABLET BY MOUTH 2 TIMES DAILY - THIS MEDICATION SHOULD BE TAKEN IN THE MIDDLE OF YOUR LARGEST MEAL(S) WITH A FULL GLASS OF WATER. DO furosemide [Lasix] 20 mg tablet 20 mg PO DAILY Qty: 30 0RF Discharge Instructions Referrals: None,None [Primary Care Provider, Unknown] Referral Note: Boaz Garrido- [facility] - follow-up within 7 days , please [facility] [address] [address] Activity:: Activity as Tolerated Equipment/Supplies:: No Equipment Needed Diet:: heart healthy Discharge Data Discharge Date/Time-TO BE ENTERED AT DEPARTURE: 04/28/25 14:25 Discharge Comment: Discharged AMA DS: Summary Time Spent with Patient providing and/or coordinating discharge services: Greater than 30 minutes Status at Discharge Functional status at discharge: independent ambulation Overall status at discharge: patient is progressing back to baseline Mental Status: mental status grossly normal Speech and Movement: agitated Mood: anxious mood and labile mood Affect: labile affect and anxious affect Quality:SDOH Health Related Social Needs: Health related social needs transpo insecurity lonely/isolated Health related social needs details N/A Health related social needs details: N/A Exam Narrative Exam Narrative: Ill and plae looking, appearing older than stated age male non-icteric sclera, mostly edentulous, poor teeth condition, no oral cavity wound or erhythma , no meningeal sings , no JVD. neurologically intact , A&O X4, cardiovascular regular rate and rhythm positive systolic murmur, respirations even and unlabored, clear lungs , abdomen round non- distended, soft round nontender No CVa tenderness, moves all 4 extremities no peripheral edema moves, no skin lesion or rashes seen on exposed skin or reported psychiatric congruent -anxious Psych Mental Status: mental status grossly normal Speech and Movement: agitated Mood: anxious mood and labile mood Affect: labile affect and anxious affect DS: Data Vitals/I&O Vitals and I&O: Vital Signs Temperature 36.6 C 04/28/25 10:53 Temperature Source Temporal Artery Scan 04/28/25 10:53 Pulse 85 10/02/25 10:53 Pulse 96 H 04/24/25 20:30 Respiratory Rate 16 04/28/25 10:53 Respiratory Effort Non-Labored, Short of Breath 04/24/25 21:53 Respiratory Depth Normal 04/24/25 21:53 Blood Pressure 123/67 04/28/25 10:53 Blood Pressure Mean 85 04/28/25 10:53 Blood Pressure Position Sitting 04/24/25 17:28 Pulse Oximetry 97 04/28/25 10:53 Oxygen Delivery Method Room Air 04/28/25 10:53 Oxygen Flow Rate 0 04/28/25 10:53 Pain Level 0 04/28/25 07:14 Intake & Output 04/27/25 04/28/25 04/28/25 23:59 11:59 23:59 Intake Total 180 / 180 Balance 180 / 180 Intake: Oral 180 / 180 Other: Urine Color Yellow Yellow Urine Appearance Clear Clear Urine Odor Normal Normal Comment pt. voids ind. in the toilet. pt. voids to the toilet. Data Completed and Pending Labs on day of discharge: Labs from last 24 hours 04/28/25 04/24/25 07:00 18:00 WBC 9.28 RBC 3.43 L Hgb 10.6 L Hct 31.1 L MCV 91 MCH 30.9 MCHC 34.1 RDW 11.9 Plt Count 323 MPV 9.2 Immature Gran % 1.2 Neutrophils % 74.7 Lymphocytes % 15.1 Monocytes % 7.2 Eosinophils % 1.3 Basophils % 0.5 Nucleated RBC % 0.0 Absolute Neutrophils 6.93 H Absolute Lymphocytes 1.40 Absolute Monocytes 0.67 Absolute Eosinophils 0.12 Absolute Basophils 0.05 Sodium 135 L Potassium 4.0 Chloride 98 Carbon Dioxide 24.7 Anion Gap 12.3 H BUN 10 Creatinine 0.8 Est GFR (CKD-EPI 2020) 100.06 Glucose 176 H Calcium 8.8 Magnesium 2.0 B. divergens/MO-1 PCR Negative Babesia duncani (PCR) Negative Babesia microti DNA PCR Negative E.chaffeensis DNA (PCR) Negative E.ewingii/canis DNA PCR Negative E.muris eauclairensis (PCR) Negative A. phagocytophilum (PCR) Negative Blood B. miyamotoi (PCR) Negative Preliminary micro results at discharge 04/26/25 10:10 Blood Blood Culture - Preliminary NO GROWTH 24 HOURS 04/26/25 10:00 Blood Blood Culture - Preliminary NO GROWTH 24 HOURS PFSH All Active Problems (Updated 04/28/25 @ 09:22 by Rylee Garza APRN) DVT (deep venous thrombosis) (Chronic) Severe sepsis (Acute) Gram-positive cocci bacteremia (Acute) Gram-positive bacteremia (Acute) Hyponatremia (Acute) Neutrophilic leukocytosis (Acute) Sepsis (Acute) Acute alcohol intoxication (Acute) Substance use disorder (Chronic) CAD (coronary artery disease), mcgrath coronary artery (Chronic) Depression (Chronic) Aneurysm, thoracic aortic (Acute) Benign essential hypertension (Chronic) RCA occlusion (Acute) Social History Smoking/Tobacco Use Status: Current every day Tobacco Type: cigarettes Years smoked: 41 Smoking risk assessment performed?: Yes Alcohol Intake: current Alcohol Intake frequency: a few times a month Drug use: Never Substance use type: does not use Housing: apartment Do you feel safe at home: Yes Do you feel safe in your relationship?: Yes Time Spent with Patient Time Spent with Patient: >85 minutes Time was spent: preparing to see the patient(eg.review tests), obtaining and/or reviewing separately otained hiistory, ordering medications,tests, procedures, referring, communicating with other health critical care paramedic, indepentently interpreting results, counseling the patient, care coordination and other
--- NOTE | 2025-04-28 14:40 | NUR.NOTE ---
This nurse talked with patient about antibiotic therapy, he request go home today, he was eager to smoke nicotine, patient left the floor for 15 min accompanied of GEAR KEEPER, patient comes back and asked for discharge, this nurse waiting for discharge order from BUILDING WRECKER, patient leave floor at 1425, CN informed and BUILDING WRECKER info
== END 2025-04-28 14:25 | disposition left against medical advice (07) | DRG 872 ==
LOC: ER 20:55 → MS 21:25
PROVIDERS: Admitting Provider Family Medicine; Emergency Provider Nurse Practitioner Family; Responsible Provider Nurse Practitioner Acute Care; Visit Provider Family Medicine
DX: A40.8 Other streptococcal sepsis (principal); E87.1 Hypo-osmolality and hyponatremia; I25.10 Atherosclerotic heart disease of native coronary artery without angina pectoris; F32.A Depression, unspecified; I10 Essential (primary) hypertension; I25.2 Old myocardial infarction; Z95.5 Presence of coronary angioplasty implant and graft; Z98.1 Arthrodesis status; I71.20 Thoracic aortic aneurysm, without rupture, unspecified; Z59.82 Transportation insecurity; F19.90 Other psychoactive substance use, unspecified, uncomplicated; F17.210 Nicotine dependence, cigarettes, uncomplicated; D72.828 Other elevated white blood cell count; R45.89 Other symptoms and signs involving emotional state; I35.0 Nonrheumatic aortic (valve) stenosis
CPT/HCPCS: 00123; 36415; 74177; 80048; 80053; 87040; 87077; 87637; 87798; 93005; 94640; 96361; 96365; 96367; 96368; 97110; 97161; 97530; 99285; J1650; 71260; 80202; 81003; 81015; 83605; 83735; 84484; 85025; 86618; 87186; 93010; 93306; 99222; 99233; 99239; J0696; J3373; J3490; J7620

== ENCOUNTER 2025-04-29 12:42 | Emergency (ER) | payer MEDICAID, SELFPAY ==
[2025-04-29] VITALS (22 sets, daily range): BP systolic 91–119; BP diastolic 46–67; PULSE 79–87; RESP 13–27; TEMP 36.3; O2SAT 94–99
--- NOTE | 2025-04-29 13:08 | W.ED.GENAD ---
Discharge Plan Disposition Patient Disposition: Home Condition: Stable Discharge Details Clinical Impression: Bacteremia Primary Care Provider: Boaz Garrido ED Provider: Mirna Queen Home Meds and New Rx's Prescriptions: Continued albuterol sulfate 90 mcg/actuation HFA aerosol inhaler 2 inh INHALATION Q6H PRN Patient Comments: INHALE 2 PUFFS BY MOUTH EVERY 6 HOURS, NEEDED FOR SHORTNESS OF BREATH OR WHEEZING sertraline 50 mg tablet 50 mg PO DAILY Patient Comments: TAKE ONE TABLET BY MOUTH EVERY DAY aspirin 81 mg Tablet,Chewable 81 mg PO DAILY Qty: 30 0RF acetaminophen 325 mg Tablet 650 mg PO Q6H PRNQty: 30 0RF sucralfate 1 gram tablet 1 g PO QACHS Qty: 120 0RF pantoprazole [Protonix] 40 mg tablet,delayed release (DR/EC) 40 mg PO BID Qty: 60 0RF famotidine 20 mg tablet 20 mg PO DAILY Qty: 30 0RF isosorbide mononitrate 60 mg tablet extended release 24 hr 60 mg PO DAILY Patient Comments: TAKE ONE TABLET BY MOUTH EVERY MORNING atorvastatin 80 mg tablet 80 mg PO QPM Patient Comments: TAKE ONE TABLET BY MOUTH EVERY EVENING ceftriaxone in dextrose,iso-os 2 gram/50 mL Piggyback 2 g IVPB Q24H Qty: 12 0RF amlodipine 5 mg tablet 5 mg PO DAILY Qty: 30 0RF ranolazine 500 mg Tablet Extended Release 12 Hr 500 mg PO BID Qty: 90 0RF ezetimibe 10 mg tablet 10 mg PO DAILY Patient Comments: TAKE ONE TABLET BY MOUTH EVERY DAY varenicline tartrate 1 mg tablet 1 mg PO BID Patient Comments: TAKE 1 TABLET BY MOUTH 2 TIMES DAILY - THIS MEDICATION SHOULD BE TAKEN IN THE MIDDLE OF YOUR LARGEST MEAL(S) WITH A FULL GLASS OF WATER. DO furosemide [Lasix] 20 mg tablet 20 mg PO DAILY Qty: 30 0RF Discharge Instructions Instructions: Sepsis, Adult (DC), Ceftriaxone Additional Instructions: Please present to the infusion center tomorrow as previously scheduled for your antibiotic infusion. You were given 2 g of Rocephin or ceftriaxone today while here in the emergency department. Please increase oral fluids. Follow up with primary care provider in 3-5 days. Return to ED sooner if any worsening or concerns. Please take Tylenol or Ibuprofen with food every 4-6 hours as needed for pain and swelling. Referrals: Boaz Garrido MD [Primary Care Provider, Medicine] - 3 days Referral Note: Admission follow-up, bacteremia HPI General Mode of arrival: wheelchair. Date/Time Provider Initiated Documentation: 04/29/25 12:51. Limitations to Documentation: no limitations. Information obtained by: patient, RN notes reviewed and old records reviewed. HPI Narrative: 60-year-old male presents to the ER with a chief complaint of feeling generally unwell. Patient was admitted to [facility] and left AMA yesterday while waiting for PICC line insertion. Patient does have outpatient antibiotic infusions ordered for ceftriaxone 2 g every 24 hours. He does present hypotensive with a blood pressure of 81/53 heart rate is 81. He reports increased fatigue and blurry vision which has returned since being home over the last 12 hours. He was receiving vancomycin, doxycycline, and Rocephin for sepsis. Blood cultures prior to 04/26 were growing strep mitis oralis, the last blood cultures drawn on 04/26 showed no growth. Related Data Home Medications ?Medication ?Instructions ?Recorded ?Confirmed albuterol sulfate 90 mcg/actuation 2 inh inhalation Q6H PRN 02/02/25 04/29/25 aerosol inhaler sertraline 50 mg tablet 50 mg PO DAILY 02/02/25 04/29/25 aspirin 81 mg chewable tablet 81 mg PO DAILY #30 tabs 02/03/25 04/29/25 amlodipine 5 mg tablet 5 mg PO DAILY #30 tabs 02/14/25 04/29/25 ranolazine 500 mg tablet,extended 500 mg PO BID #90 tabs 02/15/25 04/29/25 release,12 hr acetaminophen 325 mg tablet 650 mg (2 x 325 mg) PO Q6H PRN #30 03/03/25 04/29/25 tabs famotidine 20 mg tablet 20 mg PO DAILY #30 tabs 03/03/25 04/29/25 pantoprazole 40 mg tablet,delayed 40 mg PO BID #60 tabs 03/03/25 04/29/25 release (Protonix) sucralfate 1 gram tablet 1 g PO QACHS #120 tabs 03/03/25 04/29/25 ezetimibe 10 mg tablet 10 mg PO DAILY 03/19/25 04/29/25 furosemide 20 mg tablet (Lasix) 20 mg PO DAILY #30 tabs 03/19/25 04/29/25 varenicline tartrate 1 mg tablet 1 mg PO BID 03/19/25 04/29/25 atorvastatin 80 mg tablet 80 mg PO QPM 04/27/25 04/29/25 isosorbide mononitrate 60 mg 60 mg PO DAILY 04/27/25 04/29/25 tablet,extended release 24 hr ceftriaxone 2 gram/50 mL in 2 g (50 mL) IVPB Q24H #12 ea 04/28/25 04/29/25 dextrose (iso-osm) intravenous piggyback Previous Rx's ?Medication ?Instructions ?Recorded aspirin 81 mg chewable tablet 81 mg PO DAILY #30 tabs 02/03/25 amlodipine 5 mg tablet 5 mg PO DAILY #30 tabs 02/14/25 ranolazine 500 mg tablet,extended 500 mg PO BID #90 tabs 02/15/25 release,12 hr acetaminophen 325 mg tablet 650 mg (2 x 325 mg) PO Q6H PRN #30 03/03/25 tabs famotidine 20 mg tablet 20 mg PO DAILY #30 tabs 03/03/25 pantoprazole 40 mg tablet,delayed 40 mg PO BID #60 tabs 03/03/25 release (Protonix) sucralfate 1 gram tablet 1 g PO QACHS #120 tabs 03/03/25 furosemide 20 mg tablet (Lasix) 20 mg PO DAILY #30 tabs 03/19/25 ceftriaxone 2 gram/50 mL in 2 g (50 mL) IVPB Q24H #12 ea 04/28/25 dextrose (iso-osm) intravenous piggyback Allergies Allergy/AdvReac Type Severity Reaction Status Date / Time No Known Allergies Allergy Verified 03/19/25 07:11 General Stated Complaint: GenMedical ADY: 2 Review of Systems All systems reviewed & are unremarkable except as noted in HPI and below Constitutional Constitutional: Reports as per HPI, Reports body ache(s), Reports daytime sleepiness, Reports fatigue and Reports malaise Cardiovascular Cardiovascular: Denies chest pain and Denies dyspnea Respiratory Respiratory: Denies dyspnea Endocrine Endocrine: Reports fatigue Exam Narrative Exam Narrative: Constitutional: Alert and oriented x3. Appears stated age. Normal body habitus. Appears fatigued. Head: Normocephalic, no trauma. Eyes: Pupils PERRL, Red reflex noted, EOM's intact. Eyelids symmetrical without lesions, discharge, or swelling. ENT: Bilateral TM's WNL, External ear normal to inspection, no mastoid TTP, swelling, or erythema, Nasal turbinates WNL, no nasal discharge. Normal dentition, Posterior pharynx WNL, no exudate. Chest: RRR, Normal S1, S2, distal pulses intact. Resp: Lungs clear to auscultation bilaterally, no wheezes, rales, or rhonchi. Abdomen: Soft, non-distended, Normoactive bowel sounds all 4 quads. Musculoskeletal: Normal gait, Moves all 4 extremities without difficulty. Skin: No suspicious rashes or lesions. Capillary refill less than 2 sec. Neurologic: Cranial nerves II-XII intact. Alert and oriented x 3. Motor: No deficits noted. Hematologic/Lymphatic: No ecchymosis, no lymphadenopathy. Course Vital Signs Vital signs: Vital Signs Temperature 36.3 C L 04/29/25 12:45 Pulse 85 04/29/25 12:45 Respiratory Rate 16 04/29/25 12:45 Blood Pressure 91/58 L 04/29/25 12:45 Pulse Oximetry 95 04/29/25 12:45 Temperature 36.3 C L 04/29/25 12:45 Temperature Source Oral 04/29/25 12:45 Pulse 85 04/29/25 12:45 Respiratory Rate 16 04/29/25 12:45 Blood Pressure 91/58 L 04/29/25 12:45 Pulse Oximetry 95 04/29/25 12:45 Oxygen Delivery Method Room Air 04/29/25 12:45 Oxygen Flow Rate 0 04/29/25 12:45 Medical Decision Making 60-year-old male presents to the ER with a chief complaint of feeling generally unwell. Patient was admitted to [facility] and left AMA yesterday while waiting for PICC line insertion. Patient does have outpatient antibiotic infusions ordered for ceftriaxone 2 g every 24 hours. He does present hypotensive with a blood pressure of 81/53 heart rate is 81. He reports increased fatigue and blurry vision which has returned since being home over the last 12 hours. He was receiving vancomycin, doxycycline, and Rocephin for sepsis. Blood cultures prior to 04/26 were growing strep mitis oralis, the last blood cultures drawn on 04/26 showed no growth. See medical record review below, CBC CMP lactate blood cultures x 2 ordered, ceftriaxone 2 g IV piggyback, 1 L NS ordered as this was the plan for outpatient infusion. Blood pressure has improved after liter of fluid to 112/46 heart rate is 82 O2 sat 95%. No leukocytosis hemoglobin 10.9 hematocrit 32.1 which is at patient's baseline. Lactate 1.4, CMP normal limits gap 15.7 glucose 160 alk phos 121. Patient received the Rocephin 2 g IV piggyback. Will instruct to follow-up with infusion center tomorrow as previously directed for additional IV inffusion. Blood pressure at this time is 107/67 with a MAP of 81, This text was generated using [employer] dictation system, please disregard any oddities of phrase or misspellings. Medical Records Medical records reviewed: Yes I reviewed the patient's medical records. Medical records narrative: Hospital Course Hospital Course: This 60-year-old male with a PMHx of thoracic aortic aneurysm, nicotine and ETOH dependence, CAD, multiple stents placement , NH, neck fusion surgery presented on 04/24/25 to the emergency department for evaluation of fever/chills, fatigue, weakness, and chest discomfort, right neck, right shoulder and tingling in the right arm that has since progressed to inability to lift the arm.Febrile and tachycardic on presentation but normotensive; work-up in the ED showed leukocytosis, hyperlactemia, hyponatremia; cardiac work-up negative for ACS. Imaging showed no acute intrathoracic findings, subacute healing fractures of the left 4th, 5th, and 6th ribs as well as a completely healed fracture of the 7th rib. Also some fluid is seen in the proximal right side of the colon which may represent diarrhea or impending diarrhea w/o evidence of bowel obstruction, free air, abscess or ascites. Blood culture were drawan and treatment initiated with IVF, and IV antibiotics. The patient was admitted to the hospitalist service to the medical surgical floor for sepsis unknown origin, hyponatremia. The patient continued to receive vancomycin, ceftriaxone and doxycycline intravenously on the floor with final transition to IV ceftriaxone as blood cultures grew Streptococcus mitis oralis in 2 bottles. Subsequent cultures completed on 04/26/2025 remained negative to date. The patient will continue IV antibiotic treatment with ceftriaxone 2 g IV every 24 hours via midline for 14 days ( end date 05/10/2025) at an [facility] outpatient infusion center with follow-up within 7 days of discharge with primary care practitioner. Echocardiogram completed 04/24/2025 failed to rule in valvular vegetations; LVEF 55-60 without segmental wall motion abnormalities, moderate aortic stenosis, trace mitral regurgitation with annular calcification and trace tricuspid pulmonic regurgitation; similar to study completed on 02/03/2025. In the setting of cardiac history, provider is recommending referral by primary care practitioner for NICHOLAS at [facility]. Source was not found but patient reporting poor teeth condition and getting remaining teeth pulled out on 05/11/25 to get dentures. The patient is hemodynamically stable afebrile and will be discharged home after completion of midline insertion this afternoon. Patient elected to not wait for midline insertion to go smoke, refusing NRT. And patient elected to leave now against medical advice. Still scheduled to continue IV antibiotic infusion at [facility] outpatient infusion center at 13:00 on 04/29/25 as agreed upon around 12:[address] Lorenzo Recommendations for Follow Up Recommended tests to be ordered by follow up provider: Recommendation for NICHOLAS outpatient, outpatient CBC results and outpatient IV antibiotic regimen Quality:SDOH Health Related Social Needs: Health related social needs transpo insecurity lonely/isolated Health related social needs details N/A PFSH All Active Problems (Updated 04/29/25 @ 14:44 by Mirna Queen NP) Bacteremia (Acute) Severe sepsis (Acute) Gram-positive cocci bacteremia (Acute) Gram-positive bacteremia (Acute) Hyponatremia (Acute) Acute alcohol intoxication (Acute) Substance use disorder (Chronic) CAD (coronary artery disease), [place] coronary artery (Chronic) Depression (Chronic) Aneurysm, thoracic aortic (Acute) Benign essential hypertension (Chronic) RCA occlusion (Acute) Medical History (Updated 04/29/25 @ 14:44 by Mirna Queen NP) Neutrophilic leukocytosis Sepsis Social History Smoking/Tobacco Use Status: Current every day Tobacco Type: cigarettes Years smoked: 41 Smoking risk assessment performed?: Yes Alcohol Intake: current Alcohol Intake frequency: a few times a month Drug use: Never Substance use type: does not use Housing: apartment Do you feel safe at home: Yes Do you feel safe in your relationship?: Yes
[2025-04-29 13:35] LABS: Abs Immature Grans 0.21 10^3/uL (0.0-0.06); HCT 32.1 % (40.0-50.0); HGB 10.9 g/dL (13.5-17.5); Immature Grans % 2.3 %; MCH 31.2 pg (27.0-33.0); MCHC 34.0 % (32.0-36.0); MCV 92 fL (80-95); MPV 9.0 fL (8.0-11.0); Platelet Count 347 10^3/uL (130-400); RBC 3.49 10^6/uL (4.36-5.78); RDW 12.0 % (11.8-14.1); RDW-SD 40.8 fL; WBC 9.12 10^3/uL (4.4-10.8)
[2025-04-29] MEDS: cefTRIAXone 2 GM/50 ML BAG IVPB (13:41)
[2025-04-29] MEDS: Normal Saline 1,000 ML 1000 ML IV (13:42)
[2025-04-29 13:47] LABS: ALT 49 U/L (16-63); AST 20 U/L (15-37); Albumin 3.1 g/dL (3.4-5.0); Alkaline Phosphatase 121 U/L (46-116); Anion Gap 15.7 mmol/L (3-11); BUN 10 mg/dL (7-18); Bilirubin, Total 0.2 mg/dL (0.2-1.0); CO2 22.3 mmol/L (21.0-32.0); Calcium 8.8 mg/dL (8.5-10.1); Chloride 102 mmol/L (98-107); Estimated GFR 75.90 (mL/min/1.73m2); Glucose 160 mg/dL (74-106); Magnesium 2.1 mg/dL (1.8-2.4); Potassium 3.9 mmol/L (3.5-5.1); Sodium 140 mmol/L (136-145); Total Protein 7.8 g/dL (6.4-8.2)
--- NOTE | 2025-05-02 17:18 | NUR.NOTE ---
Access chart to determine if a referral was done and completed. Nursing Note:
== END 2025-04-29 15:00 | disposition home or self-care (01) ==
PROVIDERS: Emergency Provider Registered Nurse Emergency; PCP Family Medicine
DX: R78.81 Bacteremia (principal); R65.20 Severe sepsis without septic shock; E87.1 Hypo-osmolality and hyponatremia; Z72.0 Tobacco use; F10.90 Alcohol use, unspecified, uncomplicated; Z86.79 Personal history of other diseases of the circulatory system
CPT/HCPCS: 36415; 80053; 87040; 96361; 96365; 99284; 81003; 83605; 83735; 85025; J0696

== ENCOUNTER 2025-05-10 02:33 | Outpatient (RCR) | payer MEDICAID, SELFPAY ==
[2025-04-30] MEDS: cefTRIAXone 2 GM/50 ML BAG IVPB (13:12)
[2025-04-30] MEDS: Normal Saline Flush 10 ML SYR IVP (13:14)
[2025-05-01] MEDS: cefTRIAXone 2 GM/50 ML BAG IVPB (12:45)
[2025-05-01] MEDS: Normal Saline Flush 10 ML SYR IVP (12:46)
[2025-05-02] MEDS: cefTRIAXone 2 GM/50 ML BAG IVPB (13:05)
[2025-05-02 13:26] VITALS: BP 95/59; PULSE 92; RESP 22; TEMP 36.5; O2SAT 96
[2025-05-02] MEDS: Normal Saline Flush 10 ML SYR IVP (13:31)
[2025-05-03] MEDS: cefTRIAXone 2 GM/50 ML BAG IVPB (12:33)
[2025-05-03] MEDS: Normal Saline Flush 10 ML SYR IVP (12:33)
[2025-05-03 12:39] VITALS: BP 102/69; PULSE 87; RESP 19; TEMP 36.8; O2SAT 96
[2025-05-04 12:36] VITALS: BP 109/72; PULSE 82; RESP 18; TEMP 37.2; O2SAT 97
[2025-05-04] MEDS: Normal Saline Flush 10 ML SYR IVP (12:37)
[2025-05-04] MEDS: cefTRIAXone 2 GM/50 ML BAG IVPB (12:37)
[2025-05-05] MEDS: Normal Saline Flush 10 ML SYR IVP (12:55)
[2025-05-05] MEDS: cefTRIAXone 2 GM/50 ML BAG IVPB (12:55)
[2025-05-05 13:43] LABS: HCT 34.4 % (40.0-50.0); HGB 11.5 g/dL (13.5-17.5); MCH 31.3 pg (27.0-33.0); MCHC 33.4 % (32.0-36.0); MCV 94 fL (80-95); MPV 9.5 fL (8.0-11.0); Platelet Count 368 10^3/uL (130-400); RBC 3.67 10^6/uL (4.36-5.78); RDW 12.5 % (11.8-14.1); RDW-SD 42.5 fL; WBC 10.19 10^3/uL (4.4-10.8)
[2025-05-06] MEDS: cefTRIAXone 2 GM/50 ML BAG IVPB (12:49)
[2025-05-06] MEDS: Normal Saline Flush 10 ML SYR IVP (12:50)
[2025-05-07] MEDS: cefTRIAXone 2 GM/50 ML BAG IVPB (12:20)
[2025-05-07] MEDS: Normal Saline Flush 10 ML SYR IVP (12:20)
[2025-05-08] MEDS: Normal Saline Flush 10 ML SYR IVP (11:51)
[2025-05-08] MEDS: cefTRIAXone 2 GM/50 ML BAG IVPB (11:52)
[2025-05-09] MEDS: Normal Saline Flush 10 ML SYR IVP (13:25)
[2025-05-09] MEDS: cefTRIAXone 2 GM/50 ML BAG IVPB (13:25)
[2025-05-10] MEDS: cefTRIAXone 2 GM/50 ML BAG IVPB (12:18)
[2025-05-10] MEDS: Normal Saline Flush 10 ML SYR IVP (12:18)
== END 2025-05-27 23:59 | disposition home or self-care (01) ==
LOC: INF 02:33
PROVIDERS: PCP Family Medicine; Visit Provider Nurse Practitioner Acute Care
DX: R78.81 Bacteremia (principal)
CPT/HCPCS: 36415; 36591; 85027; 96365; J0696

== ENCOUNTER 2025-05-13 13:02 | Inpatient (IN) | payer MEDICAID, SELFPAY ==
[2025-05-13] VITALS (16 sets, daily range): BP systolic 85–120; BP diastolic 48–78; PULSE 70–94; RESP 13–23; TEMP 36.9–37; O2SAT 91–98
--- NOTE | 2025-05-13 13:00 | RT.EKG_ITS ---
APPROVED REPORT Exam: Resting ECG Reason for Exam: chest pain Patient Location: E HR:80 bpm ECG Measurements Heart Rate 80 AXIS KS 174 P 51 QRSd 119 QRS -10 QT 391 T 26 QTc 450 Conclusion Sinus rhythm, rate 80 No interval abnormalities Q waves II, III, aVF, new from prior No STEMI
--- NOTE | 2025-05-13 13:15 | DI.CT_ITS ---
Exam(s) CT THORAX ABD/PEL CTA EXAM: CT THORAX ABD/PEL CTA CLINICAL HISTORY: Chest pain concern for dissection. TECHNIQUE: Imaging Protocol: Axial CT angiography was performed with multi- slice acquisition and multi-planar and/or 3D reconstructions. Lung Computer Aided Detection (CAD) was utilized. CONTRAST MATERIAL: Intravenous: Omnipaque 350 contrast volume:100 mL Oral: No COMPARISON: CT CT THORAX ABD/PEL CTA from 02/04/[address] ABDOMEN PELVIS CTA from 02/13/[address] CHEST PE ABD PELVIS W from 03/02/[address] THORAX ABD/PEL CTA from 03/27/[address] CHEST/ABD/PEL W from 04/24/2025 FINDINGS: CHEST: Tracheobronchial tree: Patent where visualized. There is no evidence of bronchiectasis. Pulmonary parenchyma: No consolidation or dominant measurable mass. No architectural distortion. Pulmonary Arteries: No evidence of filling defect to suggest pulmonary emboli. Mediastinum and [place]: No dominant adenopathy or fluid collection. The esophagus is unremarkable. Visualized thyroid: Unremarkable. Pleura: No effusion or pneumothorax. Heart: The heart is not dilated. Coronary artery calcifications are present. No pericardial effusion. Aorta: Thoracic aorta non-dilated. There is no evidence of dissection. Atherosclerotic calcification is present. Soft Tissues: Unremarkable. Bones: Within normal limits for the patient's age.There are old left rib fractures. ABDOMEN AND PELVIS: Abdomen: Celiac axis/mesenteric arteries: No evidence of occlusion or significant stenosis. Renal Arteries: No evidence of occlusion or significant stenosis. There is mild atherosclerosis at the origins but no significant stenosis. Aorta: No evidence of occlusion or significant stenosis. No aneurysm or dissection. Atherosclerotic disease is present. Pelvis: Iliac Arteries: No evidence of occlusion or significant stenosis. Atherosclerotic disease is present. Common Femoral Arteries: No evidence of occlusion or significant stenosis. ABDOMEN: Liver: Normal density. No measurable mass. Portal, superior mesenteric and splenic veins: Unremarkable. Gallbladder and Biliary Tract: No radiodense calculus or dilation. Pancreas: Normal density, no abnormal calcifications or inflammatory process. Spleen: Normal. Adrenals: No masses seen. Kidneys: Normal size, contour and axis. No radiodense stones or obstructive uropathy. No masses seen. Bowel: No obstruction or bowel wall thickening. There is stool throughout the colon suggesting constipation. There is a normal appendix present. Peritoneal Cavity: No ascites, collection or mesenteric inflammatory response. No free air. Lymph Nodes: Within normal limits. Bones: Within normal limits for the patient's age. Soft Tissues: There is a tiny fat containing umbilical hernia. PELVIS: Bladder: Symmetric distention, no gross wall thickening. Reproductive Organs: Unremarkable as visualized. Lymph Nodes: Within normal limits. Bones: Within normal limits for the patient's age. IMPRESSION: 1. There is no evidence of a pulmonary embolism, thoracic aortic dissection or aneurysm. 2. There is no acute pulmonary process. 3. There is no evidence of an abdominal aortic aneurysm or dissection. 4. There is no acute abdominal or pelvic process. 5. There is stool throughout the colon suggesting constipation. RADIATION DOSE DELIVERED: 1,113.89mGy.cm Total DLP DATA REPOSITORY: All CT scans at this facility are submitted to the National Radiology Data Registry (NRDR) Dose Index Registry (DIR) with the [employer] (ACR). RADIATION OPTIMIZATION: All CT scans at this facility use at least one of these dose optimization techniques: automated exposure control; mA and/or kV adjustment per patient size (includes targeted exams where dose is matched to clinical indication); or iterative reconstruction.
[2025-05-13 13:30] LABS: Abs Immature Grans 0.04 10^3/uL (0.0-0.06); HCT 33.6 % (40.0-50.0); HGB 11.2 g/dL (13.5-17.5); Immature Grans % 0.5 %; MCH 30.7 pg (27.0-33.0); MCHC 33.3 % (32.0-36.0); MCV 92 fL (80-95); MPV 10.1 fL (8.0-11.0); Platelet Count 263 10^3/uL (130-400); RBC 3.65 10^6/uL (4.36-5.78); RDW 12.7 % (11.8-14.1); RDW-SD 43.0 fL; WBC 7.64 10^3/uL (4.4-10.8)
[2025-05-13] MEDS: Aspirin 81 MG CHEW 324 MG CH (13:35)
[2025-05-13] MEDS: Lactated Ringers 1,000 ML 1000 ML IV (13:36)
--- NOTE | 2025-05-13 13:39 | W.ED.GENAD ---
Discharge Plan Disposition Patient Disposition: Admit to [facility] Condition: Stable Discharge Details Clinical Impression: Unstable angina, RCA occlusion, CAD (coronary artery disease), [place] coronary artery Primary Care Provider: Boaz Garrido ED Provider: Dee Christie Home Meds and New Rx's Prescriptions: No Action albuterol sulfate 90 mcg/actuation HFA aerosol inhaler 2 inh INHALATION Q6H PRN Patient Comments: INHALE 2 PUFFS BY MOUTH EVERY 6 HOURS, NEEDED FOR SHORTNESS OF BREATH OR WHEEZING sertraline 50 mg tablet 50 mg PO DAILY Patient Comments: TAKE ONE TABLET BY MOUTH EVERY DAY aspirin 81 mg Tablet,Chewable 81 mg PO DAILY Qty: 30 0RF acetaminophen 325 mg Tablet 650 mg PO Q6H PRNQty: 30 0RF sucralfate 1 gram tablet 1 g PO QACHS Qty: 120 0RF pantoprazole [Protonix] 40 mg tablet,delayed release (DR/EC) 40 mg PO BID Qty: 60 0RF famotidine 20 mg tablet 20 mg PO DAILY Qty: 30 0RF isosorbide mononitrate 60 mg tablet extended release 24 hr 60 mg PO DAILY Patient Comments: TAKE ONE TABLET BY MOUTH EVERY MORNING atorvastatin 80 mg tablet 80 mg PO QPM Patient Comments: TAKE ONE TABLET BY MOUTH EVERY EVENING lisinopril 10 mg tablet 10 mg PO DAILY Patient Comments: TAKE ONE TABLET BY MOUTH EVERY DAY amlodipine 5 mg tablet 5 mg PO DAILY Qty: 30 0RF ranolazine 500 mg Tablet Extended Release 12 Hr 500 mg PO BID Qty: 90 0RF ezetimibe 10 mg tablet 10 mg PO DAILY Patient Comments: TAKE ONE TABLET BY MOUTH EVERY DAY varenicline tartrate 1 mg tablet 1 mg PO BID Patient Comments: TAKE 1 TABLET BY MOUTH 2 TIMES DAILY - THIS MEDICATION SHOULD BE TAKEN IN THE MIDDLE OF YOUR LARGEST MEAL(S) WITH A FULL GLASS OF WATER. DO furosemide [Lasix] 20 mg tablet 20 mg PO DAILY Qty: 30 0RF HPI General Mode of arrival: ambulatory. Date/Time Provider Initiated Documentation: 05/13/25 13:10. Limitations to Documentation: no limitations. Information obtained by: patient and old records reviewed. HPI Narrative: This is a 60-year-old male patient with a past medical history significant for coronary artery disease, status post 3 cardiac stents, reported to be waiting for a fourth stent, as well as a history of hypertension, thoracic aortic aneurysm, presenting for evaluation of sudden onset chest pain. The patient reports that the pain is severe, seems to wax and wane without identified propagating or palliating factors. He states that this occurred about 1 hour ago while he was eating tacos. No significant exertion, last night the patient reports he did develop a severe lower back pain, which is not typical for him. He has otherwise been in his normal state of health. He took 2 nitroglycerin prior to arrival with no improvement in his pain. I was able to review the patient's [facility] notes, most recent cardiology note from about 1 month ago notes a high grade lesion in the RCA ostium, that was unable to be stented during the last cath. He has had ongoing anginal symptoms attributed to this lesion, and is scheduled for catheterization which has not yet occurred. Related Data Home Medications ?Medication ?Instructions ?Recorded ?Confirmed albuterol sulfate 90 mcg/actuation 2 inh inhalation Q6H PRN 02/02/25 05/13/25 aerosol inhaler sertraline 50 mg tablet 50 mg PO DAILY 02/02/25 05/13/25 aspirin 81 mg chewable tablet 81 mg PO DAILY #30 tabs 02/03/25 05/13/25 amlodipine 5 mg tablet 5 mg PO DAILY #30 tabs 02/14/25 05/13/25 ranolazine 500 mg tablet,extended 500 mg PO BID #90 tabs 02/15/25 05/13/25 release,12 hr acetaminophen 325 mg tablet 650 mg (2 x 325 mg) PO Q6H PRN #30 03/03/25 05/13/25 tabs famotidine 20 mg tablet 20 mg PO DAILY #30 tabs 03/03/25 05/13/25 pantoprazole 40 mg tablet,delayed 40 mg PO BID #60 tabs 03/03/25 05/13/25 release (Protonix) sucralfate 1 gram tablet 1 g PO QACHS #120 tabs 03/03/25 05/13/25 ezetimibe 10 mg tablet 10 mg PO DAILY 03/19/25 05/13/25 furosemide 20 mg tablet (Lasix) 20 mg PO DAILY #30 tabs 03/19/25 05/13/25 varenicline tartrate 1 mg tablet 1 mg PO BID 03/19/25 05/13/25 atorvastatin 80 mg tablet 80 mg PO QPM 04/27/25 05/13/25 isosorbide mononitrate 60 mg 60 mg PO DAILY 04/27/25 05/13/25 tablet,extended release 24 hr lisinopril 10 mg tablet 10 mg PO DAILY 05/13/25 05/13/25 Previous Rx's ?Medication ?Instructions ?Recorded aspirin 81 mg chewable tablet 81 mg PO DAILY #30 tabs 02/03/25 amlodipine 5 mg tablet 5 mg PO DAILY #30 tabs 02/14/25 ranolazine 500 mg tablet,extended 500 mg PO BID #90 tabs 02/15/25 release,12 hr acetaminophen 325 mg tablet 650 mg (2 x 325 mg) PO Q6H PRN #30 03/03/25 tabs famotidine 20 mg tablet 20 mg PO DAILY #30 tabs 03/03/25 pantoprazole 40 mg tablet,delayed 40 mg PO BID #60 tabs 03/03/25 release (Protonix) sucralfate 1 gram tablet 1 g PO QACHS #120 tabs 03/03/25 furosemide 20 mg tablet (Lasix) 20 mg PO DAILY #30 tabs 03/19/25 Allergies Allergy/AdvReac Type Severity Reaction Status Date / Time No Known Allergies Allergy Verified 03/19/25 07:11 General Stated Complaint: Chest Pain ADY: 2 Exam Narrative Exam Narrative: Gen: Awake and alert, appears uncomfortable HEENT: Non-icteric sclera Neck: Supple Lungs: No apparent respiratory distress, normal respiratory effort. Lung sounds clear and equal bilaterally, no reproduction of the chest pain with deep breath CV: Appears well perfused, strong and symmetrical distal pulses, no murmurs auscultated, heart with regular rate and rhythm. Chest wall without overlying skin changes, no tenderness to palpation of the chest. Abdomen: Non-distended MSK: Moves 4 extremities without apparent limitation in ROM. No peripheral edema, no unilateral calf swelling or tenderness Skin: Visualized skin without rashes, cyanosis. Neuro: Normal Gait, no obvious focal deficits or facial asymmetry. Speaks in full, clear sentences. Psych: Appropriate for situation. Course Vital Signs Vital signs: Vital Signs Temperature 36.9 C 05/13/25 13:05 Pulse 94 H 05/13/25 13:05 Respiratory Rate 16 05/13/25 13:05 Blood Pressure 85/48 L 05/13/25 13:05 Pulse Oximetry 91 L 05/13/25 13:05 Temperature 36.9 C 05/13/25 13:05 Pulse 94 H 05/13/25 13:05 Respiratory Rate 16 05/13/25 13:05 Blood Pressure 85/48 L 05/13/25 13:05 Pulse Oximetry 91 L 05/13/25 13:05 Pain Level 8 05/13/25 13:05 Lab/Test Results Lab/Test Results: Laboratory Tests Range/Units 05/13/25 13:19 WBC (4.4-10.8) 10^3/uL 7.64 RBC (4.36-5.78) 10^6/uL 3.65 L Hgb (13.5-17.5) g/dL 11.2 L Hct (40.0-50.0) % 33.6 L MCV (80-95) fL 92 MCH (27.0-33.0) pg 30.7 MCHC (32.0-36.0) % 33.3 RDW (11.8-14.1) % 12.7 Plt Count (130-400) 10^3/uL 263 MPV (8.0-11.0) fL 10.1 Immature Gran % % 0.5 Neutrophils % % 62.0 Lymphocytes % % 24.6 Monocytes % % 10.7 Eosinophils % % 1.4 Basophils % % 0.8 Nucleated RBC % (0.0-0.3) % 0.0 Absolute Neutrophils (1.2-6.7) 10^3/uL 4.73 Absolute Lymphocytes (1.2-3.4) 10^3/uL 1.88 Absolute Monocytes (0.1-0.8) 10^3/uL 0.82 H Absolute Eosinophils (0.0-0.7) 10^3/uL 0.11 Absolute Basophils (0.0-0.2) 10^3/uL 0.06 Medical Decision Making This is a 60-year-old male patient presenting for evaluation of chest pain. My differential includes but is not limited to ACS including STEMI, NSTEMI, unstable angina, certainly considered arrhythmia, pericarditis/myocarditis, aortic pathology. Considered pulmonary abnormalities including pneumonia, bronchitis, pleural effusion, pulmonary edema, reactive airway disease, pneumothorax. The patient is without tachycardia, hypoxia, or a pleuritic component to his pain to significantly increase my concern for pulmonary embolism. No GI symptoms or vomiting to suggest Boerhaave's, esophagitis, peptic ulcer disease, pancreatitis. Considered musculoskeletal pathologies including costochondritis, chest wall pain. EKG obtained, showing a sinus rhythm with new Q waves in the inferior leads that were not apparent on most recent prior. He does not meet STEMI criteria. We will provide the patient with a full 325 of aspirin, I will hold nitroglycerin given the patient's low blood pressure, which seems to be recovering spontaneously and is likely due to the patient's home administration of nitroglycerin. Will obtain labs to include CBC, CMP, magnesium, troponin, BNP, and will proceed with a CT angio of the chest, abdomen, and pelvis given the associated back pain, and the history of thoracic aortic aneurysm. - I reviewed the patient's laboratory studies, which show no leukocytosis, stable anemia and no thrombocytopenia. Chemistry panel reveals no significant electrolyte derangements nor evidence of kidney dysfunction or liver disease. Initial troponin is low in the 1 hour is without significant delta increase. However, given that the patient has not had chest pain for less than 6 hours, and is having ongoing chest pain with a robust cardiac history I feel that he warrants further trending of troponins. BNP is low and the lipase is below the cutoff of 3 times the upper limit of normal for concern for pancreatitis in the absence of symptoms. CT imaging reviewed by myself, shows no evidence of PE, aortic dissection or aneurysm, or other abnormalities to explain the patient's chest pain. I consulted cardiology, given my concern for unstable angina in this patient with a known high-grade RCA lesion. He has not had improvement in his chest pain despite nitroglycerin and morphine. I feel that he would benefit from admission, heparinization, and eventual transfer to a cath capable facility. I did provide him with the heparin bolus and drip here in the emergency department. Dr. Gay with [facility] [place] [place] cardiology has graciously accepted this patient to their service, but unfortunately they are not accepting until bed availability improves tomorrow. For this reason I reached out to the hospitalist team here at [facility], who will admit the patient for serial troponins while awaiting transfer to [facility]. I did provide the patient with a dose of his home Plavix as well as atorvastatin and, he remained hemodynamically appropriate and was transferred to the hospitalist service without incident. Dee Christie MD Quality:SDOH Health Related Social Needs: Health related social needs risk of homeless food insecurity transpo insecurity finding work Health related social needs details Pt in contact with [facility] All Active Problems (Updated 05/13/25 @ 17:07 by Dee Christie MD) Unstable angina (Acute) Bacteremia (Acute) Severe sepsis (Acute) Gram-positive cocci bacteremia (Acute) Gram-positive bacteremia (Acute) Hyponatremia (Acute) Acute alcohol intoxication (Acute) Substance use disorder (Chronic) CAD (coronary artery disease), [place] coronary artery (Chronic) Depression (Chronic) Aneurysm, thoracic aortic (Acute) Benign essential hypertension (Chronic) RCA occlusion (Acute) Medical History (Updated 05/13/25 @ 17:07 by Dee Christie MD) Neutrophilic leukocytosis Sepsis Social History Smoking/Tobacco Use Status: Current every day Tobacco Type: cigarettes Years smoked: 41 Smoking risk assessment performed?: Yes Alcohol Intake: current Alcohol Intake frequency: a few times a month Drug use: Never Substance use type: does not use Housing: apartment Do you feel safe at home: Yes Do you feel safe in your relationship?: Yes
[2025-05-13] MEDS: Omnipaque 350 MG/ML 100 ML BTL IJ (13:41)
[2025-05-13] MEDS: Normal Saline Flush 10 ML SYR IVP ×2 (13:41→19:32)
[2025-05-13] MEDS: Normal Saline - Diluent 50 ML VIAL IJ (13:41)
[2025-05-13 13:54] LABS: ALT 37 U/L (16-63); AST 23 U/L (15-37); Albumin 3.5 g/dL (3.4-5.0); Alkaline Phosphatase 147 U/L (46-116); Anion Gap 13.2 mmol/L (3-11); BUN 20 mg/dL (7-18); Bilirubin, Total 0.3 mg/dL (0.2-1.0); CO2 21.8 mmol/L (21.0-32.0); Calcium 8.6 mg/dL (8.5-10.1); Chloride 100 mmol/L (98-107); Estimated GFR 75.90 (mL/min/1.73m2); Glucose 150 mg/dL (74-106); Lipase 91 U/L (<78); Magnesium 2.3 mg/dL (1.8-2.4); NT-proBNP 215 pg/mL (<300); Potassium 4.3 mmol/L (3.5-5.1); Sodium 135 mmol/L (136-145); Total Protein 7.7 g/dL (6.4-8.2); Troponin I 11 ng/L (<or=76)
[2025-05-13] MEDS: MORPHine 4 MG/ML SYR IVP (14:53)
[2025-05-13 14:59] LABS: Troponin I 12 ng/L (<or=76)
[2025-05-13] MEDS: Heparin in 0.45% NaCl 25,000 UNIT/250 ML BAG 10 UNIT IVINF (16:59)
[2025-05-13] MEDS: Clopidogrel 75 MG TAB PO (17:05)
[2025-05-13] MEDS: Atorvastatin 40 MG TAB 80 MG PO ×2 (17:05→19:31)
[2025-05-13 17:17] LABS: Troponin I 11 ng/L (<or=76)
--- NOTE | 2025-05-13 17:56 | W.PC.ACHO ---
Registration Status: REG ER Primary Language: Preferred Language: ED Information & Data Chief Complaint Chest Pain 05/13/25 13:39 Triage Note extensive cardiac hx, 3 05/13/25 13:05 stents, waiting on a 4th. 1 he ago cp/pressure started, nausea and SOB. took x2 nitro with no relief Medical / Surgical History (Last Reviewed 03/02/25 @ 22:24 by Mirna Queen NP) Neutrophilic leukocytosis Sepsis Most Recent Vital Signs Temperature 36.9 C 05/13/25 13:05 Pulse 84 05/13/25 16:48 Pulse 81 05/13/25 13:31 Respiratory Rate 20 05/13/25 16:48 Respiratory Effort Normal 05/13/25 13:37 Respiratory Depth Normal 05/13/25 13:37 Respiratory Pattern Normal 05/13/25 13:37 Blood Pressure 101/64 05/13/25 16:48 Blood Pressure Mean 76 05/13/25 16:48 Pulse Oximetry 94 05/13/25 16:48 Oxygen Delivery Method Room Air 05/13/25 16:48 Oxygen Flow Rate 0 05/13/25 16:48 Pain Level 6 05/13/25 14:53 Allergies No Known Allergies Allergy (Verified 03/19/25 07:11) Active Medications Generic Name Dose Route Start Last Admin Trade Name Freq PRN Reason Stop Dose Admin Heparin Sodium/Sodium Chloride 25,000 unit in 250 mls @ 0 mls/hr 05/13/25 17:00 05/13/25 16:59 IVINF 10 mls/hr INFUSION HEATHER 10 mls/hr Protocol Administration Per Protocol Iohexol 100 ml 05/13/25 13:45 05/13/25 13:41 Omnipaque 350 Mg/Ml 100 Ml Btl IJ 06/12/25 23:59 100 ml DIRECTED HEATHER Administration Sodium Chloride 0 ml 05/13/25 13:40 05/13/25 13:41 Normal Saline Flush 10 Ml Syr IVP 10 ml PRN PRN Administration Sodium Chloride 50 ml 05/13/25 13:45 05/13/25 13:41 Normal Saline - Diluent 50 Ml Vial IJ 50 ml DIRECTED HEATHER Administration IV IV Catheter Type [Left Wrist] Saline Lock IV Catheter Type [Right Saline Lock Antecubital] IV Catheter Gauge [Left Wrist] 18 IV Catheter Gauge [Right 18 Antecubital] Diagnostics 05/13/25 05/13/2505/13/25 Range/Units 16:45 14:25 13:19 WBC 7.64 (4.4-10.8) 10^3/uL RBC 3.65 L (4.36-5.78) 10^6/uL Hgb 11.2 L (13.5-17.5) g/dL Hct 33.6 L (40.0-50.0) % MCV 92 (80-95) fL MCH 30.7 (27.0-33.0) pg MCHC 33.3 (32.0-36.0) % RDW 12.7 (11.8-14.1) % Plt Count 263 (130-400) 10^3/uL MPV 10.1 (8.0-11.0) fL Immature Gran % 0.5 % Neutrophils % 62.0 % Lymphocytes % 24.6 % Monocytes % 10.7 % Eosinophils % 1.4 % Basophils % 0.8 % Nucleated RBC % 0.0 (0.0-0.3) % Absolute Neutrophils 4.73 (1.2-6.7) 10^3/uL Absolute Lymphocytes 1.88 (1.2-3.4) 10^3/uL Absolute Monocytes 0.82 H (0.1-0.8) 10^3/uL Absolute Eosinophils 0.11 (0.0-0.7) 10^3/uL Absolute Basophils 0.06 (0.0-0.2) 10^3/uL Sodium 135 L (136-145) mmol/L Potassium 4.3 (3.5-5.1) mmol/L Chloride 100 (98-107) mmol/L Carbon Dioxide 21.8 (21.0-32.0) mmol/L Anion Gap 13.2 H (3-11) mmol/L BUN 20 H (7-18) mg/dL Creatinine 1.1 (0.70-1.30) mg/dL Est GFR (CKD-EPI 2020) 75.90 (mL/min/1.73m2) Glucose 150 H (74-106) mg/dL Calcium 8.6 (8.5-10.1) mg/dL Magnesium 2.3 (1.8-2.4) mg/dL Total Bilirubin 0.3 (0.2-1.0) mg/dL AST 23 (15-37) U/L ALT 37 (16-63) U/L Alkaline Phosphatase 147 H (46-116) U/L Troponin I 11 12 11 (<or=76) ng/L NT-Pro-B Natriuret Pep 215 (<300) pg/mL Total Protein 7.7 (6.4-8.2) g/dL Albumin 3.5 (3.4-5.0) g/dL Lipase 91 H (<78) U/L Intake and Output - 24 Hour Total 05/13/25 13:02 thru 05/13/25 14:41 Intake Total 1000 Balance 1000 Weight 98.883 kg Intake: IV 1000 Falls Risk Assessment History of Falls No History 05/13/25 13:37 Contributing Factors No Factors 05/13/25 13:37 Ambulatory Aids Independent 05/13/25 13:37 Tubes/Lines None 05/13/25 13:37 Gait Evaluation No gait disturbance 05/13/25 13:37 Cognition No cognitive impairment 05/13/25 13:37 Fall Total Score 0 05/13/25 13:37 Level of Risk Standard/Low Risk 05/13/25 13:37 v v v v v v v v v Sending and/or Receiving Nurses: Please use comment section below to note any information pertinent to the patient hand-off not included above. Information / Comments: Report received from: Jeyson SNOW from ED at 17:55
--- NOTE | 2025-05-13 18:40 | W.PM.HP.N ---
Date of service: 05/13/25 Time of Service: 18:40 Assessment and Plan Assessment and plan (1) Unstable angina: Status: Acute Assessment and plan: Unstable angina secondary to known high-grade RCA occlusion in the setting of multivessel CAD and prior stenting. No evidence of aortic dissection or PE on CT. EKG shows new inferior Q waves without STEMI. Initial and 1-hour troponins negative; however, ongoing pain and known critical lesion warrant admission and serial monitoring. Aspirin 325 mg given in ED Heparin bolus and drip initiated for ACS protocol Hold further nitroglycerin due to hypotension Continue home medications: statin, ranolazine, beta alaina, SONJA inhibitor Telemetry monitoring and serial troponins 11,12,11 ; serial EKGs Consulted cardiology ([facility]): accepted for transfer when bed available Supportive care: monitor hemodynamics, pain control, O2 as needed (2) RCA occlusion: Status: Acute Assessment and plan: As above (3) CAD (coronary artery disease), [place] coronary artery: Status: Chronic Assessment and plan: As above (4) Benign essential hypertension: Status: Chronic Assessment and plan: Stable Continue home meds (5) Depression: Status: Chronic Assessment and plan: Stable, Continue home meds History of Present Illness History of Present Illness Chief Complaint: Chest pain Narrative: 60-year-old male with CAD s/p 3 prior stents, thoracic aortic aneurysm, and hypertension presents with sudden onset substernal chest pain beginning 1 hour prior to arrival while eating. Pain described as severe, waxing and waning, not clearly exertional or pleuritic, and unrelieved by two nitroglycerin tablets taken prior to arrival. Reports lower back pain last night. No shortness of breath, diaphoresis, nausea, or vomiting. Recent cardiology note from [facility] indicates high-grade RCA ostial lesion not amenable to prior stenting with ongoing anginal symptoms, pending repeat catheterization. No evidence of aortic dissection or PE on CT. EKG shows new inferior Q waves without STEMI. Initial and 1-hour troponins negative; however, ongoing pain and known critical lesion warrant admission and serial monitoring. Diagnostics: EKG: Sinus rhythm, new Q waves in inferior leads, no STEMI pattern. Labs: Mild anemia (Hgb 11.2), normal WBC, platelets 263, electrolytes within normal limits, stable renal and liver function. Troponin low, 1-hour delta not significant. BNP and lipase normal. CTA Chest/Abdomen/Pelvis: No evidence of pulmonary embolism, thoracic or abdominal aortic aneurysm/dissection. No acute pulmonary, abdominal, or pelvic process. Stool throughout the colon suggesting constipation. Admit to [facility] for continued cardiac monitoring and serial enzymes pending transfer to [facility] for cardiac catheterization. Patient hemodynamically stable on heparin drip at time of admission. Patient is a full code. Patient agrees with plan of care and transfer to [facility]. Review of Systems Narrative: Constitutional: No fever, chills, or malaise Cardiac: Positive for chest pain; denies palpitations or syncope Respiratory: Denies cough, dyspnea, or pleuritic pain GI: Denies nausea, vomiting, or abdominal pain Neuro: No focal weakness, dizziness, or headache PFSH All Active Problems (Updated 05/13/25 @ 17:07 by Dee Christie MD) Unstable angina (Acute) Bacteremia (Acute) Severe sepsis (Acute) Gram-positive cocci bacteremia (Acute) Gram-positive bacteremia (Acute) Hyponatremia (Acute) Acute alcohol intoxication (Acute) Substance use disorder (Chronic) CAD (coronary artery disease), [place] coronary artery (Chronic) Depression (Chronic) Aneurysm, thoracic aortic (Acute) Benign essential hypertension (Chronic) RCA occlusion (Acute) Medical History (Updated 05/13/25 @ 17:07 by Dee Christie MD) Neutrophilic leukocytosis Sepsis Social History Smoking/Tobacco Use Status: Current every day Tobacco Type: cigarettes Years smoked: 41 Smoking risk assessment performed?: Yes Alcohol Intake: current Alcohol Intake frequency: a few times a month Drug use: Never Substance use type: does not use Housing: apartment Do you feel safe at home: Yes Do you feel safe in your relationship?: Yes Meds Allergies and Home Medications Allergies Allergy/AdvReac Type Severity Reaction Status Date / Time No Known Allergies Allergy Verified 03/19/25 07:11 Home Medications ?Medication ?Instructions ?Recorded ?Confirmed ?Type albuterol sulfate 90 mcg/actuation 2 inh inhalation Q6H PRN 02/02/25 05/13/25 History aerosol inhaler sertraline 50 mg tablet 50 mg PO DAILY 02/02/25 05/13/25 History aspirin 81 mg chewable tablet 81 mg PO DAILY #30 tabs 02/03/25 05/13/25 Rx amlodipine 5 mg tablet 5 mg PO DAILY #30 tabs 02/14/25 05/13/25 Rx ranolazine 500 mg tablet,extended 500 mg PO BID #90 tabs 02/15/25 05/13/25 Rx release,12 hr acetaminophen 325 mg tablet 650 mg (2 x 325 mg) PO Q6H PRN #30 03/03/25 05/13/25 Rx tabs famotidine 20 mg tablet 20 mg PO DAILY #30 tabs 03/03/25 05/13/25 Rx pantoprazole 40 mg tablet,delayed 40 mg PO BID #60 tabs 03/03/25 05/13/25 Rx release (Protonix) sucralfate 1 gram tablet 1 g PO QACHS #120 tabs 03/03/25 05/13/25 Rx ezetimibe 10 mg tablet 10 mg PO DAILY 03/19/25 05/13/25 History furosemide 20 mg tablet (Lasix) 20 mg PO DAILY #30 tabs 03/19/25 05/13/25 Rx varenicline tartrate 1 mg tablet 1 mg PO BID 03/19/25 05/13/25 History atorvastatin 80 mg tablet 80 mg PO QPM 04/27/25 05/13/25 History isosorbide mononitrate 60 mg 60 mg PO DAILY 04/27/25 05/13/25 History tablet,extended release 24 hr lisinopril 10 mg tablet 10 mg PO DAILY 05/13/25 05/13/25 History Exam Narrative Exam Narrative: General: Alert, uncomfortable but in no acute distress HEENT: Sclera non-icteric Neck: Supple, no JVD Lungs: Clear to auscultation bilaterally; no rales or wheezes Cardiac: Regular rate and rhythm, no murmurs, equal distal pulses Abdomen: Soft, non-distended, non-tender Extremities: No edema or calf tenderness Skin: Warm, no cyanosis or diaphoresis Neuro: Alert and oriented, speech clear, no focal deficits Results Labs 05/13/25 13:19 05/13/25 13:19 Labs: Laboratory Results - last 24 hr 05/13/25 05/13/25 05/13/25 13:19 14:25 16:45 WBC 7.64 RBC 3.65 L Hgb 11.2 L Hct 33.6 L MCV 92 MCH 30.7 MCHC 33.3 RDW 12.7 Plt Count 263 MPV 10.1 Immature Gran % 0.5 Neutrophils % 62.0 Lymphocytes % 24.6 Monocytes % 10.7 Eosinophils % 1.4 Basophils % 0.8 Nucleated RBC % 0.0 Absolute Neutrophils 4.73 Absolute Lymphocytes 1.88 Absolute Monocytes 0.82 H Absolute Eosinophils 0.11 Absolute Basophils 0.06 Sodium 135 L Potassium 4.3 Chloride 100 Carbon Dioxide 21.8 Anion Gap 13.2 H BUN 20 H Creatinine 1.1 Est GFR (CKD-EPI 2020) 75.90 Glucose 150 H Calcium 8.6 Magnesium 2.3 Total Bilirubin 0.3 AST 23 ALT 37 Alkaline Phosphatase 147 H Troponin I 11 12 11 NT-Pro-B Natriuret Pep 215 Total Protein 7.7 Albumin 3.5 Lipase 91 H Last Vital Signs Temp 36.9 C 05/13/25 13:05 Pulse 76 05/13/25 17:58 Resp 18 05/13/25 17:58 BP 108/65 05/13/25 17:58 Pulse Ox 94 05/13/25 17:58 Time Spent Time spent with Patient: 40-54 minutes Time was spent: preparing to see the patient(eg.review tests), obtaining and/or reviewing separately otained hiistory, ordering medications,tests, procedures, referring, communicating with other health resident care manager, indepentently interpreting results, counseling the patient and care coordination
[2025-05-13] MEDS: Ranolazine 500 MG TABCR PO (19:31)
[2025-05-13] MEDS: Pantoprazole 40 MG TABCR PO (19:31)
[2025-05-13] MEDS: Acetaminophen 325 MG TAB 650 MG PO (19:48)
[2025-05-13] MEDS: Normal Saline 1,000 ML 125 ML IV (20:01)
[2025-05-13] MEDS: Sucralfate 1 GM TAB PO (22:00)
[2025-05-13 23:50] LABS: PTT Activated 37.5 sec (20.6-30.2)
[2025-05-14] VITALS (8 sets, daily range): BP systolic 96–151; BP diastolic 7–81; PULSE 65–85; RESP 13–20; TEMP 36.8–37.2; O2SAT 95–97
[2025-05-14 06:14] LABS: Abs Immature Grans 0.06 10^3/uL (0.0-0.06); HCT 31.9 % (40.0-50.0); HGB 10.7 g/dL (13.5-17.5); Immature Grans % 0.9 %; MCH 30.9 pg (27.0-33.0); MCHC 33.5 % (32.0-36.0); MCV 92 fL (80-95); MPV 10.1 fL (8.0-11.0); Platelet Count 206 10^3/uL (130-400); RBC 3.46 10^6/uL (4.36-5.78); RDW 12.8 % (11.8-14.1); RDW-SD 43.4 fL; WBC 6.42 10^3/uL (4.4-10.8)
--- NOTE | 2025-05-14 06:15 | RT.EKG_ITS ---
APPROVED REPORT Exam: Resting ECG Reason for Exam: Chest Pain Patient Location: I HR:89 bpm ECG Measurements Heart Rate 89 AXIS IL 170 P 50 QRSd 118 QRS 3 QT 383 T 20 QTc 467 Conclusion Sinus rhythm...normal P axis, V-rate 50- 99 Nonspecific intraventricular conduction delay...QRSd >115mS, not LBBB/RBBB Inferior infarct, old...Q >35mS, II III aVF
[2025-05-14] MEDS: nitroGLYcerin 0.4 MG TAB SL ×3 (06:17→06:29)
[2025-05-14 06:25] LABS: Anion Gap 9.5 mmol/L (3-11); BUN 14 mg/dL (7-18); CO2 23.5 mmol/L (21.0-32.0); Calcium 8.5 mg/dL (8.5-10.1); Chloride 103 mmol/L (98-107); Estimated GFR 100.06 (mL/min/1.73m2); Glucose 152 mg/dL (74-106); Magnesium 2.1 mg/dL (1.8-2.4); Potassium 4.6 mmol/L (3.5-5.1); Sodium 136 mmol/L (136-145)
--- NOTE | 2025-05-14 06:28 | W.EVENT ---
Date of service: 05/14/25 Time of Service: 06:28 Event Note: This is a 60-year-old gentleman with CAD and known RCA which was unremarkable by cardiac catheterization with a history of stable angina pectoralis as an outpatient now admitted for unstable angina pectoralis on heparin infusion pending transfer to [facility] cardiology service pending bed availability. Early this morning he had a large bowel movement which had blood around it but no large amount of blood described as moderate by the nurse. He was constipated on imaging upon admission. He has some back discomfort and slight nausea with this event. Exam did reveal the patient slightly uncomfortable but not diaphoretic and able to speak normally. His abdomen was soft and nontender but his back was very tender to palpation over the right lower back which appear to be musculoskeletal. EKG was performed and had no acute changes with inferior changes stable and ST segments normal. Patient did have a repeat troponin, CBC, type and screen and morning lab performed. I did give him morphine 4 mg IV push which helped his back pain and his chest pain was resolving already with nitroglycerin sublingually as it usually does at home. This was chest pain at rest. His heparin was held and may be restarted after the day hospitalist reviews the patient's lab. Also [facility] [place] be called for possibly accepting patient earlier now needing to be concerned about GI bleed. Patient had never had endoscopies. Patient remains a full code. Time Spent with Patient Time spent in critical care(minutes): 30 Time Spent Included: Coordination of care, Chart review, Documenting critically ill care and Time at immediate bedside
[2025-05-14 06:33] LABS: Troponin I 12 ng/L (<or=76)
[2025-05-14 06:37] LABS: INR 1.0 (0.9-1.1); Prothrombin Time 9.9 sec (9.1-11.1)
[2025-05-14 06:39] LABS: PTT Activated 44.1 sec (20.6-30.2)
[2025-05-14] MEDS: MORPHine 4 MG/ML SYR IVP (06:40)
[2025-05-14] MEDS: Isosorbide Mononitrate 30 MG TABCR 60 MG PO (08:36)
[2025-05-14] MEDS: Aspirin 81 MG CHEW PO (08:36)
[2025-05-14] MEDS: Lisinopril 10 MG TAB PO (08:36)
[2025-05-14] MEDS: Ezetimibe 10 MG TAB PO (08:37)
[2025-05-14] MEDS: Pantoprazole 40 MG TABCR PO ×2 (08:37→19:45)
[2025-05-14] MEDS: Sertraline 50 MG TAB PO (08:37)
[2025-05-14] MEDS: Famotidine 20 MG TAB PO (08:37)
[2025-05-14] MEDS: amLODIPine 5 MG TAB PO (08:37)
[2025-05-14] MEDS: Sucralfate 1 GM TAB PO ×4 (08:37→21:14)
[2025-05-14] MEDS: Ranolazine 500 MG TABCR PO ×2 (08:37→19:45)
[2025-05-14] MEDS: Normal Saline Flush 10 ML SYR IVP ×2 (08:37→19:46)
[2025-05-14] MEDS: Clopidogrel 75 MG TAB PO (08:47)
--- NOTE | 2025-05-14 08:49 | PDOC.CMIN ---
Date of service: 05/14/25 Time of Service: 08:49 Care Management Initial Assmt Functional Status/Living Situation Town of Residence: [place] Resides with: Alone Advance Directives Advance Directives: Do you have an Advance Directive: N 02/02/25, 09:48 AD On File at [facility]: N 02/02/25, 09:48 Date Asked 05/13/25 05/13/25, 13:30 AD Date Reviewed COLST On File at [facility] COLST Date Scanned Code Status Resuscitation Status Full Code Care Team Visit Care Team Role Provider Type Boaz Garrido MD Primary Care Provider NON-[facility] STAFF PHYSICIAN Dee Christie MD Emergency Provider [facility] STAFF PHYSICIAN Akira Lorenzo Admit Provider [facility] STAFF PHYSICIAN Attending Provider Social Determinants of Health Screening Social Determinants of health last assessed in clinic: 05/13/25 Will the Patient Participate in the Screening?: Yes Do you worry about having a steady place to live?: no Problems where you live: no known problems In the past 12 months, have you had to go without electric, gas, oil or water in your home?: no Has lack of transportation kept you from medical appointments or from doing things needed for daily living?: no Has anyone in your life made you feel unsafe or unsupported?: no How hard is it for you to pay for the very basics like food, housing, medical care, and heating? Would you say it is:: Not hard at all Do you want help finding or keeping work or a job?: I do not need or want help If for any reason you need help with day-to-day activities such as bathing, preparing meals, shopping, managing finances, etc., do you get the help you need?: I get all the help I need How often do you feel lonely or isolated from those around you?: Sometimes Do you speak a language other than Syriac at home?: No Does the patient want assistance with any of the above?: No Health Related Social Needs Health related social needs: feeling lonely/isolated (Z60.8) Health related social needs details: i miss my PFSH All Active Problems (Updated 05/13/25 @ 17:07 by Dee Christie MD) Unstable angina (Acute) Bacteremia (Acute) Severe sepsis (Acute) Gram-positive cocci bacteremia (Acute) Gram-positive bacteremia (Acute) Hyponatremia (Acute) Acute alcohol intoxication (Acute) Substance use disorder (Chronic) CAD (coronary artery disease), [place] coronary artery (Chronic) Depression (Chronic) Aneurysm, thoracic aortic (Acute) Benign essential hypertension (Chronic) RCA occlusion (Acute) Medical History (Updated 05/13/25 @ 17:07 by Dee Christie MD) Neutrophilic leukocytosis Sepsis Social History Smoking/Tobacco Use Status: Current every day Tobacco Type: cigarettes Years smoked: 41 Smoking risk assessment performed?: Yes Alcohol Intake: current Alcohol Intake frequency: a few times a month Drug use: Never Substance use type: does not use Housing: apartment Do you feel safe at home: Yes Do you feel safe in your relationship?: Yes Readmission Within the Past 30 Days Yes or No: Yes Date of First Admission Date of 1st Admission: 04/24/25 Date of this Admission Date of Admission: 05/13/25 This admission was: Through ED
--- NOTE | 2025-05-14 12:14 | W.PM.DS.N ---
Date of service: 05/14/25 Time of Service: 12:14 DS: Diagnosis Discharge Diagnosis (1) Unstable angina: Status: Acute (2) RCA occlusion: Status: Acute (3) CAD (coronary artery disease), [place] coronary artery: Status: Chronic (4) Benign essential hypertension: Status: Chronic (5) Depression: Status: Chronic Discharge Plan Disposition Patient Disposition: Transfer-Acute Inpatient Care Specific Acute Inpt Facility: [facility] Condition: Fair Discharge Details Reason For Visit: Unstable Angina Admit Date/Time: 05/13/25 17:14 Admit Provider: Akira Lorenzo Attending Provider: Akira Lorenzo Primary Care Provider: Boaz Garrido Hospital Course Hospital Course: 60-year-old male with a history of coronary artery disease status post three stents, hypertension, and thoracic aortic aneurysm presented with acute onset substernal chest pain while eating. Pain was severe, persistent, and unrelieved by nitroglycerin. EKG showed sinus rhythm with new inferior Q waves but no STEMI. Initial and one-hour troponins were negative. CTA of the chest, abdomen, and pelvis showed no evidence of pulmonary embolism, dissection, aneurysm, or other acute process, with stool throughout the colon suggesting constipation. Given the patient?s known high-grade RCA lesion not previously amenable to stenting and persistent chest pain despite medical therapy, findings were consistent with unstable angina. The patient received aspirin 325 mg and was started on a heparin bolus and infusion per ACS protocol. Nitroglycerin was held due to hypotension, likely secondary to home dosing. Cardiology at [facility] was consulted and accepted the patient for transfer once a bed becomes available under the care of Dr. Gay with [facility] cardiology. On the morning of 05/14 he had an episode with a moderate amount of red blood in his stool with a bowel movement. Heparin drip was stopped. The chest pressure was unchanged. Hgb drawn around the time of the BM was 10.7. There were no masses or visible/palpable hemorrhoids on rectual exam, just a streak of dark blood. The patient had no history of GI bleed but has a history of alcohol use disorder, a mild chronic normocytic anemia with hemoglobins in the 11s-12s range, and no history of EGD or colonoscopy. He is on pantoprazole and famotidine chronically. Repeat EKG and troponin were essentially unchanged. The case was reviewed again with cardioloogy. Another hemoglobin at 2pm 05/14 was stable at 10.6, and troponin was flat at 11. Heparin drip was restarted prior to transfer. He also had some low-mid back pain more on the right, with some degree of tenderness in the right CVA area and surrounding musculature. CTA of the chest-pelvis was done on admission that did not show vascular or other pathology, including stones. He did have dysuria he mentioned just before transfer, urinalysis was pending at the moment of documentation. Home Meds and New Rx's Prescriptions: No Action albuterol sulfate 90 mcg/actuation HFA aerosol inhaler 2 inh INHALATION Q6H PRN Patient Comments: INHALE 2 PUFFS BY MOUTH EVERY 6 HOURS, NEEDED FOR SHORTNESS OF BREATH OR WHEEZING sertraline 50 mg tablet 50 mg PO DAILY Patient Comments: TAKE ONE TABLET BY MOUTH EVERY DAY aspirin 81 mg Tablet,Chewable 81 mg PO DAILY Qty: 30 0RF acetaminophen 325 mg Tablet 650 mg PO Q6H PRNQty: 30 0RF sucralfate 1 gram tablet 1 g PO QACHS Qty: 120 0RF pantoprazole [Protonix] 40 mg tablet,delayed release (DR/EC) 40 mg PO BID Qty: 60 0RF famotidine 20 mg tablet 20 mg PO DAILY Qty: 30 0RF isosorbide mononitrate 60 mg tablet extended release 24 hr 60 mg PO DAILY Patient Comments: TAKE ONE TABLET BY MOUTH EVERY MORNING atorvastatin 80 mg tablet 80 mg PO QPM Patient Comments: TAKE ONE TABLET BY MOUTH EVERY EVENING lisinopril 10 mg tablet 10 mg PO DAILY Patient Comments: TAKE ONE TABLET BY MOUTH EVERY DAY amlodipine 5 mg tablet 5 mg PO DAILY Qty: 30 0RF ranolazine 500 mg Tablet Extended Release 12 Hr 500 mg PO BID Qty: 90 0RF ezetimibe 10 mg tablet 10 mg PO DAILY Patient Comments: TAKE ONE TABLET BY MOUTH EVERY DAY varenicline tartrate 1 mg tablet 1 mg PO BID Patient Comments: TAKE 1 TABLET BY MOUTH 2 TIMES DAILY - THIS MEDICATION SHOULD BE TAKEN IN THE MIDDLE OF YOUR LARGEST MEAL(S) WITH A FULL GLASS OF WATER. DO furosemide [Lasix] 20 mg tablet 20 mg PO DAILY Qty: 30 0RF Discharge Instructions Activity:: Activity as Tolerated Equipment/Supplies:: No Equipment Needed Diet:: As Tolerated Discharge Orders Discharge Orders: Discharge Order (Routine); Ordered 05/14/25 Ordered By: Akira Lorenzo DS: Summary Time Spent with Patient providing and/or coordinating discharge services: Greater than 30 minutes Status at Discharge Functional status at discharge: independent ambulation Overall status at discharge: patient is not back to baseline Mental Status: mental status grossly normal Speech and Movement: speech and movement normal Mood: congruent mood Affect: normal affect Quality:SDOH Health Related Social Needs: Health related social needs lonely/isolated Health related social needs details i miss my Health related social needs details: i miss my Exam Narrative Exam Narrative: General: Alert, uncomfortable but in no acute distress HEENT: Sclera non-icteric, MMM Lungs: Clear to auscultation bilaterally; no rales or wheezes Cardiac: Regular rate and rhythm, 2/6 systolic murmur loudest at apex Abdomen: Soft, non-distended, non-tender. Some tenderness in right CVA Rectal: No masses or other lesions, streak of dark blood on glove. Extremities: No edema or calf tenderness Psych Mental Status: mental status grossly normal Speech and Movement: speech and movement normal Mood: congruent mood Affect: normal affect DS: Data Vitals/I&O Vitals and I&O: Vital Signs Temperature 37.2 C 05/14/25 11:45 Temperature Source Temporal Artery Scan 05/14/25 11:45 Pulse 85 05/14/25 11:45 Pulse Rhythm Regular 05/13/25 18:48 Pulse 81 05/13/25 13:31 Respiratory Rate 16 05/14/25 11:45 Respiratory Effort Normal 05/13/25 18:48 Respiratory Depth Normal 05/13/25 18:48 Respiratory Pattern Normal 05/13/25 18:48 Blood Pressure 96/67 L 05/14/25 11:45 Blood Pressure Mean 76 05/14/25 11:45 Pulse Oximetry 96 05/14/25 11:45 Oxygen Delivery Method Room Air 05/14/25 11:45 Oxygen Flow Rate 0 05/14/25 11:45 Pain Level 7 05/14/25 11:45 Comment PT requested to sleep. Refused vitals. 05/13/25 22:35 Intake & Output 05/13/25 05/14/25 05/14/25 23:59 11:59 23:59 Intake Total 2042 Output Total 600 / 600 1650 / 1650 Balance 1443 / 1443 377 / 377 Weight 95.8 kg Intake: IV 1083 / 1083 1187 / 1187 Oral 960 / 960 840 / 840 Output: Urine 600 / 600 1650 / 1650 Other: Urine Color Yellow Yellow Urine Appearance Clear Clear Urine Odor None Normal Stool Size Moderate Stool Characteristics Formed Brown Bloody Data Completed and Pending Labs on day of discharge: Labs from last 24 hours 05/14/25 05/14/25 05/14/25 06:20 06:15 06:02 WBC 6.42 RBC 3.46 L Hgb 10.7 L Hct 31.9 L MCV 92 MCH 30.9 MCHC 33.5 RDW 12.8 Plt Count 206 MPV 10.1 Immature Gran % 0.9 Neutrophils % 55.6 Lymphocytes % 30.5 Monocytes % 9.5 Eosinophils % 2.6 Basophils % 0.9 Nucleated RBC % 0.0 Absolute Neutrophils 3.56 Absolute Lymphocytes 1.96 Absolute Monocytes 0.61 Absolute Eosinophils 0.17 Absolute Basophils 0.06 PT 9.9 INR 1.0 APTT Cancelled 44.1 H Sodium 136 Potassium 4.6 Chloride 103 Carbon Dioxide 23.5 Anion Gap 9.5 BUN 14 Creatinine 0.8 Est GFR (CKD-EPI 2020) 100.06 Glucose 152 H Calcium 8.5 Magnesium 2.1 Total Bilirubin AST ALT Alkaline Phosphatase Troponin I 12 NT-Pro-B Natriuret Pep Total Protein Albumin Lipase ABO/Rh O Positive Antibody Screen NEGATIVE 05/13/25 05/13/25 05/13/25 23:30 16:45 14:25 WBC RBC Hgb Hct MCV MCH MCHC RDW Plt Count MPV Immature Gran % Neutrophils % Lymphocytes % Monocytes % Eosinophils % Basophils % Nucleated RBC % Absolute Neutrophils Absolute Lymphocytes Absolute Monocytes Absolute Eosinophils Absolute Basophils PT INR APTT 37.5 H Sodium Potassium Chloride Carbon Dioxide Anion Gap BUN Creatinine Est GFR (CKD-EPI 2020) Glucose Calcium Magnesium Total Bilirubin AST ALT Alkaline Phosphatase Troponin I 11 12 NT-Pro-B Natriuret Pep Total Protein Albumin Lipase ABO/Rh Antibody Screen 05/13/25 13:19 WBC 7.64 RBC 3.65 L Hgb 11.2 L Hct 33.6 L MCV 92 MCH 30.7 MCHC 33.3 RDW 12.7 Plt Count 263 MPV 10.1 Immature Gran % 0.5 Neutrophils % 62.0 Lymphocytes % 24.6 Monocytes % 10.7 Eosinophils % 1.4 Basophils % 0.8 Nucleated RBC % 0.0 Absolute Neutrophils 4.73 Absolute Lymphocytes 1.88 Absolute Monocytes 0.82 H Absolute Eosinophils 0.11 Absolute Basophils 0.06 PT INR APTT Sodium 135 L Potassium 4.3 Chloride 100 Carbon Dioxide 21.8 Anion Gap 13.2 H BUN 20 H Creatinine 1.1 Est GFR (CKD-EPI 2020) 75.90 Glucose 150 H Calcium 8.6 Magnesium 2.3 Total Bilirubin 0.3 AST 23 ALT 37 Alkaline Phosphatase 147 H Troponin I 11 NT-Pro-B Natriuret Pep 215 Total Protein 7.7 Albumin 3.5 Lipase 91 H ABO/Rh Antibody Screen PFSH All Active Problems (Updated 05/13/25 @ 17:07 by Dee Christie MD) Unstable angina (Acute) Bacteremia (Acute) Severe sepsis (Acute) Gram-positive cocci bacteremia (Acute) Gram-positive bacteremia (Acute) Hyponatremia (Acute) Acute alcohol intoxication (Acute) Substance use disorder (Chronic) CAD (coronary artery disease), [place] coronary artery (Chronic) Depression (Chronic) Aneurysm, thoracic aortic (Acute) Benign essential hypertension (Chronic) RCA occlusion (Acute) Medical History (Updated 05/13/25 @ 17:07 by Dee Christie MD) Neutrophilic leukocytosis Sepsis Social History Smoking/Tobacco Use Status: Current every day Tobacco Type: cigarettes Years smoked: 41 Smoking risk assessment performed?: Yes Alcohol Intake: current Alcohol Intake frequency: a few times a month Drug use: Never Substance use type: does not use Housing: apartment Do you feel safe at home: Yes Do you feel safe in your relationship?: Yes Time Spent with Patient Time Spent with Patient: 45-69 minutes Time was spent: preparing to see the patient(eg.review tests), obtaining and/or reviewing separately otained hiistory, ordering medications,tests, procedures, referring, communicating with other health women's health care nurse practitioner, indepentently interpreting results, counseling the patient and care coordination
--- NOTE | 2025-05-14 12:27 | PHA.REVIEW2 ---
Pharmacy Admission Review Admission Clinical Review Admission Pharmacy Review: Unstable angina (Acute) RCA occlusion (Acute) No Known Allergies Allergy (Verified 03/19/25 07:11) Resuscitation Status Full Code Height 5 ft 9 in Weight 95.8 kg Comments Comments/Follow Ups: Follow up on missing home meds Pharmacy Admission Review Renal Dosing Renal Dosing: BUN 14 mg/dL (7-18) 05/14/25 06:02 Creatinine 0.8 mg/dL (0.70-1.30) 05/14/25 06:02 Medications needing adjustments: Reviewed (CrCl 87.46 mL/min) List of meds needing interventions: Current medications are okay Anticoagulation Anticoagulation: Hgb 10.7 g/dL (13.5-17.5) L 05/14/25 06:02 Hct 31.9 % (40.0-50.0) L 05/14/25 06:02 Plt Count 206 10^3/uL (130-400) 05/14/25 06:02 INR 1.0 (0.9-1.1) 05/14/25 06:02 Creatinine 0.8 mg/dL (0.70-1.30) 05/14/25 06:02 Therapeutic Anticoagulation: Reviewed Medications: Heparin (currently paused due to bloody stool this AM) Relevant Labs Relevant Labs: Sodium 136 mmol/L (136-145) 05/14/25 06:02 Potassium 4.6 mmol/L (3.5-5.1) 05/14/25 06:02 Chloride 103 mmol/L (98-107) 05/14/25 06:02 Magnesium 2.1 mg/dL (1.8-2.4) 05/14/25 06:02 Electrolytes, C-Reactive P, ESR: Reviewed Cardiac Review Cardiac Review: Troponin I 12 ng/L (<or=76) 05/14/25 06:02 NT-Pro-B Natriuret Pep 215 pg/mL (<300) 05/13/25 13:19 Blood Pressure 96/67 1145 Blood Pressure 138/81 0822 Blood Pressure 113/74 0635 Blood Pressure 151/81 0612 Blood Pressure 129/7 0558 Blood Pressure 120/60 0358 BP, HR, EF%: Reviewed (HR WNL) List meds needing interventions: Has orders for lisinopril 10mg daily, isosorbide mononitrate 60mg CR daily and amlodipine 5mg daily QTc Review QTc: Reviewed (450 from 05/13/25) IV to PO Switch IV Medications: Reviewed (heparin infusion) Home Meds Home Med List reviewed: Intervened Relevent Home Meds Not ordered & why?: albuterol (PRN), furosemide and Chantix Asked provider about missing home meds, he is looking into it Current Meds Current Medication Order Review: Intervened Comments: Changed IV ED access Discontinued duplicate nitroglycerin order Changed pantoprazole timing from BID to [phone] per pharmacy protocol Comments Comments/Follow Ups: Follow up on missing home meds
[2025-05-14 14:49] LABS: HCT 31.7 % (40.0-50.0); HGB 10.6 g/dL (13.5-17.5)
[2025-05-14 15:03] LABS: Troponin I 11 ng/L (<or=76)
[2025-05-14] MEDS: Heparin in 0.45% NaCl 25,000 UNIT/250 ML BAG 12 UNIT IVINF ×2 (16:11→19:31)
--- NOTE | 2025-05-14 17:38 | CMDISCH_ITS ---
Date of service: 05/14/25 Time of Service: 17:38 LACE Index Scoring Tool Questions: Length of Stay (in days): 1 Was the patient admitted via the E.D.?: Yes E.D. Visits: 8 Answers: Total Score: 8 Risk of Readmission: Low Risk Care Management Discharge Plan Reason for Hospitalization: Unstable Angina Discharge Plan: Agatha is being transferred to [facility] for further medical workup and treatment, and was accepted by Dr. Gay with [facility] cardiology. Patient/Family Education Needs: Review transfer instructions and discuss ask me three. Services Needed at Discharge: Transportation (EMS-coordinated by RN supervisor [employer]) SDOH Health Related Social Needs: Health related social needs lonely/isolated Health related social needs details i miss my Health related social needs details: i miss my
[2025-05-14] MEDS: Atorvastatin 40 MG TAB 80 MG PO (19:45)
[2025-05-14 20:06] LABS: PTT Activated 29.9 sec (20.6-30.2)
[2025-05-14] MEDS: HYDROmorphone 2 MG/ML SYR 0.5 MG IVP (21:12)
== END 2025-05-14 21:30 | disposition short-term general hospital (02) | DRG 303 ==
LOC: ER 17:07 → MS 18:17
PROVIDERS: Family Medicine; Nurse Practitioner Family; Admitting Provider Family Medicine; Emergency Provider Emergency Medicine; PCP Family Medicine; Responsible Provider Family Medicine; Visit Provider Family Medicine
DX: I25.110 Atherosclerotic heart disease of native coronary artery with unstable angina pectoris (principal); K92.1 Melena; I10 Essential (primary) hypertension; Z95.5 Presence of coronary angioplasty implant and graft; F32.A Depression, unspecified; Z79.899 Other long term (current) drug therapy; I25.82 Chronic total occlusion of coronary artery; F19.90 Other psychoactive substance use, unspecified, uncomplicated; I71.20 Thoracic aortic aneurysm, without rupture, unspecified; F17.210 Nicotine dependence, cigarettes, uncomplicated; R30.0 Dysuria; M54.50 Low back pain, unspecified; R94.31 Abnormal electrocardiogram [ECG] [EKG]; D64.9 Anemia, unspecified
CPT/HCPCS: 00123; 36415; 71275; 80048; 80053; 83690; 86850; 86900; 86901; 93005; 96361; 96365; 96375; 99285; 74174; 83735; 83880; 84484; 85014; 85018; 85025; 85610; 85730; 93010; 99222; 99239; 99291; J1171; J1644; J2270; J3490